=== PATIENT | male | born 1940 | race American Indian/Alaskan Native ===

== ENCOUNTER 2018-05-12 21:36 | Inpatient (IN) | payer MEDICARE ==
[2018-05-12 21:37] VITALS: PULSE 54
--- NOTE | 2018-05-12 21:47 | ED PDOC ---
Arrival/HPI - General Time Seen by Provider: 05/12/18 21:37 Historian: Patient, EMS - History of Present Illness Narrative History of Present Illness (Text): 05/12/18 21:43 Deejay Ribera is a 77 year old male, whose past medical history includes CHF, hypertension and hyperlipidemia, COPD, asthma, chronic kidney disease, and PE, who presents to the emergency department brought in by ALS in respiratory distress. Patient reports has been experiencing progressively shortness of breath throughout the day and denies any relief after taking inhaler treatments at home. EMS was notified, patient was given Lasix 40 mg IVP, and placed on CPAP en route to emergency department. Patient states shortness of breath has improved somewhat, but is still present. Patient denies any fever, chills, chest pain, abdominal pain, nausea, vomiting, headache, dizziness, or any other complaints. PMD: Dr. Figueredo Symptom Onset: Gradual Symptom Course: Unchanged Activities at Onset: Light Context: Home Past Medical History - Provider Review Nursing Documentation Reviewed: Yes - Infectious Disease Hx of Infectious Diseases: None - Tetanus Immunization Tetanus Immunization: Unknown - Cardiac Hx Cardiac Disorders: Yes (CHF,) Hx Hypertension: Yes - Pulmonary Hx Chronic Obstructive Pulmonary Disease (COPD): Yes - Neurological Hx Neurological Disorder: No - HEENT Hx HEENT Disorder: No - Renal Hx Renal Failure: Yes (CRI) - Endocrine/Metabolic Hx Endocrine Disorders: No - Hematological/Oncological Hx Blood Disorders: No Hx Cirrhosis: No (No known liver disease, according to patient's ) - Integumentary Hx Dermatological Disorder: No - Musculoskeletal/Rheumatological Hx Falls: No - Gastrointestinal Hx Gastrointestinal Disorders: Yes - Genitourinary/Gynecological Hx Genitourinary Disorders: No - Psychiatric Hx Anxiety: Yes (?) Hx Substance Use: No - Surgical History Hx Cardiac Catheterization: Yes Hx Open Reduction Internal Fixation: Yes (COMPOUND FRACTURE JAW 1964) - Anesthesia Hx Anesthesia: Yes Hx Anesthesia Reactions: No Hx Malignant Hyperthermia: No - Suicidal Assessment Feels Threatened In Home Enviroment: No Family/Social History - Physician Review Nursing Documentation Reviewed: Yes Family/Social History: Unknown Family HX Smoking Status: Current Some Days Smoker Hx Alcohol Use: No Hx Substance Use: No Allergies/Home Meds Allergies/Adverse Reactions: Allergies No Known Allergies Allergy (Verified 05/13/18 00:13) VERIFIED 06/07/2014 Home Medications: Home Meds Medication Instructions Recorded Confirmed Lasix 40 mg PO DAILY 07/12/14 05/13/18 Methylprednisolone 4 mg PO DAILY 07/12/14 05/13/18 Aspirin [Adult Low Dose Aspirin EC] 81 mg PO DAILY 05/13/18 05/13/18 Atorvastatin [Lipitor] 40 mg PO DAILY 05/13/18 05/13/18 Calcitriol [Rocaltrol] 0.25 mcg PO DAILY 05/13/18 05/13/18 Calcium Acetate [Phoslo] 667 cap PO BID 05/13/18 05/13/18 Cholecalciferol (Vitamin D3) 50,000 unit PO QWK 05/13/18 05/13/18 [Vitamin D3] Ferrous Sulfate [Feosol] 325 mg PO DAILY 05/13/18 05/13/18 Fluticasone/Vilanterol [Breo 1 puff IH DAILY 05/13/18 05/13/18 Ellipta 200-25 Mcg INH] Egnar-3/Dha/Epa/Fish Oil [Egnar 3 1 cap PO DAILY 05/13/18 05/13/18 500 Softgel] amLODIPine [Norvasc] 10 mg PO DAILY 05/13/18 05/13/18 Review of Systems - Physician Review All systems were reviewed & negative as marked: Yes - Review of Systems Constitutional: Normal. absent: Fevers Eyes: Normal ENT: Normal Respiratory: SOB Cardiovascular: Normal. absent: Chest Pain Gastrointestinal: Normal Skin: Normal Psychiatric: Normal Physical Exam Vital Signs Reviewed: Yes Vital Signs Temp Pulse Resp BP Pulse Ox 05/13/18 01:20 97.9 F 63 12 123/51 L 98 05/12/18 23:09 92 H 14 133/64 100 05/12/18 22:00 14 100 05/12/18 21:42 64 29 H 107/59 L 100 Temperature: Afebrile Blood Pressure: Normal Pulse: Regular Respiratory Rate: Tachypneic (on CPAP) Appearance: Positive for: Non-Toxic, Comfortable Pain Distress: None Mental Status: Positive for: Alert and Oriented X 3 - Systems Exam Head: Present: Atraumatic, Normocephalic Pupils: Present: PERRL Extroacular Muscles: Present: EOMI Conjunctiva: Present: Normal Mouth: Present: Moist Mucous Membranes Neck: Present: Normal Range of Motion Respiratory/Chest: Present: Decreased Breath Sounds (Poor air entry bilaterally) , Tachypneic. No: Respiratory Distress, Accessory Muscle Use Cardiovascular: Present: Regular Rate and Rhythm, Normal S1, S2. No: Murmurs Abdomen: No: Tenderness, Distention, Peritoneal Signs Back: Present: Normal Inspection Upper Extremity: Present: Normal Inspection. No: Cyanosis, Edema Lower Extremity: Present: Normal Inspection. No: Edema Neurological: Present: GCS=15, CN II-XII Intact, Speech Normal Skin: Present: Warm, Dry, Normal Color. No: Rashes Psychiatric: Present: Alert, Oriented x 3, Normal Insight, Normal Concentration Medical Decision Making ED Course and Treatment: 05/12/18 21:43 Impression: 77 year old male brought in for respiratory distress on CPAP. Plan: -- EKG -- Chest X-Ray -- Labs, cardiac enzymes, BNP, blood cultures -- Reassess and disposition Prior Visits: Notes and results from previous visits were reviewed. Progress Notes: Reviewed EKG, a fib at 74 bpm. LAD. RBBB. Non-specific ST/T wave changes. 05/12/18 22:37 Chest X-Ray reviewed, shows cardiomegaly, no pneumonia. 05/12/18 22:40 Labs reviewed, BUN: 100, creatinine: 3.3, hemoglobin: 4.4, hematocrit: 14.6. Blood type and screen, packed RBCs ordered. 05/12/18 23:00 BiPAP discontinued. Case discussed with medical office clerk class a regional drivers, who is aware and agrees with plan. Financial Services Auditor paged. 05/12/18 23:[address] Jo, angiographer, who is aware and agrees to evaluate pt in emergency department for possible CCU admission. 05/13/18 00:12 Dr. Jo and medical office clerk to emergency department to evaluate pt. Pt admitted to CCU for anemia and renal failure under the hospitalist service. 05/13/18 02:45 CT Abdomen and Pelvis reviewed, shows: Lung bases: Unremarkable. No mass. No consolidation. Heart: Incidental note made of lipomatous hypertrophy of the intra-atrial septum ABDOMEN: Liver: Unremarkable. Gallbladder and bile ducts: Unremarkable. No calcified stones. No ductal dilation. Pancreas: Unremarkable. No ductal dilation. Spleen: Unremarkable. No splenomegaly. Adrenals: Unremarkable. No mass. Kidneys and ureters: Simple right renal cyst measures 2.5 cm No obstructing stones. No hydronephrosis. Stomach and bowel: Equivocal pneumatosis of the distal esophagus. The patient does not appear to have undergone fundoplication. No periesophageal inflammatory changes present. Findings may reflect artifact, however further evaluation recommended if hematemesis, or epigastric symptoms are present. No obstruction. No mucosal thickening. PELVIS: Appendix: No findings to suggest acute appendicitis. Bladder: The urinary bladder is questionably thickwalled. This may reflect incomplete distention. However correlation with UA is recommended to exclude cystitis. No stones. Reproductive: Unremarkable as visualized. ABDOMEN and PELVIS: Intraperitoneal space: See above. Bones/joints: No acute fracture. No dislocation. Soft tissues: Fat containing umbilical hernia is noted. Vasculature: Unremarkable. No abdominal aortic aneurysm. Lymph nodes: Unremarkable. No enlarged lymph nodes. IMPRESSION: 1. Equivocal pneumatosis of the distal esophagus. The patient does not appear to have undergone fundoplication. No periesophageal inflammatory changes present. Findings may reflect artifact, however further evaluation recommended if hematemesis, or epigastric symptoms are present. 2. Equivocal cystitis. Dictated and Authenticated by: Kevan Rodríguez MD 05/13/2018 2:45 AM Eastern Time ([place]) 05/13/18 03:09 Dr. Jo, angiographer, made aware of CT Abd/Pelvis findings. - Lab Interpretations Lab Results: 05/12/18 21:45 05/12/18 21:45 Lab Results 05/12/18 22:50: Blood Type O POSITIVE, Antibody Screen Negative, Crossmatch See Detail, BBK History Checked Patient has bt 05/12/18 21:45: Retic Count 3.60 H 05/12/18 21:45: Serum Osmolality 333 H 05/12/18 21:45: Iron 105, TIBC 245 L, % Saturation 43 05/12/18 21:45: Sodium 142, Potassium 5.2 H, Chloride 109 H, Carbon Dioxide 16 L , Anion Gap 23 H, BUN 100 H, Creatinine 3.3 H, Est GFR ( Amer) 22, Est GFR (Non-Af Amer) 18, Random Glucose 177 H, Calcium 8.7, Magnesium 1.7, Total Bilirubin 0.1 L, AST 15 L, ALT 17, Alkaline Phosphatase 40, Lactate Dehydrogenase 417, Total Creatine Kinase 59, Troponin I 0.06, NT-Pro-B Natriuret Pep 268, Total Protein 5.4 L, Albumin 3.1, Globulin 2.3, Albumin/ Globulin Ratio 1.4 05/12/18 21:45: WBC 15.1 H, RBC 1.73 L, Hgb 4.4 L*, Hct 14.6 L*, MCV 84.4, MCH 25.4, MCHC 30.1 L, RDW 16.5 H, Plt Count 215, MPV 9.5, Gran % 76.6 H, Lymph % ( Auto) 18.4 L, [place] % (Auto) 4.5, Eos % (Auto) 0.3 L, Baso % (Auto) 0.2, Gran # 11.59 H, Lymph # (Auto) 2.8, [place]t # (Auto) 0.7 H, Eos # (Auto) 0.0, Baso # (Auto ) 0.03 05/12/18 21:45: PT 14.3 H, INR 1.25, APTT 25.5 05/12/18 21:45: pCO2 35, pO2 495.0 H, HCO3 15.7 L, ABG pH 7.26 L, ABG Total CO2 16.8 L, ABG O2 Saturation 100.8 H, ABG O2 Content 7.4 L, ABG Base Excess -10.4 L , ABG Hemoglobin 4.3 L, ABG Carboxyhemoglobin 1.8 H, POC ABG HHb (Measured) - 0.8 L, ABG Methemoglobin 0.9, ABG O2 Capacity 7.3 L, Hgb O2 Saturation 98.0, FiO2 100.0 I have reviewed the lab results: Yes Interpretation: Abnormal lab values - RAD Interpretation Radiology Orders: 05/12/18 21:48 CHEST PORTABLE [RAD] Stat 05/12/18 23:48 ABD & PELVIS W/O PO OR IV CONT [CT] Stat Blood Bank Attendant: ED Physician, Radiologist - EKG Interpretation Interpreted by ED Physician: Yes Type: 12 lead EKG - Medication Orders Current Medication Orders: Pantoprazole Sodium (Protonix Inj) 40 mg IVP Q12 NAOMIE Last Admin: 05/13/18 03:18 Dose: 40 mg IVP Administration Document 05/13/18 03:18 PD (Rec: 05/13/18 03:[address]) Charges for Administration # of IVP Administrations 1 - Scribe Statement The provider has reviewed the documentation as recorded by the Altaf Flores Provider Scribe Attestation: All medical record entries made by the Scribe were at my direction and personally dictated by me. I have reviewed the chart and agree that the record accurately reflects my personal performance of the history, physical exam, medical decision making, and the department course for this patient. I have also personally directed, reviewed, and agree with the discharge instructions and disposition. Disposition/Present on Arrival - Present on Arrival Any Indicators Present on Arrival: No History of DVT/PE: No History of Uncontrolled Diabetes: No Urinary Catheter: No History of Decub. Ulcer: No History Surgical Site Infection Following: None - Disposition Have Diagnosis and Disposition been Completed?: Yes Diagnosis: Anemia, COPD (chronic obstructive pulmonary disease) with chronic bronchitis Disposition: HOSPITALIZED Disposition Time: 00:10 Condition: FAIR
[2018-05-12 21:50] LABS: ARTERIAL BLOOD GAS HCO3 15.7 mmol/L (21-28); ARTERIAL BLOOD GAS HEMOGLOBIN 4.3 g/dL (11.7-17.4); ARTERIAL BLOOD GAS O2 CAPACITY 7.3 mL/dl (16-24); ARTERIAL BLOOD GAS O2 CONTENT 7.4 ML/dl (15-23); ARTERIAL BLOOD GAS O2 SAT 100.8 % (95-98); ARTERIAL BLOOD GAS PCO2 35 mm/Hg (35-45); ARTERIAL BLOOD GAS PH 7.26 (7.35-7.45); ARTERIAL BLOOD GAS TCO2 16.8 mmol.L (22-28)
[2018-05-12 22:26] LABS: BASO # 0.03 K/mm3 (0.0-2.0); BASO % 0.2 % (0.0-3.0); EOS % 0.3 % (1.5-5.0); GRAN # 11.59 (1.4-6.5); GRAN % 76.6 % (50.0-68.0); LYMPH # 2.8 (1.2-3.4); LYMPH % 18.4 % (22.0-35.0); MEAN CELL VOLUME 84.4 fl (80.0-105.0); MEAN CORPUSCULAR HEMOGLOBIN 25.4 pg (25.0-35.0); MEAN CORPUSCULAR HGB CONC 30.1 g/dl (31.0-37.0); MEAN PLATELET VOLUME 9.5 fl (7.0-11.0); MONO # 0.7 (0.1-0.6); MONO % 4.5 % (1.0-6.0); RBC 1.73 10^6/uL (3.5-6.1); RED CELL DISTRIBUTION WIDTH 16.5 % (11.5-14.5); WHITE BLOOD COUNT 15.1 10^3/ul (4.5-11.0)
[2018-05-12 22:36] LABS: ALB/GLOB RATIO 1.4 (1.1-1.8); ALBUMIN 3.1 g/dL (3.0-4.8); CALCIUM 8.7 mg/dL (8.4-10.5)
[2018-05-12 22:37] LABS: HEMOGLOBIN 4.4 g/dL (14.0-18.0)
[2018-05-12 22:41] LABS: INR 1.25; PARTIAL THROMBOPLASTIN TIME 25.5 Seconds (25.1-36.5); PROTHROMBIN TIME 14.3 SECONDS (9.4-12.5)
[2018-05-12 22:47] LABS: TROPONIN I 0.06 ng/mL
--- NOTE | 2018-05-13 01:31 | CP.PCM.CON ---
History of Present Illness - History of Present Illness History of Present Illness: ICU Consult Note for: Dr. Jo Reason for Consult: Severe anemia and Renal failure Pt is a 77yo M with pmhx of CHF, HTN, HLD, COPD, asthma, CKD, and PE who presented to the ED with respiratory distress and was placed on CPAP. Upon examination of the patient, he stated that the respiratory distress resolved completely and was taken off CPAP and had O2 sat @ 99% on 2L NC. Pt stated that the respiratory distress was related to a bout of abdominal cramping which he has been experiencing for the past 3 days. He states that about 3 days ago he ate some "rotten" liverwurst and had many bouts of diarrhea all night. He denies having any blood in the feces. He then states that the diarrhea resolved the next day, but the pt was without appetite and had not eaten a meal in the past 2 days. He denies any further bouts of diarrhea. He currently denies having fevers, chills, headaches, dizziness, lightheadedness, fatigue, chest pain, palpitations, diarrhea currently, n/v, dysuria, numbness or tingling. Pmhx: CHF, HTN, HLD, COPD, asthma, CKD, and PE PSHx: tracheostomy and PEG tube 06/27, ORIF of jaw 1967 Social Hx: current smoker, but says its not as regular. Denies EtOH abuse, denies illicit drug use Medications: Norvasc 10mg QD, Breo, Ferrous sulfate 325 QD, Vit D3 50K / week, phoslo 667 cap BID, Calcitriol .25mcg QD, Lipitor 40mg QD, ASA 81mg QD All: NKDA Family Hx: Pt denies FM, states it is unknown Review of Systems - Review of Systems All systems: reviewed and no additional remarkable complaints except - Constitutional Constitutional: absent: Chills, Fatigue, Fever, Headache, Lethargy, Malaise, Weakness - EENT Eyes: absent: Change in Vision - Cardiovascular Cardiovascular: Dyspnea on Exertion (States can move 50 feet but has been this way for 5 years), Edema. absent: Chest Pain, Diaphoresis, Lightheadedness, Palpitations - Respiratory Respiratory: absent: Cough, Hemoptysis, Wheezing - Gastrointestinal Gastrointestinal: Abdominal Pain (crampy and diffuse). absent: Diarrhea, Hematochezia, Melena, Nausea, Vomiting - Genitourinary Genitourinary: absent: Dysuria, Hematuria, Urinary Frequency - Integumentary Integumentary: absent: Rash - Neurological Neurological: absent: Dizziness, Numbness, Sensory Deficit, Weakness Past Patient History - Infectious Disease Hx of Infectious Diseases: None - Tetanus Immunizations Tetanus Immunization: Unknown - Past Medical History & Family History Past Medical History?: Yes - Past Social History Smoking Status: Current Some Days Smoker - CARDIAC Hx Cardiac Disorders: Yes (CHF,) Hx Hypertension: Yes - PULMONARY Hx Chronic Obstructive Pulmonary Disease (COPD): Yes - NEUROLOGICAL Hx Neurological Disorder: No - HEENT Hx HEENT Problems: No - RENAL Hx Renal Failure: Yes (CRI) - ENDOCRINE/METABOLIC Hx Endocrine Disorders: No - HEMATOLOGICAL/ONCOLOGICAL Hx Blood Disorders: No Hx Cirrhosis: No (No known liver disease, according to patient's ) - INTEGUMENTARY Hx Dermatological Problems: No - MUSCULOSKELETAL/RHEUMATOLOGICAL Hx Falls: No - GASTROINTESTINAL Hx Gastrointestinal Disorders: Yes - GENITOURINARY/GYNECOLOGICAL Hx Genitourinary Disorders: No - PSYCHIATRIC Hx Anxiety: Yes (?) Hx Substance Use: No - SURGICAL HISTORY Hx Cardiac Catheterization: Yes Hx Open Reduction Internal Fixation: Yes (COMPOUND FRACTURE JAW 1964) - ANESTHESIA Hx Anesthesia: Yes Hx Anesthesia Reactions: No Hx Malignant Hyperthermia: No Meds Allergies/Adverse Reactions: Allergies Allergy/AdvReac Type Severity Reaction Status Date / Time No Known Allergies Allergy Verified 05/13/18 00:13 Physical Exam - Constitutional Appears: Well, Non-toxic, No Acute Distress - Head Exam Head Exam: ATRAUMATIC, NORMAL INSPECTION, NORMOCEPHALIC - Eye Exam Eye Exam: EOMI, Normal appearance, PERRL Pupil Exam: NORMAL ACCOMODATION - ENT Exam ENT Exam: Mucous Membranes Dry - Respiratory Exam Respiratory Exam: Clear to Auscultation Bilateral, NORMAL BREATHING PATTERN. absent: Decreased Breath Sounds, Wheezes - Cardiovascular Exam Cardiovascular Exam: REGULAR RHYTHM, RRR, +S1. absent: Rubs - GI/Abdominal Exam GI & Abdominal Exam: Hernia, Normal Bowel Sounds, Soft. absent: Diminished Bowel Sounds, Firm, Guarding, Rebound - Back Exam Additional comments: Stage 3 sacral decubitus ulcer was noted on pt on the superior portion of the intergluteal cleft, no surrounding erythema, purulence or areas of fluctance noted. - Neurological Exam Neurological exam: Alert, Oriented x3 - Psychiatric Exam Psychiatric exam: Normal Affect, Normal Mood - Skin Skin Exam: Cyanosis, Dry, Intact, Normal Color, Petechiae, Rash, Warm Results - Vital Signs Recent Vital Signs: Last Vital Signs Temp Pulse 92 H 05/12/18 23:09 Resp 14 05/12/18 23:09 BP 133/64 05/12/18 23:09 Pulse Ox 100 05/12/18 23:09 - Labs Result Diagrams: 05/12/18 21:45 05/12/18 21:45 Assessment & Plan - Assessment and Plan (Free Text) Assessment: Pt is a 77yo M with pmhx of CHF, HTN, HLD, COPD, asthma, CKD, and PE who presented to the ED with respiratory distress and was placed on CPAP. On CBC was noted to have Hb of 4, though it currently asymptomatic and no active bleed noted on exam. Plan: Respiratrory - Respiratory Distress 2/2 abdominal cramping upon existing COPD now resolved: - Pt was initially brought into ED on CPAP started enroute to ED by paramedics. Pt is now sating 100% on 2L NC - Chest X-Ray reviewed, shows cardiomegaly, no pneumonia. - Cont. Breo PRN Heme: - Asymptomatic Normocytic Anemia suspected due to CKD: - Pt was noted to have a Hgb of 4.4 HCT 14.6 on CBC. No evidence of active bleed on exam - Transfusing PRBCs slowly due to CHF hx - Ferritin, TIBC, Fe levels - Folate, B12 - f/u Blood smear - f/u CBC in AM - f/u retic count Cardiac: - HFpEF of >70% - Found on Echo done on 03/01 - Will slowly transfuse blood and continue to monitor for clinical signs of fluid overload - HTN: - Will continue home Norvasc 10mg Nephro: - SANDRA on CKD: - Noted to have BUN: 100 and Cr: 3.3, which is elevated from baseline Cr of 1.4 - Cr random urine - Urea Nitrogen, random urine - Sodium, random urine - Eosinophils urine - Nephro consult Musculoskeletal: - Grade 2 sacral ulcer noted on exam - Consulted wound care - Turn pt Q2 - Date & Time Date: 05/13/18 Time: 05:12
[2018-05-13 01:47] LABS: IRON 105 ug/dL (45-180)
[2018-05-13 01:56] LABS: % IRON SATURATION 43 % (20-55); TOTAL IRON BINDING CAPACITY 245 ug/dL (261-462)
[2018-05-13 04:09] VITALS: BMI 36.0
--- NOTE | 2018-05-13 06:10 | CP.PCM.PCO ---
Attending/Attestation - Attestation I have personally seen and examined this patient.: Yes I have fully participated in the care of the patient.: Yes I have reviewed all pertinent clinical information: Yes Notes (Text): 05/13/18 06:03 Patient seen with the resident. Assessment * Symptomatic anemia but appears chronic, but possibility of acute as not provided in the history but in icu the stool was dark and positive for guiac, on abd Ct air within the esophageal wall could be the source of bleeding as well. 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 Justa jc. * Podiatry eval for frannie boots * See orders for detail.
--- NOTE | 2018-05-13 06:25 | CP.PCM.HP ---
<Dorene Dang - Last Filed: 05/13/18 09:30> History of Present Illness - History of Present Illness History of Present Illness: H&P Note for: Dr. Jo CC: Abd pain and SOB Pt is a 77yo M with pmhx of CHF, HTN, HLD, COPD, asthma, CKD, and PE who presented to the ED with respiratory distress and was placed on CPAP. Pt stated that the respiratory distress was related to a bout of abdominal cramping which he has been experiencing for the past 3 days. He states that about 3 days ago he ate some "rotten" liverwurst and had many bouts of diarrhea all night. He denies having any blood in the feces. He then states that the diarrhea resolved the next day, but the pt was without appetite and had not eaten a meal in the past 2 days. He denies any further bouts of diarrhea. He currently denies having fevers, chills, headaches, dizziness, lightheadedness, fatigue, chest pain, palpitations, diarrhea currently, n/v, dysuria, numbness or tingling. Pmhx: CHF, HTN, HLD, COPD, asthma, CKD, and PE PSHx: tracheostomy and PEG tube 06/27, ORIF of jaw 1968 Social Hx: current smoker, but says its not as regular. Denies EtOH abuse, denies illicit drug use Medications: Norvasc 10mg QD, Breo, Ferrous sulfate 325 QD, Vit D3 50K / week, phoslo 667 cap BID, Calcitriol .25mcg QD, Lipitor 40mg QD, ASA 81mg QD All: NKDA Family Hx: Pt denies FM, states it is unknown Present on Admission - Present on Admission Any Indicators Present on Admission: Yes History of DVT/PE: Yes Review of Systems - Constitutional Constitutional: absent: Chills, Fever, Headache, Lethargy, Malaise, Weakness - EENT Eyes: absent: Change in Vision - Cardiovascular Cardiovascular: Dyspnea on Exertion (can move 50 ft, been this way for 5 years) , Edema. absent: Chest Pain, Diaphoresis, Lightheadedness, Palpitations - Respiratory Respiratory: absent: Cough, Hemoptysis, Wheezing - Gastrointestinal Gastrointestinal: Abdominal Pain (crampy and diffuse). absent: Diarrhea, Hematochezia, Melena, Nausea, Vomiting - Genitourinary Genitourinary: absent: Dysuria, Hematuria, Urinary Frequency - Integumentary Integumentary: absent: Lesions, Rash - Neurological Neurological: absent: Dizziness, Numbness, Weakness Past Patient History - Infectious Disease Hx of Infectious Diseases: None - Tetanus Immunizations Tetanus Immunization: Unknown - Past Medical History & Family History Past Medical History?: Yes - Past Social History Smoking Status: Current Some Days Smoker - CARDIAC Hx Cardiac Disorders: Yes (CHF,) Hx Hypertension: Yes - PULMONARY Hx Chronic Obstructive Pulmonary Disease (COPD): Yes - NEUROLOGICAL Hx Neurological Disorder: No - HEENT Hx HEENT Problems: No - RENAL Hx Renal Failure: Yes (CRI) - ENDOCRINE/METABOLIC Hx Endocrine Disorders: No - HEMATOLOGICAL/ONCOLOGICAL Hx Blood Disorders: No Hx Cirrhosis: No (No known liver disease, according to patient's ) - INTEGUMENTARY Hx Dermatological Problems: No - MUSCULOSKELETAL/RHEUMATOLOGICAL Hx Falls: No - GASTROINTESTINAL Hx Gastrointestinal Disorders: Yes - GENITOURINARY/GYNECOLOGICAL Hx Genitourinary Disorders: No - PSYCHIATRIC Hx Anxiety: Yes (?) Hx Substance Use: No - SURGICAL HISTORY Hx Cardiac Catheterization: Yes Hx Open Reduction Internal Fixation: Yes (COMPOUND FRACTURE JAW 1964) - ANESTHESIA Hx Anesthesia: Yes Hx Anesthesia Reactions: No Hx Malignant Hyperthermia: No Meds Allergies/Adverse Reactions: Allergies Allergy/AdvReac Type Severity Reaction Status Date / Time No Known Allergies Allergy Verified 05/13/18 00:13 Physical Exam - Constitutional Appears: Well, Non-toxic, No Acute Distress - Head Exam Head Exam: ATRAUMATIC, NORMAL INSPECTION, NORMOCEPHALIC - Eye Exam Eye Exam: EOMI, Normal appearance, PERRL - ENT Exam ENT Exam: Mucous Membranes Dry - Respiratory Exam Respiratory Exam: Clear to Auscultation Bilateral, NORMAL BREATHING PATTERN. absent: Decreased Breath Sounds, Wheezes - Cardiovascular Exam Cardiovascular Exam: REGULAR RHYTHM, RRR, +S1, +S2. absent: Gallop, Rubs, Systolic Murmur - GI/Abdominal Exam GI & Abdominal Exam: Normal Bowel Sounds, Soft. absent: Distended, Guarding, Rigid Results - Vital Signs Recent Vital Signs: Last Vital Signs Temp 98.2 F 05/13/18 06:05 Pulse 62 05/13/18 06:05 Resp 15 05/13/18 06:05 BP 129/58 L 05/13/18 06:05 Pulse Ox 100 05/13/18 05:10 - Labs Result Diagrams: 05/13/18 05:45 05/13/18 05:45 Labs: Laboratory Results - last 24 hr 05/13/18 05/13/18 01:06 03:00 Urine Eosinophils Negative Stool Occult Blood Positive H Assessment & Plan - Assessment and Plan (Free Text) Assessment: Pt is a 77yo M with pmhx of CHF, HTN, HLD, COPD, asthma, CKD, and PE who presented to the ED with respiratory distress and was placed on CPAP. Upon examination of the patient, he stated that the respiratory distress resolved completely and was taken off CPAP and had O2 sat @ 99% on 2L NC. On CBC was noted to have Hb of 4, though it currently asymptomatic and no active bleed noted on exam. Plan: 1) Respiratory Distress 2/2 abdominal cramping upon existing COPD now resolved: - Pt was initially brought into ED on CPAP started enroute to ED by paramedics. Pt is now sating 100% on 2L NC - Chest X-Ray reviewed, shows cardiomegaly, no pneumonia. - Cont. Breo PRN 2) Asymptomatic Normocytic Anemia suspected due to CKD: - Pt was noted to have a Hgb of 4.4 HCT 14.6 on CBC. No evidence of active bleed on exam - Transfusing PRBCs slowly due to CHF hx - Ferritin, TIBC, Fe levels - Folate, B12 - f/u Blood smear - f/u CBC in AM - f/u retic count 3) HFpEF of >70% - Found on Echo done on 03/01 - Will slowly transfuse blood and continue to monitor for clinical signs of fluid overload 4) HTN: - Will continue home Norvasc 10mg 5) SANDRA on CKD: - Noted to have BUN: 100 and Cr: 3.3, which is elevated from baseline Cr of 1.4 - Cr random urine - Urea Nitrogen, random urine - Sodium, random urine - Eosinophils urine - Nephro consult 6) Grade 2 sacral ulcer noted on exam - Consulted wound care - Turn pt Q2 Discussed with Dr. Sandro Dang PGY1 - Date & Time Date: 05/13/18 Time: 09:04 <Eddie Jo P - Last Filed: 05/14/18 07:39> Results - Vital Signs Recent Vital Signs: Last Vital Signs Temp 97.2 F L 05/13/18 18:00 Pulse 57 L 05/13/18 18:10 Resp 25 H 05/13/18 18:10 BP 132/59 L 05/13/18 18:00 Pulse Ox 90 L 05/13/18 18:10 - Labs Result Diagrams: 05/13/18 23:35 05/13/18 05:45 Labs: Laboratory Results - last 24 hr 05/13/18 05/13/18 05/13/18 09:30 10:28 11:40 WBC 18.6 H RBC 2.73 L Hgb 7.8 L D Hct 23.4 L MCV 85.7 MCH 28.6 MCHC 33.3 RDW 15.3 H Plt Count 162 MPV 9.4 Gran % Lymph % (Auto) [place] % (Auto) Eos % (Auto) Baso % (Auto) Gran # Lymph # (Auto) [place] # (Auto) Eos # (Auto) Baso # (Auto) Lactic Acid 1.1 Troponin I 0.07 Urine Color Urine Appearance Urine pH Ur Specific [place] Urine Protein Urine Glucose (UA) Urine Ketones Urine Blood Urine Nitrate Urine Bilirubin Urine Urobilinogen Ur Leukocyte Esterase Urine RBC Urine WBC Ur Epithelial Cells Ur Random Creatinine Ur Random Sodium Ur Random Urea Nitrogn 05/13/18 05/13/18 05/13/18 18:21 18:21 19:40 WBC RBC Hgb Hct MCV MCH MCHC RDW Plt Count MPV Gran % Lymph % (Auto) [place] % (Auto) Eos % (Auto) Baso % (Auto) Gran # Lymph # (Auto) [place] # (Auto) Eos # (Auto) Baso # (Auto) Lactic Acid Troponin I 0.08 Urine Color Yellow Urine Appearance Clear Urine pH 5.5 Ur Specific [place] 1.010 Urine Protein Negative Urine Glucose (UA) Negative Urine Ketones Negative Urine Blood Negative Urine Nitrate Negative Urine Bilirubin Negative Urine Urobilinogen 0.2 Ur Leukocyte Esterase Small H Urine RBC TEST NOT PERFORMED Urine WBC 5 - 10 Ur Epithelial Cells 10 - 12 Ur Random Creatinine 50 Ur Random Sodium 49 Ur Random Urea Nitrogn 668 05/13/18 23:35 WBC 14.7 H D RBC 2.88 L Hgb 8.2 L Hct 24.8 L MCV 86.1 MCH 28.5 MCHC 33.1 RDW 15.3 H Plt Count 149 MPV 9.8 Gran % 66.0 Lymph % (Auto) 21.2 L [place] % (Auto) 11.1 H Eos % (Auto) 1.6 Baso % (Auto) 0.1 Gran # 9.70 H Lymph # (Auto) 3.1 [place] # (Auto) 1.6 H Eos # (Auto) 0.2 Baso # (Auto) 0.02 Lactic Acid Troponin I Urine Color Urine Appearance Urine pH Ur Specific [place] Urine Protein Urine Glucose (UA) Urine Ketones Urine Blood Urine Nitrate Urine Bilirubin Urine Urobilinogen Ur Leukocyte Esterase Urine RBC Urine WBC Ur Epithelial Cells Ur Random Creatinine Ur Random Sodium Ur Random Urea Nitrogn Attending/Attestation - Attestation I have personally seen and examined this patient.: Yes I have fully participated in the care of the patient.: Yes I have reviewed all pertinent clinical information: Yes Notes (Text): 05/14/18 07:39 See note on the same day of admission
[2018-05-13 06:44] LABS: BASO # 0.03 K/mm3 (0.0-2.0); BASO % 0.2 % (0.0-3.0); EOS # 0.1 (0.0-0.7); EOS % 0.4 % (1.5-5.0); GRAN # 13.31 (1.4-6.5); GRAN % 73.7 % (50.0-68.0); LYMPH # 2.6 (1.2-3.4); LYMPH % 14.5 % (22.0-35.0); MEAN CELL VOLUME 83.2 fl (80.0-105.0); MEAN CORPUSCULAR HGB CONC 32.5 g/dl (31.0-37.0); MEAN PLATELET VOLUME 9.6 fl (7.0-11.0); MONO % 11.2 % (1.0-6.0); RBC 1.96 10^6/uL (3.5-6.1); RED CELL DISTRIBUTION WIDTH 15.3 % (11.5-14.5); WHITE BLOOD COUNT 18.1 10^3/ul (4.5-11.0)
[2018-05-13 06:46] LABS: HEMOGLOBIN 5.3 g/dL (14.0-18.0)
[2018-05-13 07:12] LABS: ALB/GLOB RATIO 1.3 (1.1-1.8); CALCIUM 8.6 mg/dL (8.4-10.5)
[2018-05-13] MEDS ORDERED: Pantoprazole 40mg/100mL NS 40 MG/100 ML BAG IVPB SCH (08:00)
--- NOTE | 2018-05-13 08:31 | RAD ---
Date of service: 05/12/2018 HISTORY: sob COMPARISON: No prior. FINDINGS: LUNGS: No active pulmonary disease. PLEURA: No significant pleural effusion identified, no pneumothorax apparent. CARDIOVASCULAR: Normal. OSSEOUS STRUCTURES: No significant abnormalities. VISUALIZED UPPER ABDOMEN: Normal. OTHER FINDINGS: None. IMPRESSION: No active disease.
--- NOTE | 2018-05-13 08:44 | CT ---
Date of service: 05/13/2018 PROCEDURE: CT Abdomen and Pelvis without intravenous contrast HISTORY: abd pain COMPARISON: None. TECHNIQUE: Helical CT of the abdomen and pelvis was performed without oral or intravenous contrast as per referring physician request. Contrast dose: None Radiation dose: Total exam DLP = 1041.64 mGy-cm. This CT exam was performed using one or more of the following dose reduction techniques: Automated exposure control, adjustment of the mA and/or kV according to patient size, and/or use of iterative reconstruction technique. FINDINGS: LOWER THORAX: Mild hiatal hernia identified. Abnormal emphysematous changes seen related to the esophagus. This may be related to swallowing during the CT examination. Clinically correlate nevertheless. Esophageal mucosal or full-thickness perforation is not excluded with submucous pneumatosis and further clinical correlation is recommended. GI consultation is advised. LIVER: Unremarkable. No gross lesion or ductal dilatation. GALLBLADDER AND BILE DUCTS: Unremarkable. PANCREAS: Unremarkable. No gross lesion or ductal dilatation. SPLEEN: Unremarkable. ADRENALS: Unremarkable. No mass. KIDNEYS AND URETERS: A cyst identified at the midpole right kidney posteriorly, measuring 2.2 cm. No obstructive uropathy, radiodense urolithiasis or significant perinephric reaction. Likely senescent perinephric streaking is seen bilaterally. This is a symmetric finding. Clinically correlate. VASCULATURE: Unremarkable. No aortic aneurysm. BOWEL: The stomach is stent distended with retained food and fluid as well as air with no gross mural thickening demonstrated. Evaluation of the gastrointestinal tract is limited due the lack of oral contrast administration. Nevertheless, the bowel is not appear obstructed and limited retained fecal material scattered throughout the large bowel. APPENDIX: Unremarkable. Normal appendix. PERITONEUM: No ascites or free intrarenal gas. No mesenteric edema. There is a moderate-sized umbilical hernia with the neck measuring 4.1 cm. LYMPH NODES: Unremarkable. No enlarged lymph nodes. BLADDER: Urinary bladder is decompressed limiting evaluation the wall. Cystitis is not completely excluded but is not favored either. No radiodense urolithiasis in the lumen. No gross diverticular changes. REPRODUCTIVE: Unremarkable. BONES: No acute fracture. OTHER FINDINGS: None. IMPRESSION: No radiodense urolithiasis, perinephric fluid collection or obstructive uropathy is appreciate bilaterally. The bilateral ureters appear normal caliber overall. Equivocal cystitis. Please see discussion above. Potential esophageal perforation with pneumatosis versus artifact from swallowing. Consider GI consultation for further characterization. Small umbilical hernia containing only fat. Concordant preliminary report from [facility], 05/13/2018.
[2018-05-13] MEDS: Pantoprazole 40mg/100mL NS 40 MG/100 ML BAG IVPB SCH ×2 (08:45→19:40)
--- NOTE | 2018-05-13 09:11 | CP.PCM.CON ---
<Syeda Alatorre - Last Filed: 05/13/18 09:00> History of Present Illness - History of Present Illness History of Present Illness: GI Fellow PGY5 Consult Note This is a 77yo M with pmhx of CHF, HTN, HLD, COPD, asthma, CKD, Trach/PEG in 2013 with reversal, and PE not on any OAC who presented to the ED with abdominal pain found to be in respiratory distress and was placed on CPAP. He reports severe abdominal cramping which he has been experiencing for the past 3 days after eating liverwurst and had many bouts of diarrhea the first night. He denies having any blood in the feces. Pt denies any vomiting episodes. He then states that the diarrhea resolved the next day, but the pt was without appetite and had not eaten a meal in the past 2 days. 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 Pt was found to have a Hgb of 4.4 on admission. Pt reports that his Hgb was 9 a few weeks ago in the outpt setting. He is supposed to be on iron but has not taken it in 3 weeks due to recent abx use. He had a EGD/Colonoscopy about 1 year ago at [facility] [place] and states everything was fine , no report to verify results. He denies any dysphagia or odynophagia. No use of NSAIDs. ROS: A 12pt ROS was negative except as above Pmhx: As stated in HPI PSHx: tracheostomy and PEG tube 06/27 with reversal, ORIF of jaw 1968 SHx: current smoker, denies EtOH abuse, denies illicit drug use FHx: Pt denies colon cancer Past Patient History - Infectious Disease Hx of Infectious Diseases: None - Tetanus Immunizations Tetanus Immunization: Unknown - Past Medical History & Family History Past Medical History?: Yes - Past Social History Smoking Status: Current Some Days Smoker - CARDIAC Hx Cardiac Disorders: Yes (CHF,) Hx Hypertension: Yes - PULMONARY Hx Chronic Obstructive Pulmonary Disease (COPD): Yes - NEUROLOGICAL Hx Neurological Disorder: No - HEENT Hx HEENT Problems: No - RENAL Hx Renal Failure: Yes (CRI) - ENDOCRINE/METABOLIC Hx Endocrine Disorders: No - HEMATOLOGICAL/ONCOLOGICAL Hx Blood Disorders: No Hx Cirrhosis: No (No known liver disease, according to patient's ) - INTEGUMENTARY Hx Dermatological Problems: No - MUSCULOSKELETAL/RHEUMATOLOGICAL Hx Falls: No - GASTROINTESTINAL Hx Gastrointestinal Disorders: Yes - GENITOURINARY/GYNECOLOGICAL Hx Genitourinary Disorders: No - PSYCHIATRIC Hx Anxiety: Yes (?) Hx Substance Use: No - SURGICAL HISTORY Hx Cardiac Catheterization: Yes Hx Open Reduction Internal Fixation: Yes (COMPOUND FRACTURE JAW 1964) - ANESTHESIA Hx Anesthesia: Yes Hx Anesthesia Reactions: No Hx Malignant Hyperthermia: No Meds Allergies/Adverse Reactions: Allergies Allergy/AdvReac Type Severity Reaction Status Date / Time No Known Allergies Allergy Verified 05/13/18 00:13 - Medications Medications: Current Medications Pantoprazole Sodium (Protonix 40mg Ivpb) 40 mg in 100 mls @ 20 mls/hr IVPB .Q5H NAOMIE Last Admin: 05/13/18 08:45 Dose: 20 mls/hr Physical Exam - Constitutional Appears: Non-toxic, No Acute Distress, Chronically Ill - Head Exam Head Exam: ATRAUMATIC, NORMOCEPHALIC - Eye Exam Eye Exam: EOMI, Normal appearance Pupil Exam: PERRL - ENT Exam ENT Exam: Mucous Membranes Dry - Neck Exam Neck exam: Positive for: Full Rom, Normal Inspection - Respiratory Exam Respiratory Exam: Decreased Breath Sounds, NORMAL BREATHING PATTERN - Cardiovascular Exam Cardiovascular Exam: REGULAR RHYTHM, RRR, +S1, +S2 - GI/Abdominal Exam GI & Abdominal Exam: Normal Bowel Sounds, Soft, Tenderness. absent: Distended, Firm, Guarding, Organomegaly, Rigid - Rectal Exam Rectal Exam: Black Stool - Neurological Exam Neurological exam: Alert, Oriented x3 - Psychiatric Exam Psychiatric exam: Normal Affect, Normal Mood - Skin Skin Exam: Dry, Intact, Normal Color, Warm Results - Vital Signs Recent Vital Signs: Last Vital Signs Temp 97.5 F L 05/13/18 08:49 Pulse 70 05/13/18 08:49 Resp 22 05/13/18 08:49 BP 129/55 L 05/13/18 08:49 Pulse Ox 100 05/13/18 06:50 - Labs Result Diagrams: 05/13/18 05:45 05/13/18 05:45 Labs: Laboratory Results - last 24 hr 05/13/18 05/13/18 05/13/18 01:06 03:00 05:45 WBC RBC Hgb Hct MCV MCH MCHC RDW Plt Count MPV Gran % Lymph % (Auto) [place] % (Auto) Eos % (Auto) Baso % (Auto) Gran # Lymph # (Auto) [place] # (Auto) Eos # (Auto) Baso # (Auto) Sodium 144 Potassium 4.8 Chloride 109 H Carbon Dioxide 21 Anion Gap 19 BUN 109 H Creatinine 3.3 H Est GFR ( Amer) 22 Est GFR (Non-Af Amer) 18 Random Glucose 100 Calcium 8.6 Phosphorus 5.5 H Magnesium 1.8 Total Bilirubin 0.1 L AST 15 L ALT 21 Alkaline Phosphatase 39 Total Protein 5.2 L Albumin 3.0 Globulin 2.3 Albumin/Globulin Ratio 1.3 Urine Eosinophils Negative Stool Occult Blood Positive H 05/13/18 05:45 WBC 18.1 H RBC 1.96 L Hgb 5.3 L* Hct 16.3 L* MCV 83.2 MCH 27.0 MCHC 32.5 RDW 15.3 H Plt Count 184 MPV 9.6 Gran % 73.7 H Lymph % (Auto) 14.5 L [place] % (Auto) 11.2 H Eos % (Auto) 0.4 L Baso % (Auto) 0.2 Gran # 13.31 H Lymph # (Auto) 2.6 [place] # (Auto) 2.0 H Eos # (Auto) 0.1 Baso # (Auto) 0.03 Sodium Potassium Chloride Carbon Dioxide Anion Gap BUN Creatinine Est GFR ( Amer) Est GFR (Non-Af Amer) Random Glucose Calcium Phosphorus Magnesium Total Bilirubin AST ALT Alkaline Phosphatase Total Protein Albumin Globulin Albumin/Globulin Ratio Urine Eosinophils Stool Occult Blood Assessment & Plan - Assessment and Plan (Free Text) Assessment: This is a 77yo M with pmhx of CHF, HTN, HLD, COPD, asthma, CKD, Trach/PEG in 2013 with reversal, and PE not on any OAC who presented to the ED with abdominal pain found to be in respiratory distress. GI consulted for esophageal pneumatosis on imaging. 1. Acute symptomatic anemia 2. Melena 3. 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 Hx of Trach and PEG, reversed 5. SANDRA, elevated BUN 6. UGIB Plan: -Continue supportive care with pain control and anti-emetics -NPO -CT imaging reviewed, recommend surgical cs -Pt hemodynamically stable -Acute anemia with Hgb 4.4-->5.3 s/p 1U PRCs -Rectal exam with black stool and elevated BUN concern for UGIB -UGIB maybe from esophageal ulcer, PUD, AVM -IV PPI Drip -Discussed with ICU team about aggressive resuscitation with blood products in setting of normal EF on Echo 02/2018 -Plan for EGD today after resuscitation and medical optimization -Goal of total 3U PRBC transfused prior to EGD and CBC -Further workup per primary team -Will continue to follow closely and make further recommendations after endoscopic evaluation <Cuco Francisco - Last Filed: 05/13/18 18:36> Meds - Medications Medications: Current Medications Pantoprazole Sodium (Protonix 40mg Ivpb) 40 mg in 100 mls @ 20 mls/hr IVPB .Q5H NAOMIE Last Admin: 05/13/18 08:45 Dose: 20 mls/hr Iron Sucrose 200 mg/ Sodium (Chloride) 110 mls @ 110 mls/hr IVPB DAILY NAOMIE Stop: 05/17/18 10:59 Last Admin: 05/13/18 11:46 Dose: 110 mls/hr Multi-Ingredient Cream (Hydrocerin Cream) 0 ea TOP DAILY NAOMIE Results - Vital Signs Recent Vital Signs: Last Vital Signs Temp 97.9 F 05/13/18 14:00 Pulse 57 L 05/13/18 18:10 Resp 25 H 05/13/18 18:10 BP 132/59 L 05/13/18 18:00 Pulse Ox 90 L 05/13/18 18:10 - Labs Result Diagrams: 05/13/18 11:40 05/13/18 05:45 Labs: Laboratory Results - last 24 hr 05/13/18 05/13/18 05/13/18 01:06 03:00 05:45 WBC RBC Hgb Hct MCV MCH MCHC RDW Plt Count MPV Gran % Lymph % (Auto) [place] % (Auto) Eos % (Auto) Baso % (Auto) Gran # Lymph # (Auto) [place] # (Auto) Eos # (Auto) Baso # (Auto) Sodium 144 Potassium 4.8 Chloride 109 H Carbon Dioxide 21 Anion Gap 19 BUN 109 H Creatinine 3.3 H Est GFR ( Amer) 22 Est GFR (Non-Af Amer) 18 Random Glucose 100 Lactic Acid Calcium 8.6 Phosphorus 5.5 H Magnesium 1.8 Total Bilirubin 0.1 L AST 15 L ALT 21 Alkaline Phosphatase 39 Troponin I Total Protein 5.2 L Albumin 3.0 Globulin 2.3 Albumin/Globulin Ratio 1.3 Urine Eosinophils Negative Stool Occult Blood Positive H 05/13/18 05/13/18 05/13/18 05:45 09:30 10:28 WBC 18.1 H RBC 1.96 L Hgb 5.3 L* Hct 16.3 L* MCV 83.2 MCH 27.0 MCHC 32.5 RDW 15.3 H Plt Count 184 MPV 9.6 Gran % 73.7 H Lymph % (Auto) 14.5 L [place] % (Auto) 11.2 H Eos % (Auto) 0.4 L Baso % (Auto) 0.2 Gran # 13.31 H Lymph # (Auto) 2.6 [place] # (Auto) 2.0 H Eos # (Auto) 0.1 Baso # (Auto) 0.03 Sodium Potassium Chloride Carbon Dioxide Anion Gap BUN Creatinine Est GFR ( Amer) Est GFR (Non-Af Amer) Random Glucose Lactic Acid 1.1 Calcium Phosphorus Magnesium Total Bilirubin AST ALT Alkaline Phosphatase Troponin I 0.07 Total Protein Albumin Globulin Albumin/Globulin Ratio Urine Eosinophils Stool Occult Blood 05/13/18 11:40 WBC 18.6 H RBC 2.73 L Hgb 7.8 L D Hct 23.4 L MCV 85.7 MCH 28.6 MCHC 33.3 RDW 15.3 H Plt Count 162 MPV 9.4 Gran % Lymph % (Auto) [place] % (Auto) Eos % (Auto) Baso % (Auto) Gran # Lymph # (Auto) [place] # (Auto) Eos # (Auto) Baso # (Auto) Sodium Potassium Chloride Carbon Dioxide Anion Gap BUN Creatinine Est GFR ( Amer) Est GFR (Non-Af Amer) Random Glucose Lactic Acid Calcium Phosphorus Magnesium Total Bilirubin AST ALT Alkaline Phosphatase Troponin I Total Protein Albumin Globulin Albumin/Globulin Ratio Urine Eosinophils Stool Occult Blood Attending/Attestation - Attestation I have personally seen and examined this patient.: Yes I have fully participated in the care of the patient.: Yes I have reviewed all pertinent clinical information: Yes Notes (Text): 05/13/18 18:27 This is a 77 year old M with pmhx of CHF, HTN, HLD, COPD, asthma, CKD, Trach/ PEG in 2013 with reversal, and PE not on any OAC who presented to the ED with abdominal pain found to be in respiratory distress. GI consulted for esophageal pneumatosis on imaging and possible GI bleeding s/p 4 units PRBC. Barium esophagogram unremarkable for perforation. 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 For hemostasis 2 cc epinephrine was injected with 3 clips placed. Hemostasis achieved. PPI gtt for 72 hours. Trend cbc daily. Follow up gastric biopsies.
--- NOTE | 2018-05-13 09:57 | CARD ---
APPROVED REPORT Date of service: 05/12/2018 EKG Measurement Heart [id number] <Conclusion> Atrial fibrillation Left axis deviation Right bundle branch block NSSTW changes
--- NOTE | 2018-05-13 10:15 | CP.PCM.CON ---
<MauraChicojhonmike - Last Filed: 05/13/18 11:08> History of Present Illness - History of Present Illness History of Present Illness: Podiatry Consult Note - Dr. Mehta 77 year old male PMHx CHF, HTN, HLD, COPD, asthma, CKD, and PE seen and evaluated at bedside in CCU. Patient was brought to ED for respiratory distress and was admitted for anemia and renal failure. Podiatry consulted for chronic lower extremity edema and superficial ulcerations. Patient well known to podiatry service; patient has been following up in the wound care center for compression dressings to bilateral LE, last seen 05/10/18. At, present, patient offers no complaints to bilateral LE; denies any pain w/o issues with compression dressings. No numbness, burning, or tingling to LE. Denies N/V/F/C/ COX/CP. Review of Systems - Review of Systems All systems: reviewed and no additional remarkable complaints except (as per HPI ) Past Patient History - Infectious Disease Hx of Infectious Diseases: None - Tetanus Immunizations Tetanus Immunization: Unknown - Past Medical History & Family History Past Medical History?: Yes - Past Social History Smoking Status: Current Some Days Smoker - CARDIAC Hx Cardiac Disorders: Yes (CHF,) Hx Hypertension: Yes - PULMONARY Hx Chronic Obstructive Pulmonary Disease (COPD): Yes - NEUROLOGICAL Hx Neurological Disorder: No - HEENT Hx HEENT Problems: No - RENAL Hx Renal Failure: Yes (CRI) - ENDOCRINE/METABOLIC Hx Endocrine Disorders: No - HEMATOLOGICAL/ONCOLOGICAL Hx Blood Disorders: No Hx Cirrhosis: No (No known liver disease, according to patient's ) - INTEGUMENTARY Hx Dermatological Problems: No - MUSCULOSKELETAL/RHEUMATOLOGICAL Hx Falls: No - GASTROINTESTINAL Hx Gastrointestinal Disorders: Yes - GENITOURINARY/GYNECOLOGICAL Hx Genitourinary Disorders: No - PSYCHIATRIC Hx Anxiety: Yes (?) Hx Substance Use: No - SURGICAL HISTORY Hx Cardiac Catheterization: Yes Hx Open Reduction Internal Fixation: Yes (COMPOUND FRACTURE JAW 1964) - ANESTHESIA Hx Anesthesia: Yes Hx Anesthesia Reactions: No Hx Malignant Hyperthermia: No Meds Allergies/Adverse Reactions: Allergies Allergy/AdvReac Type Severity Reaction Status Date / Time No Known Allergies Allergy Verified 05/13/18 00:13 - Medications Medications: Current Medications Pantoprazole Sodium (Protonix 40mg Ivpb) 40 mg in 100 mls @ 20 mls/hr IVPB .Q5H NAOMIE Last Admin: 05/13/18 08:45 Dose: 20 mls/hr Physical Exam - Constitutional Appears: Non-toxic, No Acute Distress - Extremities Exam Additional comments: Bilateral LE physical exam: 4-layer compression dressing clean/dry/intact b/l. Vasc: DP and PT pulses nonpalpable b/l. CFT <3 seconds to digits b/l. Temperature gradient warm to warm b/l. +1 pitting edema present b/l. Neuro: Gross sensation diminished bilaterally. Derm: Superficial abrasion noted to proximoanterior tibia b/l; no drainage; no purulence; no fluctuance; no periwound erythema. Healed ulcerations noted to posterior calf RLE with minimal serosanguinous drainage; no purulence; no fluctuance; no periwound erythema. Venous stasis dermatitis b/l leg. Ortho: No pain on palpation to bilateral LE. Muscle strength 5/5 for all dorsiflexors, plantarflexors, inverters, and everters b/l. - Neurological Exam Neurological exam: Alert, Oriented x3 - Psychiatric Exam Psychiatric exam: Normal Affect, Normal Mood Results - Vital Signs Recent Vital Signs: Last Vital Signs Temp 98 F 05/13/18 09:07 Pulse 75 05/13/18 09:07 Resp 20 05/13/18 09:07 BP 147/51 L 05/13/18 09:07 Pulse Ox 100 05/13/18 06:50 - Labs Result Diagrams: 05/13/18 05:45 05/13/18 05:45 Labs: Laboratory Results - last 24 hr 05/13/18 05/13/18 05/13/18 01:06 03:00 05:45 WBC RBC Hgb Hct MCV MCH MCHC RDW Plt Count MPV Gran % Lymph % (Auto) Carroll % (Auto) Eos % (Auto) Baso % (Auto) Gran # Lymph # (Auto) [place] # (Auto) Eos # (Auto) Baso # (Auto) Sodium 144 Potassium 4.8 Chloride 109 H Carbon Dioxide 21 Anion Gap 19 BUN 109 H Creatinine 3.3 H Est GFR ( Amer) 22 Est GFR (Non-Af Amer) 18 Random Glucose 100 Calcium 8.6 Phosphorus 5.5 H Magnesium 1.8 Total Bilirubin 0.1 L AST 15 L ALT 21 Alkaline Phosphatase 39 Total Protein 5.2 L Albumin 3.0 Globulin 2.3 Albumin/Globulin Ratio 1.3 Urine Eosinophils Negative Stool Occult Blood Positive H 05/13/18 05:45 WBC 18.1 H RBC 1.96 L Hgb 5.3 L* Hct 16.3 L* MCV 83.2 MCH 27.0 MCHC 32.5 RDW 15.3 H Plt Count 184 MPV 9.6 Gran % 73.7 H Lymph % (Auto) 14.5 L Carroll % (Auto) 11.2 H Eos % (Auto) 0.4 L Baso % (Auto) 0.2 Gran # 13.31 H Lymph # (Auto) 2.6 Carroll # (Auto) 2.0 H Eos # (Auto) 0.1 Baso # (Auto) 0.03 Sodium Potassium Chloride Carbon Dioxide Anion Gap BUN Creatinine Est GFR ( Amer) Est GFR (Non-Af Amer) Random Glucose Calcium Phosphorus Magnesium Total Bilirubin AST ALT Alkaline Phosphatase Total Protein Albumin Globulin Albumin/Globulin Ratio Urine Eosinophils Stool Occult Blood Assessment & Plan - Assessment and Plan (Free Text) Assessment: 77 year old male PMHx CHF, HTN, HLD, COPD, asthma, CKD, and PE with bilateral LE edema and superficial ulcerations, resolved Plan: Patient seen and evaluated alongside attending, Dr. Mehta VSBibi Wounds to bilateral LE resolved, no dressing at this time QD Eucerin cream Podiatry will continue to follow <Nancy Mehta - Last Filed: 05/16/18 18:45> Meds - Medications Medications: Current Medications Albuterol/Ipratropium (Duoneb 3 Mg/0.5 Mg (3 Ml) Ud) 3 ml IH [id number] [facility] Last Admin: 05/16/18 13:51 Dose: 3 ml Albuterol/Ipratropium (Duoneb 3 Mg/0.5 Mg (3 Ml) Ud) 3 ml IH [id number] PRN PRN Reason: Wheezing Iron Sucrose 200 mg/ Sodium (Chloride) 110 mls @ 110 mls/hr IVPB DAILY [facility] Stop: 05/17/18 10:59 Last Admin: 05/16/18 10:13 Dose: 110 mls/hr Methylprednisolone (Medrol) 4 mg PO DAILY [facility] Last Admin: 05/16/18 10:17 Dose: 4 mg Multi-Ingredient Cream (Hydrocerin Cream) 0 ea TOP DAILY NAOMIE Last Admin: 05/16/18 10:13 Dose: 1 appl Pantoprazole Sodium (Protonix Ec Tab) 40 mg PO 0600,1600 NAOMIE Last Admin: 05/16/18 16:39 Dose: 40 mg Results - Vital Signs Recent Vital Signs: Last Vital Signs Temp 98.7 F 05/16/18 14:00 Pulse 60 05/16/18 14:00 Resp 18 05/16/18 14:00 BP 128/75 05/16/18 14:00 Pulse Ox 98 05/16/18 14:00 - Labs Result Diagrams: 05/16/18 16:42 05/16/18 07:15 Labs: Laboratory Results - last 24 hr 05/16/18 05/16/18 05/16/18 07:15 07:15 16:42 WBC 12.0 H 12.7 H RBC 2.53 L 2.63 L Hgb 7.2 L 7.4 L Hct 22.8 L 23.5 L MCV 90.1 89.4 MCH 28.5 28.1 MCHC 31.6 31.5 RDW 16.9 H 17.1 H Plt Count 185 182 MPV 9.4 10.0 Gran % 68.2 H 77.5 H Lymph % (Auto) 19.8 L 12.3 L Carroll % (Auto) 9.5 H 8.6 H Eos % (Auto) 2.3 1.4 L Baso % (Auto) 0.2 0.2 Gran # 8.22 H 9.84 H Lymph # (Auto) 2.4 1.6 Carroll # (Auto) 1.1 H 1.1 H Eos # (Auto) 0.3 0.2 Baso # (Auto) 0.02 0.03 Sodium 145 Potassium 5.0 Chloride 112 H Carbon Dioxide 23 Anion Gap 14 BUN 62 H Creatinine 3.0 H Est GFR ( Amer) 25 Est GFR (Non-Af Amer) 20 Random Glucose 89 Calcium 8.1 L Phosphorus 3.7 Magnesium 2.0 Total Bilirubin 0.2 AST 13 L ALT 21 Alkaline Phosphatase 52 Total Protein 5.7 L Albumin 3.1 Globulin 2.6 Albumin/Globulin Ratio 1.2 Attending/Attestation - Attestation I have personally seen and examined this patient.: Yes I have fully participated in the care of the patient.: Yes I have reviewed all pertinent clinical information: Yes
[2018-05-13] MEDS ORDERED: Darbepoetin Alfa 100 mcg/ml Inj SC ONE (10:40)
--- NOTE | 2018-05-13 10:40 | CP.PCM.CON ---
History of Present Illness - History of Present Illness History of Present Illness: Nephrology Consultation Note: Assessment: critical SANDRA likely due to GI volume loss symptomatic severe anemia with FOB + CKD stage 4 with 443 mg proteinuria likely Due to HTN HTN kidney disease (I12.9) Obesity Anemia of chronic disease hx of COPD, CHF, ex smoker, PE on shelter prednisone therapy ? reason Plan no acute need for renal replacement therapy at this time Hypertension control with meds as ordered. pt not on RAAS brittni, will defer it due to advanced CKD Monitor I/O, daily weights and renal function while in hospital started IV iron supplements and dose of aransep 05/13/18 (100 mcg) planned for PRBC transfusion and endoscopic evaluation today. can give lasix as needed GI following ordered SPEP/SKYLAR and serum FLC assay, UA. iron studies. Dose meds/antibiotics for reduced GFR. Avoid fleets enema/magnesium based laxatives. Avoid nephrotoxins/NSAIDs/ iodinated contrast (unless needed emergently) Glycemic control, renal diet. Further work up for as per primary team. Thanks for allowing me to participate in care of your patient. Will follow with you. Please call if any Qs. had d/w team Dr Rivas Hazel Office: [phone] CC; SOB and anemia reason for consult: SANDRA on CKD HPI: Pt is a 77 M with hx of HTN (years), CKD stage 4 (with cr 2.8-3.0) obesity , COPD, CHF, ex smoker, PE, anemia, on shelter prednisone 5mg ? reason presented to hospital with complaints of SOB and multiple episodes of nausea/ vomiting, loose stool, found to have severe Anemia with Hb 4-5 gm/dL range and renal consult for SANDRA on CKD management. Denies chest pain, palpitation, c/o shortness of breath on minimal exertion but better, reports chronic leg swelling but better now. planned for PRBC transfusion and endoscopic evaluation today. Denies OTC/herbal meds/NSAIDs No recent iodinated contrast exposure. GI symptoms better now ROS: denies CP/nausea/vomiting now. c/o exertional SOB. no nausea denies pain abdomen. denies urine complaints except decreased urine output for last few days rest other negative except as mentioned in HPI. 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 obese Vitals reviewed and noted as below Head; Atraumatic, normocephalic ENT: no ulcers no thrush. Tongue is midline. Oropharynx: no rash or ulcers. EYES: b/l PERRLA Neck; supple no lymphadenopathy, no thyromegaly or bruit Lungs: Normal respiratory rate/effort. Breath sounds b/l clear with basal rales + Heart: Normal rate. s1s2 normal. No rub or gallop. Extremities: no edema. No varicose veins. chronic venous stasis changes in leg noted Neurological: Patient is awake alert and follow commands no focal deficit Skin: dry and warm. Normal turgor. No rash. Palpitation: Normal elasticity for age Abdomen: Abdomen is distended . Bowel sounds +. There is no abdominal tenderness , no guarding/rigidity or organomegaly Psych: normal insight. normal affect/mood MSK: no specific joint tenderness or swelling. Digits and nails normal, no deformity : kidney not palpable. exam limited due to obesity. has umblical hernia Labs/imaging/EKG reviewed. Past medical history, past surgical history, social history, allergy reviewed and noted as below Family hx; no hx of CKD. non contributory renal imaging: Rt side cyst outpt urine pr/cr 447 PTH 188 Past Patient History - Infectious Disease Hx of Infectious Diseases: None - Tetanus Immunizations Tetanus Immunization: Unknown - Past Medical History & Family History Past Medical History?: Yes - Past Social History Smoking Status: Current Some Days Smoker - CARDIAC Hx Cardiac Disorders: Yes (CHF,) Hx Hypertension: Yes - PULMONARY Hx Chronic Obstructive Pulmonary Disease (COPD): Yes - NEUROLOGICAL Hx Neurological Disorder: No - HEENT Hx HEENT Problems: No - RENAL Hx Renal Failure: Yes (CRI) - ENDOCRINE/METABOLIC Hx Endocrine Disorders: No - HEMATOLOGICAL/ONCOLOGICAL Hx Blood Disorders: No Hx Cirrhosis: No (No known liver disease, according to patient's ) - INTEGUMENTARY Hx Dermatological Problems: No - MUSCULOSKELETAL/RHEUMATOLOGICAL Hx Falls: No - GASTROINTESTINAL Hx Gastrointestinal Disorders: Yes - GENITOURINARY/GYNECOLOGICAL Hx Genitourinary Disorders: No - PSYCHIATRIC Hx Anxiety: Yes (?) Hx Substance Use: No - SURGICAL HISTORY Hx Cardiac Catheterization: Yes Hx Open Reduction Internal Fixation: Yes (COMPOUND FRACTURE JAW 1964) - ANESTHESIA Hx Anesthesia: Yes Hx Anesthesia Reactions: No Hx Malignant Hyperthermia: No Meds Allergies/Adverse Reactions: Allergies Allergy/AdvReac Type Severity Reaction Status Date / Time No Known Allergies Allergy Verified 05/13/18 00:13 - Medications Medications: Current Medications Pantoprazole Sodium (Protonix 40mg Ivpb) 40 mg in 100 mls @ 20 mls/hr IVPB .Q5H NAOMIE Last Admin: 05/13/18 08:45 Dose: 20 mls/hr Results - Vital Signs Recent Vital Signs: Last Vital Signs Temp 98 F 05/13/18 09:52 Pulse 63 05/13/18 09:52 Resp 20 05/13/18 09:52 BP 170/66 H 05/13/18 09:52 Pulse Ox 100 05/13/18 06:50 - Labs Result Diagrams: 05/13/18 05:45 05/13/18 05:45 Labs: Laboratory Results - last 24 hr 05/13/18 05/13/18 05/13/18 01:06 03:00 05:45 WBC RBC Hgb Hct MCV MCH MCHC RDW Plt Count MPV Gran % Lymph % (Auto) [place] % (Auto) Eos % (Auto) Baso % (Auto) Gran # Lymph # (Auto) [place] # (Auto) Eos # (Auto) Baso # (Auto) Sodium 144 Potassium 4.8 Chloride 109 H Carbon Dioxide 21 Anion Gap 19 BUN 109 H Creatinine 3.3 H Est GFR ( Amer) 22 Est GFR (Non-Af Amer) 18 Random Glucose 100 Lactic Acid Calcium 8.6 Phosphorus 5.5 H Magnesium 1.8 Total Bilirubin 0.1 L AST 15 L ALT 21 Alkaline Phosphatase 39 Total Protein 5.2 L Albumin 3.0 Globulin 2.3 Albumin/Globulin Ratio 1.3 Urine Eosinophils Negative Stool Occult Blood Positive H 05/13/18 05/13/18 05:45 09:30 WBC 18.1 H RBC 1.96 L Hgb 5.3 L* Hct 16.3 L* MCV 83.2 MCH 27.0 MCHC 32.5 RDW 15.3 H Plt Count 184 MPV 9.6 Gran % 73.7 H Lymph % (Auto) 14.5 L [place] % (Auto) 11.2 H Eos % (Auto) 0.4 L Baso % (Auto) 0.2 Gran # 13.31 H Lymph # (Auto) 2.6 [place] # (Auto) 2.0 H Eos # (Auto) 0.1 Baso # (Auto) 0.03 Sodium Potassium Chloride Carbon Dioxide Anion Gap BUN Creatinine Est GFR ( Amer) Est GFR (Non-Af Amer) Random Glucose Lactic Acid 1.1 Calcium Phosphorus Magnesium Total Bilirubin AST ALT Alkaline Phosphatase Total Protein Albumin Globulin Albumin/Globulin Ratio Urine Eosinophils Stool Occult Blood
--- NOTE | 2018-05-13 10:55 | CP.PCM.CON ---
History of Present Illness - History of Present Illness History of Present Illness: Cardiothoracic Surgery Consult Note for Dr. Avila This is a 77M with a PMH of COPD, CHF, HTN, HLD, CKD, PE who is a poor historian who had a trach and PEG in 2013 for reasons unbeknown to him. He reports that he has had abdominal pain for the past three days. He reports his pain is in his lower abdomen. He had a similar episode 10 years ago which was hospitalized for claims it was attributed to " fish poisoning". He denies any SOB, Chest pain, Dysphagia, epigastric pain. Nothing makes it better and nothing makes it worse. He reports diarrhea but denies any vomiting. His last EGD and colonoscopy were done in [facility] one year ago and were normal. On admission he had a Hgb of 4.4 and was noted to have melena. He had a CT scan which showed " potential esaphageal perforation with pneumatosis versus artifact from swallowing". PMH: See above PSH: Trach, Peg, Jaw ORIF Social: SMokes, Denies ETOH, and drugs Review of Systems - Review of Systems All systems: reviewed and no additional remarkable complaints except - Constitutional Constitutional: Anorexia, Weakness. absent: Chills - Respiratory Respiratory: absent: Dyspnea, Hemoptysis - Gastrointestinal Gastrointestinal: Abdominal Pain, Melena. absent: Dysphagia, Hematemesis, Hematochezia, Vomiting Past Patient History - Infectious Disease Hx of Infectious Diseases: None - Tetanus Immunizations Tetanus Immunization: Unknown - Past Medical History & Family History Past Medical History?: Yes - Past Social History Smoking Status: Current Some Days Smoker - CARDIAC Hx Cardiac Disorders: Yes (CHF,) Hx Hypertension: Yes - PULMONARY Hx Chronic Obstructive Pulmonary Disease (COPD): Yes - NEUROLOGICAL Hx Neurological Disorder: No - HEENT Hx HEENT Problems: No - RENAL Hx Renal Failure: Yes (CRI) - ENDOCRINE/METABOLIC Hx Endocrine Disorders: No - HEMATOLOGICAL/ONCOLOGICAL Hx Blood Disorders: No Hx Cirrhosis: No (No known liver disease, according to patient's ) - INTEGUMENTARY Hx Dermatological Problems: No - MUSCULOSKELETAL/RHEUMATOLOGICAL Hx Falls: No - GASTROINTESTINAL Hx Gastrointestinal Disorders: Yes - GENITOURINARY/GYNECOLOGICAL Hx Genitourinary Disorders: No - PSYCHIATRIC Hx Anxiety: Yes (?) Hx Substance Use: No - SURGICAL HISTORY Hx Cardiac Catheterization: Yes Hx Open Reduction Internal Fixation: Yes (COMPOUND FRACTURE JAW 1964) - ANESTHESIA Hx Anesthesia: Yes Hx Anesthesia Reactions: No Hx Malignant Hyperthermia: No Meds Allergies/Adverse Reactions: Allergies Allergy/AdvReac Type Severity Reaction Status Date / Time No Known Allergies Allergy Verified 05/13/18 00:13 - Medications Medications: Current Medications Darbepoetin Bryan (Aranesp) 100 mcg SC ONCE ONE Stop: 05/13/18 10:41 Pantoprazole Sodium (Protonix 40mg Ivpb) 40 mg in 100 mls @ 20 mls/hr IVPB .Q5H NAOMIE Last Admin: 05/13/18 08:45 Dose: 20 mls/hr Iron Sucrose 200 mg/ Sodium (Chloride) 110 mls @ 110 mls/hr IVPB DAILY NAOMIE Stop: 05/17/18 10:59 Physical Exam - Constitutional Appears: Non-toxic, No Acute Distress - Head Exam Head Exam: ATRAUMATIC, NORMOCEPHALIC - Eye Exam Eye Exam: EOMI - Respiratory Exam Respiratory Exam: NORMAL BREATHING PATTERN - Cardiovascular Exam Cardiovascular Exam: +S1, +S2 - GI/Abdominal Exam GI & Abdominal Exam: Hernia, Soft. absent: Distended, Guarding, Rebound, Rigid , Tenderness - Neurological Exam Neurological exam: Alert - Psychiatric Exam Psychiatric exam: Normal Affect, Normal Mood - Skin Skin Exam: Dry, Intact Results - Vital Signs Recent Vital Signs: Last Vital Signs Temp 98 F 05/13/18 10:48 Pulse 57 L 05/13/18 10:48 Resp 14 05/13/18 10:48 BP 128/61 05/13/18 10:48 Pulse Ox 100 05/13/18 06:50 - Labs Result Diagrams: 05/13/18 05:45 05/13/18 05:45 Labs: Laboratory Results - last 24 hr 05/13/18 05/13/18 05/13/18 01:06 03:00 05:45 WBC RBC Hgb Hct MCV MCH MCHC RDW Plt Count MPV Gran % Lymph % (Auto) [place] % (Auto) Eos % (Auto) Baso % (Auto) Gran # Lymph # (Auto) [place] # (Auto) Eos # (Auto) Baso # (Auto) Sodium 144 Potassium 4.8 Chloride 109 H Carbon Dioxide 21 Anion Gap 19 BUN 109 H Creatinine 3.3 H Est GFR ( Amer) 22 Est GFR (Non-Af Amer) 18 Random Glucose 100 Lactic Acid Calcium 8.6 Phosphorus 5.5 H Magnesium 1.8 Total Bilirubin 0.1 L AST 15 L ALT 21 Alkaline Phosphatase 39 Troponin I Total Protein 5.2 L Albumin 3.0 Globulin 2.3 Albumin/Globulin Ratio 1.3 Urine Eosinophils Negative Stool Occult Blood Positive H 05/13/18 05/13/18 05/13/18 05:45 09:30 10:28 WBC 18.1 H RBC 1.96 L Hgb 5.3 L* Hct 16.3 L* MCV 83.2 MCH 27.0 MCHC 32.5 RDW 15.3 H Plt Count 184 MPV 9.6 Gran % 73.7 H Lymph % (Auto) 14.5 L [place] % (Auto) 11.2 H Eos % (Auto) 0.4 L Baso % (Auto) 0.2 Gran # 13.31 H Lymph # (Auto) 2.6 [place] # (Auto) 2.0 H Eos # (Auto) 0.1 Baso # (Auto) 0.03 Sodium Potassium Chloride Carbon Dioxide Anion Gap BUN Creatinine Est GFR ( Amer) Est GFR (Non-Af Amer) Random Glucose Lactic Acid 1.1 Calcium Phosphorus Magnesium Total Bilirubin AST ALT Alkaline Phosphatase Troponin I 0.07 Total Protein Albumin Globulin Albumin/Globulin Ratio Urine Eosinophils Stool Occult Blood Assessment & Plan - Assessment and Plan (Free Text) Assessment: 77M with GI bleed and possible abnormal CT Recommend esaphagogram Will followup with endoscopy results Will continue to follow incase pt needs operative management D/W Dr. Margarita Gresham PGY3 Plan: - Contrast esophogram to rule out esophageal perforation - f/u with GI Case discussed with attending physician, Dr. Avila with CT surgery.
[2018-05-13 11:48] LABS: HEMOGLOBIN 7.8 g/dL (14.0-18.0); MEAN CELL VOLUME 85.7 fl (80.0-105.0); MEAN CORPUSCULAR HEMOGLOBIN 28.6 pg (25.0-35.0); MEAN CORPUSCULAR HGB CONC 33.3 g/dl (31.0-37.0); MEAN PLATELET VOLUME 9.4 fl (7.0-11.0); RBC 2.73 10^6/uL (3.5-6.1); RED CELL DISTRIBUTION WIDTH 15.3 % (11.5-14.5); WHITE BLOOD COUNT 18.6 10^3/ul (4.5-11.0)
--- NOTE | 2018-05-13 12:07 | CP.CCUPN ---
<Shamir Houston - Last Filed: 05/13/18 13:54> CCU Subjective - Physician Review Subjective (Free Text): 05/13/18 12:04 Seen and examined this AM at bedside; Denies any chest pain or palpitations; still complaining of ATKINS/SOB w/ minimal to no cough; Still feeling lethargic; no Nausea; does report dark tarry stools today. Patient reports he does not have SOB when lying in bed; however does report some orthopnea No abd pain, N/V/D/C, urinary discomfort. Remainder of 12 system ROS is unremarkable for acute changes. 05/13/18 13:58 Critical Care Time Spent (in minutes): 60 CCU Objective - Vital Signs / Intake & Output Vital Signs (Last 4 hours): Vital Signs Temp Pulse Resp BP Pulse Ox 05/13/18 10:48 98 F 57 L 14 128/61 05/13/18 10:40 56 L 16 100 05/13/18 10:37 58 L 22 128/61 100 05/13/18 10:30 58 L 15 100 05/13/18 10:29 100 05/13/18 10:20 58 L 16 05/13/18 10:10 79 27 H 100 05/13/18 10:06 82 05/13/18 10:02 67 25 H 170/66 H 100 05/13/18 10:00 68 28 H 94 L 05/13/18 09:52 98 F 63 20 170/66 H 05/13/18 09:50 57 L 18 100 05/13/18 09:40 57 L 21 100 05/13/18 09:30 64 21 100 05/13/18 09:20 56 L 19 100 05/13/18 09:10 55 L 17 100 05/13/18 09:07 98 F 75 20 147/51 L 05/13/18 09:00 55 L 18 149/71 100 05/13/18 08:50 61 20 100 05/13/18 08:49 97.5 F L 66 22 129/55 L 99 05/13/18 08:40 57 L 18 100 05/13/18 08:37 71 23 143/78 100 05/13/18 08:32 97.5 F L 79 20 122/53 L 05/13/18 08:30 63 16 100 05/13/18 08:20 98 F 57 L 17 100 05/13/18 08:10 61 31 H 100 Intake and Output (Last 8hrs): Intake & Output 05/12/18 05/13/18 05/13/18 22:59 06:59 14:59 Intake Total 975 650 Balance 975 650 Weight 237 lb Intake: Blood Product 975 650 Red Blood Cells Cpd As1 325 Lr Unit [id number] Red Blood Cells Cpd As1 0 325 Lr Unit [id number] Red Blood Cells Cpda1 Lr 325 Unit [id number] Other: Voiding Method Diaper # Voids Urethral (Hill) 1 - Physical Exam Head: Positive for: Atraumatic, Normocephalic Pupils: Positive for: PERRL Extroacular Muscles: Positive for: EOMI Conjunctiva: Positive for: Normal Mouth: Positive for: Moist Mucous Membranes Respiratory/Chest: Positive for: Decreased Breath Sounds (Difficult to auscultate; no crackles or wheezes appreciated). Negative for: Respiratory Distress, Accessory Muscle Use, Rhonchi Cardiovascular: Positive for: Regular Rate and Rhythm, Normal S1, S2. Negative for: Murmurs Abdomen: Positive for: Distention, Normal Bowel Sounds, Other (Dull to percussion ). Negative for: Tenderness, Peritoneal Signs, Rebound, Guarding Rectal: Positive for: Melena Back: Positive for: Normal Inspection Upper Extremity: Positive for: Normal Inspection. Negative for: Cyanosis, Edema Lower Extremity: Positive for: Other (Pulses are difficult to palpate; BL LE showing chronic venostatic changes; Malodorous when bandaging removed. ) Neurological: Positive for: GCS=15, CN II-XII Intact, Speech Normal Skin: Positive for: Warm, Dry, Normal Color. Negative for: Rashes Psychiatric: Positive for: Alert, Oriented x 3, Normal Insight, Normal Concentration - Medications Active Medications: Active Medications Generic Name Dose Route Start Last Admin Trade Name Freq PRN Reason Stop Dose Admin Pantoprazole Sodium 40 mg in 100 mls @ 20 mls/hr 05/13/18 08:15 05/13/18 08: 45 Protonix 40mg Ivpb IVPB 20 mls/hr .Q5H NAOMIE Administration Iron Sucrose 200 mg/ Sodium 110 mls @ 110 mls/hr 05/13/18 10:45 05/13/18 11: 46 Chloride IVPB 05/17/18 10:59 110 mls/hr DAILY NAOMIE Administration Multi-Ingredient Cream 0 ea 05/14/18 10:00 Hydrocerin Cream TOP DAILY NAOMIE - Patient Studies Lab Studies: Lab Studies 05/13/18 05/13/18 05/13/18 Range/Units 11:40 10:28 09:30 WBC 18.6 H (4.5-11.0) 10^3/ul RBC 2.73 L (3.5-6.1) 10^6/uL Hgb 7.8 L D (14.0-18.0) g/dL Hct 23.4 L (42.0-52.0) % MCV 85.7 (80.0-105.0) fl MCH 28.6 (25.0-35.0) pg MCHC 33.3 (31.0-37.0) g/dl RDW 15.3 H (11.5-14.5) % Plt Count 162 (120.0-450.0) 10^3/uL MPV 9.4 (7.0-11.0) fl Gran % (50.0-68.0) % Lymph % (Auto) (22.0-35.0) % Dyer % (Auto) (1.0-6.0) % Eos % (Auto) (1.5-5.0) % Baso % (Auto) (0.0-3.0) % Gran # (1.4-6.5) Lymph # (Auto) (1.2-3.4) Dyer # (Auto) (0.1-0.6) Eos # (Auto) (0.0-0.7) Baso # (Auto) (0.0-2.0) K/mm3 Sodium (132-148) mmol/L Potassium (3.6-5.0) mmol/L Chloride (98-107) mmol/L Carbon Dioxide (21-33) mmol/L Anion Gap (10-20) BUN (7-21) mg/dL Creatinine (0.8-1.5) mg/dl Est GFR ( Amer) Est GFR (Non-Af Amer) Random Glucose (70-110) mg/dL Lactic Acid 1.1 (0.7-2.1) mmol/L Calcium (8.4-10.5) mg/dL Phosphorus (2.5-4.5) mg/dL Magnesium (1.7-2.2) mg/dL Total Bilirubin (0.2-1.3) mg/dL AST (17-59) U/L ALT (7-56) U/L Alkaline Phosphatase (38-126) U/L Troponin I 0.07 ng/mL Total Protein (5.8-8.3) g/dL Albumin (3.0-4.8) g/dL Globulin gm/dL Albumin/Globulin Ratio (1.1-1.8) Urine Eosinophils Stool Occult Blood (NEGATIVE) 05/13/18 05/13/18 05/13/18 Range/Units 05:45 05:45 03:00 WBC 18.1 H (4.5-11.0) 10^3/ul RBC 1.96 L (3.5-6.1) 10^6/uL Hgb 5.3 L* (14.0-18.0) g/dL Hct 16.3 L* (42.0-52.0) % MCV 83.2 (80.0-105.0) fl MCH 27.0 (25.0-35.0) pg MCHC 32.5 (31.0-37.0) g/dl RDW 15.3 H (11.5-14.5) % Plt Count 184 (120.0-450.0) 10^3/uL MPV 9.6 (7.0-11.0) fl Gran % 73.7 H (50.0-68.0) % Lymph % (Auto) 14.5 L (22.0-35.0) % Dyer % (Auto) 11.2 H (1.0-6.0) % Eos % (Auto) 0.4 L (1.5-5.0) % Baso % (Auto) 0.2 (0.0-3.0) % Gran # 13.31 H (1.4-6.5) Lymph # (Auto) 2.6 (1.2-3.4) Dyer # (Auto) 2.0 H (0.1-0.6) Eos # (Auto) 0.1 (0.0-0.7) Baso # (Auto) 0.03 (0.0-2.0) K/mm3 Sodium 144 (132-148) mmol/L Potassium 4.8 (3.6-5.0) mmol/L Chloride 109 H (98-107) mmol/L Carbon Dioxide 21 (21-33) mmol/L Anion Gap 19 (10-20) BUN 109 H (7-21) mg/dL Creatinine 3.3 H (0.8-1.5) mg/dl Est GFR ( Amer) 22 Est GFR (Non-Af Amer) 18 Random Glucose 100 (70-110) mg/dL Lactic Acid (0.7-2.1) mmol/L Calcium 8.6 (8.4-10.5) mg/dL Phosphorus 5.5 H (2.5-4.5) mg/dL Magnesium 1.8 (1.7-2.2) mg/dL Total Bilirubin 0.1 L (0.2-1.3) mg/dL AST 15 L (17-59) U/L ALT 21 (7-56) U/L Alkaline Phosphatase 39 (38-126) U/L Troponin I ng/mL Total Protein 5.2 L (5.8-8.3) g/dL Albumin 3.0 (3.0-4.8) g/dL Globulin 2.3 gm/dL Albumin/Globulin Ratio 1.3 (1.1-1.8) Urine Eosinophils Stool Occult Blood Positive H (NEGATIVE) 05/13/18 Range/Units 01:06 WBC (4.5-11.0) 10^3/ul RBC (3.5-6.1) 10^6/uL Hgb (14.0-18.0) g/dL Hct (42.0-52.0) % MCV (80.0-105.0) fl MCH (25.0-35.0) pg MCHC (31.0-37.0) g/dl RDW (11.5-14.5) % Plt Count (120.0-450.0) 10^3/uL MPV (7.0-11.0) fl Gran % (50.0-68.0) % Lymph % (Auto) (22.0-35.0) % Dyer % (Auto) (1.0-6.0) % Eos % (Auto) (1.5-5.0) % Baso % (Auto) (0.0-3.0) % Gran # (1.4-6.5) Lymph # (Auto) (1.2-3.4) Dyer # (Auto) (0.1-0.6) Eos # (Auto) (0.0-0.7) Baso # (Auto) (0.0-2.0) K/mm3 Sodium (132-148) mmol/L Potassium (3.6-5.0) mmol/L Chloride (98-107) mmol/L Carbon Dioxide (21-33) mmol/L Anion Gap (10-20) BUN (7-21) mg/dL Creatinine (0.8-1.5) mg/dl Est GFR ( Amer) Est GFR (Non-Af Amer) Random Glucose (70-110) mg/dL Lactic Acid (0.7-2.1) mmol/L Calcium (8.4-10.5) mg/dL Phosphorus (2.5-4.5) mg/dL Magnesium (1.7-2.2) mg/dL Total Bilirubin (0.2-1.3) mg/dL AST (17-59) U/L ALT (7-56) U/L Alkaline Phosphatase (38-126) U/L Troponin I ng/mL Total Protein (5.8-8.3) g/dL Albumin (3.0-4.8) g/dL Globulin gm/dL Albumin/Globulin Ratio (1.1-1.8) Urine Eosinophils Negative Stool Occult Blood (NEGATIVE) Laboratory Results - last 24 hr 05/13/18 05/13/18 05/13/18 01:06 03:00 05:45 WBC RBC Hgb Hct MCV MCH MCHC RDW Plt Count MPV Gran % Lymph % (Auto) Dyer % (Auto) Eos % (Auto) Baso % (Auto) Gran # Lymph # (Auto) Dyer # (Auto) Eos # (Auto) Baso # (Auto) Sodium 144 Potassium 4.8 Chloride 109 H Carbon Dioxide 21 Anion Gap 19 BUN 109 H Creatinine 3.3 H Est GFR ( Amer) 22 Est GFR (Non-Af Amer) 18 Random Glucose 100 Lactic Acid Calcium 8.6 Phosphorus 5.5 H Magnesium 1.8 Total Bilirubin 0.1 L AST 15 L ALT 21 Alkaline Phosphatase 39 Troponin I Total Protein 5.2 L Albumin 3.0 Globulin 2.3 Albumin/Globulin Ratio 1.3 Urine Eosinophils Negative Stool Occult Blood Positive H 05/13/18 05/13/18 05/13/18 05:45 09:30 10:28 WBC 18.1 H RBC 1.96 L Hgb 5.3 L* Hct 16.3 L* MCV 83.2 MCH 27.0 MCHC 32.5 RDW 15.3 H Plt Count 184 MPV 9.6 Gran % 73.7 H Lymph % (Auto) 14.5 L Dyer % (Auto) 11.2 H Eos % (Auto) 0.4 L Baso % (Auto) 0.2 Gran # 13.31 H Lymph # (Auto) 2.6 Dyer # (Auto) 2.0 H Eos # (Auto) 0.1 Baso # (Auto) 0.03 Sodium Potassium Chloride Carbon Dioxide Anion Gap BUN Creatinine Est GFR ( Amer) Est GFR (Non-Af Amer) Random Glucose Lactic Acid 1.1 Calcium Phosphorus Magnesium Total Bilirubin AST ALT Alkaline Phosphatase Troponin I 0.07 Total Protein Albumin Globulin Albumin/Globulin Ratio Urine Eosinophils Stool Occult Blood 05/13/18 11:40 WBC 18.6 H RBC 2.73 L Hgb 7.8 L D Hct 23.4 L MCV 85.7 MCH 28.6 MCHC 33.3 RDW 15.3 H Plt Count 162 MPV 9.4 Gran % Lymph % (Auto) Dyer % (Auto) Eos % (Auto) Baso % (Auto) Gran # Lymph # (Auto) Dyer # (Auto) Eos # (Auto) Baso # (Auto) Sodium Potassium Chloride Carbon Dioxide Anion Gap BUN Creatinine Est GFR ( Amer) Est GFR (Non-Af Amer) Random Glucose Lactic Acid Calcium Phosphorus Magnesium Total Bilirubin AST ALT Alkaline Phosphatase Troponin I Total Protein Albumin Globulin Albumin/Globulin Ratio Urine Eosinophils Stool Occult Blood EKG/Cardiology Studies: Cardiology / EKG Studies 05/13/18 00:56 EKG [ELECTROCARDIOGRAM] Stat Comment: Reason For Exam: RESP DISTRESS Review of Systems - Review of Systems All systems: reviewed and no additional remarkable complaints except Review of Systems: as per subjective Critical Care Progress Note - Nutrition Nutrition: Nutrition Category Date Time Status NPO Diet [DIET] Diets 05/13/18 Breakfast Ordered Assessment/Plan - Assessment and Plan (Free Text) Assessment: 77M w/ a PMH of CHF, HTN, HLD, COPD/Asthma, CKD, and PE [place] [facility] CC of Resp Distress. Found to have low H/H on arrival as well as hemoccult positive. Admitted to ICU for management of GI Bleed. Some questionable findings of mediastinal air on CTAP however esophagram showed a esophageal diverticulum w/ no gross extravasation. Underwent endoscopy by GI today w/ General anesthesia in OR; source of bleed found to be in esophageal Neuro: -AAO3 -Monitor for acute changes -Neurologically intact Cardiovascular: -Normotensive, Map >65 throughout ICU Course -H/H trending up to 7.8 post 3U pRBC; 4th U transfusing -Repeat H/H in AM; if HD unstable repeat H/H immediately -Continue monitoring H/H -Borderline Bradycardia -Perfusing extremities well Pulm: -Satting well on 2L NC throughout day -Post EGD requiring 8L Nonrebreather -Will wean off back onto 2L NC; May require CPAP ON -ABG: pH 7.26/ PCO2 16.8/ HCO3 15.7 /PO2: 495 -Hx COPD/Asthma Duonebs Q6 PRN; No wheezes identified on exam GI: -CTAP - Mediastinal Air -Esophagram - No gross extravasation of contrast; less concern for perforation or tear -EGD - Bleeding diverticulum w/ large clot; Epi for hemostasis w/ 3 Clips; Diffuse inflammation, erythema, erosions, granularity of stomach; -Biopsy taken for histo -Continue NPO for now -No NG tube -IV Protonix drip until AM -H/H for AM -GI Following -CT Surgery Consulted regarding mediastinal air on CTAP / Nephro: -Chronic CKD; Cr 3 -BUN Cr 109/3.3 this AM unchanged from admission -Lasix as needed if Volume overloaded worsening SOB -Strict IO/ Daily Weight -Nephrology Following ID: -Afebrile -Elevated WBC - most likely stress induced -Continue monitoring for s/s of infection Patient seen, examined, and case discussed w/ attending physician Dr. Chan Houston DO PGY1 - Internal medicine leadership program intern - Pager [phone] - Date & Time Date: 05/13/18 Time: 16:19 <Brant Giles - Last Filed: 05/13/18 16:59> CCU Objective - Vital Signs / Intake & Output Vital Signs (Last 4 hours): Vital Signs Temp Pulse Resp BP Pulse Ox 05/13/18 15:30 63 16 100 05/13/18 15:25 65 18 159/67 H 100 05/13/18 15:20 67 22 100 05/13/18 15:14 69 23 167/79 H 100 05/13/18 14:09 100 05/13/18 14:00 97.9 F 05/13/18 13:50 60 18 100 05/13/18 13:40 53 L 13 100 05/13/18 13:30 62 17 99 05/13/18 13:21 58 L 16 133/61 99 05/13/18 13:20 75 49 H 98 Intake and Output (Last 8hrs): Intake & Output 05/13/18 05/13/18 05/13/18 06:59 14:59 22:59 Intake Total 975 650 Balance 975 650 Weight 237 lb Intake: Blood Product 975 650 Red Blood Cells Cpd As1 325 Lr Unit [id number] Red Blood Cells Cpd As1 0 325 Lr Unit [id number] Red Blood Cells Cpda1 Lr 325 Unit [id number] Other: Voiding Method Diaper # Voids Urethral (Hill) 1 - Medications Active Medications: Active Medications Generic Name Dose Route Start Last Admin Trade Name Freq PRN Reason Stop Dose Admin Pantoprazole Sodium 40 mg in 100 mls @ 20 mls/hr 05/13/18 08:15 05/13/18 08: 45 Protonix 40mg Ivpb IVPB 20 mls/hr .Q5H NAOMIE Administration Iron Sucrose 200 mg/ Sodium 110 mls @ 110 mls/hr 05/13/18 10:45 05/13/18 11: 46 Chloride IVPB 05/17/18 10:59 110 mls/hr DAILY NAOMIE Administration Multi-Ingredient Cream 0 ea 05/14/18 10:00 Hydrocerin Cream TOP DAILY NAOMIE - Patient Studies Lab Studies: Lab Studies 05/13/18 05/13/18 05/13/18 Range/Units 11:40 10:28 09:30 WBC 18.6 H (4.5-11.0) 10^3/ul RBC 2.73 L (3.5-6.1) 10^6/uL Hgb 7.8 L D (14.0-18.0) g/dL Hct 23.4 L (42.0-52.0) % MCV 85.7 (80.0-105.0) fl MCH 28.6 (25.0-35.0) pg MCHC 33.3 (31.0-37.0) g/dl RDW 15.3 H (11.5-14.5) % Plt Count 162 (120.0-450.0) 10^3/uL MPV 9.4 (7.0-11.0) fl Gran % (50.0-68.0) % Lymph % (Auto) (22.0-35.0) % Dyer % (Auto) (1.0-6.0) % Eos % (Auto) (1.5-5.0) % Baso % (Auto) (0.0-3.0) % Gran # (1.4-6.5) Lymph # (Auto) (1.2-3.4) Dyer # (Auto) (0.1-0.6) Eos # (Auto) (0.0-0.7) Baso # (Auto) (0.0-2.0) K/mm3 Sodium (132-148) mmol/L Potassium (3.6-5.0) mmol/L Chloride (98-107) mmol/L Carbon Dioxide (21-33) mmol/L Anion Gap (10-20) BUN (7-21) mg/dL Creatinine (0.8-1.5) mg/dl Est GFR ( Amer) Est GFR (Non-Af Amer) Random Glucose (70-110) mg/dL Lactic Acid 1.1 (0.7-2.1) mmol/L Calcium (8.4-10.5) mg/dL Phosphorus (2.5-4.5) mg/dL Magnesium (1.7-2.2) mg/dL Total Bilirubin (0.2-1.3) mg/dL AST (17-59) U/L ALT (7-56) U/L Alkaline Phosphatase (38-126) U/L Troponin I 0.07 ng/mL Total Protein (5.8-8.3) g/dL Albumin (3.0-4.8) g/dL Globulin gm/dL Albumin/Globulin Ratio (1.1-1.8) Urine Eosinophils Stool Occult Blood (NEGATIVE) 05/13/18 05/13/18 05/13/18 Range/Units 05:45 05:45 03:00 WBC 18.1 H (4.5-11.0) 10^3/ul RBC 1.96 L (3.5-6.1) 10^6/uL Hgb 5.3 L* (14.0-18.0) g/dL Hct 16.3 L* (42.0-52.0) % MCV 83.2 (80.0-105.0) fl MCH 27.0 (25.0-35.0) pg MCHC 32.5 (31.0-37.0) g/dl RDW 15.3 H (11.5-14.5) % Plt Count 184 (120.0-450.0) 10^3/uL MPV 9.6 (7.0-11.0) fl Gran % 73.7 H (50.0-68.0) % Lymph % (Auto) 14.5 L (22.0-35.0) % Dyer % (Auto) 11.2 H (1.0-6.0) % Eos % (Auto) 0.4 L (1.5-5.0) % Baso % (Auto) 0.2 (0.0-3.0) % Gran # 13.31 H (1.4-6.5) Lymph # (Auto) 2.6 (1.2-3.4) Dyer # (Auto) 2.0 H (0.1-0.6) Eos # (Auto) 0.1 (0.0-0.7) Baso # (Auto) 0.03 (0.0-2.0) K/mm3 Sodium 144 (132-148) mmol/L Potassium 4.8 (3.6-5.0) mmol/L Chloride 109 H (98-107) mmol/L Carbon Dioxide 21 (21-33) mmol/L Anion Gap 19 (10-20) BUN 109 H (7-21) mg/dL Creatinine 3.3 H (0.8-1.5) mg/dl Est GFR ( Amer) 22 Est GFR (Non-Af Amer) 18 Random Glucose 100 (70-110) mg/dL Lactic Acid (0.7-2.1) mmol/L Calcium 8.6 (8.4-10.5) mg/dL Phosphorus 5.5 H (2.5-4.5) mg/dL Magnesium 1.8 (1.7-2.2) mg/dL Total Bilirubin 0.1 L (0.2-1.3) mg/dL AST 15 L (17-59) U/L ALT 21 (7-56) U/L Alkaline Phosphatase 39 (38-126) U/L Troponin I ng/mL Total Protein 5.2 L (5.8-8.3) g/dL Albumin 3.0 (3.0-4.8) g/dL Globulin 2.3 gm/dL Albumin/Globulin Ratio 1.3 (1.1-1.8) Urine Eosinophils Stool Occult Blood Positive H (NEGATIVE) 05/13/18 Range/Units 01:06 WBC (4.5-11.0) 10^3/ul RBC (3.5-6.1) 10^6/uL Hgb (14.0-18.0) g/dL Hct (42.0-52.0) % MCV (80.0-105.0) fl MCH (25.0-35.0) pg MCHC (31.0-37.0) g/dl RDW (11.5-14.5) % Plt Count (120.0-450.0) 10^3/uL MPV (7.0-11.0) fl Gran % (50.0-68.0) % Lymph % (Auto) (22.0-35.0) % Dyer % (Auto) (1.0-6.0) % Eos % (Auto) (1.5-5.0) % Baso % (Auto) (0.0-3.0) % Gran # (1.4-6.5) Lymph # (Auto) (1.2-3.4) Dyer # (Auto) (0.1-0.6) Eos # (Auto) (0.0-0.7) Baso # (Auto) (0.0-2.0) K/mm3 Sodium (132-148) mmol/L Potassium (3.6-5.0) mmol/L Chloride (98-107) mmol/L Carbon Dioxide (21-33) mmol/L Anion Gap (10-20) BUN (7-21) mg/dL Creatinine (0.8-1.5) mg/dl Est GFR ( Amer) Est GFR (Non-Af Amer) Random Glucose (70-110) mg/dL Lactic Acid (0.7-2.1) mmol/L Calcium (8.4-10.5) mg/dL Phosphorus (2.5-4.5) mg/dL Magnesium (1.7-2.2) mg/dL Total Bilirubin (0.2-1.3) mg/dL AST (17-59) U/L ALT (7-56) U/L Alkaline Phosphatase (38-126) U/L Troponin I ng/mL Total Protein (5.8-8.3) g/dL Albumin (3.0-4.8) g/dL Globulin gm/dL Albumin/Globulin Ratio (1.1-1.8) Urine Eosinophils Negative Stool Occult Blood (NEGATIVE) Laboratory Results - last 24 hr 05/13/18 05/13/18 05/13/18 01:06 03:00 05:45 WBC RBC Hgb Hct MCV MCH MCHC RDW Plt Count MPV Gran % Lymph % (Auto) Dyer % (Auto) Eos % (Auto) Baso % (Auto) Gran # Lymph # (Auto) Dyer # (Auto) Eos # (Auto) Baso # (Auto) Sodium 144 Potassium 4.8 Chloride 109 H Carbon Dioxide 21 Anion Gap 19 BUN 109 H Creatinine 3.3 H Est GFR ( Amer) 22 Est GFR (Non-Af Amer) 18 Random Glucose 100 Lactic Acid Calcium 8.6 Phosphorus 5.5 H Magnesium 1.8 Total Bilirubin 0.1 L AST 15 L ALT 21 Alkaline Phosphatase 39 Troponin I Total Protein 5.2 L Albumin 3.0 Globulin 2.3 Albumin/Globulin Ratio 1.3 Urine Eosinophils Negative Stool Occult Blood Positive H 05/13/18 05/13/18 05/13/18 05:45 09:30 10:28 WBC 18.1 H RBC 1.96 L Hgb 5.3 L* Hct 16.3 L* MCV 83.2 MCH 27.0 MCHC 32.5 RDW 15.3 H Plt Count 184 MPV 9.6 Gran % 73.7 H Lymph % (Auto) 14.5 L Dyer % (Auto) 11.2 H Eos % (Auto) 0.4 L Baso % (Auto) 0.2 Gran # 13.31 H Lymph # (Auto) 2.6 Dyer # (Auto) 2.0 H Eos # (Auto) 0.1 Baso # (Auto) 0.03 Sodium Potassium Chloride Carbon Dioxide Anion Gap BUN Creatinine Est GFR ( Amer) Est GFR (Non-Af Amer) Random Glucose Lactic Acid 1.1 Calcium Phosphorus Magnesium Total Bilirubin AST ALT Alkaline Phosphatase Troponin I 0.07 Total Protein Albumin Globulin Albumin/Globulin Ratio Urine Eosinophils Stool Occult Blood 05/13/18 11:40 WBC 18.6 H RBC 2.73 L Hgb 7.8 L D Hct 23.4 L MCV 85.7 MCH 28.6 MCHC 33.3 RDW 15.3 H Plt Count 162 MPV 9.4 Gran % Lymph % (Auto) Dyer % (Auto) Eos % (Auto) Baso % (Auto) Gran # Lymph # (Auto) Dyer # (Auto) Eos # (Auto) Baso # (Auto) Sodium Potassium Chloride Carbon Dioxide Anion Gap BUN Creatinine Est GFR ( Amer) Est GFR (Non-Af Amer) Random Glucose Lactic Acid Calcium Phosphorus Magnesium Total Bilirubin AST ALT Alkaline Phosphatase Troponin I Total Protein Albumin Globulin Albumin/Globulin Ratio Urine Eosinophils Stool Occult Blood EKG/Cardiology Studies: Cardiology / EKG Studies 05/13/18 00:56 EKG [ELECTROCARDIOGRAM] Stat Comment: Reason For Exam: RESP DISTRESS Critical Care Progress Note - Nutrition Nutrition: Nutrition Category Date Time Status NPO Diet [DIET] Diets 05/13/18 Breakfast Ordered Attending/Attestation - Attestation I have personally seen and examined this patient.: Yes I have fully participated in the care of the patient.: Yes I have reviewed all pertinent clinical information: Yes Notes (Text): 05/13/18 16:57 77 yo male with severe anemia due to bleeding esophageal ulcer. prior to EGD underwent esophagography-->no perforation. EGD showed visible vessel-->back to ICU, NPO, IVF, protonix drip and serial cbc. troponin and lactate level wnl ccm time 40 min
[2018-05-13] MEDS ORDERED: Propofol 10 mg/ml Inj (20 ML) ONE ×2 (14:01→14:51)
--- NOTE | 2018-05-13 14:18 | CARD ---
APPROVED REPORT Date of service: 05/13/2018 EKG Measurement Heart [id number] <Conclusion> Probably Sinus adi with 1st degree AVB APCs RBBB LAD NSSTW changes
--- NOTE | 2018-05-13 14:18 | RAD ---
Date of service: 05/13/2018 HISTORY: Dysphagia. COMPARISON: None. TECHNIQUE: A single contrast esophagram was performed utilizing full strength Gastrografin with patient in a semi erect position on the fluoroscopy table AP in CHATMAN positions. The patient was too weak to stand on is own. Total radiation cumulative dose was 336.32 mGy with total fluoroscopy time of 0.5 minutes. FINDINGS: Patient tolerated procedure well. ESOPHAGUS: Restrained motion artifacts obscure the exam somewhat. However, there is no definitive extravasation of oral contrast material into the mediastinum including at the distal esophagus approaching the esophageal hiatus at the left hemidiaphragm. Instead, immediately cephalad to the left hemidiaphragm and post oral medial is a 3.7 x 3.8 cm diverticulum likely off a small hiatal hernia involving the cardiac portion of the stomach containing a filling defect nearly completely within an. The CT findings likely air surrounding the bezoar or retained food within this diverticulum. There is no obstruction to the flow of barium caused by this structure as the stomach opacifies readily. HIATAL HERNIA: As above. GASTROESOPHAGEAL REFLUX: Moderate gas referral reflects occurred. Is difficult to exclude a limited esophagitis as follow-up barium esophagram could not be performed due to patient is being scheduled for immediate upper endoscopy following this examination. OTHER FINDINGS: None. IMPRESSION: A 3.8 cm diverticulum contains retained food or bezoar within the lumen and there is no fluoroscopic evidence to suggest esophageal perforation using water-soluble contrast media. Barium esophagram was not performed due to patient's the medially scheduled afterwards for follow-up upper endoscopy.
[2018-05-13] MEDS ORDERED: Etomidate 20 mg/10ml Inj IV ONE (14:38)
[2018-05-13 15:38] LABS: FERRITIN 34.4 ng/mL
[2018-05-13 16:09] LABS: FOLATE 19.3 ng/mL
[2018-05-13 18:26] LABS: PH,URINE 5.5 (4.7-8.0); URINE BILIRUBIN NEGATIVE (NEGATIVE); URINE BLOOD NEGATIVE (NEGATIVE); URINE GLUCOSE (UA) NEGATIVE (NEGATIVE); URINE LEUKOCYTE ESTERASE SMALL Leu/uL (NEGATIVE); URINE PROTEIN NEGATIVE mg/dL (<30 mg/dL); URINE UROBILINOGEN 0.2 E.U./dL (<1 E.U./dL)
[2018-05-13 18:38] LABS: URINE COLOR YELLOW (YELLOW)
[2018-05-13 18:39] LABS: URINE APPEARANCE CLEAR (CLEAR)
[2018-05-13 19:19] LABS: CREATININE,RANDOM URINE 50 mg/dL
[2018-05-13] MEDS: Dextrose 5%/0.9% NS 1,000 ML IV SCH (19:58)
[2018-05-14 00:26] LABS: BASO # 0.02 K/mm3 (0.0-2.0); BASO % 0.1 % (0.0-3.0); EOS # 0.2 (0.0-0.7); EOS % 1.6 % (1.5-5.0); GRAN # 9.7 (1.4-6.5); HEMOGLOBIN 8.2 g/dL (14.0-18.0); LYMPH # 3.1 (1.2-3.4); LYMPH % 21.2 % (22.0-35.0); MEAN CELL VOLUME 86.1 fl (80.0-105.0); MEAN CORPUSCULAR HEMOGLOBIN 28.5 pg (25.0-35.0); MEAN CORPUSCULAR HGB CONC 33.1 g/dl (31.0-37.0); MEAN PLATELET VOLUME 9.8 fl (7.0-11.0); MONO # 1.6 (0.1-0.6); MONO % 11.1 % (1.0-6.0); RBC 2.88 10^6/uL (3.5-6.1); RED CELL DISTRIBUTION WIDTH 15.3 % (11.5-14.5); WHITE BLOOD COUNT 14.7 10^3/ul (4.5-11.0)
[2018-05-14] MEDS: Pantoprazole 40mg/100mL NS 40 MG/100 ML BAG IVPB SCH ×6 (01:57→23:32)
[2018-05-14 07:40] LABS: BASO # 0.02 K/mm3 (0.0-2.0); BASO % 0.1 % (0.0-3.0); EOS # 0.3 (0.0-0.7); GRAN # 9.4 (1.4-6.5); GRAN % 66.7 % (50.0-68.0); HEMOGLOBIN 8.4 g/dL (14.0-18.0); LYMPH # 2.5 (1.2-3.4); LYMPH % 17.9 % (22.0-35.0); MEAN CELL VOLUME 86.5 fl (80.0-105.0); MEAN CORPUSCULAR HEMOGLOBIN 28.4 pg (25.0-35.0); MEAN CORPUSCULAR HGB CONC 32.8 g/dl (31.0-37.0); MONO # 1.9 (0.1-0.6); MONO % 13.3 % (1.0-6.0); RBC 2.96 10^6/uL (3.5-6.1); RED CELL DISTRIBUTION WIDTH 15.8 % (11.5-14.5); WHITE BLOOD COUNT 14.1 10^3/ul (4.5-11.0)
[2018-05-14 07:57] LABS: ALB/GLOB RATIO 1.3 (1.1-1.8); ALBUMIN 3.1 g/dL (3.0-4.8); CALCIUM 8.5 mg/dL (8.4-10.5)
--- NOTE | 2018-05-14 08:58 | CARD ---
APPROVED REPORT Date of service: 05/13/2018 EXAM: Two-dimensional and M-mode echocardiogram with Doppler and color Doppler. Other Information Quality : AverageRhythm : INDICATION Dyspnea 2D DIMENSIONS Left Atrium (2D)4.5 (1.6-4.0cm)IVSd1.2 (0.7-1.1cm) LVDd5.4 (3.9-5.9cm)LVOT Diameter1.9 (1.8-2.4cm) PWd1.2 (0.7-1.1cm)LVDs3.2 (2.5-4.0cm) FS (%) 40.4 %LVEF (%)70.0 (>50%) M-Mode DIMENSIONS Aortic Root3.50 (2.2-3.7cm)Aortic Cusp Exc.1.10 (1.5-2.0cm) Aortic Valve AoV Peak Fhffucbs258.0cm/sAoV VTI82.2cmAO Peak GR.89mmHg LVOT Peak Strgqvxg513.0cm/sLVOT VTI32.60cmAO Mean GR.35mmHg GAUTAM (VMAX)0.18qd3JCK (VTI)1.13cm2 Mitral Valve MV E Mkdpjmwp360.0cm/sMV A Kcptexbs479.0cm/sE/A ratio0.9 TDI Lateral E' Peak V11.10cm/sE/Lateral E'9.5E/Medial E'0.0 Pulmonary Valve PV Peak Gjxwzdpl806.0cm/sPV Peak Grad.6mmHg Tricuspid Valve TR Peak Osoeqrac112lt/sRAP POYQIVGB54aqXhBU Peak Gr.67mmHg [id number] LEFT VENTRICLE The left ventricle is normal size. There is borderline to mild concentric left ventricular hypertrophy. The left ventricular function is normal. The left ventricular ejection fraction is within the normal range. There is normal LV segmental wall motion. RIGHT VENTRICLE The right ventricle is normal size. ATRIA The left atrium is mildly dilated. The right atrium size is normal. The interatrial septum is intact with no evidence for an atrial septal defect. AORTIC VALVE The aortic valve is moderately to severely calcified. There is severe valvular aortic stenosis. MITRAL VALVE The mitral valve is normal in structure. Mitral regurgitation is mild to moderate. TRICUSPID VALVE The tricuspid valve is normal in structure. There is moderate tricuspid regurgitation. There is severe pulmonary hypertension. GREAT VESSELS The aortic root is normal in size. PERICARDIAL EFFUSION There is no pericardial effusion. <Conclusion> The left ventricle is normal size. There is borderline to mild concentric left ventricular hypertrophy. The left ventricular function is normal. The aortic valve is moderately to severely calcified. There is severe valvular aortic stenosis. Mitral regurgitation is mild to moderate. There is moderate tricuspid regurgitation. There is severe pulmonary hypertension.
--- NOTE | 2018-05-14 09:07 | CP.PCM.PN ---
<Syeda Alatorre - Last Filed: 05/14/18 09:42> Subjective - Date & Time of Evaluation Date of Evaluation: 05/14/18 Time of Evaluation: 08:00 - Subjective Subjective: GI Fellow PGY5 Progress Note Pt seen and evaluated at bedside, pt doing well with no complaints overnight. Per nursing no more bloody BM. s/p 4U PRBCs total no further transfusions. On PPI drips. Vitals stable. ROS: A 12pt ROS was negative except as above. Objective - Vital Signs/Intake and Output Vital Signs (last 24 hours): Temp Pulse Resp BP Pulse Ox 97.2 F L 56 L 23 134/67 100 05/13/18 18:00 05/14/18 07:40 05/14/18 07:40 05/14/18 07:00 05/14/18 07:40 Intake and Output: 05/14/18 05/14/18 06:59 18:59 Intake Total 840 Output Total 1025 Balance -185 - Medications Medications: Current Medications Pantoprazole Sodium (Protonix 40mg Ivpb) 40 mg in 100 mls @ 20 mls/hr IVPB .Q5H [facility] Last Admin: 05/14/18 06:56 Dose: 20 mls/hr Iron Sucrose 200 mg/ Sodium (Chloride) 110 mls @ 110 mls/hr IVPB DAILY [facility] Stop: 05/17/18 10:59 Last Admin: 05/13/18 11:46 Dose: 110 mls/hr Dextrose/Sodium Chloride (Dextrose 5%/0.9% Ns 1000 Ml) 1,000 mls @ 50 mls/hr IV .Q20H [facility] Last Admin: 05/13/18 19:58 Dose: 50 mls/hr Multi-Ingredient Cream (Hydrocerin Cream) 0 ea TOP DAILY [facility] - Labs Labs: 05/14/18 07:30 05/14/18 07:30 PT 14.3 SECONDS (9.4-12.5) H 05/12/18 21:45 INR 1.25 05/12/18 21:45 APTT 25.5 Seconds (25.1-36.5) 05/12/18 21:45 - Constitutional Appears: Non-toxic, No Acute Distress - Head Exam Head Exam: ATRAUMATIC, NORMAL INSPECTION, NORMOCEPHALIC - Eye Exam Eye Exam: EOMI, Normal appearance, PERRL Pupil Exam: PERRL - ENT Exam ENT Exam: Mucous Membranes Moist - Neck Exam Neck Exam: Full ROM, Normal Inspection - Respiratory Exam Respiratory Exam: Clear to Ausculation Bilateral, NORMAL BREATHING PATTERN - Cardiovascular Exam Cardiovascular Exam: REGULAR RHYTHM, RRR, +S1, +S2 - GI/Abdominal Exam GI & Abdominal Exam: Soft, Normal Bowel Sounds. absent: Distended, Guarding, Tenderness, Organomegaly - Rectal Exam Rectal Exam: Deferred - Neurological Exam Neurological Exam: Alert, Awake, Oriented x3 - Psychiatric Exam Psychiatric exam: Normal Affect, Normal Mood - Skin Skin Exam: Dry, Normal Color, Warm Assessment and Plan - Assessment and Plan (Free Text) Assessment: This is a 77yo M with pmhx of CHF, HTN, HLD, COPD, asthma, CKD, Trach/PEG in 2013 with reversal, and PE not on any OAC who presented to the ED with abdominal pain found to be in respiratory distress. GI consulted for esophageal pneumatosis on imaging. 1. Acute symptomatic anemia 2. Melena 3. 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 Hx of Trach and PEG, reversed 5. SANDRA, elevated BUN 6. UGIB s/p EGD with esophageal ulcer and visible vessel Plan: -Continue supportive care with pain control and anti-emetics -Barium esophagogram unremarkable for perforation -Emergent EGD performed that showed large diverticulum in distal esophagus with protrubent visible vessel. for hemostasis 2 cc epinephrine was injected with 3 clips placed -Can advance to clear liquid diet -Pt hemodynamically stable, no further melena reported -Acute anemia with Hgb 4.4-->8.2 s/p 4U PRCs -IV PPI Drip today, can change to PPI BID tomorrow -Monitor H/H and transfuse as needed -Further medical management per primary team -Continue to follow pt closely <Cuco Francisco - Last Filed: 05/14/18 19:25> Objective - Vital Signs/Intake and Output Vital Signs (last 24 hours): Temp Pulse Resp BP Pulse Ox 97.2 F L 56 L 16 147/105 H 91 L 05/13/18 18:00 05/14/18 14:00 05/14/18 13:30 05/14/18 13:00 05/14/18 13:30 Intake and Output: 05/14/18 05/15/18 18:59 06:59 Intake Total 620 Output Total 600 Balance 20 - Medications Medications: Current Medications Albuterol/Ipratropium (Duoneb 3 Mg/0.5 Mg (3 Ml) Ud) 3 ml [id number] Last Admin: 05/14/18 19:16 Dose: 3 ml Albuterol/Ipratropium (Duoneb 3 Mg/0.5 Mg (3 Ml) Ud) 3 ml IH [id number] PRN PRN Reason: Wheezing Pantoprazole Sodium (Protonix 40mg Ivpb) 40 mg in 100 mls @ 20 mls/hr IVPB .Q5H [facility] Last Admin: 05/14/18 16:55 Dose: 20 mls/hr Iron Sucrose 200 mg/ Sodium (Chloride) 110 mls @ 110 mls/hr IVPB DAILY [facility] Stop: 05/17/18 10:59 Last Admin: 05/14/18 11:19 Dose: 110 mls/hr Dextrose/Sodium Chloride (Dextrose 5%/0.9% Ns 1000 Ml) 1,000 mls @ 50 mls/hr IV .Q20H [facility] Last Admin: 05/14/18 16:58 Dose: 50 mls/hr Methylprednisolone (Medrol) 4 mg PO DAILY [facility] Last Admin: 05/14/18 11:41 Dose: 4 mg Multi-Ingredient Cream (Hydrocerin Cream) 0 ea TOP DAILY [facility] Last Admin: 05/14/18 11:42 Dose: 1 appl Non-Formulary Medication (Fluticasone/Vilanterol [Breo Ellipta 200-25 Mcg Inh]) 1 puff IH DAILY [facility] Last Admin: 05/14/18 12:00 Dose: Not Given - Labs Labs: 05/14/18 07:30 05/14/18 07:30 PT 14.3 SECONDS (9.4-12.5) H 05/12/18 21:45 INR 1.25 05/12/18 21:45 APTT 25.5 Seconds (25.1-36.5) 05/12/18 21:45 Attending/Attestation - Attestation I have personally seen and examined this patient.: Yes I have fully participated in the care of the patient.: Yes I have reviewed all pertinent clinical information, including history, physical exam and plan: Yes Notes (Text): 05/14/18 19:23 This is a 77 yo M with pmhx of CHF, HTN, HLD, COPD, asthma, CKD, Trach/PEG in 2013 with reversal, and PE not on any OAC who presented to the ED with abdominal pain found to be in respiratory distress. GI consulted for esophageal pneumatosis on imaging and melena. 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 Continue PPI and advance to clear liquid diet
--- NOTE | 2018-05-14 10:18 | CP.CCUPN ---
<Sierra Smith - Last Filed: 05/14/18 11:23> CCU Subjective - Physician Review Events Since Last Encounter (Free Text): 05/14/18 11:23 Patient seen and examined at bedside. No acute events overnight. Patient denies BM overnight. Denies fevers, chills, nausea, vomiting, further melena episodes s /p EGD, abdominal pain, sob, cp, urinary symptoms. States that he is hungry and would like to eat. CCU Objective - Vital Signs / Intake & Output Vital Signs (Last 4 hours): Vital Signs Pulse Resp BP Pulse Ox 05/14/18 07:40 56 L 23 100 05/14/18 07:30 57 L 21 100 05/14/18 07:20 58 L 18 78 L 05/14/18 07:10 57 L 23 100 05/14/18 07:00 55 L 134/67 100 05/14/18 06:50 56 L 35 H 100 05/14/18 06:40 61 32 H 100 05/14/18 06:30 55 L 37 H 100 05/14/18 06:20 54 L 23 100 Intake and Output (Last 8hrs): Intake & Output 05/13/18 05/14/18 05/14/18 22:59 06:59 14:59 Intake Total 565 840 Output Total 970 1025 Balance -405 -185 Intake: IV 240 840 Right Antecubital 240 840 Blood Product 325 Output: Urine 970 1025 Urine, Voided 970 1025 Other: # Bowel Movements 1 - Physical Exam Head: Positive for: Atraumatic, Normocephalic Pupils: Positive for: PERRL Extroacular Muscles: Positive for: EOMI Conjunctiva: Positive for: Normal Mouth: Positive for: Moist Mucous Membranes Neck: Positive for: Normal Range of Motion Respiratory/Chest: Positive for: Other (b/l mild rhochi auscultated). Negative for: Respiratory Distress, Accessory Muscle Use Cardiovascular: Positive for: Regular Rate and Rhythm, Normal S1, S2. Negative for: Murmurs Abdomen: Positive for: Normal Bowel Sounds. Negative for: Tenderness, Distention, Peritoneal Signs, Rebound, Guarding Rectal: Positive for: Melena Back: Positive for: Normal Inspection Upper Extremity: Positive for: Normal Inspection. Negative for: Cyanosis, Edema Lower Extremity: Positive for: Other ( BL LE showing chronic venostatic changes ) Neurological: Positive for: GCS=15, CN II-XII Intact, Speech Normal Skin: Positive for: Warm, Dry, Normal Color. Negative for: Rashes Psychiatric: Positive for: Alert, Oriented x 3, Normal Insight, Normal Concentration - Medications Active Medications: Active Medications Generic Name Dose Route Start Last Admin Trade Name Ripq PRN Reason Stop Dose Admin Pantoprazole Sodium 40 mg in 100 mls @ 20 mls/hr 05/13/18 08:15 05/14/18 06: 56 Protonix 40mg Ivpb IVPB 20 mls/hr .Q5H HERMAN Administration Iron Sucrose 200 mg/ Sodium 110 mls @ 110 mls/hr 05/13/18 10:45 05/13/18 11: 46 Chloride IVPB 05/17/18 10:59 110 mls/hr DAILY HERMAN Administration Dextrose/Sodium Chloride 1,000 mls @ 50 mls/hr 05/13/18 19:30 05/13/18 19:58 Dextrose 5%/0.9% Ns 1000 Ml IV 50 mls/hr .Q20H HERMAN Administration Multi-Ingredient Cream 0 ea 05/14/18 10:00 Hydrocerin Cream TOP DAILY HERMAN - Patient Studies Lab Studies: Lab Studies 05/14/18 05/14/18 05/13/18 Range/Units 07:30 07:30 23:35 WBC 14.1 H 14.7 H D (4.5-11.0) 10^3/ul RBC 2.96 L 2.88 L (3.5-6.1) 10^6/uL Hgb 8.4 L 8.2 L (14.0-18.0) g/dL Hct 25.6 L 24.8 L (42.0-52.0) % MCV 86.5 86.1 (80.0-105.0) fl MCH 28.4 28.5 (25.0-35.0) pg MCHC 32.8 33.1 (31.0-37.0) g/dl RDW 15.8 H 15.3 H (11.5-14.5) % Plt Count 171 149 (120.0-450.0) 10^3/uL MPV 10.0 9.8 (7.0-11.0) fl Gran % 66.7 66.0 (50.0-68.0) % Lymph % (Auto) 17.9 L 21.2 L (22.0-35.0) % [place] % (Auto) 13.3 H 11.1 H (1.0-6.0) % Eos % (Auto) 2.0 1.6 (1.5-5.0) % Baso % (Auto) 0.1 0.1 (0.0-3.0) % Gran # 9.40 H 9.70 H (1.4-6.5) Lymph # (Auto) 2.5 3.1 (1.2-3.4) [place] # (Auto) 1.9 H 1.6 H (0.1-0.6) Eos # (Auto) 0.3 0.2 (0.0-0.7) Baso # (Auto) 0.02 0.02 (0.0-2.0) K/mm3 Sodium 149 H (132-148) mmol/L Potassium 4.6 (3.6-5.0) mmol/L Chloride 115 H (98-107) mmol/L Carbon Dioxide 21 (21-33) mmol/L Anion Gap 17 (10-20) BUN 99 H (7-21) mg/dL Creatinine 3.1 H (0.8-1.5) mg/dl Est GFR ( Amer) 24 Est GFR (Non-Af Amer) 20 Random Glucose 98 (70-110) mg/dL Calcium 8.5 (8.4-10.5) mg/dL Phosphorus 3.9 (2.5-4.5) mg/dL Magnesium 2.1 (1.7-2.2) mg/dL Total Bilirubin 0.4 (0.2-1.3) mg/dL AST 15 L (17-59) U/L ALT 21 (7-56) U/L Alkaline Phosphatase 49 (38-126) U/L Troponin I ng/mL Total Protein 5.5 L (5.8-8.3) g/dL Albumin 3.1 (3.0-4.8) g/dL Globulin 2.4 gm/dL Albumin/Globulin Ratio 1.3 (1.1-1.8) Urine Color (YELLOW) Urine Appearance (CLEAR) Urine pH (4.7-8.0) Ur Specific [place] (1.005-1.035) Urine Protein (<30 mg/dL) mg/dL Urine Glucose (UA) (NEGATIVE) mg/dL Urine Ketones (NEGATIVE) mg/dL Urine Blood (NEGATIVE) Urine Nitrate (NEGATIVE) Urine Bilirubin (NEGATIVE) Urine Urobilinogen (<1 E.U./dL) E.U./dL Ur Leukocyte Esterase (NEGATIVE) Usha/uL Urine RBC Urine WBC (0-6) /hpf Ur Epithelial Cells (0-5) /hpf Ur Random Creatinine mg/dL Ur Random Sodium meq/L Ur Random Urea Nitrogn mg/dL 05/13/18 05/13/18 05/13/18 Range/Units 19:40 18:21 18:21 WBC (4.5-11.0) 10^3/ul RBC (3.5-6.1) 10^6/uL Hgb (14.0-18.0) g/dL Hct (42.0-52.0) % MCV (80.0-105.0) fl MCH (25.0-35.0) pg MCHC (31.0-37.0) g/dl RDW (11.5-14.5) % Plt Count (120.0-450.0) 10^3/uL MPV (7.0-11.0) fl Gran % (50.0-68.0) % Lymph % (Auto) (22.0-35.0) % [place] % (Auto) (1.0-6.0) % Eos % (Auto) (1.5-5.0) % Baso % (Auto) (0.0-3.0) % Gran # (1.4-6.5) Lymph # (Auto) (1.2-3.4) [place] # (Auto) (0.1-0.6) Eos # (Auto) (0.0-0.7) Baso # (Auto) (0.0-2.0) K/mm3 Sodium (132-148) mmol/L Potassium (3.6-5.0) mmol/L Chloride (98-107) mmol/L Carbon Dioxide (21-33) mmol/L Anion Gap (10-20) BUN (7-21) mg/dL Creatinine (0.8-1.5) mg/dl Est GFR ( Amer) Est GFR (Non-Af Amer) Random Glucose (70-110) mg/dL Calcium (8.4-10.5) mg/dL Phosphorus (2.5-4.5) mg/dL Magnesium (1.7-2.2) mg/dL Total Bilirubin (0.2-1.3) mg/dL AST (17-59) U/L ALT (7-56) U/L Alkaline Phosphatase (38-126) U/L Troponin I 0.08 ng/mL Total Protein (5.8-8.3) g/dL Albumin (3.0-4.8) g/dL Globulin gm/dL Albumin/Globulin Ratio (1.1-1.8) Urine Color Yellow (YELLOW) Urine Appearance Clear (CLEAR) Urine pH 5.5 (4.7-8.0) Ur Specific [place] 1.010 (1.005-1.035) Urine Protein Negative (<30 mg/dL) mg/dL Urine Glucose (UA) Negative (NEGATIVE) mg/dL Urine Ketones Negative (NEGATIVE) mg/dL Urine Blood Negative (NEGATIVE) Urine Nitrate Negative (NEGATIVE) Urine Bilirubin Negative (NEGATIVE) Urine Urobilinogen 0.2 (<1 E.U./dL) E.U./dL Ur Leukocyte Esterase Small H (NEGATIVE) Usha/uL Urine RBC TEST NOT PERFORMED Urine WBC 5 - 10 (0-6) /hpf Ur Epithelial Cells 10 - 12 (0-5) /hpf Ur Random Creatinine 50 mg/dL Ur Random Sodium 49 meq/L Ur Random Urea Nitrogn 668 mg/dL 05/13/18 05/13/18 Range/Units 11:40 10:28 WBC 18.6 H (4.5-11.0) 10^3/ul RBC 2.73 L (3.5-6.1) 10^6/uL Hgb 7.8 L D (14.0-18.0) g/dL Hct 23.4 L (42.0-52.0) % MCV 85.7 (80.0-105.0) fl MCH 28.6 (25.0-35.0) pg MCHC 33.3 (31.0-37.0) g/dl RDW 15.3 H (11.5-14.5) % Plt Count 162 (120.0-450.0) 10^3/uL MPV 9.4 (7.0-11.0) fl Gran % (50.0-68.0) % Lymph % (Auto) (22.0-35.0) % [place] % (Auto) (1.0-6.0) % Eos % (Auto) (1.5-5.0) % Baso % (Auto) (0.0-3.0) % Gran # (1.4-6.5) Lymph # (Auto) (1.2-3.4) [place] # (Auto) (0.1-0.6) Eos # (Auto) (0.0-0.7) Baso # (Auto) (0.0-2.0) K/mm3 Sodium (132-148) mmol/L Potassium (3.6-5.0) mmol/L Chloride (98-107) mmol/L Carbon Dioxide (21-33) mmol/L Anion Gap (10-20) BUN (7-21) mg/dL Creatinine (0.8-1.5) mg/dl Est GFR ( Amer) Est GFR (Non-Af Amer) Random Glucose (70-110) mg/dL Calcium (8.4-10.5) mg/dL Phosphorus (2.5-4.5) mg/dL Magnesium (1.7-2.2) mg/dL Total Bilirubin (0.2-1.3) mg/dL AST (17-59) U/L ALT (7-56) U/L Alkaline Phosphatase (38-126) U/L Troponin I 0.07 ng/mL Total Protein (5.8-8.3) g/dL Albumin (3.0-4.8) g/dL Globulin gm/dL Albumin/Globulin Ratio (1.1-1.8) Urine Color (YELLOW) Urine Appearance (CLEAR) Urine pH (4.7-8.0) Ur Specific [place] (1.005-1.035) Urine Protein (<30 mg/dL) mg/dL Urine Glucose (UA) (NEGATIVE) mg/dL Urine Ketones (NEGATIVE) mg/dL Urine Blood (NEGATIVE) Urine Nitrate (NEGATIVE) Urine Bilirubin (NEGATIVE) Urine Urobilinogen (<1 E.U./dL) E.U./dL Ur Leukocyte Esterase (NEGATIVE) Usha/uL Urine RBC Urine WBC (0-6) /hpf Ur Epithelial Cells (0-5) /hpf Ur Random Creatinine mg/dL Ur Random Sodium meq/L Ur Random Urea Nitrogn mg/dL Laboratory Results - last 24 hr 05/13/18 05/13/18 05/13/18 10:28 11:40 18:21 WBC 18.6 H RBC 2.73 L Hgb 7.8 L D Hct 23.4 L MCV 85.7 MCH 28.6 MCHC 33.3 RDW 15.3 H Plt Count 162 MPV 9.4 Gran % Lymph % (Auto) [place] % (Auto) Eos % (Auto) Baso % (Auto) Gran # Lymph # (Auto) [place] # (Auto) Eos # (Auto) Baso # (Auto) Sodium Potassium Chloride Carbon Dioxide Anion Gap BUN Creatinine Est GFR ( Amer) Est GFR (Non-Af Amer) Random Glucose Calcium Phosphorus Magnesium Total Bilirubin AST ALT Alkaline Phosphatase Troponin I 0.07 Total Protein Albumin Globulin Albumin/Globulin Ratio Urine Color Urine Appearance Urine pH Ur Specific [place] Urine Protein Urine Glucose (UA) Urine Ketones Urine Blood Urine Nitrate Urine Bilirubin Urine Urobilinogen Ur Leukocyte Esterase Urine RBC Urine WBC Ur Epithelial Cells Ur Random Creatinine 50 Ur Random Sodium 49 Ur Random Urea Nitrogn 668 05/13/18 05/13/18 05/13/18 18:21 19:40 23:35 WBC 14.7 H D RBC 2.88 L Hgb 8.2 L Hct 24.8 L MCV 86.1 MCH 28.5 MCHC 33.1 RDW 15.3 H Plt Count 149 MPV 9.8 Gran % 66.0 Lymph % (Auto) 21.2 L [place] % (Auto) 11.1 H Eos % (Auto) 1.6 Baso % (Auto) 0.1 Gran # 9.70 H Lymph # (Auto) 3.1 [place] # (Auto) 1.6 H Eos # (Auto) 0.2 Baso # (Auto) 0.02 Sodium Potassium Chloride Carbon Dioxide Anion Gap BUN Creatinine Est GFR ( Amer) Est GFR (Non-Af Amer) Random Glucose Calcium Phosphorus Magnesium Total Bilirubin AST ALT Alkaline Phosphatase Troponin I 0.08 Total Protein Albumin Globulin Albumin/Globulin Ratio Urine Color Yellow Urine Appearance Clear Urine pH 5.5 Ur Specific [place] 1.010 Urine Protein Negative Urine Glucose (UA) Negative Urine Ketones Negative Urine Blood Negative Urine Nitrate Negative Urine Bilirubin Negative Urine Urobilinogen 0.2 Ur Leukocyte Esterase Small H Urine RBC TEST NOT PERFORMED Urine WBC 5 - 10 Ur Epithelial Cells 10 - 12 Ur Random Creatinine Ur Random Sodium Ur Random Urea Nitrogn 05/14/18 05/14/18 07:30 07:30 WBC 14.1 H RBC 2.96 L Hgb 8.4 L Hct 25.6 L MCV 86.5 MCH 28.4 MCHC 32.8 RDW 15.8 H Plt Count 171 MPV 10.0 Gran % 66.7 Lymph % (Auto) 17.9 L [place] % (Auto) 13.3 H Eos % (Auto) 2.0 Baso % (Auto) 0.1 Gran # 9.40 H Lymph # (Auto) 2.5 [place] # (Auto) 1.9 H Eos # (Auto) 0.3 Baso # (Auto) 0.02 Sodium 149 H Potassium 4.6 Chloride 115 H Carbon Dioxide 21 Anion Gap 17 BUN 99 H Creatinine 3.1 H Est GFR ( Amer) 24 Est GFR (Non-Af Amer) 20 Random Glucose 98 Calcium 8.5 Phosphorus 3.9 Magnesium 2.1 Total Bilirubin 0.4 AST 15 L ALT 21 Alkaline Phosphatase 49 Troponin I Total Protein 5.5 L Albumin 3.1 Globulin 2.4 Albumin/Globulin Ratio 1.3 Urine Color Urine Appearance Urine pH Ur Specific [place] Urine Protein Urine Glucose (UA) Urine Ketones Urine Blood Urine Nitrate Urine Bilirubin Urine Urobilinogen Ur Leukocyte Esterase Urine RBC Urine WBC Ur Epithelial Cells Ur Random Creatinine Ur Random Sodium Ur Random Urea Nitrogn Review of Systems - Review of Systems All systems: reviewed and no additional remarkable complaints except Review of Systems: as per HPI Critical Care Progress Note - Nutrition Nutrition: Nutrition Category Date Time Status Liquid Diet [DIET] Diets 05/14/18 Breakfast Ordered Assessment/Plan - Assessment and Plan (Free Text) Assessment: 77M w/ a PMH CHF, HTN, HLD, COPD/Asthma, CKD, and PE, admitted to ICU for severe anemia 2/2 bleeding esophageal ulcer/visible vessel, s/p clipping yesterday. Patient s/p 4 units prbcs yesterday, no further melena post EGD, remains hemodynamically stable, will transfer patient to Med-Surg, primary team aware: Neuro: AAO3. Monitor for acute changes Cardiovascular: -Normotensive, Map >65 -Echo 05/13/18 shows EF 70%. borderline to mild LVH. Moderately to severely calcified aortic valve. Mild to moderate MR. Moderate TR. -HR 57-60, sinus rhythm. -monitor Pulm: -On NC, saturating well -Hx of COPD, started duonebs herman and prn, home ICS and PO steroid -monitor GI: -CT A/P - equivocal pneumatosis of distal esophagus, equivocal cysts. -Esophagram - No gross extravasation of contrast; less concern for perforation or tear -EGD - Bleeding diverticulum w/ large clot; Epi for hemostasis w/ 3 Clips; Diffuse inflammation, erythema, erosions, granularity of stomach. F/u biopsy. -PPI drip for today as per GI. Can switch to PPI BID tomorrow. -CLD per GI -on IV iron infusions -monitor H/H -GI following. appreciate recs. Nephro: -Hx of CKD -Cr 3.1 this AM (at baseline) -Nephrology Following ID: -Afebrile. Mild leukocytosis, likely reactive. -monitor Heme: -transfused 4 units prbcs yesterday for GI bleed. Hgb 8.4 this AM (4.4 yesterday ). monitor Patient seen, examined, and case discussed with Dr Giles. Katey Smith, PGY2 <Brant Giles - Last Filed: 05/14/18 15:38> CCU Objective - Vital Signs / Intake & Output Vital Signs (Last 4 hours): Vital Signs Pulse Resp BP Pulse Ox 05/14/18 14:00 56 L 05/14/18 13:39 75 05/14/18 13:30 73 16 91 L 05/14/18 13:20 76 30 H 79 L 05/14/18 13:10 64 33 H 100 05/14/18 13:00 63 29 H 147/105 H 100 05/14/18 12:50 59 L 29 H 99 05/14/18 12:40 57 L 27 H 89 L 05/14/18 12:30 58 L 48 H 96 05/14/18 12:20 68 19 85 L 05/14/18 12:10 70 28 H 100 05/14/18 12:01 74 25 H 133/63 100 05/14/18 12:00 85 17 75 L 05/14/18 11:50 61 19 100 05/14/18 11:40 72 16 100 05/14/18 11:30 59 L 19 100 Intake and Output (Last 8hrs): Intake & Output 05/14/18 05/14/18 05/14/18 06:59 14:59 22:59 Intake Total 840 620 Output Total 1025 600 Balance -185 20 Intake: IV 840 Right Antecubital 840 Oral 620 Output: Urine 1025 600 Urine, Voided 1025 600 Stool 0 Other: # Voids Urine, Voided 2 - Medications Active Medications: Active Medications Generic Name Dose Route Start Last Admin Trade Name Freq PRN Reason Stop Dose Admin Albuterol/Ipratropium 3 ml 05/14/18 14:00 Duoneb 3 Mg/0.5 Mg (3 Ml) Ud IH [id number] HERMAN Albuterol/Ipratropium 3 ml 05/14/18 11:14 Duoneb 3 Mg/0.5 Mg (3 Ml) Ud IH [id number] PRN Wheezing Pantoprazole Sodium 40 mg in 100 mls @ 20 mls/hr 05/13/18 08:15 05/14/18 11: 20 Protonix 40mg Ivpb IVPB 20 mls/hr .Q5H HERMAN Administration Iron Sucrose 200 mg/ Sodium 110 mls @ 110 mls/hr 05/13/18 10:45 05/14/18 11: 19 Chloride IVPB 05/17/18 10:59 110 mls/hr DAILY HERMAN Administration Dextrose/Sodium Chloride 1,000 mls @ 50 mls/hr 05/13/18 19:30 05/13/18 19:58 Dextrose 5%/0.9% Ns 1000 Ml IV 50 mls/hr .Q20H HERMAN Administration Methylprednisolone 4 mg 05/14/18 11:15 05/14/18 11:41 Medrol PO 4 mg DAILY HERMAN Administration Multi-Ingredient Cream 0 ea 05/14/18 10:00 05/14/18 11:42 Hydrocerin Cream TOP 1 appl DAILY HERMAN Administration Non-Formulary Medication 1 puff 05/14/18 11:15 05/14/18 12:00 Fluticasone/Vilanterol [Breo Ellipta 200-25 Mcg Inh] IH Not Given DAILY HERMAN - Patient Studies Lab Studies: Lab Studies 05/14/18 05/14/18 05/13/18 Range/Units 07:30 07:30 23:35 WBC 14.1 H 14.7 H D (4.5-11.0) 10^3/ul RBC 2.96 L 2.88 L (3.5-6.1) 10^6/uL Hgb 8.4 L 8.2 L (14.0-18.0) g/dL Hct 25.6 L 24.8 L (42.0-52.0) % MCV 86.5 86.1 (80.0-105.0) fl MCH 28.4 28.5 (25.0-35.0) pg MCHC 32.8 33.1 (31.0-37.0) g/dl RDW 15.8 H 15.3 H (11.5-14.5) % Plt Count 171 149 (120.0-450.0) 10^3/uL MPV 10.0 9.8 (7.0-11.0) fl Gran % 66.7 66.0 (50.0-68.0) % Lymph % (Auto) 17.9 L 21.2 L (22.0-35.0) % [place] % (Auto) 13.3 H 11.1 H (1.0-6.0) % Eos % (Auto) 2.0 1.6 (1.5-5.0) % Baso % (Auto) 0.1 0.1 (0.0-3.0) % Gran # 9.40 H 9.70 H (1.4-6.5) Lymph # (Auto) 2.5 3.1 (1.2-3.4) [place] # (Auto) 1.9 H 1.6 H (0.1-0.6) Eos # (Auto) 0.3 0.2 (0.0-0.7) Baso # (Auto) 0.02 0.02 (0.0-2.0) K/mm3 Sodium 149 H (132-148) mmol/L Potassium 4.6 (3.6-5.0) mmol/L Chloride 115 H (98-107) mmol/L Carbon Dioxide 21 (21-33) mmol/L Anion Gap 17 (10-20) BUN 99 H (7-21) mg/dL Creatinine 3.1 H (0.8-1.5) mg/dl Est GFR ( Amer) 24 Est GFR (Non-Af Amer) 20 Random Glucose 98 (70-110) mg/dL Calcium 8.5 (8.4-10.5) mg/dL Phosphorus 3.9 (2.5-4.5) mg/dL Magnesium 2.1 (1.7-2.2) mg/dL Total Bilirubin 0.4 (0.2-1.3) mg/dL AST 15 L (17-59) U/L ALT 21 (7-56) U/L Alkaline Phosphatase 49 (38-126) U/L Troponin I ng/mL Total Protein 5.5 L (5.8-8.3) g/dL Albumin 3.1 (3.0-4.8) g/dL Globulin 2.4 gm/dL Albumin/Globulin Ratio 1.3 (1.1-1.8) Urine Color (YELLOW) Urine Appearance (CLEAR) Urine pH (4.7-8.0) Ur Specific [place] (1.005-1.035) Urine Protein (<30 mg/dL) mg/dL Urine Glucose (UA) (NEGATIVE) mg/dL Urine Ketones (NEGATIVE) mg/dL Urine Blood (NEGATIVE) Urine Nitrate (NEGATIVE) Urine Bilirubin (NEGATIVE) Urine Urobilinogen (<1 E.U./dL) E.U./dL Ur Leukocyte Esterase (NEGATIVE) Usha/uL Urine RBC Urine WBC (0-6) /hpf Ur Epithelial Cells (0-5) /hpf Ur Random Creatinine mg/dL Ur Random Sodium meq/L Ur Random Urea Nitrogn mg/dL 05/13/18 05/13/18 05/13/18 Range/Units 19:40 18:21 18:21 WBC (4.5-11.0) 10^3/ul RBC (3.5-6.1) 10^6/uL Hgb (14.0-18.0) g/dL Hct (42.0-52.0) % MCV (80.0-105.0) fl MCH (25.0-35.0) pg MCHC (31.0-37.0) g/dl RDW (11.5-14.5) % Plt Count (120.0-450.0) 10^3/uL MPV (7.0-11.0) fl Gran % (50.0-68.0) % Lymph % (Auto) (22.0-35.0) % [place] % (Auto) (1.0-6.0) % Eos % (Auto) (1.5-5.0) % Baso % (Auto) (0.0-3.0) % Gran # (1.4-6.5) Lymph # (Auto) (1.2-3.4) [place] # (Auto) (0.1-0.6) Eos # (Auto) (0.0-0.7) Baso # (Auto) (0.0-2.0) K/mm3 Sodium (132-148) mmol/L Potassium (3.6-5.0) mmol/L Chloride (98-107) mmol/L Carbon Dioxide (21-33) mmol/L Anion Gap (10-20) BUN (7-21) mg/dL Creatinine (0.8-1.5) mg/dl Est GFR ( Amer) Est GFR (Non-Af Amer) Random Glucose (70-110) mg/dL Calcium (8.4-10.5) mg/dL Phosphorus (2.5-4.5) mg/dL Magnesium (1.7-2.2) mg/dL Total Bilirubin (0.2-1.3) mg/dL AST (17-59) U/L ALT (7-56) U/L Alkaline Phosphatase (38-126) U/L Troponin I 0.08 ng/mL Total Protein (5.8-8.3) g/dL Albumin (3.0-4.8) g/dL Globulin gm/dL Albumin/Globulin Ratio (1.1-1.8) Urine Color Yellow (YELLOW) Urine Appearance Clear (CLEAR) Urine pH 5.5 (4.7-8.0) Ur Specific [place] 1.010 (1.005-1.035) Urine Protein Negative (<30 mg/dL) mg/dL Urine Glucose (UA) Negative (NEGATIVE) mg/dL Urine Ketones Negative (NEGATIVE) mg/dL Urine Blood Negative (NEGATIVE) Urine Nitrate Negative (NEGATIVE) Urine Bilirubin Negative (NEGATIVE) Urine Urobilinogen 0.2 (<1 E.U./dL) E.U./dL Ur Leukocyte Esterase Small H (NEGATIVE) Usha/uL Urine RBC TEST NOT PERFORMED Urine WBC 5 - 10 (0-6) /hpf Ur Epithelial Cells 10 - 12 (0-5) /hpf Ur Random Creatinine 50 mg/dL Ur Random Sodium 49 meq/L Ur Random Urea Nitrogn 668 mg/dL Laboratory Results - last 24 hr 05/13/18 05/13/18 05/13/18 18:21 18:21 19:40 WBC RBC Hgb Hct MCV MCH MCHC RDW Plt Count MPV Gran % Lymph % (Auto) [place] % (Auto) Eos % (Auto) Baso % (Auto) Gran # Lymph # (Auto) [place] # (Auto) Eos # (Auto) Baso # (Auto) Sodium Potassium Chloride Carbon Dioxide Anion Gap BUN Creatinine Est GFR ( Amer) Est GFR (Non-Af Amer) Random Glucose Calcium Phosphorus Magnesium Total Bilirubin AST ALT Alkaline Phosphatase Troponin I 0.08 Total Protein Albumin Globulin Albumin/Globulin Ratio Urine Color Yellow Urine Appearance Clear Urine pH 5.5 Ur Specific [place] 1.010 Urine Protein Negative Urine Glucose (UA) Negative Urine Ketones Negative Urine Blood Negative Urine Nitrate Negative Urine Bilirubin Negative Urine Urobilinogen 0.2 Ur Leukocyte Esterase Small H Urine RBC TEST NOT PERFORMED Urine WBC 5 - 10 Ur Epithelial Cells 10 - 12 Ur Random Creatinine 50 Ur Random Sodium 49 Ur Random Urea Nitrogn 668 05/13/18 05/14/18 05/14/18 23:35 07:30 07:30 WBC 14.7 H D 14.1 H RBC 2.88 L 2.96 L Hgb 8.2 L 8.4 L Hct 24.8 L 25.6 L MCV 86.1 86.5 MCH 28.5 28.4 MCHC 33.1 32.8 RDW 15.3 H 15.8 H Plt Count 149 171 MPV 9.8 10.0 Gran % 66.0 66.7 Lymph % (Auto) 21.2 L 17.9 L [place] % (Auto) 11.1 H 13.3 H Eos % (Auto) 1.6 2.0 Baso % (Auto) 0.1 0.1 Gran # 9.70 H 9.40 H Lymph # (Auto) 3.1 2.5 [place] # (Auto) 1.6 H 1.9 H Eos # (Auto) 0.2 0.3 Baso # (Auto) 0.02 0.02 Sodium 149 H Potassium 4.6 Chloride 115 H Carbon Dioxide 21 Anion Gap 17 BUN 99 H Creatinine 3.1 H Est GFR ( Amer) 24 Est GFR (Non-Af Amer) 20 Random Glucose 98 Calcium 8.5 Phosphorus 3.9 Magnesium 2.1 Total Bilirubin 0.4 AST 15 L ALT 21 Alkaline Phosphatase 49 Troponin I Total Protein 5.5 L Albumin 3.1 Globulin 2.4 Albumin/Globulin Ratio 1.3 Urine Color Urine Appearance Urine pH Ur Specific [place] Urine Protein Urine Glucose (UA) Urine Ketones Urine Blood Urine Nitrate Urine Bilirubin Urine Urobilinogen Ur Leukocyte Esterase Urine RBC Urine WBC Ur Epithelial Cells Ur Random Creatinine Ur Random Sodium Ur Random Urea Nitrogn Critical Care Progress Note - Nutrition Nutrition: Nutrition Category Date Time Status Liquid Diet [DIET] Diets 05/14/18 Breakfast Ordered Attending/Attestation - Attestation I have personally seen and examined this patient.: Yes I have fully participated in the care of the patient.: Yes I have reviewed all pertinent clinical information: Yes Notes (Text): 05/14/18 15:29 77 yo male who initially presented with high risk upper GI lesion, based on EGD results, now fluid resuscitated, Hb stable, on protonix drip, GI cleared for clear liquids, hemodyanmically stable. lactic acid level and trop are wnl. ok to downgrade to medsurg-->discussed and agreed upon by GI service ccm time 40 min .
[2018-05-14] MEDS ORDERED: Albuterol-Ipratrop 3 mg / 0.5 (3 ml) UD IH PRN (11:14)
--- NOTE | 2018-05-14 11:15 | CP.PCM.PN ---
Subjective - Date & Time of Evaluation Date of Evaluation: 05/14/18 Time of Evaluation: 11:13 - Subjective Subjective: Nephrology Consultation Note: Assessment: stable SANDRA likely due to GI volume loss symptomatic severe anemia with FOB + Hypernatremia CKD stage 4 with 443 mg proteinuria likely Due to HTN HTN kidney disease (I12.9) Obesity Anemia of chronic disease hx of COPD, CHF, ex smoker, PE on continuous churn buttermaker prednisone therapy ? reason esophageal ulceration with diverticuli on EGD 05/13/18 Plan no acute need for renal replacement therapy at this time Hypertension control with meds as ordered. pt not on RAAS brittni, will defer it due to advanced CKD Monitor I/O, daily weights and renal function while in hospital started IV iron supplements and dose of aransep 05/13/18 (100 mcg) planned s/p 4 units PRBC transfusion and endoscopic evaluation 05/13/18 can give lasix as needed COPD management as per primary team, d/w ICU GI following ordered SPEP/SKYLAR and serum FLC assay, UA. Dose meds/antibiotics for reduced GFR. Avoid fleets enema/magnesium based laxatives. Avoid nephrotoxins/NSAIDs/ iodinated contrast (unless needed emergently) Glycemic control, renal diet. Further work up for as per primary team. Thanks for allowing me to participate in care of your patient. Will follow with you. Please call if any Qs. had d/w team Dr Rivas Hazel Office: [phone] CC; SOB and anemia reason for consult: SANDRA on CKD HPI: Pt is a 77 M with hx of HTN (years), CKD stage 4 (with cr 2.8-3.0) obesity , COPD, CHF, ex smoker, PE, anemia, on continuous churn buttermaker prednisone 5mg ? reason presented to hospital with complaints of SOB and multiple episodes of nausea/ vomiting, loose stool, found to have severe Anemia with Hb 4-5 gm/dL range and renal consult for SANDRA on CKD management. Denies chest pain, palpitation, c/o shortness of breath on minimal exertion but better, reports chronic leg swelling but better now. planned for PRBC transfusion and endoscopic evaluation today. Denies OTC/herbal meds/NSAIDs No recent iodinated contrast exposure. GI symptoms better now ROS: denies CP/nausea/vomiting now. c/o exertional SOB. no nausea denies pain abdomen. denies urine complaints rest other negative except as mentioned in HPI. 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 obese Vitals reviewed and noted as below Head; Atraumatic, normocephalic ENT: no ulcers no thrush. Tongue is midline. Oropharynx: no rash or ulcers. EYES: b/l PERRLA Neck; supple no lymphadenopathy, no thyromegaly or bruit Lungs: Normal respiratory rate/effort. Breath sounds b/l with wheezing and basal rales + Heart: Normal rate. s1s2 normal. No rub or gallop. Extremities: no edema. No varicose veins. chronic venous stasis changes in leg noted Neurological: Patient is awake alert and follow commands no focal deficit Skin: dry and warm. Normal turgor. No rash. Palpitation: Normal elasticity for age Abdomen: Abdomen is distended . Bowel sounds +. There is no abdominal tenderness , no guarding/rigidity or organomegaly Psych: normal insight. normal affect/mood MSK: no specific joint tenderness or swelling. Digits and nails normal, no deformity : kidney not palpable. exam limited due to obesity. has umblical hernia Labs/imaging/EKG reviewed. Past medical history, past surgical history, social history, allergy reviewed and noted as below Family hx; no hx of CKD. non contributory renal imaging: Rt side cyst outpt urine pr/cr 447 PTH 188 Objective - Vital Signs/Intake and Output Vital Signs (last 24 hours): Temp Pulse Resp BP Pulse Ox 97.2 F L 56 L 23 134/67 100 05/13/18 18:00 05/14/18 07:40 05/14/18 07:40 05/14/18 07:00 05/14/18 07:40 Intake and Output: 05/14/18 05/14/18 06:59 18:59 Intake Total 840 Output Total 1025 Balance -185 - Medications Medications: Current Medications Pantoprazole Sodium (Protonix 40mg Ivpb) 40 mg in 100 mls @ 20 mls/hr IVPB .Q5H [facility]OMIE Last Admin: 05/14/18 06:56 Dose: 20 mls/hr Iron Sucrose 200 mg/ Sodium (Chloride) 110 mls @ 110 mls/hr IVPB DAILY NAOMIE Stop: 05/17/18 10:59 Last Admin: 05/13/18 11:46 Dose: 110 mls/hr Dextrose/Sodium Chloride (Dextrose 5%/0.9% Ns 1000 Ml) 1,000 mls @ 50 mls/hr IV .Q20H [facility]OMIE Last Admin: 05/13/18 19:58 Dose: 50 mls/hr Multi-Ingredient Cream (Hydrocerin Cream) 0 ea TOP DAILY NAOMIE - Labs Labs: 05/14/18 07:30 05/14/18 07:30 PT 14.3 SECONDS (9.4-12.5) H 05/12/18 21:45 INR 1.25 05/12/18 21:45 APTT 25.5 Seconds (25.1-36.5) 05/12/18 21:45
[2018-05-14] MEDS: Hydrocerin(120 gm) TOP SCH (11:42)
[2018-05-14] MEDS: Non Formulary Medication (Fluticasone/Vilanterol [Breo Ellipta 200-25 Mcg Inh] 1 PUFF) IH SCH (12:00)
--- NOTE | 2018-05-14 12:34 | CP.PCM.PN ---
<Raj Welch - Last Filed: 05/14/18 16:31> Subjective - Date & Time of Evaluation Date of Evaluation: 05/14/18 Time of Evaluation: 09:30 - Subjective Subjective: Raj Welch DO PGY-1, [employer] Medicine Progress Note Pt seen and examined at bedside. S/p 4 units PRBCs since admission. Denies any acute complaints this am, states he wants to eat. Denies headache, chest pain, shortness of breath, n/v/d/c, abd pain, urinary complaints or other symptoms. Objective - Vital Signs/Intake and Output Vital Signs (last 24 hours): Temp Pulse Resp BP Pulse Ox 97.2 F L 56 L 23 134/67 100 05/13/18 18:00 05/14/18 07:40 05/14/18 07:40 05/14/18 07:00 05/14/18 07:40 Intake and Output: 05/14/18 05/14/18 06:59 18:59 Intake Total 840 Output Total 1025 Balance -185 - Medications Medications: Current Medications Albuterol/Ipratropium (Duoneb 3 Mg/0.5 Mg (3 Ml) Ud) 3 ml IH [id number] HERMAN Albuterol/Ipratropium (Duoneb 3 Mg/0.5 Mg (3 Ml) Ud) 3 ml IH [id number] PRN PRN Reason: Wheezing Pantoprazole Sodium (Protonix 40mg Ivpb) 40 mg in 100 mls @ 20 mls/hr IVPB .Q5H [facility] Last Admin: 05/14/18 11:20 Dose: 20 mls/hr Iron Sucrose 200 mg/ Sodium (Chloride) 110 mls @ 110 mls/hr IVPB DAILY [facility]MAN Stop: 05/17/18 10:59 Last Admin: 05/14/18 11:19 Dose: 110 mls/hr Dextrose/Sodium Chloride (Dextrose 5%/0.9% Ns 1000 Ml) 1,000 mls @ 50 mls/hr IV .Q20H [facility]MAN Last Admin: 05/13/18 19:58 Dose: 50 mls/hr Methylprednisolone (Medrol) 4 mg PO DAILY [facility]MAN Last Admin: 05/14/18 11:41 Dose: 4 mg Multi-Ingredient Cream (Hydrocerin Cream) 0 ea TOP DAILY [facility]MAN Last Admin: 05/14/18 11:42 Dose: 1 appl Non-Formulary Medication (Fluticasone/Vilanterol [Breo Ellipta 200-25 Mcg Inh]) 1 puff IH DAILY HERMAN - Labs Labs: 05/14/18 07:30 05/14/18 07:30 PT 14.3 SECONDS (9.4-12.5) H 05/12/18 21:45 INR 1.25 05/12/18 21:45 APTT 25.5 Seconds (25.1-36.5) 05/12/18 21:45 - Constitutional Appears: Non-toxic, No Acute Distress - Head Exam Head Exam: ATRAUMATIC, NORMAL INSPECTION - Eye Exam Eye Exam: EOMI, Normal appearance, PERRL - ENT Exam ENT Exam: Mucous Membranes Moist, Normal Oropharynx - Respiratory Exam Respiratory Exam: Clear to Ausculation Bilateral, NORMAL BREATHING PATTERN - Cardiovascular Exam Cardiovascular Exam: REGULAR RHYTHM, +S1, +S2 - GI/Abdominal Exam GI & Abdominal Exam: Soft, Normal Bowel Sounds. absent: Tenderness - Extremities Exam Extremities Exam: Full ROM, Normal Capillary Refill, Normal Inspection - Neurological Exam Neurological Exam: Alert, Awake, CN II-XII Intact, Oriented x3 - Psychiatric Exam Psychiatric exam: Normal Affect, Normal Mood - Skin Skin Exam: Dry, Intact, Warm Assessment and Plan - Assessment and Plan (Free Text) Assessment: 77 y o male PMHx anemia (placed on iron by PMD, Hgb was at level of 9 in 2012 as per patient), CHF, HTN, HLD, COPD/Asthma, CKD, and pulmonary embolism (2013; last on Pradaxa 3 y ago as per pt), presented with chief complaint of abdominal cramping x 3 days and diarrhea s/p ingestion of liverwurst. Pt presented with respiratory distress in ED, improved following administration of CPAP in ED. Pt was found to have Hgb of 4 on admission and was admitted to ICU for further management. Pt was found to have bleeding esophageal ulcer/diverticulum/visible vessel, s/p clipping on 05/13/18 by GI. Pt is s/p transfusion of 4 units PRBCs, no further episodes of melena post-EGD. Currently hemodynamically stable. Pt to be transferred to medical floor from ICU today. Plan: Acute symptomatic, normocytic anemia -S/p 4 units PRBCs since admission -GI consulted, recs appreciated -C/w protonix drip, switch to protonix bid tomorrow as per GI -C/w IV iron infusions -Ct abd/pelvis: no radiodense urolithiasis, perinephric fluid collection, or obstructive uropathy appreciated b/l; b/l ureters normal caliber; equivocal cystitis; potential esophageal perforation w/ pneumatosis vs. artifact from swallowing; small umbilical hernia containing only fat -Esophageal XR: 3.8 cm diverticulum contains retained food or bezoar within lumen and no fluoroscopic evidence to suggest esophageal perforation using water -soluble contrast media -S/p EGD on 05/13/18 which demonstrated bleeding esophageal ulcer/diverticulum/ visible vessel, s/p clipping. -No further melena episodes s/p EGD, will continue to monitor -Currently hemodynamically stable, Hgb 8.4 this am, will continue to trend -Echo 05/13: borderline to mild concentric L ventricular hypertrophy, LV function normal, aortic valve moderately to severely calcified, severe valvular aortic stenosis, mild to moderate mitral regurgitation, moderate tricuspid regurgitation, severe pulmonary HTN -CLD as per GI, advance as per GI Shortness of breath/hx COPD Respiratory distress resolved on placing CPAP in ED, saturating well on NC Duonebs q 6 h herman Duonebs q 4 h prn Medrol 4 mg daily Breo Ellipta inhaler daily SANDRA Cr 3.1 Nephrology consulted, recs appreciated Chronic venous stasis ulcers in legs b/l Podiatry consulted, recs appreciated Pt to be transferred to med/surg floor from ICU. Pt seen, examined with, and plan discussed with Dr. Bernardo, attending. Raj Welch DO PGY-1, [employer] Pager #[phone] <Ji Bernardo - Last Filed: 05/15/18 19:08> Objective - Vital Signs/Intake and Output Vital Signs (last 24 hours): Temp Pulse Resp BP Pulse Ox 97.3 F L 82 20 126/77 100 05/15/18 14:00 05/15/18 14:00 05/15/18 14:00 05/15/18 14:00 05/15/18 14:00 - Medications Medications: Current Medications Albuterol/Ipratropium (Duoneb 3 Mg/0.5 Mg (3 Ml) Ud) 3 ml IH [id number] HERMAN Last Admin: 05/15/18 13:38 Dose: Not Given Albuterol/Ipratropium (Duoneb 3 Mg/0.5 Mg (3 Ml) Ud) 3 ml IH [id number] PRN PRN Reason: Wheezing Iron Sucrose 200 mg/ Sodium (Chloride) 110 mls @ 110 mls/hr IVPB DAILY HERMAN Stop: 05/17/18 10:59 Last Admin: 05/15/18 13:11 Dose: 110 mls/hr Methylprednisolone (Medrol) 4 mg PO DAILY HERMAN Last Admin: 05/15/18 13:09 Dose: 4 mg Multi-Ingredient Cream (Hydrocerin Cream) 0 ea TOP DAILY [facility] Last Admin: 05/15/18 13:09 Dose: 1 appl Pantoprazole Sodium (Protonix Ec Tab) 40 mg PO 0600,1600 [facility] Last Admin: 05/15/18 17:27 Dose: 40 mg - Labs Labs: 05/15/18 18:13 05/15/18 07:00 PT 14.3 SECONDS (9.4-12.5) H 05/12/18 21:45 INR 1.25 05/12/18 21:45 APTT 25.5 Seconds (25.1-36.5) 05/12/18 21:45 Attending/Attestation - Attestation I have personally seen and examined this patient.: Yes I have fully participated in the care of the patient.: Yes I have reviewed all pertinent clinical information, including history, physical exam and plan: Yes
[2018-05-14] MEDS: Albuterol-Ipratrop 3 mg / 0.5 (3 ml) UD IH SCH ×2 (15:29→19:16)
[2018-05-14] MEDS: Dextrose 5%/0.9% NS 1,000 ML IV SCH (16:58)
[2018-05-15] MEDS: Albuterol-Ipratrop 3 mg / 0.5 (3 ml) UD IH SCH ×5 (03:10→20:27)
[2018-05-15] MEDS: Pantoprazole 40mg/100mL NS 40 MG/100 ML BAG IVPB SCH (05:24)
[2018-05-15 08:05] LABS: BASO # 0.01 K/mm3 (0.0-2.0); BASO % 0.1 % (0.0-3.0); EOS # 0.2 (0.0-0.7); EOS % 1.5 % (1.5-5.0); GRAN # 8.01 (1.4-6.5); GRAN % 66.9 % (50.0-68.0); HEMOGLOBIN 7.1 g/dL (14.0-18.0); LYMPH # 2.2 (1.2-3.4); LYMPH % 18.4 % (22.0-35.0); MEAN CELL VOLUME 89.1 fl (80.0-105.0); MEAN CORPUSCULAR HEMOGLOBIN 28.6 pg (25.0-35.0); MEAN CORPUSCULAR HGB CONC 32.1 g/dl (31.0-37.0); MEAN PLATELET VOLUME 9.6 fl (7.0-11.0); MONO # 1.6 (0.1-0.6); MONO % 13.1 % (1.0-6.0); RBC 2.48 10^6/uL (3.5-6.1); RED CELL DISTRIBUTION WIDTH 16.6 % (11.5-14.5)
[2018-05-15 08:23] LABS: ALB/GLOB RATIO 1.2 (1.1-1.8); ALBUMIN 2.9 g/dL (3.0-4.8); CALCIUM 7.9 mg/dL (8.4-10.5)
--- NOTE | 2018-05-15 09:29 | CP.PCM.PN ---
<Noemi Bethmita - Last Filed: 05/15/18 09:26> Subjective - Date & Time of Evaluation Date of Evaluation: 05/15/18 Time of Evaluation: 09:26 - Subjective Subjective: Podiatry Progress Note - Drs. Mehta/Mily 77 year old male seen and evaluated at bedside for chronic lower extremity edema and xerosis. Patient is resting comfortably in bed, and in no acute distress. Patient denies any other pedal complaints. Patient complains of increased coughing, but denies F/N/V. Objective - Vital Signs/Intake and Output Vital Signs (last 24 hours): Temp Pulse Resp BP Pulse Ox 98.4 F 54 L 20 141/65 100 05/15/18 06:00 05/15/18 06:00 05/15/18 06:00 05/15/18 06:00 05/15/18 06:00 Intake and Output: 05/15/18 05/15/18 06:59 18:59 Output Total 300 Balance -300 - Medications Medications: Current Medications Albuterol/Ipratropium (Duoneb 3 Mg/0.5 Mg (3 Ml) Ud) 3 ml IH [id number] NAOMIE Last Admin: 05/15/18 07:15 Dose: 3 ml Albuterol/Ipratropium (Duoneb 3 Mg/0.5 Mg (3 Ml) Ud) 3 ml IH [id number] PRN PRN Reason: Wheezing Pantoprazole Sodium (Protonix 40mg Ivpb) 40 mg in 100 mls @ 20 mls/hr IVPB .Q5H [facility] Last Admin: 05/15/18 05:24 Dose: 20 mls/hr Iron Sucrose 200 mg/ Sodium (Chloride) 110 mls @ 110 mls/hr IVPB DAILY NAOMIE Stop: 05/17/18 10:59 Last Admin: 05/14/18 11:19 Dose: 110 mls/hr Dextrose/Sodium Chloride (Dextrose 5%/0.9% Ns 1000 Ml) 1,000 mls @ 50 mls/hr IV .Q20H NAOMIE Last Admin: 05/14/18 16:58 Dose: 50 mls/hr Methylprednisolone (Medrol) 4 mg PO DAILY NAOMIE Last Admin: 05/14/18 11:41 Dose: 4 mg Multi-Ingredient Cream (Hydrocerin Cream) 0 ea TOP DAILY NAOMIE Last Admin: 05/14/18 11:42 Dose: 1 appl Non-Formulary Medication (Fluticasone/Vilanterol [Breo Ellipta 200-25 Mcg Inh]) 1 puff IH DAILY NAOMIE Last Admin: 05/14/18 12:00 Dose: Not Given - Labs Labs: 05/15/18 07:00 05/15/18 07:00 PT 14.3 SECONDS (9.4-12.5) H 05/12/18 21:45 INR 1.25 05/12/18 21:45 APTT 25.5 Seconds (25.1-36.5) 05/12/18 21:45 - Constitutional Appears: Well, Non-toxic, No Acute Distress - Head Exam Head Exam: ATRAUMATIC, NORMOCEPHALIC - Extremities Exam Additional comments: Bilateral LE physical exam: Vasc: DP and PT pulses nonpalpable bilaterally, CFT <3 seconds to digits bilaterally, Temperature gradient warm to warm bilaterally, +1 pitting edema present bilaterally Neuro: Gross sensation diminished bilaterally. Derm: xerosis noted bilaterally, no drainage; no purulence; no fluctuance; no periwound erythema. Healed ulcerations noted to posterior calf RLE, no drainage ; no purulence; no fluctuance; no periwound erythema. Venous stasis dermatitis b /l leg. Ortho: No pain on palpation to bilateral LE. Muscle strength 5/5 for all dorsiflexors, plantarflexors, inverters, and everters b/l. - Neurological Exam Neurological Exam: Alert, Awake, Oriented x3 - Psychiatric Exam Psychiatric exam: Normal Affect, Normal Mood Assessment and Plan - Assessment and Plan (Free Text) Assessment: 77 year old male with bilateral LE edema and xerosis seen and evaluated at bedside Plan: Patient seen and evaluated with attending Dr. Minor Chart, labs and vitals reviewed Wounds to bilateral LE resolved, no dressing at this time QD Eucerin cream Podiatry will continue to follow <Anselmo Minor - Last Filed: 05/18/18 11:20> Objective - Vital Signs/Intake and Output Vital Signs (last 24 hours): Temp Pulse Resp BP Pulse Ox 98.8 F 50 L 20 152/88 H 98 05/18/18 08:36 05/18/18 08:36 05/18/18 08:36 05/18/18 09:26 05/18/18 08:36 Intake and Output: 05/18/18 05/18/18 06:59 18:59 Intake Total 480 Output Total 900 Balance -420 - Medications Medications: Current Medications Acetaminophen (Tylenol 325mg Tab) 650 mg PO Q6H PRN PRN Reason: Pain, Mild (1-3) Last Admin: 05/18/18 02:15 Dose: 650 mg Albuterol/Ipratropium (Duoneb 3 Mg/0.5 Mg (3 Ml) Ud) 3 ml IH [id number] NAOMIE Last Admin: 05/18/18 02:05 Dose: Not Given Albuterol/Ipratropium (Duoneb 3 Mg/0.5 Mg (3 Ml) Ud) 3 ml IH [id number] PRN PRN Reason: Wheezing Furosemide (Lasix) 40 mg PO DAILY [facility] Last Admin: 05/18/18 09:26 Dose: 40 mg Multi-Ingredient Cream (Hydrocerin Cream) 0 ea TOP DAILY [facility] Last Admin: 05/18/18 09:26 Dose: 1 appl Pantoprazole Sodium (Protonix Ec Tab) 40 mg PO 0600,1600 [facility] Last Admin: 05/18/18 06:18 Dose: 40 mg Prednisone (Prednisone Tab) 5 mg PO DAILY [facility] Last Admin: 05/18/18 09:26 Dose: 5 mg - Labs Labs: 05/18/18 07:30 05/18/18 07:00 PT 14.3 SECONDS (9.4-12.5) H 05/12/18 21:45 INR 1.25 05/12/18 21:45 APTT 25.5 Seconds (25.1-36.5) 05/12/18 21:45 Attending/Attestation - Attestation I have personally seen and examined this patient.: Yes I have fully participated in the care of the patient.: Yes I have reviewed all pertinent clinical information, including history, physical exam and plan: Yes
--- NOTE | 2018-05-15 09:51 | CP.PCM.PN ---
<LorraineregiAlfred - Last Filed: 05/15/18 10:22> Subjective - Date & Time of Evaluation Date of Evaluation: 05/15/18 Time of Evaluation: 09:46 - Subjective Subjective: GI Fellow PGY4, progress note. Hb fell 1.5 pts from yesterday. afeb and HDS. He is doing well. no complaints, tolerating diet. Denies n/v/abd pain/bloody stool. 5pt ROS completed and negative except for above. Objective - Vital Signs/Intake and Output Vital Signs (last 24 hours): Temp Pulse Resp BP Pulse Ox 98.4 F 54 L 20 141/65 100 05/15/18 06:00 05/15/18 06:00 05/15/18 06:00 05/15/18 06:00 05/15/18 06:00 Intake and Output: 05/15/18 05/15/18 06:59 18:59 Output Total 300 Balance -300 - Medications Medications: Current Medications Albuterol/Ipratropium (Duoneb 3 Mg/0.5 Mg (3 Ml) Ud) [id number] [facility] Last Admin: 05/15/18 07:15 Dose: 3 ml Albuterol/Ipratropium (Duoneb 3 Mg/0.5 Mg (3 Ml) Ud) 3 ml IH [id number] PRN PRN Reason: Wheezing Pantoprazole Sodium (Protonix 40mg Ivpb) 40 mg in 100 mls @ 20 mls/hr IVPB .Q5H [facility] Last Admin: 05/15/18 05:24 Dose: 20 mls/hr Iron Sucrose 200 mg/ Sodium (Chloride) 110 mls @ 110 mls/hr IVPB DAILY [facility]IE Stop: 05/17/18 10:59 Last Admin: 05/14/18 11:19 Dose: 110 mls/hr Dextrose/Sodium Chloride (Dextrose 5%/0.9% Ns 1000 Ml) 1,000 mls @ 50 mls/hr IV .Q20H [facility] Last Admin: 05/14/18 16:58 Dose: 50 mls/hr Methylprednisolone (Medrol) [address] [facility] Last Admin: 05/14/18 11:41 Dose: 4 mg Multi-Ingredient Cream (Hydrocerin Cream) [address] [facility] Last Admin: 05/14/18 11:42 Dose: 1 appl Non-Formulary Medication (Fluticasone/Vilanterol [Breo Ellipta 200-25 Mcg Inh]) 1 puff IH DAILY [facility] Last Admin: 05/14/18 12:00 Dose: Not Given - Labs Labs: 05/15/18 07:00 05/15/18 07:00 PT 14.3 SECONDS (9.4-12.5) H 05/12/18 21:45 INR 1.25 05/12/18 21:45 APTT 25.5 Seconds (25.1-36.5) 05/12/18 21:45 - Constitutional Appears: Well, Non-toxic, Chronically Ill - Eye Exam Eye Exam: Normal appearance - ENT Exam ENT Exam: Mucous Membranes Moist - Respiratory Exam Respiratory Exam: Clear to Ausculation Bilateral, NORMAL BREATHING PATTERN. absent: Stridor - Cardiovascular Exam Cardiovascular Exam: REGULAR RHYTHM, +S1, +S2 - GI/Abdominal Exam GI & Abdominal Exam: Soft, Normal Bowel Sounds. absent: Tenderness - Extremities Exam Extremities Exam: Pedal Edema - Neurological Exam Neurological Exam: Alert, Awake, Oriented x3 - Psychiatric Exam Psychiatric exam: Normal Affect, Normal Mood - Skin Skin Exam: Dry, Normal Color Assessment and Plan - Assessment and Plan (Free Text) Assessment: This is a 77yo M with pmhx of CHF, HTN, HLD, COPD, asthma, CKD, Trach/PEG in 2013 with reversal, and PE not on any OAC who presented to the ED with abdominal pain found to be in respiratory distress. GI consulted for esophageal pneumatosis on imaging. 1. Acute symptomatic anemia - s/p 4U PRCs 2. Melena 3. 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 Hx of Trach and PEG, reversed 5. Suspect CKD 6. UGIB s/p EGD with esophageal ulcer and visible vessel Plan: -Barium esophagogram unremarkable for perforation -Emergent EGD performed that showed large diverticulum in distal esophagus with protrubent visible vessel. for hemostasis 2 cc epinephrine was injected with 3 clips placed -Recheck CBC today at noon. 1 unit pRBC if below 7. Baseline Hb ~8, so I would not be too aggressive with transfusion unless signs of upper GI bleed resume. -PPI IV BID -Diet advanced to full liquid -Defer IVF to primary team, recommend d/c IVF now that he is tolerating diet. -Cr not significantly improving after transfusion and IVF. Last known Cr was in 2013. I suspect this is largely CKD. 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 He is making good urine so unlikely ATN. <Ang Mann - Last Filed: 05/15/18 16:34> Objective - Vital Signs/Intake and Output Vital Signs (last 24 hours): Temp Pulse Resp BP Pulse Ox 97.3 F L 82 20 126/77 100 05/15/18 14:00 05/15/18 14:00 05/15/18 14:00 05/15/18 14:00 05/15/18 14:00 Intake and Output: 05/15/18 05/15/18 06:59 18:59 Output Total 300 Balance -300 - Medications Medications: Current Medications Albuterol/Ipratropium (Duoneb 3 Mg/0.5 Mg (3 Ml) Ud) [id number] [facility] Last Admin: 05/15/18 13:38 Dose: Not Given Albuterol/Ipratropium (Duoneb 3 Mg/0.5 Mg (3 Ml) Ud) 3 ml IH [id number] PRN PRN Reason: Wheezing Iron Sucrose 200 mg/ Sodium (Chloride) 110 mls @ 110 mls/hr IVPB DAILY [facility] Stop: 05/17/18 10:59 Last Admin: 05/15/18 13:11 Dose: 110 mls/hr Dextrose/Sodium Chloride (Dextrose 5%/0.9% Ns 1000 Ml) 1,000 mls @ 50 mls/hr IV .Q20H [facility] Last Admin: 05/15/18 13:09 Dose: 50 mls/hr Methylprednisolone (Medrol) [address] [facility] Last Admin: 05/15/18 13:09 Dose: 4 mg Multi-Ingredient Cream (Hydrocerin Cream) [address] [facility] Last Admin: 05/15/18 13:09 Dose: 1 appl Non-Formulary Medication (Fluticasone/Vilanterol [Breo Ellipta 200-25 Mcg Inh]) [address] [facility] Last Admin: 05/14/18 12:00 Dose: Not Given Pantoprazole Sodium (Protonix Ec Tab) 40 mg PO 0600,1600 [facility] - Labs Labs: 05/15/18 12:54 05/15/18 07:00 PT 14.3 SECONDS (9.4-12.5) H 05/12/18 21:45 INR 1.25 05/12/18 21:45 APTT 25.5 Seconds (25.1-36.5) 05/12/18 21:45 Attending/Attestation - Attestation I have personally seen and examined this patient.: Yes I have fully participated in the care of the patient.: Yes I have reviewed all pertinent clinical information, including history, physical exam and plan: Yes Notes (Text): 05/15/18 16:33 Chart reviewed. The patient was interviewed and examined this afternoon. Agree with the above findings. Asymptomatic. No stigmata of ongoing GI bleeding. Assessment and recommendations, as outlined above, were discussed with Dr. Corley. Discussed with the pt's nurse.
[2018-05-15] MEDS: Hydrocerin(120 gm) TOP SCH (13:09)
[2018-05-15] MEDS: Dextrose 5%/0.9% NS 1,000 ML IV SCH (13:09)
[2018-05-15 13:38] LABS: HEMOGLOBIN 7.2 g/dL (14.0-18.0); MEAN CELL VOLUME 89.4 fl (80.0-105.0); MEAN CORPUSCULAR HEMOGLOBIN 28.3 pg (25.0-35.0); MEAN CORPUSCULAR HGB CONC 31.7 g/dl (31.0-37.0); MEAN PLATELET VOLUME 9.8 fl (7.0-11.0); RBC 2.54 10^6/uL (3.5-6.1); RED CELL DISTRIBUTION WIDTH 16.6 % (11.5-14.5); WHITE BLOOD COUNT 11.8 10^3/ul (4.5-11.0)
[2018-05-15] MEDS: Pantoprazole 40 mg EC Tab PO SCH (17:27)
[2018-05-15] MEDS: Non Formulary Medication (Fluticasone/Vilanterol [Breo Ellipta 200-25 Mcg Inh] 1 PUFF) IH SCH (17:28)
[2018-05-15 18:29] LABS: MEAN CELL VOLUME 89.4 fl (80.0-105.0); MEAN CORPUSCULAR HEMOGLOBIN 28.5 pg (25.0-35.0); MEAN CORPUSCULAR HGB CONC 31.8 g/dl (31.0-37.0); MEAN PLATELET VOLUME 9.9 fl (7.0-11.0); RBC 2.46 10^6/uL (3.5-6.1); RED CELL DISTRIBUTION WIDTH 16.7 % (11.5-14.5); WHITE BLOOD COUNT 11.2 10^3/ul (4.5-11.0)
--- NOTE | 2018-05-15 19:33 | CP.PCM.PN ---
<Raj Welch - Last Filed: 05/15/18 19:46> Subjective - Date & Time of Evaluation Date of Evaluation: 05/15/18 Time of Evaluation: 11:15 - Subjective Subjective: Raj Welch DO PGY-1, Cooling Room Attendant Medicine Progress Note Pt seen and examined at bedside. States he is getting short of breath after walking to and from the bathroom from bed today. States he has a long history of uncontrolled COPD and that many doctors in the past have been unable to control his symptoms. Pt required duonebs overnight. Otherwise no acute events reported by hotel staff member. Denies chest pain, fever, chills, n/v/d/c, abd pain, urinary complaints, or other symptoms. Objective - Vital Signs/Intake and Output Vital Signs (last 24 hours): Temp Pulse Resp BP Pulse Ox 97.3 F L 82 20 126/77 100 05/15/18 14:00 05/15/18 14:00 05/15/18 14:00 05/15/18 14:00 05/15/18 14:00 - Medications Medications: Current Medications Albuterol/Ipratropium (Duoneb 3 Mg/0.5 Mg (3 Ml) Ud) 3 ml IH [id number] [facility] Last Admin: 05/15/18 13:38 Dose: Not Given Albuterol/Ipratropium (Duoneb 3 Mg/0.5 Mg (3 Ml) Ud) 3 ml IH [id number] PRN PRN Reason: Wheezing Iron Sucrose 200 mg/ Sodium (Chloride) 110 mls @ 110 mls/hr IVPB DAILY [facility] Stop: 05/17/18 10:59 Last Admin: 05/15/18 13:11 Dose: 110 mls/hr Methylprednisolone (Medrol) 4 mg PO DAILY [facility] Last Admin: 05/15/18 13:09 Dose: 4 mg Multi-Ingredient Cream (Hydrocerin Cream) 0 ea TOP DAILY [facility] Last Admin: 05/15/18 13:09 Dose: 1 appl Pantoprazole Sodium (Protonix Ec Tab) 40 mg PO 0600,1600 [facility] Last Admin: 05/15/18 17:27 Dose: 40 mg - Labs Labs: 05/15/18 18:13 05/15/18 07:00 PT 14.3 SECONDS (9.4-12.5) H 05/12/18 21:45 INR 1.25 05/12/18 21:45 APTT 25.5 Seconds (25.1-36.5) 05/12/18 21:45 - Constitutional Appears: Non-toxic, No Acute Distress - Head Exam Head Exam: ATRAUMATIC, NORMAL INSPECTION - Eye Exam Eye Exam: EOMI, Normal appearance, PERRL - ENT Exam ENT Exam: Mucous Membranes Moist - Respiratory Exam Respiratory Exam: NORMAL BREATHING PATTERN Additional comments: Coarse breath sounds auscultated b/l - Cardiovascular Exam Cardiovascular Exam: REGULAR RHYTHM, +S1, +S2. absent: Gallop, Rubs, Murmur - GI/Abdominal Exam GI & Abdominal Exam: Soft, Normal Bowel Sounds. absent: Distended, Rigid, Tenderness, Rebound - Extremities Exam Extremities Exam: Full ROM, Normal Capillary Refill - Back Exam Back Exam: NORMAL INSPECTION - Neurological Exam Neurological Exam: Alert, Awake, CN II-XII Intact, Oriented x3 - Skin Skin Exam: Dry, Intact, Normal Color, Warm Assessment and Plan - Assessment and Plan (Free Text) Assessment: 77 y o male PMHx anemia (placed on iron by PMD, Hgb was at level of 9 in 2013 as per patient), CHF, HTN, HLD, COPD/Asthma, CKD, and pulmonary embolism (2013; last on Pradaxa 3 y ago as per pt), presented with chief complaint of abdominal cramping x 3 days and diarrhea s/p ingestion of liverwurst. Pt presented with respiratory distress in ED, improved following administration of CPAP in ED. Pt was found to have Hgb of 4 on admission and was admitted to ICU for further management. Pt was found to have bleeding esophageal ulcer/diverticulum/visible vessel, s/p clipping on 05/13/18 by GI. Pt is s/p transfusion of 4 units PRBCs, no further episodes of melena post-EGD. Currently hemodynamically stable. S/p downgrade from ICU. Plan: Acute symptomatic, normocytic anemia -S/p 4 units PRBCs since admission -GI consulted, recs appreciated -C/w protonix bid -C/w IV iron infusions -Ct abd/pelvis: no radiodense urolithiasis, perinephric fluid collection, or obstructive uropathy appreciated b/l; b/l ureters normal caliber; equivocal cystitis; potential esophageal perforation w/ pneumatosis vs. artifact from swallowing; small umbilical hernia containing only fat -Esophageal XR: 3.8 cm diverticulum contains retained food or bezoar within lumen and no fluoroscopic evidence to suggest esophageal perforation using water -soluble contrast media -S/p EGD on 05/13/18 which demonstrated bleeding esophageal ulcer/diverticulum/ visible vessel, s/p clipping. -No further melena episodes s/p EGD, will continue to monitor -Currently hemodynamically stable, Hgb 7.2, will continue to trend -Echo 05/13: borderline to mild concentric L ventricular hypertrophy, LV function normal, aortic valve moderately to severely calcified, severe valvular aortic stenosis, mild to moderate mitral regurgitation, moderate tricuspid regurgitation, severe pulmonary HTN -CLD as per GI, advance as per GI Shortness of breath/hx COPD Respiratory distress resolved on placing CPAP in ED, saturating well on NC Duonebs q 6 h [facility] Duonebs q 4 h prn Medrol 4 mg daily Pt c/o dyspnea on exertion w/ ambulating to bathroom Pulmonology consulted (Dr. Stoddard), recs appreciated SANDRA Cr 3.0 today Nephrology consulted, recs appreciated Chronic venous stasis ulcers in legs b/l Podiatry consulted, recs appreciated Pt seen, examined with, and plan discussed with Dr. Shin, attending. <Darlene Shin - Last Filed: 05/15/18 22:04> Objective - Vital Signs/Intake and Output Vital Signs (last 24 hours): Temp Pulse Resp BP Pulse Ox 97.3 F L 82 20 126/77 100 05/15/18 14:00 05/15/18 14:00 05/15/18 14:00 05/15/18 14:00 05/15/18 14:00 - Medications Medications: Current Medications Albuterol/Ipratropium (Duoneb 3 Mg/0.5 Mg (3 Ml) Ud) 3 ml IH [id number] [facility] Last Admin: 05/15/18 20:27 Dose: 3 ml Albuterol/Ipratropium (Duoneb 3 Mg/0.5 Mg (3 Ml) Ud) 3 ml IH [id number] PRN PRN Reason: Wheezing Iron Sucrose 200 mg/ Sodium (Chloride) 110 mls @ 110 mls/hr IVPB DAILY [facility] Stop: 09/03/18 10:59 Last Admin: 05/15/18 13:11 Dose: 110 mls/hr Methylprednisolone (Medrol) 4 mg PO DAILY [facility] Last Admin: 05/15/18 13:09 Dose: 4 mg Multi-Ingredient Cream (Hydrocerin Cream) 0 ea TOP DAILY [facility] Last Admin: 05/15/18 13:09 Dose: 1 appl Pantoprazole Sodium (Protonix Ec Tab) 40 mg PO 0600,1600 [facility] Last Admin: 05/15/18 17:27 Dose: 40 mg - Labs Labs: 05/15/18 18:13 05/15/18 07:00 PT 14.3 SECONDS (9.4-12.5) H 05/12/18 21:45 INR 1.25 05/12/18 21:45 APTT 25.5 Seconds (25.1-36.5) 05/12/18 21:45 Attending/Attestation - Attestation I have personally seen and examined this patient.: Yes I have fully participated in the care of the patient.: Yes I have reviewed all pertinent clinical information, including history, physical exam and plan: Yes Notes (Text): 05/15/18 22:02 Patient seen and examined at bedside. Vitals, labs, notes reviewed. H/H lower but stable. No new complaints. Agree with the plan of care as discussed and outlined by the resident including obtaining a pulmonary consultation.
--- NOTE | 2018-05-15 21:17 | CP.PCM.PN ---
Subjective - Date & Time of Evaluation Date of Evaluation: 05/15/18 Time of Evaluation: 11:00 - Subjective Subjective: Nephrology Consultation Note: Assessment: stable SANDRA likely due to GI volume loss symptomatic severe anemia with FOB + Hypernatremia CKD stage 4 with 443 mg proteinuria likely Due to HTN HTN kidney disease (I12.9) Obesity Anemia of chronic disease hx of COPD, CHF, ex smoker, PE on terminologist prednisone therapy ? reason esophageal ulceration with diverticuli on EGD 05/13/18 Plan no acute need for renal replacement therapy at this time Hypertension control with meds as ordered. pt not on RAAS brittni, will defer it due to advanced CKD Monitor I/O on iron supplementation and dose of aransep 05/13/18 (100 mcg) planned s/p PRBC transfusion and endoscopic evaluation 05/13/18 lasix as needed GI following ordered SPEP/SKYLAR and serum FLC assay pending Physical Examination: General Appearance: Comfortable, in no acute respiratory distress, co- operative. obese Vitals reviewed and noted as below Head; Atraumatic, normocephalic ENT: no ulcers no thrush. Tongue is midline. EYES: vision unchanged Neck; supple no jvd Lungs: Normal respiratory rate/effort. Breath sounds b/l with wheezing and basal rales + Heart: Normal rate. s1s2 normal. No rub or gallop. Extremities: no edema. No varicose veins. chronic venous stasis changes in leg noted Neurological: Patient is awake alert and follow commands no focal deficit Skin: dry and warm. Normal turgor. Abdomen: Abdomen is distended . Bowel sounds +. There is no abdominal tenderness , no guarding/rigidity or organomegaly Psych: normal insight. normal affect/mood MSK: no specific joint tenderness or swelling. Objective - Vital Signs/Intake and Output Vital Signs (last 24 hours): Temp Pulse Resp BP Pulse Ox 97.3 F L 82 20 126/77 100 05/15/18 14:00 05/15/18 14:00 05/15/18 14:05/15/18 14:00 05/15/18 14:00 - Medications Medications: Current Medications Albuterol/Ipratropium (Duoneb 3 Mg/0.5 Mg (3 Ml) Ud) 3 ml IH [id number] [facility] Last Admin: 05/15/18 20:27 Dose: 3 ml Albuterol/Ipratropium (Duoneb 3 Mg/0.5 Mg (3 Ml) Ud) 3 ml IH [id number] PRN PRN Reason: Wheezing Iron Sucrose 200 mg/ Sodium (Chloride) 110 mls @ 110 mls/hr IVPB DAILY [facility] Stop: 05/17/18 10:59 Last Admin: 05/15/18 13:11 Dose: 110 mls/hr Methylprednisolone (Medrol) 4 mg PO DAILY [facility] Last Admin: 05/15/18 13:09 Dose: 4 mg Multi-Ingredient Cream (Hydrocerin Cream) 0 ea TOP DAILY [facility] Last Admin: 05/15/18 13:09 Dose: 1 appl Pantoprazole Sodium (Protonix Ec Tab) 40 mg PO 0600,1600 [facility] Last Admin: 05/15/18 17:27 Dose: 40 mg - Labs Labs: 05/15/18 18:13 05/15/18 07:00 PT 14.3 SECONDS (9.4-12.5) H 05/12/18 21:45 INR 1.25 05/12/18 21:45 APTT 25.5 Seconds (25.1-36.5) 05/12/18 21:45
[2018-05-16] MEDS: Albuterol-Ipratrop 3 mg / 0.5 (3 ml) UD IH SCH ×4 (01:55→20:21)
[2018-05-16] MEDS: Pantoprazole 40 mg EC Tab PO SCH ×2 (05:39→16:39)
[2018-05-16 07:47] LABS: BASO # 0.02 K/mm3 (0.0-2.0); BASO % 0.2 % (0.0-3.0); EOS # 0.3 (0.0-0.7); EOS % 2.3 % (1.5-5.0); GRAN # 8.22 (1.4-6.5); GRAN % 68.2 % (50.0-68.0); HEMOGLOBIN 7.2 g/dL (14.0-18.0); LYMPH # 2.4 (1.2-3.4); LYMPH % 19.8 % (22.0-35.0); MEAN CELL VOLUME 90.1 fl (80.0-105.0); MEAN CORPUSCULAR HEMOGLOBIN 28.5 pg (25.0-35.0); MEAN CORPUSCULAR HGB CONC 31.6 g/dl (31.0-37.0); MEAN PLATELET VOLUME 9.4 fl (7.0-11.0); MONO # 1.1 (0.1-0.6); MONO % 9.5 % (1.0-6.0); RBC 2.53 10^6/uL (3.5-6.1); RED CELL DISTRIBUTION WIDTH 16.9 % (11.5-14.5)
[2018-05-16 08:00] LABS: ALB/GLOB RATIO 1.2 (1.1-1.8); ALBUMIN 3.1 g/dL (3.0-4.8); CALCIUM 8.1 mg/dL (8.4-10.5)
[2018-05-16] MEDS: Hydrocerin(120 gm) TOP SCH (10:13)
--- NOTE | 2018-05-16 11:42 | CP.PCM.PN ---
<Alfred Corley - Last Filed: 05/16/18 11:44> Subjective - Date & Time of Evaluation Date of Evaluation: 05/16/18 Time of Evaluation: 11:37 - Subjective Subjective: GI Fellow. Patient doing well. No complaints. Denies abdominal pain, gi bleed, melena, nausea, vomiting. He is tolerating diet. Objective - Vital Signs/Intake and Output Vital Signs (last 24 hours): Temp Pulse Resp BP Pulse Ox 98.5 F 76 20 135/67 100 05/16/18 06:00 05/16/18 06:00 05/16/18 06:00 05/16/18 06:00 05/16/18 06:00 Intake and Output: 05/16/18 05/16/18 06:59 18:59 Intake Total 570 Output Total 700 Balance -130 - Medications Medications: Current Medications Albuterol/Ipratropium (Duoneb 3 Mg/0.5 Mg (3 Ml) Ud) 3 ml IH [id number] [facility] Last Admin: 05/16/18 07:40 Dose: 3 ml Albuterol/Ipratropium (Duoneb 3 Mg/0.5 Mg (3 Ml) Ud) 3 ml IH [id number] PRN PRN Reason: Wheezing Iron Sucrose 200 mg/ Sodium (Chloride) 110 mls @ 110 mls/hr IVPB DAILY [facility] Stop: 05/17/18 10:59 Last Admin: 05/16/18 10:13 Dose: 110 mls/hr Methylprednisolone (Medrol) 4 mg PO DAILY [facility] Last Admin: 05/16/18 10:17 Dose: 4 mg Multi-Ingredient Cream (Hydrocerin Cream) 0 ea TOP DAILY [facility] Last Admin: 05/16/18 10:13 Dose: 1 appl Pantoprazole Sodium (Protonix Ec Tab) 40 mg PO 0600,1600 [facility] Last Admin: 05/16/18 05:39 Dose: 40 mg - Labs Labs: 05/16/18 07:15 05/16/18 07:15 PT 14.3 SECONDS (9.4-12.5) H 05/12/18 21:45 INR 1.25 05/12/18 21:45 APTT 25.5 Seconds (25.1-36.5) 05/12/18 21:45 - Constitutional Appears: Well, Non-toxic, Chronically Ill - Head Exam Head Exam: NORMAL INSPECTION - Eye Exam Eye Exam: Normal appearance - ENT Exam ENT Exam: Mucous Membranes Moist - Respiratory Exam Respiratory Exam: Clear to Ausculation Bilateral, NORMAL BREATHING PATTERN - Cardiovascular Exam Cardiovascular Exam: REGULAR RHYTHM, +S1, +S2 - GI/Abdominal Exam GI & Abdominal Exam: Soft, Normal Bowel Sounds. absent: Tenderness - Extremities Exam Extremities Exam: Normal Inspection - Neurological Exam Neurological Exam: Alert, Awake, Oriented x3 - Psychiatric Exam Psychiatric exam: Normal Affect, Normal Mood - Skin Skin Exam: Dry, Normal Color Assessment and Plan - Assessment and Plan (Free Text) Assessment: This is a 77yo M with pmhx of CHF, HTN, HLD, COPD, asthma, CKD, Trach/PEG in 2013 with reversal, and PE not on any OAC who presented to the ED with abdominal pain found to be in respiratory distress. GI consulted for esophageal pneumatosis on imaging. 1. Acute symptomatic blood loss anemia - s/p 4U PRCs 2. Melena 3. 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 Hx of Trach and PEG, reversed 5. Suspect CKD 6. UGIB s/p EGD with esophageal ulcer and visible vessel Plan: -Barium esophagogram unremarkable for perforation -Emergent EGD performed that showed large diverticulum in distal esophagus with protrubent visible vessel. for hemostasis 2 cc epinephrine was injected with 3 clips placed -Baseline Hb ~8, so I would not be too aggressive with transfusion unless signs of upper GI bleed resume. -PPI PO BID -Diet advanced to soft, low fiber diet. -F/u with GI in 4-6 weeks. -We will sign off, please call if needed. <Ang Mann - Last Filed: 05/16/18 18:17> Objective - Vital Signs/Intake and Output Vital Signs (last 24 hours): Temp Pulse Resp BP Pulse Ox 98.7 F 60 18 128/75 98 05/16/18 14:00 05/16/18 14:00 05/16/18 14:00 05/16/18 14:00 05/16/18 14:00 Intake and Output: 05/16/18 05/16/18 06:59 18:59 Intake Total 570 Output Total 700 Balance -130 - Medications Medications: Current Medications Albuterol/Ipratropium (Duoneb 3 Mg/0.5 Mg (3 Ml) Ud) 3 ml IH [id number] [facility] Last Admin: 05/16/18 13:51 Dose: 3 ml Albuterol/Ipratropium (Duoneb 3 Mg/0.5 Mg (3 Ml) Ud) 3 ml IH [id number] PRN PRN Reason: Wheezing Iron Sucrose 200 mg/ Sodium (Chloride) 110 mls @ 110 mls/hr IVPB DAILY [facility] Stop: 05/17/18 10:59 Last Admin: 05/16/18 10:13 Dose: 110 mls/hr Methylprednisolone (Medrol) 4 mg PO DAILY [facility] Last Admin: 05/16/18 10:17 Dose: 4 mg Multi-Ingredient Cream (Hydrocerin Cream) 0 ea TOP DAILY [facility] Last Admin: 05/16/18 10:13 Dose: 1 appl Pantoprazole Sodium (Protonix Ec Tab) 40 mg PO 0600,1600 [facility] Last Admin: 05/16/18 16:39 Dose: 40 mg - Labs Labs: 05/16/18 16:42 05/16/18 07:15 PT 14.3 SECONDS (9.4-12.5) H 05/12/18 21:45 INR 1.25 05/12/18 21:45 APTT 25.5 Seconds (25.1-36.5) 05/12/18 21:45 Attending/Attestation - Attestation I have personally seen and examined this patient.: Yes I have fully participated in the care of the patient.: Yes I have reviewed all pertinent clinical information, including history, physical exam and plan: Yes Notes (Text): 05/16/18 18:17 Chart reviewed. The patient was interviewed and examined this evening. No stigmata of overt, ongoing gastrointestinal blood loss. No dysphagia, odynophagia, dyspepsia, or chest pain. Assessment and recommendations, as outlined above, were discussed with Dr. Corley. Discussed with pt's nurse.
--- NOTE | 2018-05-16 12:35 | RAD ---
HISTORY: Dyspnea on exertion COMPARISON: Chest x-ray performed 05/12/18 TECHNIQUE: Chest, one view. FINDINGS: Examination limited by habitus and hypoinflation. The patient's chin obscures evaluation of the lung apices. LUNGS: Mild bibasilar infiltrates. Please note that chest x-ray has limited sensitivity for the detection of pulmonary masses. PLEURA: No significant pleural effusion identified. No definite pneumothorax . CARDIOVASCULAR: Marked cardiomegaly. Ectatic aorta. OSSEOUS STRUCTURES: Degenerative changes. VISUALIZED UPPER ABDOMEN: Unremarkable. OTHER FINDINGS: None. IMPRESSION: Marked cardiomegaly. Ectatic aorta. Hypoinflation. Mild bibasilar infiltrates.
--- NOTE | 2018-05-16 13:35 | CP.PCM.PN ---
<Raj Welch - Last Filed: 05/16/18 13:31> Subjective - Date & Time of Evaluation Date of Evaluation: 05/16/18 Time of Evaluation: 08:20 - Subjective Subjective: Raj Welch DO PGY-1, Billet Straightener Medicine Progress Note Pt seen and examined at bedside this am. Denies any acute complaints. States he slept well overnight. Tolerating PO diet. Denies headache, dizziness, fever, chills, chest pain, sob, n/v/d/c, abd pain, urinary complaints, or other symptoms. Pt was c/o pain in b/l LEs overnight and was given tylenol with relief. States his legs are not bothering him currently. Objective - Vital Signs/Intake and Output Vital Signs (last 24 hours): Temp Pulse Resp BP Pulse Ox 98.5 F 76 20 135/67 100 05/16/18 06:00 05/16/18 06:00 05/16/18 06:00 05/16/18 06:00 05/16/18 06:00 Intake and Output: 05/16/18 05/16/18 06:59 18:59 Intake Total 570 Output Total 700 Balance -130 - Medications Medications: Current Medications Albuterol/Ipratropium (Duoneb 3 Mg/0.5 Mg (3 Ml) Ud) 3 ml IH [id number] [facility] Last Admin: 05/16/18 07:40 Dose: 3 ml Albuterol/Ipratropium (Duoneb 3 Mg/0.5 Mg (3 Ml) Ud) 3 ml IH [id number] PRN PRN Reason: Wheezing Iron Sucrose 200 mg/ Sodium (Chloride) 110 mls @ 110 mls/hr IVPB DAILY [facility] Stop: 05/17/18 10:59 Last Admin: 05/16/18 10:13 Dose: 110 mls/hr Methylprednisolone (Medrol) 4 mg PO DAILY [facility] Last Admin: 05/16/18 10:17 Dose: 4 mg Multi-Ingredient Cream (Hydrocerin Cream) 0 ea TOP DAILY [facility] Last Admin: 05/16/18 10:13 Dose: 1 appl Pantoprazole Sodium (Protonix Ec Tab) 40 mg PO 0600,1600 [facility] Last Admin: 05/16/18 05:39 Dose: 40 mg - Labs Labs: 05/16/18 07:15 05/16/18 07:15 PT 14.3 SECONDS (9.4-12.5) H 05/12/18 21:45 INR 1.25 05/12/18 21:45 APTT 25.5 Seconds (25.1-36.5) 05/12/18 21:45 - Constitutional Appears: Non-toxic, No Acute Distress - Eye Exam Eye Exam: EOMI, Normal appearance, PERRL - ENT Exam ENT Exam: Mucous Membranes Moist, Normal Oropharynx - Respiratory Exam Respiratory Exam: Clear to Ausculation Bilateral, NORMAL BREATHING PATTERN - Cardiovascular Exam Cardiovascular Exam: REGULAR RHYTHM, +S1, +S2 - GI/Abdominal Exam GI & Abdominal Exam: Soft, Normal Bowel Sounds. absent: Distended, Tenderness, Rebound - Neurological Exam Neurological Exam: Alert, Awake, CN II-XII Intact, Oriented x3 - Skin Skin Exam: Dry, Intact, Normal Color, Warm Assessment and Plan - Assessment and Plan (Free Text) Assessment: 77 y o male PMHx anemia (placed on iron by PMD, Hgb was at level of 9 in 2012 as per patient), CHF, HTN, HLD, COPD/Asthma, CKD, and pulmonary embolism (2013; last on Pradaxa 3 y ago as per pt), presented with chief complaint of abdominal cramping x 3 days and diarrhea s/p ingestion of liverwurst. Pt presented with respiratory distress in ED, improved following administration of CPAP in ED. Pt was found to have Hgb of 4 on admission and was admitted to ICU for further management. Pt was found to have bleeding esophageal ulcer/diverticulum/visible vessel, s/p clipping on 05/13/18 by GI. Pt is s/p transfusion of 4 units PRBCs, no further episodes of melena post-EGD. Currently hemodynamically stable. S/p downgrade from ICU. Plan: Acute symptomatic, normocytic anemia -S/p 4 units PRBCs since admission -GI consulted, recs appreciated -C/w protonix bid -C/w IV iron infusions -Ct abd/pelvis: no radiodense urolithiasis, perinephric fluid collection, or obstructive uropathy appreciated b/l; b/l ureters normal caliber; equivocal cystitis; potential esophageal perforation w/ pneumatosis vs. artifact from swallowing; small umbilical hernia containing only fat -Esophageal XR: 3.8 cm diverticulum contains retained food or bezoar within lumen and no fluoroscopic evidence to suggest esophageal perforation using water -soluble contrast media -S/p EGD on 05/13/18 which demonstrated bleeding esophageal ulcer/diverticulum/ visible vessel, s/p clipping. -No further melena episodes s/p EGD, will continue to monitor -Currently hemodynamically stable, Hgb 7.2, will continue to trend -Echo 05/13: borderline to mild concentric L ventricular hypertrophy, LV function normal, aortic valve moderately to severely calcified, severe valvular aortic stenosis, mild to moderate mitral regurgitation, moderate tricuspid regurgitation, severe pulmonary HTN -Altered GI/hepatic diet as per GI -Per GI: will sign off, pt can follow-up outpatient in 4-6 weeks after discharge Shortness of breath/hx COPD Respiratory distress resolved on placing CPAP in ED, saturating well on NC Duonebs q 6 h herman Duonebs q 4 h prn Medrol 4 mg daily Pt c/o dyspnea on exertion w/ ambulating to bathroom Pulmonology consulted (Dr. Stoddard), recs appreciated CXR today: marked cardiomegaly, ectatic aorta, hypoinflation, and mild bibasilar infiltrates SANDRA Cr 3.0 today Nephrology consulted, recs appreciated Chronic venous stasis ulcers in legs b/l Podiatry consulted, recs appreciated Pt seen, examined with, and plan discussed with Dr. Shin, attending. <Darlene Shin - Last Filed: 05/16/18 22:08> Objective - Vital Signs/Intake and Output Vital Signs (last 24 hours): Temp Pulse Resp BP Pulse Ox 98.7 F 60 18 128/75 98 05/16/18 14:00 05/16/18 14:00 05/16/18 14:00 05/16/18 14:00 05/16/18 14:00 Intake and Output: 05/16/18 05/17/18 18:59 06:59 Intake Total 100 Balance 100 - Medications Medications: Current Medications Albuterol/Ipratropium (Duoneb 3 Mg/0.5 Mg (3 Ml) Ud) 3 ml IH [id number] [facility] Last Admin: 05/16/18 20:21 Dose: 3 ml Albuterol/Ipratropium (Duoneb 3 Mg/0.5 Mg (3 Ml) Ud) 3 ml IH [id number] PRN PRN Reason: Wheezing Iron Sucrose 200 mg/ Sodium (Chloride) 110 mls @ 110 mls/hr IVPB DAILY [facility] Stop: 05/17/18 10:59 Last Admin: 05/16/18 10:13 Dose: 110 mls/hr Methylprednisolone (Medrol) 4 mg PO DAILY [facility] Last Admin: 05/16/18 10:17 Dose: 4 mg Multi-Ingredient Cream (Hydrocerin Cream) 0 ea TOP DAILY [facility] Last Admin: 05/16/18 10:13 Dose: 1 appl Pantoprazole Sodium (Protonix Ec Tab) 40 mg PO 0600,1600 [facility] Last Admin: 05/16/18 16:39 Dose: 40 mg - Labs Labs: 05/16/18 16:42 05/16/18 07:15 PT 14.3 SECONDS (9.4-12.5) H 05/12/18 21:45 INR 1.25 05/12/18 21:45 APTT 25.5 Seconds (25.1-36.5) 05/12/18 21:45 Attending/Attestation - Attestation I have personally seen and examined this patient.: Yes I have fully participated in the care of the patient.: Yes I have reviewed all pertinent clinical information, including history, physical exam and plan: Yes Notes (Text): 05/16/18 22:07 Patient seen and examined at bedside. Labs, vitals and notes reviewed. ZDysonea better and weaned off oxygen to room air. H/H stable. Agree with the plan as discussed and outlined by the resident.
[2018-05-16 16:44] LABS: BASO # 0.03 K/mm3 (0.0-2.0); BASO % 0.2 % (0.0-3.0); EOS # 0.2 (0.0-0.7); EOS % 1.4 % (1.5-5.0); GRAN # 9.84 (1.4-6.5); GRAN % 77.5 % (50.0-68.0); HEMOGLOBIN 7.4 g/dL (14.0-18.0); LYMPH # 1.6 (1.2-3.4); LYMPH % 12.3 % (22.0-35.0); MEAN CELL VOLUME 89.4 fl (80.0-105.0); MEAN CORPUSCULAR HEMOGLOBIN 28.1 pg (25.0-35.0); MEAN CORPUSCULAR HGB CONC 31.5 g/dl (31.0-37.0); MONO # 1.1 (0.1-0.6); MONO % 8.6 % (1.0-6.0); RBC 2.63 10^6/uL (3.5-6.1); RED CELL DISTRIBUTION WIDTH 17.1 % (11.5-14.5); WHITE BLOOD COUNT 12.7 10^3/ul (4.5-11.0)
[2018-05-17] MEDS: Albuterol-Ipratrop 3 mg / 0.5 (3 ml) UD IH SCH ×4 (02:35→20:15)
[2018-05-17] MEDS: Pantoprazole 40 mg EC Tab PO SCH ×2 (06:05→15:26)
--- NOTE | 2018-05-17 06:06 | CON ---
Copied To: Vikki Stoddard MD Attending MD: Vikki Stoddard MD DATE: 05/16/2018 PULMONARY CONSULT REFERRING PHYSICIAN: . REASON FOR CONSULT: Chronic obstructive lung disease, may have obesity hypoventilation syndrome, known sleep apnea syndrome, noncompliant. HISTORY OF PRESENT ILLNESS: This is a 77-year-old gentleman with known history of chronic lung disease, heart failure, hypertension, history of pulmonary embolism, originally presented with respiratory failure, admitted to intensive care unit. He was placed on noninvasive ventilation, presently transferred out of Intensive Care Unit to [facility] floor, sitting up in a reclining chair. He does have a shortness of breath and cough. The patient claimed that he has a known sleep apnea syndrome, claustrophobic, refused to use CPAP. As outpatient, he tried nasal mask, nasal pillow mask and full-face mask, unwilling to try again the mask. No hemoptysis. No hematemesis. No hematuria. No diarrhea reported. Has leg swelling with chronic skin changes. PAST MEDICAL HISTORY: As per history of present illness and also significant for hyperlipidemia, renal failure, has a history of tracheostomy and G-tube in the remote past, both had been removed. SOCIAL HISTORY: He is an active smoker. Denies any alcohol use. ALLERGIES : NONE KNOWN. FAMILY HISTORY: Denied any cardiopulmonary disease. MEDICATIONS: He is on DuoNeb q.4h. p.r.n., also DuoNeb q.6h. [id number], iron sucrose IV had been given, Medrol 4 mg daily, Protonix 40 mg daily, iron sucrose 200 mg daily. REVIEW OF SYSTEMS: No headache. No rhinitis. Still has cough, shortness of breath, loud snoring, daytime sleeping and tired. No chest pain. No nausea. No vomiting. No diarrhea. Chronic skin changes of the leg and swelling. PHYSICAL EXAMINATION: GENERAL: Sitting up in a chair. VITAL SIGNS: Temp is 98, heart rate is 76, respiratory rate is 20, blood pressure 128/75, pulse ox 98% on 2 L nasal cannula. HEENT: Moist mucous membrane. Crowded airway. Mallampati score is 4. NECK: Short thick neck. LUNGS: Scattered rhonchi, prolonged expiratory phase. HEART: S1 and S2. ABDOMEN: Soft, nontender. No organomegaly. EXTREMITIES: Does have edema of the both lower extremities. Chronic skin changes. NEUROLOGICAL: Awake and alert. Follows simple command. LABORATORY DATA: Shows hemoglobin 7.4, hematocrit 23.5, WBC 12.7, platelet count is 182,000. His INR 1.25, PTT 26. Has a ABG done last on 05/12/2018; pH 7.26, pCO2 of 35. Sodium 145, potassium 5, chloride 112, bicarbonate is 23, BUN 62, creatinine 3, glucose 89, calcium is 8.1, phosphorus 3.7, magnesium is 2. AST 13, ALT 21, alk phos is 52. Albumin is 3.1. Stool occult blood had been positive. Microbiology: Blood culture and nares culture, there is no growth. Last chest x-ray done this morning shows cardiomegaly, ectatic aorta, hypoinflation, mild basilar infiltrates. Has endoscopy done two days ago, which shows diverticulum in the distal esophagus, area was injected, clips were placed, and biopsy was taken. There was heme in the entire stomach, also there is erythema in the duodenum. His esophagogram was unremarkable. He had echocardiogram done about three days ago, which shows right ventricle systolic pressure is 77, concentric left ventricular hypertrophy, moderate tricuspid regurg with severe pulmonary hypertension. IMPRESSION AND PLAN: Severe pulmonary hypertension, probably has cardiac diastolic dysfunction, suspected sleep apnea syndrome, gastritis, esophagitis, esophageal diverticulum, obesity, claustrophobic, renal failure, hypertension, severe anemia. I had a long discussion with the patient about his issues. He does not have insight of his medical issue, persistently refusing to try CPAP, BiPAP, noninvasive ventilation. We will keep head elevated at 45 degrees. Avoid sedation. Consider optimizing cardiac care, beta-brittni, afterload reducers. May need V/Q scan to rule out thromboembolic disease. Also suggest venous Doppler of lower extremity. The patient is an ex-smoker, of course, could be component of chronic lung disease. Should have PFT with diffusion to assess lung function as outpatient. We will continue speak to the patient about benefit of CPAP/BiPAP. Thank you and we will follow with you. Vikki Stoddard MD [facility] # [id number]
[2018-05-17 07:21] LABS: BASO # 0.02 K/mm3 (0.0-2.0); BASO % 0.2 % (0.0-3.0); EOS # 0.4 (0.0-0.7); EOS % 3.2 % (1.5-5.0); GRAN # 8.48 (1.4-6.5); GRAN % 66.4 % (50.0-68.0); LYMPH # 2.5 (1.2-3.4); LYMPH % 19.7 % (22.0-35.0); MEAN CELL VOLUME 90.3 fl (80.0-105.0); MEAN CORPUSCULAR HEMOGLOBIN 28.4 pg (25.0-35.0); MEAN CORPUSCULAR HGB CONC 31.5 g/dl (31.0-37.0); MEAN PLATELET VOLUME 9.7 fl (7.0-11.0); MONO # 1.3 (0.1-0.6); MONO % 10.5 % (1.0-6.0); RBC 2.36 10^6/uL (3.5-6.1); RED CELL DISTRIBUTION WIDTH 17.3 % (11.5-14.5); WHITE BLOOD COUNT 12.8 10^3/ul (4.5-11.0)
[2018-05-17 07:42] LABS: IRON 65 ug/dL (45-180)
[2018-05-17 07:48] LABS: HEMOGLOBIN 6.7 g/dL (14.0-18.0)
[2018-05-17 07:50] LABS: ALB/GLOB RATIO 1.2 (1.1-1.8); CALCIUM 8.1 mg/dL (8.4-10.5)
[2018-05-17 07:52] LABS: % IRON SATURATION 28 % (20-55); TOTAL IRON BINDING CAPACITY 230 ug/dL (261-462)
[2018-05-17] MEDS: Hydrocerin(120 gm) TOP SCH (09:51)
[2018-05-17] MEDS ORDERED: Darbepoetin Alfa 100 mcg/ml Inj SC ONE (10:20)
--- NOTE | 2018-05-17 11:58 | CP.PCM.PN ---
<IgnaciaJass segal - Last Filed: 05/17/18 11:55> Subjective - Date & Time of Evaluation Date of Evaluation: 05/17/18 Time of Evaluation: 11:55 - Subjective Subjective: Podiatry Progress Note - Drs. Mehta/Mily 77 year old male seen and evaluated at bedside for chronic lower extremity edema and xerosis. Patient is sitting comfortably at bedside, and in no acute distress. Patient denies any other pedal complaints. Patient complains of increased coughing, but denies F/N/V. Objective - Vital Signs/Intake and Output Vital Signs (last 24 hours): Temp Pulse Resp BP Pulse Ox 98.2 F 55 L 20 146/65 95 05/17/18 08:03 05/17/18 08:03 05/17/18 08:03 05/17/18 11:26 05/17/18 08:03 Intake and Output: 05/17/18 05/17/18 06:59 18:59 Intake Total 300 Output Total 200 Balance 100 - Medications Medications: Current Medications Albuterol/Ipratropium (Duoneb 3 Mg/0.5 Mg (3 Ml) Ud) 3 ml IH [id number] [facility] Last Admin: 05/17/18 07:43 Dose: 3 ml Albuterol/Ipratropium (Duoneb 3 Mg/0.5 Mg (3 Ml) Ud) 3 ml IH [id number] PRN PRN Reason: Wheezing Furosemide (Lasix) 40 mg PO DAILY [facility] Methylprednisolone (Medrol) 4 mg PO DAILY [facility] Last Admin: 05/17/18 09:51 Dose: 4 mg Multi-Ingredient Cream (Hydrocerin Cream) 0 ea TOP DAILY [facility] Last Admin: 05/17/18 09:51 Dose: 1 appl Pantoprazole Sodium (Protonix Ec Tab) 40 mg PO 0600,1600 [facility] Last Admin: 05/17/18 06:05 Dose: 40 mg - Labs Labs: 05/17/18 06:30 05/17/18 06:30 PT 14.3 SECONDS (9.4-12.5) H 05/12/18 21:45 INR 1.25 05/12/18 21:45 APTT 25.5 Seconds (25.1-36.5) 05/12/18 21:45 - Constitutional Appears: Well, Non-toxic, No Acute Distress - Head Exam Head Exam: ATRAUMATIC, NORMOCEPHALIC - Extremities Exam Additional comments: Bilateral LE physical exam: Vasc: DP and PT pulses nonpalpable bilaterally, CFT <3 seconds to digits bilaterally, Temperature gradient warm to warm bilaterally, +1 pitting edema present bilaterally Neuro: Gross sensation diminished bilaterally. Derm: xerosis noted bilaterally, no drainage; no purulence; no fluctuance; no periwound erythema. Healed ulcerations noted to posterior calf RLE, no drainage ; no purulence; no fluctuance; no periwound erythema. Venous stasis dermatitis b /l leg. Ortho: No pain on palpation to bilateral LE. Muscle strength 5/5 for all dorsiflexors, plantarflexors, inverters, and everters b/l. - Neurological Exam Neurological Exam: Alert, Awake, Oriented x3 - Psychiatric Exam Psychiatric exam: Normal Affect, Normal Mood Assessment and Plan - Assessment and Plan (Free Text) Assessment: 77 year old male with bilateral LE edema and xerosis seen and evaluated at bedside Plan: Patient seen and evaluated with attending Dr. Mehta Chart, labs and vitals reviewed Wounds to bilateral LE resolved, no dressing at this time QOD Eucerin cream Podiatry will continue to follow <Nancy Mehta - Last Filed: 05/17/18 14:39> Objective - Vital Signs/Intake and Output Vital Signs (last 24 hours): Temp Pulse Resp BP Pulse Ox 98.3 F 50 L 16 149/76 95 05/17/18 13:52 05/17/18 13:52 05/17/18 13:52 05/17/18 13:52 05/17/18 08:03 Intake and Output: 05/17/18 05/17/18 06:59 18:59 Intake Total 825 Output Total 200 Balance 625 - Medications Medications: Current Medications Albuterol/Ipratropium (Duoneb 3 Mg/0.5 Mg (3 Ml) Ud) 3 ml IH [id number] [facility] Last Admin: 05/17/18 13:29 Dose: 3 ml Albuterol/Ipratropium (Duoneb 3 Mg/0.5 Mg (3 Ml) Ud) 3 ml IH [id number] PRN PRN Reason: Wheezing Furosemide (Lasix) 40 mg PO DAILY [facility] Multi-Ingredient Cream (Hydrocerin Cream) 0 ea TOP DAILY [facility] Last Admin: 05/17/18 09:51 Dose: 1 appl Pantoprazole Sodium (Protonix Ec Tab) 40 mg PO 0600,1600 [facility] Last Admin: 05/17/18 06:05 Dose: 40 mg Prednisone (Prednisone Tab) 5 mg PO DAILY [facility] - Labs Labs: 05/17/18 06:30 05/17/18 06:30 PT 14.3 SECONDS (9.4-12.5) H 05/12/18 21:45 INR 1.25 05/12/18 21:45 APTT 25.5 Seconds (25.1-36.5) 05/12/18 21:45 Attending/Attestation - Attestation I have personally seen and examined this patient.: Yes I have fully participated in the care of the patient.: Yes I have reviewed all pertinent clinical information, including history, physical exam and plan: Yes
[2018-05-17 12:07] LABS: FOLATE 6.6 ng/mL
--- NOTE | 2018-05-17 12:46 | CP.PCM.PN ---
<Raj Welch - Last Filed: 05/17/18 12:43> Subjective - Date & Time of Evaluation Date of Evaluation: 05/17/18 Time of Evaluation: 11:40 - Subjective Subjective: Raj Welch DO PGY-1, [facility] [employer] [facility] Progress Note Pt seen and examined at bedside this am. Observed seated out of bed to chair. Denies any acute complaints. No acute events reported overnight by RN team. Denies headache, dizziness, chest pain, n/v/d/c, abd pain, urinary complaints, melena BMs or other symptoms. Objective - Vital Signs/Intake and Output Vital Signs (last 24 hours): Temp Pulse Resp BP Pulse Ox 98.2 F 55 L 20 146/65 95 05/17/18 08:03 05/17/18 08:03 05/17/18 08:03 05/17/18 11:26 05/17/18 08:03 Intake and Output: 05/17/18 05/17/18 06:59 18:59 Intake Total 300 Output Total 200 Balance 100 - Medications Medications: Current Medications Albuterol/Ipratropium (Duoneb 3 Mg/0.5 Mg (3 Ml) Ud) 3 ml IH [id number] [facility] Last Admin: 05/17/18 07:43 Dose: 3 ml Albuterol/Ipratropium (Duoneb 3 Mg/0.5 Mg (3 Ml) Ud) 3 ml IH [id number] PRN PRN Reason: Wheezing Furosemide (Lasix) 40 mg PO DAILY [facility] Methylprednisolone (Medrol) 4 mg PO DAILY [facility] Last Admin: 05/17/18 09:51 Dose: 4 mg Multi-Ingredient Cream (Hydrocerin Cream) 0 ea TOP DAILY [facility] Last Admin: 05/17/18 09:51 Dose: 1 appl Pantoprazole Sodium (Protonix Ec Tab) 40 mg PO 0600,1600 [facility] Last Admin: 05/17/18 06:05 Dose: 40 mg - Labs Labs: 05/17/18 06:30 05/17/18 06:30 PT 14.3 SECONDS (9.4-12.5) H 05/12/18 21:45 INR 1.25 05/12/18 21:45 APTT 25.5 Seconds (25.1-36.5) 05/12/18 21:45 - Constitutional Appears: Non-toxic, No Acute Distress, Chronically Ill - Head Exam Head Exam: ATRAUMATIC, NORMAL INSPECTION - Eye Exam Eye Exam: EOMI, Normal appearance, PERRL - ENT Exam ENT Exam: Mucous Membranes Moist, Normal Oropharynx - Respiratory Exam Respiratory Exam: Clear to Ausculation Bilateral, NORMAL BREATHING PATTERN - Cardiovascular Exam Cardiovascular Exam: REGULAR RHYTHM, +S1, +S2 - GI/Abdominal Exam GI & Abdominal Exam: Soft, Normal Bowel Sounds. absent: Distended, Guarding, Rebound - Neurological Exam Neurological Exam: Alert, Awake, CN II-XII Intact, Oriented x3 - Skin Skin Exam: Dry, Intact, Normal Color, Warm Assessment and Plan - Assessment and Plan (Free Text) Assessment: 77 y o male PMHx anemia (placed on iron by PMD, Hgb was at level of 9 in 2012 as per patient), CHF, HTN, HLD, COPD/Asthma, CKD, and pulmonary embolism (2013; last on Pradaxa 3 y ago as per pt), presented with chief complaint of abdominal cramping x 3 days and diarrhea s/p ingestion of liverwurst. Pt presented with respiratory distress in ED, improved following administration of CPAP in ED. Pt was found to have Hgb of 4 on admission and was admitted to ICU for further management. Pt was found to have bleeding esophageal ulcer/diverticulum/visible vessel, s/p clipping on 05/13/18 by GI. Pt is s/p transfusion of 4 units PRBCs, no further episodes of melena post-EGD. Currently hemodynamically stable. S/p downgrade from ICU. Being transfused a unit of PRBCs today due to low Hgb on am labs. Plan: Acute symptomatic, normocytic anemia -S/p 4 units PRBCs since admission, transfusing 1 additional unit currently -GI consulted, recs appreciated -C/w protonix bid -PO iron -Ct abd/pelvis: no radiodense urolithiasis, perinephric fluid collection, or obstructive uropathy appreciated b/l; b/l ureters normal caliber; equivocal cystitis; potential esophageal perforation w/ pneumatosis vs. artifact from swallowing; small umbilical hernia containing only fat -Esophageal XR: 3.8 cm diverticulum contains retained food or bezoar within lumen and no fluoroscopic evidence to suggest esophageal perforation using water -soluble contrast media -S/p EGD on 05/13/18 which demonstrated bleeding esophageal ulcer/diverticulum/ visible vessel, s/p clipping. -No further melena episodes s/p EGD, will continue to monitor -Currently hemodynamically stable, Hgb 7.2, will continue to trend -Echo 05/13: borderline to mild concentric L ventricular hypertrophy, LV function normal, aortic valve moderately to severely calcified, severe valvular aortic stenosis, mild to moderate mitral regurgitation, moderate tricuspid regurgitation, severe pulmonary HTN -Altered GI/hepatic diet as per GI -Per GI: will sign off, pt can follow-up outpatient in 4-6 weeks after discharge Shortness of breath/hx COPD Respiratory distress resolved on placing CPAP in ED, saturating well on NC Duonebs q 6 h [facility] Duonebs q 4 h prn Prednisone 5 mg daily Pt c/o dyspnea on exertion w/ ambulating to bathroom Pulmonology consulted (Dr. Stoddard), recs appreciated CXR today: marked cardiomegaly, ectatic aorta, hypoinflation, and mild bibasilar infiltrates V/Q scan, Doppler LEs ordered by pulm, f/u recs SANDRA Cr 2.8 today Nephrology consulted, recs appreciated Given lasix today for fluid in exts, restarted pt on home lasix 40 daily, continue to monitor Chronic venous stasis ulcers in legs b/l Podiatry consulted, recs appreciated <Vikki Nunes - Last Filed: 05/19/18 08:10> Objective - Vital Signs/Intake and Output Vital Signs (last 24 hours): Temp Pulse Resp BP Pulse Ox 98.8 F 50 L 20 152/88 H 100 05/18/18 08:36 05/18/18 08:36 05/18/18 08:36 05/18/18 09:26 05/18/18 08:36 - Labs Labs: 05/18/18 07:30 05/18/18 07:00 PT 14.3 SECONDS (9.4-12.5) H 05/12/18 21:45 INR 1.25 05/12/18 21:45 APTT 25.5 Seconds (25.1-36.5) 05/12/18 21:45 Attending/Attestation - Attestation I have personally seen and examined this patient.: Yes I have fully participated in the care of the patient.: Yes I have reviewed all pertinent clinical information, including history, physical exam and plan: Yes Notes (Text): 05/19/18 08:02 Medical record note made by the resident after discussion with my direction and input after the patient was personally seen and examined by me. I have reviewed the chart and agree that the record accurately reflects by personal performance of the history, physical exam, data review, and medical decision-making, in the course for the patient. I have also personally directed the plan of care. 77 yrs old male with PMH of Obesity, COPD on home oxygen, HTN,CHF with diastolic dysfunction, and stafe V CKD , base line creatinin 3.0 was admitted with worsening dyspnea. was found to have severe anemia due melena ,he is SP 4 unit PRBC and underwent EGD , was found to have esophageal diverticulum with esophageal ulcer, sp Scleotherapy and 3 clips.Hemoglobin has dropped to 6.7 but there is no melena or any evidence of blood lose, we will transfuse one unit of PRBC and will monitor hemoglobin,We will also restart patient oral lasix. Creatinin is at base line. Management plan was discussed in detail with patient. Education was provided. 05/19/18 08:10
--- NOTE | 2018-05-17 16:17 | CP.PCM.PN ---
Subjective - Date & Time of Evaluation Date of Evaluation: 05/17/18 Time of Evaluation: 16:16 - Subjective Subjective: Nephrology Consultation Note: Assessment: stable SANDRA likely due to GI volume loss symptomatic severe anemia with FOB + Hypernatremia CKD stage 4 with 443 mg proteinuria likely Due to HTN HTN kidney disease (I12.9) Obesity Anemia of chronic disease hx of COPD, CHF, ex smoker, PE on terminal worker prednisone therapy ? reason esophageal ulceration with diverticuli on EGD 05/13/18 Plan no acute need for renal replacement therapy at this time Hypertension control with meds as ordered. 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 obese Vitals reviewed and noted as below Head; Atraumatic, normocephalic ENT: no ulcers no thrush. Tongue is midline. EYES: vision unchanged Neck; supple no jvd Lungs: Normal respiratory rate/effort. Breath sounds equal at bases Heart: Normal rate. s1s2 normal. No rub or gallop. Extremities: no edema. No varicose veins. chronic venous stasis changes in leg noted Neurological: Patient is awake alert and follow commands no focal deficit Skin: dry and warm. Normal turgor. Abdomen: Abdomen is distended . Bowel sounds +. There is no abdominal tenderness , no guarding/rigidity or organomegaly Psych: normal insight. normal affect/mood MSK: no specific joint tenderness Objective - Vital Signs/Intake and Output Vital Signs (last 24 hours): Temp Pulse Resp BP Pulse Ox 98.5 F 55 L 16 152/72 H 95 05/17/18 14:37 05/17/18 14:37 05/17/18 14:37 05/17/18 15:28 05/17/18 08:03 Intake and Output: 05/17/18 05/17/18 06:59 18:59 Intake Total 825 Output Total 200 Balance 625 - Medications Medications: Current Medications Albuterol/Ipratropium (Duoneb 3 Mg/0.5 Mg (3 Ml) Ud) 3 ml IH [id number] [facility] Last Admin: 05/17/18 13:29 Dose: 3 ml Albuterol/Ipratropium (Duoneb 3 Mg/0.5 Mg (3 Ml) Ud) 3 ml IH [id number] PRN PRN Reason: Wheezing Furosemide (Lasix) 40 mg PO DAILY [facility] Multi-Ingredient Cream (Hydrocerin Cream) 0 ea TOP DAILY [facility] Last Admin: 05/17/18 09:51 Dose: 1 appl Pantoprazole Sodium (Protonix Ec Tab) 40 mg PO 0600,1600 [facility] Last Admin: 05/17/18 15:26 Dose: 40 mg Prednisone (Prednisone Tab) 5 mg PO DAILY [facility] - Labs Labs: 05/17/18 06:30 05/17/18 06:30 PT 14.3 SECONDS (9.4-12.5) H 05/12/18 21:45 INR 1.25 05/12/18 21:45 APTT 25.5 Seconds (25.1-36.5) 05/12/18 21:45
[2018-05-17 20:09] LABS: BASO # 0.03 K/mm3 (0.0-2.0); BASO % 0.2 % (0.0-3.0); EOS # 0.3 (0.0-0.7); EOS % 1.9 % (1.5-5.0); GRAN # 9.87 (1.4-6.5); GRAN % 71.5 % (50.0-68.0); LYMPH # 2.1 (1.2-3.4); LYMPH % 15.4 % (22.0-35.0); MEAN CELL VOLUME 88.7 fl (80.0-105.0); MEAN CORPUSCULAR HEMOGLOBIN 28.2 pg (25.0-35.0); MEAN CORPUSCULAR HGB CONC 31.7 g/dl (31.0-37.0); MONO # 1.5 (0.1-0.6); RBC 2.84 10^6/uL (3.5-6.1); RED CELL DISTRIBUTION WIDTH 17.5 % (11.5-14.5); WHITE BLOOD COUNT 13.8 10^3/ul (4.5-11.0)
[2018-05-18] MEDS: Albuterol-Ipratrop 3 mg / 0.5 (3 ml) UD IH SCH ×3 (02:05→13:43)
[2018-05-18] MEDS: Pantoprazole 40 mg EC Tab PO SCH ×2 (06:18→17:00)
[2018-05-18 07:50] LABS: BASO # 0.03 K/mm3 (0.0-2.0); BASO % 0.2 % (0.0-3.0); EOS # 0.4 (0.0-0.7); GRAN # 8.47 (1.4-6.5); GRAN % 64.2 % (50.0-68.0); HEMOGLOBIN 7.9 g/dL (14.0-18.0); LYMPH # 2.7 (1.2-3.4); LYMPH % 20.4 % (22.0-35.0); MEAN CORPUSCULAR HEMOGLOBIN 28.1 pg (25.0-35.0); MEAN CORPUSCULAR HGB CONC 31.2 g/dl (31.0-37.0); MEAN PLATELET VOLUME 9.2 fl (7.0-11.0); MONO # 1.6 (0.1-0.6); MONO % 12.2 % (1.0-6.0); RBC 2.81 10^6/uL (3.5-6.1); RED CELL DISTRIBUTION WIDTH 17.8 % (11.5-14.5); WHITE BLOOD COUNT 13.2 10^3/ul (4.5-11.0)
[2018-05-18 08:39] VITALS: RESP 20; TEMP 98.8
--- NOTE | 2018-05-18 08:42 | PN ---
Copied To: Vikki Stoddard MD Attending MD: Vikki Stoddard MD DATE: 05/17/2018 PULMONARY PROGRESS NOTE REFERRING PHYSICIAN: Dr. Nunes. SUBJECTIVE: The patient is out of bed to chair, sleepy, arousable, noncompliant with the CPAP/BiPAP. No headache, no rhinitis. Gets short of breath with exertion. No chest pain. No nausea, no vomiting. No diarrhea. Does have leg swelling. OBJECTIVE: GENERAL: In no acute distress. VITAL SIGNS: Temperature is 99, heart rate is 56, respiratory rate is 20, blood pressure 130/57, pulse ox 95% on 2 liters nasal cannula. HEENT: Moist mucous membrane. Crowded airway. Mallampati score is 4. NECK: Supple. No JVD. LUNGS: Have a prolonged expiratory phase. HEART: S1 and S2. ABDOMEN: Obese, soft, nontender, no organomegaly. EXTREMITIES: Has chronic skin changes with edema. NEUROLOGIC: Sleepy, arousable. Follows simple command. MEDICATIONS: He is on DuoNeb every 4 hours p.r.n. and every 6 hours [id number], also on cream to affected area, Lasix 40 mg daily, prednisone 5 mg daily, Protonix 40 mg twice a day. LABORATORY DATA: Shows hemoglobin 6.7, hematocrit 21.3, WBC 12.8, platelet count is 213. Sodium 147, potassium 4.4, chloride 112, bicarbonate 24, BUN 51, creatinine 2.8, calcium is 8.1. Iron is 65, ferritin is 595, AST 15, ALT 20, alk phos is 68. Albumin is 3. Vitamin B12 is 565. Folate is 6.6. Microbiology, blood culture has been negative. Chest x-ray shows marked cardiomegaly, ectatic aorta, hypoinflation, mild basilar infiltrate. IMPRESSION AND PLAN: Severe pulmonary hypertension, probably cardiac diastolic dysfunction, suspected sleep apnea syndrome, gastritis, esophagitis, found to have esophageal diverticulum, obesity, claustrophobic, renal failure, hypertension, severe anemia, lower extremity stasis dermatitis. We will continue current CPAP/BiPAP use. Avoid nocturnal sedation. Keep head at 45 degrees. Elevate lower extremity. Need to do workup for thromboembolic disease including VQ scan and also lower extremity venous Doppler. Agree with tapering off steroids. Continue inhaled bronchodilator. Should have attended sleep study and full PFT upon discharge as an outpatient. Thank you and we will follow with you. Vikki Stoddard MD
[2018-05-18] MEDS: Hydrocerin(120 gm) TOP SCH (09:26)
[2018-05-18 09:28] VITALS: BP 152/88
[2018-05-18 11:12] LABS: ALB/GLOB RATIO 1.2 (1.1-1.8); ALBUMIN 3.3 g/dL (3.0-4.8); CALCIUM 8.3 mg/dL (8.4-10.5)
[2018-05-18 11:18] VITALS: PULSE 50
[2018-05-18 11:20] VITALS: O2SAT 100
--- NOTE | 2018-05-18 15:27 | CP.PCM.PN ---
Subjective - Date & Time of Evaluation Date of Evaluation: 05/18/18 Time of Evaluation: 15:26 - Subjective Subjective: Nephrology Consultation Note: Assessment: stable SANDRA likely due to GI volume loss symptomatic severe anemia with FOB + Hypernatremia CKD stage 4 with 443 mg proteinuria likely Due to HTN HTN kidney disease (I12.9) Obesity Anemia of chronic disease hx of COPD, CHF, ex smoker, PE on buttermaker prednisone therapy ? reason esophageal ulceration with diverticuli on EGD 05/13/18 Plan no acute need for renal replacement therapy at this time Hypertension control with meds as ordered. pt not on RAAS brittni, will defer it due to advanced CKD Monitor I/O, daily weights and renal function while in hospital gave 1 gram IV iron supplements and dose of aransep 05/13/18 (100 mcg) and s/p 4 units PRBC transfusion and endoscopic evaluation 05/13/18 continue with lasix COPD management as per primary team, d/w ICU GI following pt stable for d/c from renal perspective when planned. outpt f/ip 1 week Dose meds/antibiotics for reduced GFR. Avoid fleets enema/magnesium based laxatives. Avoid nephrotoxins/NSAIDs/ iodinated contrast (unless needed emergently) Glycemic control, renal diet. Further work up for as per primary team. Thanks for allowing me to participate in care of your patient. Will follow with you. Please call if any Qs. had d/w team Dr Rivas Hazel Office: [phone] CC; SOB and anemia reason for consult: SANDRA on CKD HPI: Pt is a 77 M with hx of HTN (years), CKD stage 4 (with cr 2.8-3.0) obesity , COPD, CHF, ex smoker, PE, anemia, on intermediate prednisone 5mg ? reason presented to hospital with complaints of SOB and multiple episodes of nausea/ vomiting, loose stool, found to have severe Anemia with Hb 4-5 gm/dL range and renal consult for SANDRA on CKD management. Denies chest pain, palpitation, c/o shortness of breath on minimal exertion but better, reports chronic leg swelling but better now. planned for PRBC transfusion and endoscopic evaluation today. Denies OTC/herbal meds/NSAIDs No recent iodinated contrast exposure. GI symptoms better now ROS: denies CP/nausea/vomiting now. no SOB. no nausea denies pain abdomen. denies urine complaints rest other negative except as mentioned in HPI. 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 obese Vitals reviewed and noted as below Head; Atraumatic, normocephalic ENT: no ulcers no thrush. Tongue is midline. Oropharynx: no rash or ulcers. EYES: b/l PERRLA Neck; supple no lymphadenopathy, no thyromegaly or bruit Lungs: Normal respiratory rate/effort. Breath sounds b/l with wheezing and basal rales + Heart: Normal rate. s1s2 normal. No rub or gallop. Extremities: 1+ edema. No varicose veins. chronic venous stasis changes in leg noted Neurological: Patient is awake alert and follow commands no focal deficit Skin: dry and warm. Normal turgor. No rash. Palpitation: Normal elasticity for age Abdomen: Abdomen is distended . Bowel sounds +. There is no abdominal tenderness , no guarding/rigidity or organomegaly Psych: normal insight. normal affect/mood MSK: no specific joint tenderness or swelling. Digits and nails normal, no deformity : kidney not palpable. exam limited due to obesity. has umblical hernia Labs/imaging/EKG reviewed. Past medical history, past surgical history, social history, allergy reviewed and noted as below Family hx; no hx of CKD. non contributory renal imaging: Rt side cyst outpt urine pr/cr 447 PTH 188 Objective - Vital Signs/Intake and Output Vital Signs (last 24 hours): Temp Pulse Resp BP Pulse Ox 98.8 F 50 L 20 152/88 H 100 05/18/18 08:36 05/18/18 08:36 05/18/18 08:36 05/18/18 09:26 05/18/18 08:36 Intake and Output: 05/18/18 05/18/18 06:59 18:59 Intake Total 480 Output Total 900 Balance -420 - Medications Medications: Current Medications Acetaminophen (Tylenol 325mg Tab) 650 mg PO Q6H PRN PRN Reason: Pain, Mild (1-3) Last Admin: 05/18/18 02:15 Dose: 650 mg Albuterol/Ipratropium (Duoneb 3 Mg/0.5 Mg (3 Ml) Ud) 3 ml IH [id number] NAOMIE Last Admin: 05/18/18 13:43 Dose: 3 ml Albuterol/Ipratropium (Duoneb 3 Mg/0.5 Mg (3 Ml) Ud) 3 ml IH [id number] PRN PRN Reason: Wheezing Furosemide (Lasix) 40 mg PO DAILY [facility] Last Admin: 05/18/18 09:26 Dose: 40 mg Multi-Ingredient Cream (Hydrocerin Cream) 0 ea TOP DAILY NAOMIE Last Admin: 05/18/18 09:26 Dose: 1 appl Pantoprazole Sodium (Protonix Ec Tab) 40 mg PO 0600,1600 [facility] Last Admin: 05/18/18 06:18 Dose: 40 mg Prednisone (Prednisone Tab) 5 mg PO DAILY [facility] Last Admin: 05/18/18 09:26 Dose: 5 mg - Labs Labs: 05/18/18 07:30 05/18/18 07:00 PT 14.3 SECONDS (9.4-12.5) H 05/12/18 21:45 INR 1.25 05/12/18 21:45 APTT 25.5 Seconds (25.1-36.5) 05/12/18 21:45
--- NOTE | 2018-05-18 16:26 | CP.PCM.DIS ---
<Raj Welch - Last Filed: 05/19/18 05:45> Provider - Provider Date of Admission: 05/13/18 00:12 Attending physician: Vikki Nunes MD Primary care physician: Dr. Figueredo Consults: JAMISON - Dr. Villa Gomez - Dr. Stoddard Time Spent in preparation of Discharge (in minutes): 45 Hospital Course - Lab Results Lab Results: Micro Results 05/13/18 03:00 Naris MRSA Culture (Admit) - Final MRSA DETECTED Most Recent Lab Values WBC 13.2 10^3/ul (4.5-11.0) H 05/18/18 07:30 RBC 2.81 10^6/uL (3.5-6.1) L 05/18/18 07:30 Hgb 7.9 g/dL (14.0-18.0) L 05/18/18 07:30 Hct 25.3 % (42.0-52.0) L 05/18/18 07:30 MCV 90.0 fl (80.0-105.0) 05/18/18 07:30 MCH 28.1 pg (25.0-35.0) 05/18/18 07:30 MCHC 31.2 g/dl (31.0-37.0) 05/18/18 07:30 RDW 17.8 % (11.5-14.5) H 05/18/18 07:30 Plt Count 218 10^3/uL (120.0-450.0) 05/18/18 07:30 MPV 9.2 fl (7.0-11.0) 05/18/18 07:30 Gran % 64.2 % (50.0-68.0) 05/18/18 07:30 Lymph % (Auto) 20.4 % (22.0-35.0) L 05/18/18 07:30 Ralls % (Auto) 12.2 % (1.0-6.0) H 05/18/18 07:30 Eos % (Auto) 3.0 % (1.5-5.0) 05/18/18 07:30 Baso % (Auto) 0.2 % (0.0-3.0) 05/18/18 07:30 Gran # 8.47 (1.4-6.5) H 05/18/18 07:30 Lymph # (Auto) 2.7 (1.2-3.4) 05/18/18 07:30 Ralls # (Auto) 1.6 (0.1-0.6) H 05/18/18 07:30 Eos # (Auto) 0.4 (0.0-0.7) 05/18/18 07:30 Baso # (Auto) 0.03 K/mm3 (0.0-2.0) 05/18/18 07:30 Retic Count 3.60 % (0.5-1.5) H 05/12/18 21:45 PT 14.3 SECONDS (9.4-12.5) H 05/12/18 21:45 INR 1.25 05/12/18 21:45 APTT 25.5 Seconds (25.1-36.5) 05/12/18 21:45 pCO2 35 mm/Hg (35-45) 05/12/18 21:45 pO2 495.0 mm/Hg (80-100) H 05/12/18 21:45 HCO3 15.7 mmol/L (21-28) L 05/12/18 21:45 ABG pH 7.26 (7.35-7.45) L 05/12/18 21:45 ABG Total CO2 16.8 mmol.L (22-28) L 05/12/18 21:45 ABG O2 Saturation 100.8 % (95-98) H 05/12/18 21:45 ABG O2 Content 7.4 ML/dl (15-23) L 05/12/18 21:45 ABG Base Excess -10.4 mmol/L (-2.0-3.0) L 05/12/18 21:45 ABG Hemoglobin 4.3 g/dL (11.7-17.4) L 05/12/18 21:45 ABG Carboxyhemoglobin 1.8 % (0.5-1.5) H 05/12/18 21:45 POC ABG HHb (Measured) -0.8 % (0-5) L 05/12/18 21:45 ABG Methemoglobin 0.9 % (0.0-3.0) 05/12/18 21:45 ABG O2 Capacity 7.3 mL/dl (16-24) L 05/12/18 21:45 Hgb O2 Saturation 98.0 % (95.0-98.0) 05/12/18 21:45 FiO2 100.0 % 05/12/18 21:45 Sodium 146 mmol/L (132-148) 05/18/18 07:00 Potassium 4.5 mmol/L (3.6-5.0) 05/18/18 07:00 Chloride 110 mmol/L (98-107) H 05/18/18 07:00 Carbon Dioxide 25 mmol/L (21-33) 05/18/18 07:00 Anion Gap 15 (10-20) 05/18/18 07:00 BUN 45 mg/dL (7-21) H 05/18/18 07:00 Creatinine 2.8 mg/dl (0.8-1.5) H 05/18/18 07:00 Est GFR ( Amer) 27 05/18/18 07:00 Est GFR (Non-Af Amer) 22 05/18/18 07:00 Random Glucose 70 mg/dL (70-110) 05/18/18 07:00 Serum Osmolality 333 mosm/kg (272-300) H 05/12/18 21:45 Lactic Acid 1.1 mmol/L (0.7-2.1) 05/13/18 09:30 Calcium 8.3 mg/dL (8.4-10.5) L 05/18/18 07:00 Phosphorus 3.7 mg/dL (2.5-4.5) 05/16/18 07:15 Magnesium 2.0 mg/dL (1.7-2.2) 05/16/18 07:15 Iron 65 ug/dL (45-180) 05/17/18 06:30 TIBC 230 ug/dL (261-462) L 05/17/18 06:30 % Saturation 28 % (20-55) 05/17/18 06:30 Ferritin 595.0 ng/mL 05/17/18 06:30 Total Bilirubin 0.3 mg/dL (0.2-1.3) 05/18/18 07:00 AST 19 U/L (17-59) 05/18/18 07:00 ALT 20 U/L (7-56) 05/18/18 07:00 Alkaline Phosphatase 70 U/L (38-126) 05/18/18 07:00 Lactate Dehydrogenase 417 U/L (333-699) 05/12/18 21:45 Total Creatine Kinase 59 U/L (35-230) 05/12/18 21:45 Troponin I 0.08 ng/mL 05/13/18 19:40 NT-Pro-B Natriuret Pep 268 pg/mL (0-450) 05/12/18 21:45 Total Protein 6.0 g/dL (5.8-8.3) 05/18/18 07:00 Total Protein (PEP) 5.0 g/dL (6.1-8.1) L 05/14/18 07:30 Albumin 3.3 g/dL (3.0-4.8) 05/18/18 07:00 Globulin 2.7 gm/dL 05/18/18 07:00 Albumin/Globulin Ratio 1.2 (1.1-1.8) 05/18/18 07:00 Vitamin B12 565 pg/mL (239-931) 05/17/18 06:30 Folate 6.6 ng/mL 05/17/18 06:30 Urine Color Yellow (YELLOW) 05/13/18 18:21 Urine Appearance Clear (CLEAR) 05/13/18 18:21 Urine pH 5.5 (4.7-8.0) 05/13/18 18:21 Ur Specific [place] 1.010 (1.005-1.035) 05/13/18 18:21 Urine Protein Negative mg/dL (<30 mg/dL) 05/13/18 18:21 Urine Glucose (UA) Negative mg/dL (NEGATIVE) 05/13/18 18:21 Urine Ketones Negative mg/dL (NEGATIVE) 05/13/18 18:21 Urine Blood Negative (NEGATIVE) 05/13/18 18:21 Urine Nitrate Negative (NEGATIVE) 05/13/18 18:21 Urine Bilirubin Negative (NEGATIVE) 05/13/18 18:21 Urine Urobilinogen 0.2 E.U./dL (<1 E.U./dL) 05/13/18 18:21 Ur Leukocyte Esterase Small Usha/uL (NEGATIVE) H 05/13/18 18:21 Urine RBC TEST NOT PERFORMED 05/13/18 18:21 Urine WBC 5 - 10 /hpf (0-6) 05/13/18 18:21 Ur Epithelial Cells 10 - 12 /hpf (0-5) 05/13/18 18:21 Urine Eosinophils Negative 05/13/18 01:06 Ur Random Creatinine 50 mg/dL 05/13/18 18:21 Ur Random Sodium 49 meq/L 05/13/18 18:21 Ur Random Urea Nitrogn 668 mg/dL 05/13/18 18:21 Stool Occult Blood Positive (NEGATIVE) H 05/13/18 03:00 Tot Winkelman/Lambda Ratio 1.62 (1.29-2.55) 05/14/18 07:30 Winkelman Light Chain Anal 133 mg/dL (176-443) L 05/14/18 07:30 Lambda Light Chain Anal 82 mg/dL (91-240) L 05/14/18 07:30 Blood Type O POSITIVE 05/17/18 08:13 Antibody Screen Negative 05/17/18 08:13 Crossmatch See Detail 05/17/18 08:13 BBK History Checked Patient has bt 05/17/18 08:13 - Hospital Course Hospital Course: Raj Welch DO PGY-1, Pulp Refiner Operator Medicine Discharge Summary 77yo M with pmhx of CHF, HTN, HLD, COPD, asthma, CKD, and PEG who presented to the ED with respiratory distress and was placed on CPAP. Pt stated that the respiratory distress was related to a bout of abdominal cramping which he has been experiencing for the past 3 days. He stated that about 3 days ago he ate some "rotten" liverwurst and had many bouts of diarrhea all night. He denies having any blood in the feces. He then stated that the diarrhea resolved the next day, but the pt was without appetite and had not eaten a meal in the past 2 days. He denied any further bouts of diarrhea. He currently denies having fevers, chills, headaches, dizziness, lightheadedness, fatigue, chest pain, palpitations, diarrhea currently, n/v, dysuria, numbness or tingling. Pt presented with respiratory distress in ED, improved following administration of CPAP in ED. Pt was found to have Hgb of 4 on admission and was admitted to ICU for further management. Pt was found to have bleeding esophageal ulcer/ diverticulum/visible vessel, s/p clipping on 05/13/18 by GI. Pt s/p transfusion of 5 units PRBCs, no further episodes of melena post-EGD. Hemodynamically stable. S/p downgrade from ICU. Pt's Hgb stabilized, Hgb on day of discharge was 7.9. GI was consulted for acute GI bleed (Dr. Driver), and recommended after discharge follow-up in clinic in 4-6 weeks. For management of COPD medications, Dr. Stoddard (Pulm) was consulted, who recommended further work-up including V/Q scan and Doppler LE b/l. Pt refused both of these tests that were requested inpatient, and was educated about risks and benefits of obtaining these tests requested by the wardrobe image consultant. Pt was discharged to home in stable condition on 05/18/18 and instructed to follow-up with PCP Dr. Figueredo within 1 week of discharge. Pt was instructed to avoid NSAIDs, YASH inhibitors, and medications that predispose to bleeding, unless cleared by his primary care physician after discharge. Discharge Exam - Head Exam Head Exam: ATRAUMATIC, NORMAL INSPECTION - Eye Exam Eye Exam: EOMI, Normal appearance, PERRL - ENT Exam ENT Exam: Mucous Membranes Moist, Normal Oropharynx - Respiratory Exam Respiratory Exam: NORMAL BREATHING PATTERN, UNREMARKABLE - Cardiovascular Exam Cardiovascular Exam: +S1, +S2 - GI/Abdominal Exam GI & Abdominal Exam: Normal Bowel Sounds, Soft - Extremities Exam Extremities exam: normal capillary refill, pedal pulses present Additional comments: Trace pedal edema b/l - Neurological Exam Neurological exam: Alert, CN II-XII Intact, Oriented x3 - Skin Skin Exam: Dry, Intact, Warm Discharge Plan - Discharge Medications Prescriptions: Atorvastatin [Lipitor] 40 mg PO DAILY #14 tab Furosemide [Lasix] 40 mg PO DAILY #14 tab Pantoprazole [Protonix EC Tab] 40 mg PO BID #28 ect predniSONE [predniSONE Tab] 5 mg PO DAILY #14 tab - Follow Up Plan Condition: FAIR Disposition: DISCHARGED TO HOME CARE Instructions: Normocytic Normochromic Anemia Additional Instructions: Please follow up with your primary care physician (Dr. Figueredo) within 1 week of discharge. Please follow up with Gastroenterology (Dr. Driver) within 4-6 weeks of discharge. Please take medications as prescribed. Refills for prescriptions were sent to your pharmacy. Please do not take YASH inhibitors or NSAIDs (including Advil, Naproxen) for symptoms until cleared by your primary care physician. Please take home medications as prescribed. Should symptoms recur or worsen, please go to your primary care provider or report to your nearest emergency department. Referrals: Gail Figueredo MD [Non-Staff] - Gregory Driver MD [Staff Provider] - <Vikki Nunes - Last Filed: 05/19/18 08:15> Provider - Provider Date of Admission: 05/13/18 00:12 Attending physician: Vikki Nunes MD Hospital Course - Lab Results Lab Results: Micro Results 05/13/18 03:00 Naris MRSA Culture (Admit) - Final MRSA DETECTED Most Recent Lab Values WBC 13.2 10^3/ul (4.5-11.0) H 05/18/18 07:30 RBC 2.81 10^6/uL (3.5-6.1) L 05/18/18 07:30 Hgb 7.9 g/dL (14.0-18.0) L 05/18/18 07:30 Hct 25.3 % (42.0-52.0) L 05/18/18 07:30 MCV 90.0 fl (80.0-105.0) 05/18/18 07:30 MCH 28.1 pg (25.0-35.0) 05/18/18 07:30 MCHC 31.2 g/dl (31.0-37.0) 05/18/18 07:30 RDW 17.8 % (11.5-14.5) H 05/18/18 07:30 Plt Count 218 10^3/uL (120.0-450.0) 05/18/18 07:30 MPV 9.2 fl (7.0-11.0) 05/18/18 07:30 Gran % 64.2 % (50.0-68.0) 05/18/18 07:30 Lymph % (Auto) 20.4 % (22.0-35.0) L 05/18/18 07:30 Ralls % (Auto) 12.2 % (1.0-6.0) H 05/18/18 07:30 Eos % (Auto) 3.0 % (1.5-5.0) 05/18/18 07:30 Baso % (Auto) 0.2 % (0.0-3.0) 05/18/18 07:30 Gran # 8.47 (1.4-6.5) H 05/18/18 07:30 Lymph # (Auto) 2.7 (1.2-3.4) 05/18/18 07:30 Ralls # (Auto) 1.6 (0.1-0.6) H 05/18/18 07:30 Eos # (Auto) 0.4 (0.0-0.7) 05/18/18 07:30 Baso # (Auto) 0.03 K/mm3 (0.0-2.0) 05/18/18 07:30 Retic Count 3.60 % (0.5-1.5) H 05/12/18 21:45 PT 14.3 SECONDS (9.4-12.5) H 05/12/18 21:45 INR 1.25 05/12/18 21:45 APTT 25.5 Seconds (25.1-36.5) 05/12/18 21:45 pCO2 35 mm/Hg (35-45) 05/12/18 21:45 pO2 495.0 mm/Hg (80-100) H 05/12/18 21:45 HCO3 15.7 mmol/L (21-28) L 05/12/18 21:45 ABG pH 7.26 (7.35-7.45) L 05/12/18 21:45 ABG Total CO2 16.8 mmol.L (22-28) L 05/12/18 21:45 ABG O2 Saturation 100.8 % (95-98) H 05/12/18 21:45 ABG O2 Content 7.4 ML/dl (15-23) L 05/12/18 21:45 ABG Base Excess -10.4 mmol/L (-2.0-3.0) L 05/12/18 21:45 ABG Hemoglobin 4.3 g/dL (11.7-17.4) L 05/12/18 21:45 ABG Carboxyhemoglobin 1.8 % (0.5-1.5) H 05/12/18 21:45 POC ABG HHb (Measured) -0.8 % (0-5) L 05/12/18 21:45 ABG Methemoglobin 0.9 % (0.0-3.0) 05/12/18 21:45 ABG O2 Capacity 7.3 mL/dl (16-24) L 05/12/18 21:45 Hgb O2 Saturation 98.0 % (95.0-98.0) 05/12/18 21:45 FiO2 100.0 % 05/12/18 21:45 Sodium 146 mmol/L (132-148) 05/18/18 07:00 Potassium 4.5 mmol/L (3.6-5.0) 05/18/18 07:00 Chloride 110 mmol/L (98-107) H 05/18/18 07:00 Carbon Dioxide 25 mmol/L (21-33) 05/18/18 07:00 Anion Gap 15 (10-20) 05/18/18 07:00 BUN 45 mg/dL (7-21) H 05/18/18 07:00 Creatinine 2.8 mg/dl (0.8-1.5) H 05/18/18 07:00 Est GFR ( Amer) 27 05/18/18 07:00 Est GFR (Non-Af Amer) 22 05/18/18 07:00 Random Glucose 70 mg/dL (70-110) 05/18/18 07:00 Serum Osmolality 333 mosm/kg (272-300) H 05/12/18 21:45 Lactic Acid 1.1 mmol/L (0.7-2.1) 05/13/18 09:30 Calcium 8.3 mg/dL (8.4-10.5) L 05/18/18 07:00 Phosphorus 3.7 mg/dL (2.5-4.5) 05/16/18 07:15 Magnesium 2.0 mg/dL (1.7-2.2) 05/16/18 07:15 Iron 65 ug/dL (45-180) 05/17/18 06:30 TIBC 230 ug/dL (261-462) L 05/17/18 06:30 % Saturation 28 % (20-55) 05/17/18 06:30 Ferritin 595.0 ng/mL 05/17/18 06:30 Total Bilirubin 0.3 mg/dL (0.2-1.3) 05/18/18 07:00 AST 19 U/L (17-59) 05/18/18 07:00 ALT 20 U/L (7-56) 05/18/18 07:00 Alkaline Phosphatase 70 U/L (38-126) 05/18/18 07:00 Lactate Dehydrogenase 417 U/L (333-699) 05/12/18 21:45 Total Creatine Kinase 59 U/L (35-230) 05/12/18 21:45 Troponin I 0.08 ng/mL 05/13/18 19:40 NT-Pro-B Natriuret Pep 268 pg/mL (0-450) 05/12/18 21:45 Total Protein 6.0 g/dL (5.8-8.3) 05/18/18 07:00 Total Protein (PEP) 5.0 g/dL (6.1-8.1) L 05/14/18 07:30 Albumin 3.3 g/dL (3.0-4.8) 05/18/18 07:00 Albumin (PEP) 3.0 g/dL (3.8-4.8) L 05/14/18 07:30 Globulin 2.7 gm/dL 05/18/18 07:00 Albumin/Globulin Ratio 1.2 (1.1-1.8) 05/18/18 07:00 Fxpvj-9-Bizhclqtg 0.4 g/dL (0.2-0.3) H 05/14/18 07:30 Ddiov-5-Gpvovmpcp 0.5 g/dL (0.5-0.9) 05/14/18 07:30 Laqd-3-Zprjayfx 0.3 g/dL (0.4-0.6) L 05/14/18 07:30 Phsi-8-Yvjvwuqy 0.2 g/dL (0.2-0.5) 05/14/18 07:30 Gamma Globulins 0.5 g/dL (0.8-1.7) L 05/14/18 07:30 Abnorm Protein Band 1 TEST NOT PERFORMED 05/14/18 07:30 Abnorm Protein Band 2 TEST NOT PERFORMED 05/14/18 07:30 Abnorm Protein Band 3 TEST NOT PERFORMED 05/14/18 07:30 Vitamin B12 565 pg/mL (239-931) 05/17/18 06:30 Folate 6.6 ng/mL 05/17/18 06:30 Urine Color Yellow (YELLOW) 05/13/18 18:21 Urine Appearance Clear (CLEAR) 05/13/18 18:21 Urine pH 5.5 (4.7-8.0) 05/13/18 18:21 Ur Specific [place] 1.010 (1.005-1.035) 05/13/18 18:21 Urine Protein Negative mg/dL (<30 mg/dL) 05/13/18 18:21 Urine Glucose (UA) Negative mg/dL (NEGATIVE) 05/13/18 18:21 Urine Ketones Negative mg/dL (NEGATIVE) 05/13/18 18:21 Urine Blood Negative (NEGATIVE) 05/13/18 18:21 Urine Nitrate Negative (NEGATIVE) 05/13/18 18:21 Urine Bilirubin Negative (NEGATIVE) 05/13/18 18:21 Urine Urobilinogen 0.2 E.U./dL (<1 E.U./dL) 05/13/18 18:21 Ur Leukocyte Esterase Small Usha/uL (NEGATIVE) H 05/13/18 18:21 Urine RBC TEST NOT PERFORMED 05/13/18 18:21 Urine WBC 5 - 10 /hpf (0-6) 05/13/18 18:21 Ur Epithelial Cells 10 - 12 /hpf (0-5) 05/13/18 18:21 Urine Eosinophils Negative 05/13/18 01:06 Ur Random Creatinine 50 mg/dL 05/13/18 18:21 Ur Random Sodium 49 meq/L 05/13/18 18:21 Ur Random Urea Nitrogn 668 mg/dL 05/13/18 18:21 Stool Occult Blood Positive (NEGATIVE) H 05/13/18 03:00 SKYLAR & SPEP Interp See note 05/14/18 07:30 Serum Immunofixation Not detected (Not Detected) 05/14/18 07:30 Tot Winkelman/Lambda Ratio 1.62 (1.29-2.55) 05/14/18 07:30 Winkelman Light Chain Anal 133 mg/dL (176-443) L 05/14/18 07:30 Lambda Light Chain Anal 82 mg/dL (91-240) L 05/14/18 07:30 Blood Type O POSITIVE 05/17/18 08:13 Antibody Screen Negative 05/17/18 08:13 Crossmatch See Detail 05/17/18 08:13 BBK History Checked Patient has bt 05/17/18 08:13 Attending/Attestation - Attestation I have personally seen and examined this patient.: Yes I have fully participated in the care of the patient.: Yes I have reviewed all pertinent clinical information, including history, physical exam and plan: Yes Notes (Text): 05/19/18 08:11 Medical record note made by the resident after discussion with my direction and input after the patient was personally seen and examined by me. I have reviewed the chart and agree that the record accurately reflects by personal performance of the history, physical exam, data review, and medical decision-making, in the course for the patient. I have also personally directed the plan of care. 77 yrs old male with PMH of Obesity, COPD on maintaince prednisone 5 mg /day, HTN,CHF with diastolic dysfunction, and stafe V CKD , base line creatinin 3.0 was admitted with worsening dyspnea. was found to have severe anemia due melena ,he is SP 4 unit PRBC and underwent EGD , was found to have esophageal diverticulum with esophageal ulcer, sp Scleotherapy and 3 clips. Hemoglobin dropped to 6.7 yesterday , was transfused one unit of PRBC,but there is no melena or any evidence of blood lose, Hemoglobin has improved to 7.9. Patient dyspnea is improved. he is at his base line.Venous doppler and V/Q scan was ordered as part of work up for Pulmonary HTN but patient has refused. it was discussed ind etail with him,He is feeling at his best and told that those test were already done and were negative,He understands the risk. Creatinin is at base line. Patient will be discharged home and will follow up with PCP/GI and Pulmonary. Management plan was discussed in detail with patient. Education was provided.
--- NOTE | 2018-05-19 01:18 | PN ---
Copied To: Vikki Stoddard MD Attending MD: Vikki Stoddard MD DATE: 05/18/2018 PULMONARY PROGRESS NOTE REFERRING PHYSICIAN: Vikki Nunes MD SUBJECTIVE: He is out of bed to reclining chair. Night was unremarkable. Refusing to use CPAP. No headache, no rhinitis. Gets short of breath with exertion. No chest pain. No nausea. No vomiting. Does have a lymphedema with chronic skin changes. OBJECTIVE GENERAL: In no acute distress. VITAL SIGNS: Temperature is 98, heart is 50, respiratory rate is 20, blood pressure 152/88, pulse 100% on room air. HEENT: Moist mucous membrane. Crowded airway. NECK: Supple. No JVD. LUNGS: Have a few scattered rhonchi. HEART: S1 and S2. ABDOMEN: Soft, nontender, not distended. EXTREMITIES: Lymphedema with skin changes. NEUROLOGIC: Awake and alert. Follows simple command. MEDICATIONS: He is on albuterol/Atrovent nebulizer every 4 hour p.r.n. and every 6 hour [id number]-[id number], ferrous gluconate 325 mg three times a day, multivitamins daily, Lasix 40 mg daily, Nephro vitamins daily, prednisone is a 5 mg tapered dose, Tylenol p.r.n. basis. LABORATORY DATA: Shows hemoglobin 7.9, hematocrit 25.3, WBC 13.2, platelet count is 280. Sodium 146, potassium 4.5, chloride 110, bicarbonate 25, BUN 45, creatinine 2.8, glucose 70, calcium is 8.3. Iron is 65, AST 19, ALT 20, alk phos is 70. Albumin is 3.3. Vitamin B12 is 565. Folate is 6.6. Microbiology, blood culture and nares culture, there is no growth. IMPRESSION AND PLAN: Severe pulmonary hypertension, probably cardiac diastolic dysfunction, suspected sleep apnea syndrome, gastritis, esophagitis, found to have a esophageal diverticulum, obesity, claustrophobic, renal failure, hypertension, severe anemia, lower extremity lymphedema. I have a long discussion with the patient about CPAP/BiPAP, understand risk/benefit ratio, refusing to use it. Continue bronchodilator, diuretics. I agree with discharge planning. Will need further workup including pulmonary function test as outpatient. We will suggest the patient that he will benefit from CPAP/BiPAP. Should get sleep study upon discharge as outpatient. Vikki Stoddard MD
[2018-05-19 06:51] LABS: ALPHA-1-GLOBULIN (PEP) 0.4 g/dL (0.2-0.3)
[2018-05-19] MEDS ORDERED: Multivitamin Vitamin B Complex (Nephro-Vite) Tab PO SCH (08:00)
== END 2018-05-18 19:03 | disposition home health service (06) | DRG 381 ==
LOC: ED 21:36 → ERH 05-13 00:12 → ICU 05-13 02:34 → 5RSO 05-14 15:35
PROVIDERS: ADMIT Hospitalist; ATTEND Internal Medicine
PROC: 30233N1 Transfusion of Nonautologous Red Blood Cells into Peripheral Vein, Percutaneous Approach (ICD-10-PCS; 2018-05-13)
PROC: 3E0G8GC Introduction of Other Therapeutic Substance into Upper GI, Via Natural or Artificial Opening Endoscopic (ICD-10-PCS; principal; 2018-05-13 13:00)
PROC: 0DB68ZX Excision of Stomach, Via Natural or Artificial Opening Endoscopic, Diagnostic (ICD-10-PCS; 2018-05-13 13:00)
DX: K22.11 Ulcer of esophagus with bleeding (principal); D62 Acute posthemorrhagic anemia; E87.0 Hyperosmolality and hypernatremia; I13.0 Hypertensive heart and chronic kidney disease with heart failure and stage 1 through stage 4 chronic kidney disease, or unspecified chronic kidney disease; I50.30 Unspecified diastolic (congestive) heart failure; N18.4 Chronic kidney disease, stage 4 (severe); N17.9 Acute kidney failure, unspecified; L97.919 Non-pressure chronic ulcer of unspecified part of right lower leg with unspecified severity; L97.929 Non-pressure chronic ulcer of unspecified part of left lower leg with unspecified severity; K22.5 Diverticulum of esophagus, acquired; K29.70 Gastritis, unspecified, without bleeding; K31.89 Other diseases of stomach and duodenum; E78.5 Hyperlipidemia, unspecified; D63.8 Anemia in other chronic diseases classified elsewhere; G47.30 Sleep apnea, unspecified; I27.20 Pulmonary hypertension, unspecified; J44.9 Chronic obstructive pulmonary disease, unspecified; L89.152 Pressure ulcer of sacral region, stage 2; N30.90 Cystitis, unspecified without hematuria; I08.3 Combined rheumatic disorders of mitral, aortic and tricuspid valves; F17.200 Nicotine dependence, unspecified, uncomplicated; L85.3 Xerosis cutis; K42.9 Umbilical hernia without obstruction or gangrene; I87.2 Venous insufficiency (chronic) (peripheral); I89.0 Lymphedema, not elsewhere classified; E66.9 Obesity, unspecified; R06.03 Acute respiratory distress; Z93.0 Tracheostomy status; Z68.36 Body mass index [BMI] 36.0-36.9, adult; Z79.82 Long term (current) use of aspirin; Z86.711 Personal history of pulmonary embolism

== ENCOUNTER 2018-11-11 18:43 | Inpatient (IN) | payer MEDICARE ==
[2018-11-11 18:43] VITALS: PULSE 54
--- NOTE | 2018-11-11 19:25 | ED PDOC ---
Arrival/HPI - General Time Seen by Provider: 11/11/18 18:53 Historian: Patient - History of Present Illness Narrative History of Present Illness (Text): 11/11/18 18:53 77 M with PMHx of CHF, hypertension and hyperlipidemia, COPD, asthma, chronic kidney disease, and PE, who presents with cc of shortness of breath since this morning, symptoms got progressively worse throughout the day. Patient denies any coughing, fever, no dysuria, no abdominal pain or any other complaints at this time. PMD: Stephie Naik 11/11/18 20:45 Time/Duration: Prior to Arrival Symptom Onset: Sudden Symptom Course: Unchanged Activities at Onset: Light Past Medical History - Provider Review Nursing Documentation Reviewed: Yes - Infectious Disease Hx of Infectious Diseases: None - Tetanus Immunization Tetanus Immunization: Unknown - Cardiac Hx Cardiac Disorders: Yes (CHF,) Hx Hypertension: Yes - Pulmonary Hx Chronic Obstructive Pulmonary Disease (COPD): Yes - Neurological Hx Neurological Disorder: No - HEENT Hx HEENT Disorder: No - Renal Hx Renal Failure: Yes (CRI) - Endocrine/Metabolic Hx Endocrine Disorders: No - Hematological/Oncological Hx Blood Transfusions: Yes Hx Blood Transfusion Reaction: No - Integumentary Hx Dermatological Disorder: No - Musculoskeletal/Rheumatological Hx Falls: No - Gastrointestinal Hx Gastrointestinal Disorders: Yes - Genitourinary/Gynecological Hx Genitourinary Disorders: No - Psychiatric Hx Anxiety: Yes (?) Hx Substance Use: No - Surgical History Hx Cardiac Catheterization: Yes Hx Open Reduction Internal Fixation: Yes (COMPOUND FRACTURE JAW 1964) - Anesthesia Hx Anesthesia Reactions: No Hx Malignant Hyperthermia: No - Suicidal Assessment Feels Threatened In Home Enviroment: No Family/Social History - Physician Review Nursing Documentation Reviewed: Yes Family/Social History: No Known Family HX Smoking Status: Current Some Days Smoker Hx Alcohol Use: No Hx Substance Use: No Allergies/Home Meds Allergies/Adverse Reactions: Allergies No Known Allergies Allergy (Verified 05/13/18 00:13) VERIFIED 06/07/2014 Home Medications: Home Meds Medication Instructions Recorded Confirmed Calcitriol [Rocaltrol] 0.25 mcg PO DAILY 05/13/18 05/13/18 Calcium Acetate [Phoslo] 667 cap PO BID 05/13/18 05/13/18 Cholecalciferol (Vitamin D3) 50,000 unit PO QWK 05/13/18 05/13/18 [Vitamin D3] Ferrous Sulfate [Feosol] 325 mg PO DAILY 05/13/18 05/13/18 Fluticasone/Vilanterol [Breo 1 puff IH DAILY 05/13/18 05/13/18 Ellipta 200-25 Mcg INH] [place]-3/Dha/Epa/Fish Oil [[place] 3 1 cap PO DAILY 05/13/18 05/13/18 500 Softgel] Review of Systems - Physician Review All systems were reviewed & negative as marked: Yes (All other systems negative except that noted in the HPI.) Physical Exam - Physical Exam Narrative Physical Exam (Text): Gen: VS reviewed, alert, well developed, well nourished, nontoxic, mild distress Eye: EOMI, PERRL Neck: no JVD, supple, no adenopathy CV: regular rate, regular rhythm, no rubs,no murmur, S1, S2 Pulm: no distress, clear to auscultation, no wheeze, no rhonchi, breath sounds equal, no rales Abd: soft, nontender, no guarding, no rebound, no rigidity Ext: Pitting edema bilaterally in lower extremities Skin: good color, no rash, no cyanosis Psych: responds appropriately to questions, normal affect Neuro: oriented x3, CN2-12 intact grossly, motor intact, sensation intact Vital Signs Reviewed: Yes Vital Signs Temp Pulse Resp BP Pulse Ox 11/11/18 18:43 98.3 F 94 H 26 H 121/56 L 100 Temperature: Afebrile Blood Pressure: Normal Pulse: Tachycardic Respiratory Rate: Tachypneic Appearance: Positive for: Non-Toxic, Ill-Appearing Pain Distress: None Mental Status: Positive for: Alert and Oriented X 3 Medical Decision Making ED Course and Treatment: 11/11/18 18:53 Impression: 77 year old male who presents to the Emergency department for shortness of breath since this morning. Differential Diagnosis included but are not limited to: Plan: -- Reassess and disposition Prior Visits: Notes and results from previous visits were reviewed. Patient was last seen in the emergency department on 05/12/18 when he was brought in by ALS in respiratory distress. Patient was hospitalized in fair condition with diagnosis of anemia, chronic obstructive pulmonary disease with chronic bronchitis. Progress Notes: 11/11/18 20:[address] lam to the hospitalist service. patient to be admitted for acute respiratory distress, sepsis in light of leukocytosis and eelevated lactate. patient was empirically treated with iv abx. ivf were withheld as the patient is currently fluid overloaded and giving ivf could be detrimental to current clinical state. admit to icu. - Critical Care Critical Care Minutes: 60 minutes - RAD Interpretation Radiology Orders: 11/11/18 19:20 CHEST PORTABLE [RAD] Stat - EKG Interpretation EKG Interpretation (Text): 11/11/18 19:36 1856: atrial fibrillation at 83 bpm, artifact, rbbb, lafb Interpreted by ED Physician: Yes - Scribe Statement The provider has reviewed the documentation as recorded by the Scribe Natividad Gamez All medical record entries made by the Scribe were at my direction and personally dictated by me. I have reviewed the chart and agree that the record accurately reflects my personal performance of the history, physical exam, medical decision making, and the department course for this patient. I have also personally directed, reviewed, and agree with the discharge instructions and disposition. Disposition/Present on Arrival - Present on Arrival Any Indicators Present on Arrival: No History of DVT/PE: Yes History of Uncontrolled Diabetes: No Urinary Catheter: No History Surgical Site Infection Following: None - Disposition Have Diagnosis and Disposition been Completed?: Yes Diagnosis: Sepsis, CHF (congestive heart failure) Disposition: HOSPITALIZED Disposition Time: 20:48 Condition: GUARDED Discharge Instructions (ExitCare): Sepsis (ED), Heart Failure (ED) Referrals: Stephie Ibarra MD [Primary Care Provider] - Follow up with primary
[2018-11-11 19:31] LABS: VENOUS BLOOD GAS BASE EXCESS -5.2 mmol/L (0.0-2.0); VENOUS BLOOD GAS PO2 43 mm/Hg (30-55); VENOUS BLOOD PH 7.24 (7.32-7.43)
[2018-11-11] MEDS ORDERED: Piperacillin/Tazobact 3.375 gm 100 ML IVPB STA (19:47)
[2018-11-11] MEDS ORDERED: Piperacillin/Tazobact 2.25gm 2.25 GM/100 ML BAG IVPB STA (19:50)
[2018-11-11 19:52] LABS: ALB/GLOB RATIO 1.1 (1.1-1.8); ALBUMIN 4.4 g/dL (3.0-4.8)
[2018-11-11 19:55] LABS: BASO # 0.02 K/mm3 (0.0-2.0); BASO % 0.1 % (0.0-3.0); EOS # 0.1 (0.0-0.7); EOS % 0.4 % (1.5-5.0); HEMOGLOBIN 9.8 g/dL (14.0-18.0); LYMPH # 1.1 (1.2-3.4); LYMPH % 4.4 % (22.0-35.0); MEAN CELL VOLUME 86.4 fl (80.0-105.0); MEAN CORPUSCULAR HEMOGLOBIN 27.1 pg (25.0-35.0); MEAN CORPUSCULAR HGB CONC 31.4 g/dl (31.0-37.0); MEAN PLATELET VOLUME 10.2 fl (7.0-11.0); MONO # 0.6 (0.1-0.6); MONO % 2.4 % (1.0-6.0); PLATELET COUNT 298 10^3/uL (120.0-450.0); RBC 3.61 10^6/uL (3.5-6.1); RED CELL DISTRIBUTION WIDTH 15.8 % (11.5-14.5)
[2018-11-11 20:10] LABS: WHITE BLOOD COUNT 25.8 10^3/uL (4.5-11.0)
[2018-11-11 20:14] LABS: INR 1.17; PARTIAL THROMBOPLASTIN TIME 31.2 Seconds (26.9-38.3)
[2018-11-11 20:16] LABS: TROPONIN I 0.44 ng/mL
[2018-11-11 20:54] LABS: BAND 4 % (0-2); LYMPHOCYTE 8 % (22.0-35.0); MONOCYTE 3 % (1.0-6.0); NEUTROPHIL 85 % (50.0-70.0)
[2018-11-11 20:55] LABS: HYPOCHROMIA 2+; PLATELET ESTIMATE NORMAL (NORMAL); ROULEAU 2+; TARGET CELLS SLIGHT; TOXIC GRANULATION 2+
[2018-11-11 21:20] LABS: PH,URINE 5.5 (4.7-8.0); URINE BILIRUBIN NEGATIVE (NEGATIVE); URINE BLOOD MODERATE (NEGATIVE); URINE GLUCOSE (UA) NEGATIVE (NEGATIVE); URINE LEUKOCYTE ESTERASE MODERATE Leu/uL (NEGATIVE); URINE PROTEIN 100 mg/dL (<30 mg/dL); URINE UROBILINOGEN 0.2 E.U./dL (<1 E.U./dL)
[2018-11-11 21:25] LABS: URINE APPEARANCE SLIGHT-CLOUDY (CLEAR); URINE COLOR YELLOW (YELLOW)
[2018-11-11 21:27] LABS: ARTERIAL BLOOD GAS HEMOGLOBIN 8.7 g/dL (11.7-17.4); ARTERIAL BLOOD GAS O2 CAPACITY 11.9 mL/dl (16-24); ARTERIAL BLOOD GAS O2 CONTENT 11.7 ML/dl (15-23); ARTERIAL BLOOD GAS O2 SAT 98.4 % (95-98); ARTERIAL BLOOD GAS PCO2 37 mm/Hg (35-45); ARTERIAL BLOOD GAS PH 7.34 (7.35-7.45); ARTERIAL BLOOD GAS TCO2 21.1 mmol.L (22-28)
[2018-11-11 21:30] LABS: URINE EPITHELIAL CELLS MANY /hpf (0-5); URINE RBC 20 - 25 /hpf (0-2); URINE WBC 15 - 20 /hpf (0-6)
[2018-11-11 21:31] LABS: URINE AMORPHOUS SEDIMENT MODERATE /hpf
[2018-11-11 22:41] LABS: VENOUS BLOOD GAS BASE EXCESS -6.4 mmol/L (0.0-2.0); VENOUS BLOOD GAS PO2 62 mm/Hg (30-55); VENOUS BLOOD PH 7.21 (7.32-7.43)
[2018-11-12 01:23] VITALS: BMI 34.0
[2018-11-12] MEDS ORDERED: Albuterol-Ipratrop 3 mg / 0.5 (3 ml) UD IH STA (04:36)
[2018-11-12] MEDS ORDERED: Albuterol-Ipratrop 3 mg / 0.5 (3 ml) UD IH PRN (05:39)
[2018-11-12 06:45] LABS: BASO # 0.03 K/mm3 (0.0-2.0); BASO % 0.1 % (0.0-3.0); EOS # 0.1 (0.0-0.7); EOS % 0.3 % (1.5-5.0); HEMOGLOBIN 8.7 g/dL (14.0-18.0); LYMPH % 8.5 % (22.0-35.0); MEAN CELL VOLUME 86.4 fl (80.0-105.0); MEAN CORPUSCULAR HEMOGLOBIN 26.9 pg (25.0-35.0); MEAN CORPUSCULAR HGB CONC 31.1 g/dl (31.0-37.0); MEAN PLATELET VOLUME 9.2 fl (7.0-11.0); MONO % 4.4 % (1.0-6.0); RBC 3.24 10^6/uL (3.5-6.1); RED CELL DISTRIBUTION WIDTH 15.6 % (11.5-14.5); WHITE BLOOD COUNT 22.8 10^3/uL (4.5-11.0)
--- NOTE | 2018-11-12 06:59 | CP.PCM.HP ---
History of Present Illness - History of Present Illness History of Present Illness: TBD Past Patient History - Infectious Disease Hx of Infectious Diseases: None - Tetanus Immunizations Tetanus Immunization: Unknown - Past Medical History & Family History Past Medical History?: Yes - Past Social History Smoking Status: Current Some Days Smoker - CARDIAC Hx Cardiac Disorders: Yes (CHF,) Hx Congestive Heart Failure: Yes Hx Hypertension: Yes - PULMONARY Hx Chronic Obstructive Pulmonary Disease (COPD): Yes - NEUROLOGICAL Hx Neurological Disorder: No - HEENT Hx HEENT Problems: No - RENAL Hx Chronic Kidney Disease: Yes Hx Renal Failure: Yes (CRI) - ENDOCRINE/METABOLIC Hx Endocrine Disorders: No - HEMATOLOGICAL/ONCOLOGICAL Hx Blood Disorders: Yes - INTEGUMENTARY Hx Dermatological Problems: No - MUSCULOSKELETAL/RHEUMATOLOGICAL Hx Falls: No - GASTROINTESTINAL Hx Gastrointestinal Disorders: Yes - GENITOURINARY/GYNECOLOGICAL Hx Incontinence: Yes - PSYCHIATRIC Hx Anxiety: Yes (?) Hx Substance Use: No - SURGICAL HISTORY Hx Surgeries: Yes Hx Cardiac Catheterization: Yes Other/Comment: 1964 orif compound fracture jaw - ANESTHESIA Hx Anesthesia Reactions: No Hx Malignant Hyperthermia: No Meds Allergies/Adverse Reactions: Allergies Allergy/AdvReac Type Severity Reaction Status Date / Time No Known Allergies Allergy Verified 05/13/18 00:13 Results - Vital Signs Recent Vital Signs: Last Vital Signs Temp 98.9 F 11/12/18 04:00 Pulse 74 11/12/18 02:20 Resp 29 H 11/12/18 02:20 BP 111/62 11/12/18 04:45 Pulse Ox 100 11/12/18 02:20 - Labs Result Diagrams: 11/12/18 06:30 11/11/18 19:26 Labs: Laboratory Results - last 24 hr 11/11/18 11/11/18 11/11/18 19:20 19:26 19:26 WBC 25.8 H* RBC 3.61 Hgb 9.8 L Hct 31.2 L MCV 86.4 D MCH 27.1 MCHC 31.4 RDW 15.8 H Plt Count 298 MPV 10.2 Neut % (Auto) 92.7 H Lymph % (Auto) 4.4 L [place] % (Auto) 2.4 Eos % (Auto) 0.4 L Baso % (Auto) 0.1 Lymph # (Auto) 1.1 L [place] # (Auto) 0.6 Eos # (Auto) 0.1 Baso # (Auto) 0.02 Absolute Neuts (auto) 23.91 H Neutrophils % (Manual) 85 H Band Neutrophils % 4 H Lymphocytes % (Manual) 8 L Monocytes % (Manual) 3 Toxic Granulation 2+ Platelet Evaluation Normal Hypochromasia 2+ Target Cells Slight Rouleaux 2+ PT 13.0 H INR 1.17 APTT 31.2 pCO2 pO2 43 HCO3 ABG pH ABG Total CO2 ABG O2 Saturation ABG O2 Content ABG Base Excess ABG Hemoglobin ABG Carboxyhemoglobin POC ABG HHb (Measured) ABG Methemoglobin ABG O2 Capacity VBG pH 7.24 L VBG pCO2 53.0 VBG HCO3 22.7 VBG Total CO2 24.3 VBG O2 Sat (Calc) 78.0 H VBG Base Excess -5.2 L VBG Potassium 6.1 H Hgb O2 Saturation Sodium 138.0 Chloride 101.0 Glucose 87 Lactate 3.8 H FiO2 30.0 Crit Value Called To Dr medina Crit Value Called By Rs Blood Gas Notified Time 1929 Potassium Carbon Dioxide Anion Gap BUN Creatinine Est GFR ( Amer) Est GFR (Non-Af Amer) Random Glucose Calcium Magnesium Total Bilirubin AST ALT Alkaline Phosphatase Troponin I NT-Pro-B Natriuret Pep Total Protein Albumin Globulin Albumin/Globulin Ratio Venous Blood Potassium 6.1 H Urine Color Urine Appearance Urine pH Ur Specific [place] Urine Protein Urine Glucose (UA) Urine Ketones Urine Blood Urine Nitrate Urine Bilirubin Urine Urobilinogen Ur Leukocyte Esterase Urine RBC Urine WBC Ur Epithelial Cells Amorphous Sediment 11/11/18 11/11/18 11/11/18 19:26 21:14 21:20 WBC RBC Hgb Hct MCV MCH MCHC RDW Plt Count MPV Neut % (Auto) Lymph % (Auto) [place] % (Auto) Eos % (Auto) Baso % (Auto) Lymph # (Auto) [place] # (Auto) Eos # (Auto) Baso # (Auto) Absolute Neuts (auto) Neutrophils % (Manual) Band Neutrophils % Lymphocytes % (Manual) Monocytes % (Manual) Toxic Granulation Platelet Evaluation Hypochromasia Target Cells Rouleaux PT INR APTT pCO2 37 pO2 78.0 L HCO3 20.0 L ABG pH 7.34 L ABG Total CO2 21.1 L ABG O2 Saturation 98.4 H ABG O2 Content 11.7 L ABG Base Excess -5.3 L ABG Hemoglobin 8.7 L ABG Carboxyhemoglobin 2.2 H POC ABG HHb (Measured) 1.5 ABG Methemoglobin 1.4 ABG O2 Capacity 11.9 L VBG pH VBG pCO2 VBG HCO3 VBG Total CO2 VBG O2 Sat (Calc) VBG Base Excess VBG Potassium Hgb O2 Saturation 94.9 L Sodium 138 Chloride 99 Glucose Lactate FiO2 30.0 Crit Value Called To Crit Value Called By Blood Gas Notified Time Potassium 4.8 Carbon Dioxide 20 L Anion Gap 23 H BUN 96 H Creatinine 5.0 H Est GFR ( Amer) 14 Est GFR (Non-Af Amer) 11 Random Glucose 78 Calcium 10.0 Magnesium 2.0 Total Bilirubin 0.6 AST 65 H D ALT 31 Alkaline Phosphatase 99 Troponin I 0.44 H* D NT-Pro-B Natriuret Pep 2330 H Total Protein 8.2 Albumin 4.4 Globulin 3.8 Albumin/Globulin Ratio 1.1 Venous Blood Potassium Urine Color Yellow Urine Appearance Slight-cloudy Urine pH 5.5 Ur Specific [place] >= 1.030 Urine Protein 100 H Urine Glucose (UA) Negative Urine Ketones Negative Urine Blood Moderate H Urine Nitrate Negative Urine Bilirubin Negative Urine Urobilinogen 0.2 Ur Leukocyte Esterase Moderate H Urine RBC 20 - 25 H Urine WBC 15 - 20 H Ur Epithelial Cells Many H Amorphous Sediment Moderate 11/11/18 11/12/18 11/12/18 22:25 00:40 06:30 WBC 22.8 H RBC 3.24 L Hgb 8.7 L Hct 28.0 L MCV 86.4 MCH 26.9 MCHC 31.1 RDW 15.6 H Plt Count 199 MPV 9.2 Neut % (Auto) 86.7 H Lymph % (Auto) 8.5 L [place] % (Auto) 4.4 Eos % (Auto) 0.3 L Baso % (Auto) 0.1 Lymph # (Auto) 2.0 [place] # (Auto) 1.0 H Eos # (Auto) 0.1 Baso # (Auto) 0.03 Absolute Neuts (auto) 19.77 H Neutrophils % (Manual) Band Neutrophils % Lymphocytes % (Manual) Monocytes % (Manual) Toxic Granulation Platelet Evaluation Hypochromasia Target Cells Rouleaux PT INR APTT pCO2 pO2 62 H HCO3 ABG pH ABG Total CO2 ABG O2 Saturation ABG O2 Content ABG Base Excess ABG Hemoglobin ABG Carboxyhemoglobin POC ABG HHb (Measured) ABG Methemoglobin ABG O2 Capacity VBG pH 7.21 L VBG pCO2 55.0 VBG HCO3 22.0 VBG Total CO2 23.7 VBG O2 Sat (Calc) 93.4 H VBG Base Excess -6.4 L VBG Potassium 4.0 Hgb O2 Saturation Sodium 139.0 Chloride 102.0 Glucose 81 Lactate 2.1 FiO2 21.0 Crit Value Called To Crit Value Called By Blood Gas Notified Time Potassium Carbon Dioxide Anion Gap BUN Creatinine Est GFR ( Amer) Est GFR (Non-Af Amer) Random Glucose Calcium Magnesium Total Bilirubin AST ALT Alkaline Phosphatase Troponin I 0.52 H* NT-Pro-B Natriuret Pep Total Protein Albumin Globulin Albumin/Globulin Ratio Venous Blood Potassium 4.0 Urine Color Urine Appearance Urine pH Ur Specific [place] Urine Protein Urine Glucose (UA) Urine Ketones Urine Blood Urine Nitrate Urine Bilirubin Urine Urobilinogen Ur Leukocyte Esterase Urine RBC Urine WBC Ur Epithelial Cells Amorphous Sediment
[2018-11-12] MEDS: Albuterol-Ipratrop 3 mg / 0.5 (3 ml) UD IH SCH ×3 (07:52→19:31)
[2018-11-12 08:05] LABS: ALB/GLOB RATIO 1.1 (1.1-1.8); ALBUMIN 3.5 g/dL (3.0-4.8); CALCIUM 9.5 mg/dL (8.4-10.5); TROPONIN I 0.44 ng/mL
--- NOTE | 2018-11-12 09:37 | RAD ---
Date of service: 11/11/2018 HISTORY: chf COMPARISON: 05/16/2018 FINDINGS: LUNGS: No active pulmonary disease. PLEURA: No significant pleural effusion identified, no pneumothorax apparent. CARDIOVASCULAR: No aortic atherosclerotic calcification present. Mild cardiomegaly no pulmonary vascular congestion. OSSEOUS STRUCTURES: No significant abnormalities. VISUALIZED UPPER ABDOMEN: Normal. OTHER FINDINGS: None. IMPRESSION: No active disease.
[2018-11-12] MEDS: Omega-3-Acid Ethyl Esters 1 GM Cap PO SCH (09:38)
[2018-11-12] MEDS: MethylPREDNISolone 40 mg Vial IVP SCH ×2 (09:39→21:08)
[2018-11-12] MEDS ORDERED: Aspirin 325 mg EC Tablets PO SCH (10:00)
[2018-11-12] MEDS ORDERED: Pantoprazole 40 mg EC Tab PO SCH (10:00)
--- NOTE | 2018-11-12 10:36 | CARD ---
APPROVED REPORT Date of service: 11/12/2018 EKG Measurement Heart [id number] CT [id number] <Conclusion> Atrial Fibrillation Right bundle branch block Possible Inferior infarct, age Old. Abnormal ECG
[2018-11-12] MEDS: Heparin25000 units/250ml 1/2NS 25,000 UNITS/250 ML BAG IV SCH (10:40)
[2018-11-12 10:47] LABS: PH,URINE 5.5 (4.7-8.0); URINE BILIRUBIN NEGATIVE (NEGATIVE); URINE BLOOD MODERATE (NEGATIVE); URINE GLUCOSE (UA) NEGATIVE (NEGATIVE); URINE LEUKOCYTE ESTERASE MODERATE Leu/uL (NEGATIVE); URINE PROTEIN TRACE mg/dL (<30 mg/dL); URINE UROBILINOGEN 0.2 E.U./dL (<1 E.U./dL)
[2018-11-12 10:51] LABS: URINE APPEARANCE CLEAR (CLEAR); URINE COLOR YELLOW (YELLOW)
[2018-11-12 10:55] LABS: URINE BACTERIA MANY /hpf; URINE EPITHELIAL CELLS 0 - 2 /hpf (0-5); URINE RBC 20 - 25 /hpf (0-2); URINE WBC 25 - 30 /hpf (0-6)
[2018-11-12 10:57] LABS: URINE AMORPHOUS SEDIMENT FEW /hpf; URINE COARSE GRANULAR CAST TRACE /hpf
--- NOTE | 2018-11-12 11:28 | CP.CCUPN ---
<Apolinar Sierra - Last Filed: 11/12/18 11:25> CCU Subjective - Physician Review Subjective (Free Text): ICU Progress Note for Dr. Mendez Patient seen and examined at bedside. No acute overnight events. He reports that his shortness of breath is improving, and today he feels much better. Denies CP, SOB, N/V/D, abdominal pain, fever, chills, headache, dizziness, dysuria, other complaints. CCU Objective - Vital Signs / Intake & Output Vital Signs (Last 4 hours): Vital Signs Temp Pulse Resp BP Pulse Ox 11/12/18 09:39 110/49 L 11/12/18 08:00 97.4 F L 80 65 H 103/82 98 Intake and Output (Last 8hrs): Intake & Output 11/11/18 11/12/18 11/12/18 22:59 06:59 14:59 Intake Total 200 Output Total 350 Balance -150 Weight 102.965 kg 101.333 kg Intake: Oral 200 Output: Urine 350 Urethral (Hill) 350 Other: Voiding Method Indwelling Catheter # Bowel Movements 1 - Physical Exam Head: Positive for: Atraumatic, Normocephalic Extroacular Muscles: Positive for: EOMI Conjunctiva: Positive for: Normal Mouth: Positive for: Moist Mucous Membranes Pharnyx: Positive for: Normal Neck: Positive for: Normal Range of Motion. Negative for: JVD Respiratory/Chest: Positive for: Rales (Mild at the bases), Other. Negative for: Wheezes, Rhonchi, Tachypneic Cardiovascular: Positive for: Regular Rate and Rhythm, Murmurs, Normal S1, S2. Negative for: Rub, Gallop Abdomen: Positive for: Normal Bowel Sounds. Negative for: Tenderness, Distention, Rebound, Guarding Upper Extremity: Positive for: Normal Inspection. Negative for: Edema Lower Extremity: Positive for: Edema (2+ pitting, bilaterally). Negative for: Tenderness Neurological: Positive for: GCS=15, Speech Normal Skin: Positive for: Warm, Dry, Normal Color. Negative for: Rashes Psychiatric: Positive for: Alert, Oriented x 3, Normal Insight - Medications Active Medications: Active Medications Generic Name Dose Route Start Last Admin Trade Name Freq PRN Reason Stop Dose Admin Acetaminophen 650 mg 11/12/18 05:49 11/12/18 05:55 Tylenol 325mg Tab PO 650 mg Q4H PRN Administration pain and fever Albuterol/Ipratropium 3 ml 11/12/18 08:00 11/12/18 07:52 Duoneb 3 Mg/0.5 Mg (3 Ml) Ud IH 3 ml [id number] HERMAN Administration Albuterol/Ipratropium 3 ml 11/12/18 05:39 Duoneb 3 Mg/0.5 Mg (3 Ml) Ud IH Q2H PRN Shortness of Breath Aspirin 325 mg 11/12/18 10:00 11/12/18 09:41 Ecotrin PO 325 mg DAILY HERMAN Administration Atorvastatin Calcium 40 mg 11/12/18 10:00 11/12/18 09:39 Lipitor PO 40 mg DAILY [facility] Administration Calcitriol 0.25 mcg 11/12/18 10:00 11/12/18 09:39 Rocaltrol PO 0.25 mcg DAILY [facility] Administration Calcium Acetate 667 mg 11/12/18 08:00 11/12/18 08:03 Phoslo PO 667 mg BRKDIN [facility] Administration Clopidogrel Bisulfate 75 mg 11/13/18 10:00 Plavix PO DAILY [facility] Darbepoetin Bryan 60 mcg 11/12/18 11:30 Aranesp SC QWK [facility] Ergocalciferol 1 cap 11/18/18 10:00 Drisdol 50,000 Intl Units Cap PO QWK [facility] Ferrous Sulfate 324 mg 11/12/18 14:00 Feosol PO TID [facility] Heparin Sodium/Sodium Chloride 25,000 units in 250 mls @ 12.16 mls/hr 11/12/18 10:00 11/12/18 10:40 Heparin 75803 Units/250ml 1/2 Normal Saline IV 12 units/kg/hr .[id number] HERMAN 12.16 mls/hr Administration Protocol 12 UNITS/KG/HR Methylprednisolone 30 mg 11/12/18 10:00 11/12/18 09:39 Solu-Medrol IVP 30 mg Q12 HERMAN Administration Qinhf-8-Gapt Ethyl Esters 1 gm 11/12/18 10:00 11/12/18 09:38 Lovaza PO 1 gm DAILY [facility] Administration Pantoprazole Sodium 40 mg 11/12/18 10:00 11/12/18 09:39 Protonix Ec Tab PO 40 mg BID HERMAN Administration Vitamin B Complex/Vit C/Folic Acid 1 tab 11/13/18 08:00 Nephro-Samantha PO 0800 [facility] - Patient Studies Lab Studies: Lab Studies 11/12/18 11/12/18 11/12/18 Range/Units 10:16 06:30 06:30 WBC 22.8 H (4.5-11.0) 10^3/uL RBC 3.24 L (3.5-6.1) 10^6/uL Hgb 8.7 L (14.0-18.0) g/dL Hct 28.0 L (42.0-52.0) % MCV 86.4 (80.0-105.0) fl MCH 26.9 (25.0-35.0) pg MCHC 31.1 (31.0-37.0) g/dl RDW 15.6 H (11.5-14.5) % Plt Count 199 (120.0-450.0) 10^3/uL MPV 9.2 (7.0-11.0) fl Neut % (Auto) 86.7 H (50.0-68.0) % Lymph % (Auto) 8.5 L (22.0-35.0) % [place] % (Auto) 4.4 (1.0-6.0) % Eos % (Auto) 0.3 L (1.5-5.0) % Baso % (Auto) 0.1 (0.0-3.0) % Lymph # (Auto) 2.0 (1.2-3.4) [place] # (Auto) 1.0 H (0.1-0.6) Eos # (Auto) 0.1 (0.0-0.7) Baso # (Auto) 0.03 (0.0-2.0) K/mm3 Absolute Neuts (auto) 19.77 H (1.4-6.5) Neutrophils % (Manual) (50.0-70.0) % Band Neutrophils % (0-2) % Lymphocytes % (Manual) (22.0-35.0) % Monocytes % (Manual) (1.0-6.0) % Toxic Granulation Platelet Evaluation (NORMAL) Hypochromasia Target Cells Rouleaux PT (9.4-12.5) SECONDS INR APTT (26.9-38.3) Seconds pCO2 (35-45) mm/Hg pO2 (30-55) mm/Hg HCO3 (21-28) mmol/L ABG pH (7.35-7.45) ABG Total CO2 (22-28) mmol.L ABG O2 Saturation (95-98) % ABG O2 Content (15-23) ML/dl ABG Base Excess (-2.0-3.0) mmol/L ABG Hemoglobin (11.7-17.4) g/dL ABG Carboxyhemoglobin (0.5-1.5) % POC ABG HHb (Measured) (0-5) % ABG Methemoglobin (0.0-3.0) % ABG O2 Capacity (16-24) mL/dl VBG pH (7.32-7.43) VBG pCO2 (40-60) VBG HCO3 (21-28) mmol/l VBG Total CO2 (22-28) mmol.L VBG O2 Sat (Calc) (40-65) % VBG Base Excess (0.0-2.0) mmol/L VBG Potassium (3.6-5.2) mmol/L Hgb O2 Saturation (95.0-98.0) % Sodium 138 (132-148) mmol/L Chloride 102 (98-107) mmol/L Glucose (75-110) mg/dl Lactate (0.7-2.1) mmol/L FiO2 % Crit Value Called To Crit Value Called By Blood Gas Notified Time Potassium 4.1 (3.6-5.0) mmol/L Carbon Dioxide 23 (21-33) mmol/L Anion Gap 17 (10-20) BUN 98 H (7-21) mg/dL Creatinine 5.5 H (0.8-1.5) mg/dl Est GFR ( Amer) 12 Est GFR (Non-Af Amer) 10 Random Glucose 81 (70-110) mg/dL Calcium 9.5 (8.4-10.5) mg/dL Phosphorus 5.4 H (2.5-4.5) mg/dL Magnesium 2.0 (1.7-2.2) mg/dL Total Bilirubin 0.4 (0.2-1.3) mg/dL AST 54 (17-59) U/L ALT 27 (7-56) U/L Alkaline Phosphatase 93 (38-126) U/L Troponin I 0.44 H* ng/mL NT-Pro-B Natriuret Pep (0-450) pg/mL Total Protein 6.6 (5.8-8.3) g/dL Albumin 3.5 (3.0-4.8) g/dL Globulin 3.1 gm/dL Albumin/Globulin Ratio 1.1 (1.1-1.8) Venous Blood Potassium (3.6-5.2) mmol/L Urine Color Yellow (YELLOW) Urine Appearance Clear (CLEAR) Urine pH 5.5 (4.7-8.0) Ur Specific [place] 1.010 (1.005-1.035) Urine Protein Trace H (<30 mg/dL) mg/dL Urine Glucose (UA) Negative (NEGATIVE) mg/dL Urine Ketones Negative (NEGATIVE) mg/dL Urine Blood Moderate H (NEGATIVE) Urine Nitrate Negative (NEGATIVE) Urine Bilirubin Negative (NEGATIVE) Urine Urobilinogen 0.2 (<1 E.U./dL) E.U./dL Ur Leukocyte Esterase Moderate H (NEGATIVE) Usha/uL Urine RBC 20 - 25 H (0-2) /hpf Urine WBC 25 - 30 H (0-6) /hpf Ur Epithelial Cells 0 - 2 (0-5) /hpf Amorphous Sediment Few (NONE) /hpf Urine Bacteria Many (NONE) /hpf Coarse Granular Casts Trace (NONE) /hpf Urine Other Fiber /hpf 11/12/18 11/11/18 11/11/18 Range/Units 00:40 22:25 21:20 WBC (4.5-11.0) 10^3/uL RBC (3.5-6.1) 10^6/uL Hgb (14.0-18.0) g/dL Hct (42.0-52.0) % MCV (80.0-105.0) fl MCH (25.0-35.0) pg MCHC (31.0-37.0) g/dl RDW (11.5-14.5) % Plt Count (120.0-450.0) 10^3/uL MPV (7.0-11.0) fl Neut % (Auto) (50.0-68.0) % Lymph % (Auto) (22.0-35.0) % [place] % (Auto) (1.0-6.0) % Eos % (Auto) (1.5-5.0) % Baso % (Auto) (0.0-3.0) % Lymph # (Auto) (1.2-3.4) [place] # (Auto) (0.1-0.6) Eos # (Auto) (0.0-0.7) Baso # (Auto) (0.0-2.0) K/mm3 Absolute Neuts (auto) (1.4-6.5) Neutrophils % (Manual) (50.0-70.0) % Band Neutrophils % (0-2) % Lymphocytes % (Manual) (22.0-35.0) % Monocytes % (Manual) (1.0-6.0) % Toxic Granulation Platelet Evaluation (NORMAL) Hypochromasia Target Cells Rouleaux PT (9.4-12.5) SECONDS INR APTT (26.9-38.3) Seconds pCO2 37 (35-45) mm/Hg pO2 62 H 78.0 L (30-55) mm/Hg HCO3 20.0 L (21-28) mmol/L ABG pH 7.34 L (7.35-7.45) ABG Total CO2 21.1 L (22-28) mmol.L ABG O2 Saturation 98.4 H (95-98) % ABG O2 Content 11.7 L (15-23) ML/dl ABG Base Excess -5.3 L (-2.0-3.0) mmol/L ABG Hemoglobin 8.7 L (11.7-17.4) g/dL ABG Carboxyhemoglobin 2.2 H (0.5-1.5) % POC ABG HHb (Measured) 1.5 (0-5) % ABG Methemoglobin 1.4 (0.0-3.0) % ABG O2 Capacity 11.9 L (16-24) mL/dl VBG pH 7.21 L (7.32-7.43) VBG pCO2 55.0 (40-60) VBG HCO3 22.0 (21-28) mmol/l VBG Total CO2 23.7 (22-28) mmol.L VBG O2 Sat (Calc) 93.4 H (40-65) % VBG Base Excess -6.4 L (0.0-2.0) mmol/L VBG Potassium 4.0 (3.6-5.2) mmol/L Hgb O2 Saturation 94.9 L (95.0-98.0) % Sodium 139.0 (132-148) mmol/L Chloride 102.0 (98-107) mmol/L Glucose 81 (75-110) mg/dl Lactate 2.1 (0.7-2.1) mmol/L FiO2 21.0 30.0 % Crit Value Called To Crit Value Called By Blood Gas Notified Time Potassium (3.6-5.0) mmol/L Carbon Dioxide (21-33) mmol/L Anion Gap (10-20) BUN (7-21) mg/dL Creatinine (0.8-1.5) mg/dl Est GFR ( Amer) Est GFR (Non-Af Amer) Random Glucose (70-110) mg/dL Calcium (8.4-10.5) mg/dL Phosphorus (2.5-4.5) mg/dL Magnesium (1.7-2.2) mg/dL Total Bilirubin (0.2-1.3) mg/dL AST (17-59) U/L ALT (7-56) U/L Alkaline Phosphatase (38-126) U/L Troponin I 0.52 H* ng/mL NT-Pro-B Natriuret Pep (0-450) pg/mL Total Protein (5.8-8.3) g/dL Albumin (3.0-4.8) g/dL Globulin gm/dL Albumin/Globulin Ratio (1.1-1.8) Venous Blood Potassium 4.0 (3.6-5.2) mmol/L Urine Color (YELLOW) Urine Appearance (CLEAR) Urine pH (4.7-8.0) Ur Specific [place] (1.005-1.035) Urine Protein (<30 mg/dL) mg/dL Urine Glucose (UA) (NEGATIVE) mg/dL Urine Ketones (NEGATIVE) mg/dL Urine Blood (NEGATIVE) Urine Nitrate (NEGATIVE) Urine Bilirubin (NEGATIVE) Urine Urobilinogen (<1 E.U./dL) E.U./dL Ur Leukocyte Esterase (NEGATIVE) Usha/uL Urine RBC (0-2) /hpf Urine WBC (0-6) /hpf Ur Epithelial Cells (0-5) /hpf Amorphous Sediment (NONE) /hpf Urine Bacteria (NONE) /hpf Coarse Granular Casts (NONE) /hpf Urine Other /hpf 11/11/18 11/11/18 11/11/18 Range/Units 21:14 19:26 19:26 WBC (4.5-11.0) 10^3/uL RBC (3.5-6.1) 10^6/uL Hgb (14.0-18.0) g/dL Hct (42.0-52.0) % MCV (80.0-105.0) fl MCH (25.0-35.0) pg MCHC (31.0-37.0) g/dl RDW (11.5-14.5) % Plt Count (120.0-450.0) 10^3/uL MPV (7.0-11.0) fl Neut % (Auto) (50.0-68.0) % Lymph % (Auto) (22.0-35.0) % [place] % (Auto) (1.0-6.0) % Eos % (Auto) (1.5-5.0) % Baso % (Auto) (0.0-3.0) % Lymph # (Auto) (1.2-3.4) [place] # (Auto) (0.1-0.6) Eos # (Auto) (0.0-0.7) Baso # (Auto) (0.0-2.0) K/mm3 Absolute Neuts (auto) (1.4-6.5) Neutrophils % (Manual) (50.0-70.0) % Band Neutrophils % (0-2) % Lymphocytes % (Manual) (22.0-35.0) % Monocytes % (Manual) (1.0-6.0) % Toxic Granulation Platelet Evaluation (NORMAL) Hypochromasia Target Cells Rouleaux PT 13.0 H (9.4-12.5) SECONDS INR 1.17 APTT 31.2 (26.9-38.3) Seconds pCO2 (35-45) mm/Hg pO2 (30-55) mm/Hg HCO3 (21-28) mmol/L ABG pH (7.35-7.45) ABG Total CO2 (22-28) mmol.L ABG O2 Saturation (95-98) % ABG O2 Content (15-23) ML/dl ABG Base Excess (-2.0-3.0) mmol/L ABG Hemoglobin (11.7-17.4) g/dL ABG Carboxyhemoglobin (0.5-1.5) % POC ABG HHb (Measured) (0-5) % ABG Methemoglobin (0.0-3.0) % ABG O2 Capacity (16-24) mL/dl VBG pH (7.32-7.43) VBG pCO2 (40-60) VBG HCO3 (21-28) mmol/l VBG Total CO2 (22-28) mmol.L VBG O2 Sat (Calc) (40-65) % VBG Base Excess (0.0-2.0) mmol/L VBG Potassium (3.6-5.2) mmol/L Hgb O2 Saturation (95.0-98.0) % Sodium 138 (132-148) mmol/L Chloride 99 (98-107) mmol/L Glucose (75-110) mg/dl Lactate (0.7-2.1) mmol/L FiO2 % Crit Value Called To Crit Value Called By Blood Gas Notified Time Potassium 4.8 (3.6-5.0) mmol/L Carbon Dioxide 20 L (21-33) mmol/L Anion Gap 23 H (10-20) BUN 96 H (7-21) mg/dL Creatinine 5.0 H (0.8-1.5) mg/dl Est GFR ( Amer) 14 Est GFR (Non-Af Amer) 11 Random Glucose 78 (70-110) mg/dL Calcium 10.0 (8.4-10.5) mg/dL Phosphorus (2.5-4.5) mg/dL Magnesium 2.0 (1.7-2.2) mg/dL Total Bilirubin 0.6 (0.2-1.3) mg/dL AST 65 H D (17-59) U/L ALT 31 (7-56) U/L Alkaline Phosphatase 99 (38-126) U/L Troponin I 0.44 H* D ng/mL NT-Pro-B Natriuret Pep 2330 H (0-450) pg/mL Total Protein 8.2 (5.8-8.3) g/dL Albumin 4.4 (3.0-4.8) g/dL Globulin 3.8 gm/dL Albumin/Globulin Ratio 1.1 (1.1-1.8) Venous Blood Potassium (3.6-5.2) mmol/L Urine Color Yellow (YELLOW) Urine Appearance Slight-cloudy (CLEAR) Urine pH 5.5 (4.7-8.0) Ur Specific [place] >= 1.030 (1.005-1.035) Urine Protein 100 H (<30 mg/dL) mg/dL Urine Glucose (UA) Negative (NEGATIVE) mg/dL Urine Ketones Negative (NEGATIVE) mg/dL Urine Blood Moderate H (NEGATIVE) Urine Nitrate Negative (NEGATIVE) Urine Bilirubin Negative (NEGATIVE) Urine Urobilinogen 0.2 (<1 E.U./dL) E.U./dL Ur Leukocyte Esterase Moderate H (NEGATIVE) Usha/uL Urine RBC 20 - 25 H (0-2) /hpf Urine WBC 15 - 20 H (0-6) /hpf Ur Epithelial Cells Many H (0-5) /hpf Amorphous Sediment Moderate (NONE) /hpf Urine Bacteria (NONE) /hpf Coarse Granular Casts (NONE) /hpf Urine Other /hpf 11/11/18 11/11/18 Range/Units 19:26 19:20 WBC 25.8 H* (4.5-11.0) 10^3/uL RBC 3.61 (3.5-6.1) 10^6/uL Hgb 9.8 L (14.0-18.0) g/dL Hct 31.2 L (42.0-52.0) % MCV 86.4 D (80.0-105.0) fl MCH 27.1 (25.0-35.0) pg MCHC 31.4 (31.0-37.0) g/dl RDW 15.8 H (11.5-14.5) % Plt Count 298 (120.0-450.0) 10^3/uL MPV 10.2 (7.0-11.0) fl Neut % (Auto) 92.7 H (50.0-68.0) % Lymph % (Auto) 4.4 L (22.0-35.0) % [place] % (Auto) 2.4 (1.0-6.0) % Eos % (Auto) 0.4 L (1.5-5.0) % Baso % (Auto) 0.1 (0.0-3.0) % Lymph # (Auto) 1.1 L (1.2-3.4) [place] # (Auto) 0.6 (0.1-0.6) Eos # (Auto) 0.1 (0.0-0.7) Baso # (Auto) 0.02 (0.0-2.0) K/mm3 Absolute Neuts (auto) 23.91 H (1.4-6.5) Neutrophils % (Manual) 85 H (50.0-70.0) % Band Neutrophils % 4 H (0-2) % Lymphocytes % (Manual) 8 L (22.0-35.0) % Monocytes % (Manual) 3 (1.0-6.0) % Toxic Granulation 2+ Platelet Evaluation Normal (NORMAL) Hypochromasia 2+ Target Cells Slight Rouleaux 2+ PT (9.4-12.5) SECONDS INR APTT (26.9-38.3) Seconds pCO2 (35-45) mm/Hg pO2 43 (30-55) mm/Hg HCO3 (21-28) mmol/L ABG pH (7.35-7.45) ABG Total CO2 (22-28) mmol.L ABG O2 Saturation (95-98) % ABG O2 Content (15-23) ML/dl ABG Base Excess (-2.0-3.0) mmol/L ABG Hemoglobin (11.7-17.4) g/dL ABG Carboxyhemoglobin (0.5-1.5) % POC ABG HHb (Measured) (0-5) % ABG Methemoglobin (0.0-3.0) % ABG O2 Capacity (16-24) mL/dl VBG pH 7.24 L (7.32-7.43) VBG pCO2 53.0 (40-60) VBG HCO3 22.7 (21-28) mmol/l VBG Total CO2 24.3 (22-28) mmol.L VBG O2 Sat (Calc) 78.0 H (40-65) % VBG Base Excess -5.2 L (0.0-2.0) mmol/L VBG Potassium 6.1 H (3.6-5.2) mmol/L Hgb O2 Saturation (95.0-98.0) % Sodium 138.0 (132-148) mmol/L Chloride 101.0 (98-107) mmol/L Glucose 87 (75-110) mg/dl Lactate 3.8 H (0.7-2.1) mmol/L FiO2 30.0 % Crit Value Called To Dr medina Crit Value Called By Rs Blood Gas Notified Time 1929 Potassium (3.6-5.0) mmol/L Carbon Dioxide (21-33) mmol/L Anion Gap (10-20) BUN (7-21) mg/dL Creatinine (0.8-1.5) mg/dl Est GFR ( Amer) Est GFR (Non-Af Amer) Random Glucose (70-110) mg/dL Calcium (8.4-10.5) mg/dL Phosphorus (2.5-4.5) mg/dL Magnesium (1.7-2.2) mg/dL Total Bilirubin (0.2-1.3) mg/dL AST (17-59) U/L ALT (7-56) U/L Alkaline Phosphatase (38-126) U/L Troponin I ng/mL NT-Pro-B Natriuret Pep (0-450) pg/mL Total Protein (5.8-8.3) g/dL Albumin (3.0-4.8) g/dL Globulin gm/dL Albumin/Globulin Ratio (1.1-1.8) Venous Blood Potassium 6.1 H (3.6-5.2) mmol/L Urine Color (YELLOW) Urine Appearance (CLEAR) Urine pH (4.7-8.0) Ur Specific [place] (1.005-1.035) Urine Protein (<30 mg/dL) mg/dL Urine Glucose (UA) (NEGATIVE) mg/dL Urine Ketones (NEGATIVE) mg/dL Urine Blood (NEGATIVE) Urine Nitrate (NEGATIVE) Urine Bilirubin (NEGATIVE) Urine Urobilinogen (<1 E.U./dL) E.U./dL Ur Leukocyte Esterase (NEGATIVE) Usha/uL Urine RBC (0-2) /hpf Urine WBC (0-6) /hpf Ur Epithelial Cells (0-5) /hpf Amorphous Sediment (NONE) /hpf Urine Bacteria (NONE) /hpf Coarse Granular Casts (NONE) /hpf Urine Other /hpf Laboratory Results - last 24 hr 11/11/18 11/11/18 11/11/18 19:20 19:26 19:26 WBC 25.8 H* RBC 3.61 Hgb 9.8 L Hct 31.2 L MCV 86.4 D MCH 27.1 MCHC 31.4 RDW 15.8 H Plt Count 298 MPV 10.2 Neut % (Auto) 92.7 H Lymph % (Auto) 4.4 L [place] % (Auto) 2.4 Eos % (Auto) 0.4 L Baso % (Auto) 0.1 Lymph # (Auto) 1.1 L [place] # (Auto) 0.6 Eos # (Auto) 0.1 Baso # (Auto) 0.02 Absolute Neuts (auto) 23.91 H Neutrophils % (Manual) 85 H Band Neutrophils % 4 H Lymphocytes % (Manual) 8 L Monocytes % (Manual) 3 Toxic Granulation 2+ Platelet Evaluation Normal Hypochromasia 2+ Target Cells Slight Rouleaux 2+ PT 13.0 H INR 1.17 APTT 31.2 pCO2 pO2 43 HCO3 ABG pH ABG Total CO2 ABG O2 Saturation ABG O2 Content ABG Base Excess ABG Hemoglobin ABG Carboxyhemoglobin POC ABG HHb (Measured) ABG Methemoglobin ABG O2 Capacity VBG pH 7.24 L VBG pCO2 53.0 VBG HCO3 22.7 VBG Total CO2 24.3 VBG O2 Sat (Calc) 78.0 H VBG Base Excess -5.2 L VBG Potassium 6.1 H Hgb O2 Saturation Sodium 138.0 Chloride 101.0 Glucose 87 Lactate 3.8 H FiO2 30.0 Crit Value Called To Dr medina Crit Value Called By Rs Blood Gas Notified Time 1929 Potassium Carbon Dioxide Anion Gap BUN Creatinine Est GFR ( Amer) Est GFR (Non-Af Amer) Random Glucose Calcium Phosphorus Magnesium Total Bilirubin AST ALT Alkaline Phosphatase Troponin I NT-Pro-B Natriuret Pep Total Protein Albumin Globulin Albumin/Globulin Ratio Venous Blood Potassium 6.1 H Urine Color Urine Appearance Urine pH Ur Specific [place] Urine Protein Urine Glucose (UA) Urine Ketones Urine Blood Urine Nitrate Urine Bilirubin Urine Urobilinogen Ur Leukocyte Esterase Urine RBC Urine WBC Ur Epithelial Cells Amorphous Sediment Urine Bacteria Coarse Granular Casts Urine Other 11/11/18 11/11/18 11/11/18 19:26 21:14 21:20 WBC RBC Hgb Hct MCV MCH MCHC RDW Plt Count MPV Neut % (Auto) Lymph % (Auto) [place] % (Auto) Eos % (Auto) Baso % (Auto) Lymph # (Auto) [place] # (Auto) Eos # (Auto) Baso # (Auto) Absolute Neuts (auto) Neutrophils % (Manual) Band Neutrophils % Lymphocytes % (Manual) Monocytes % (Manual) Toxic Granulation Platelet Evaluation Hypochromasia Target Cells Rouleaux PT INR APTT pCO2 37 pO2 78.0 L HCO3 20.0 L ABG pH 7.34 L ABG Total CO2 21.1 L ABG O2 Saturation 98.4 H ABG O2 Content 11.7 L ABG Base Excess -5.3 L ABG Hemoglobin 8.7 L ABG Carboxyhemoglobin 2.2 H POC ABG HHb (Measured) 1.5 ABG Methemoglobin 1.4 ABG O2 Capacity 11.9 L VBG pH VBG pCO2 VBG HCO3 VBG Total CO2 VBG O2 Sat (Calc) VBG Base Excess VBG Potassium Hgb O2 Saturation 94.9 L Sodium 138 Chloride 99 Glucose Lactate FiO2 30.0 Crit Value Called To Crit Value Called By Blood Gas Notified Time Potassium 4.8 Carbon Dioxide 20 L Anion Gap 23 H BUN 96 H Creatinine 5.0 H Est GFR ( Amer) 14 Est GFR (Non-Af Amer) 11 Random Glucose 78 Calcium 10.0 Phosphorus Magnesium 2.0 Total Bilirubin 0.6 AST 65 H D ALT 31 Alkaline Phosphatase 99 Troponin I 0.44 H* D NT-Pro-B Natriuret Pep 2330 H Total Protein 8.2 Albumin 4.4 Globulin 3.8 Albumin/Globulin Ratio 1.1 Venous Blood Potassium Urine Color Yellow Urine Appearance Slight-cloudy Urine pH 5.5 Ur Specific [place] >= 1.030 Urine Protein 100 H Urine Glucose (UA) Negative Urine Ketones Negative Urine Blood Moderate H Urine Nitrate Negative Urine Bilirubin Negative Urine Urobilinogen 0.2 Ur Leukocyte Esterase Moderate H Urine RBC 20 - 25 H Urine WBC 15 - 20 H Ur Epithelial Cells Many H Amorphous Sediment Moderate Urine Bacteria Coarse Granular Casts Urine Other 11/11/18 11/12/18 11/12/18 22:25 00:40 06:30 WBC RBC Hgb Hct MCV MCH MCHC RDW Plt Count MPV Neut % (Auto) Lymph % (Auto) [place] % (Auto) Eos % (Auto) Baso % (Auto) Lymph # (Auto) [place] # (Auto) Eos # (Auto) Baso # (Auto) Absolute Neuts (auto) Neutrophils % (Manual) Band Neutrophils % Lymphocytes % (Manual) Monocytes % (Manual) Toxic Granulation Platelet Evaluation Hypochromasia Target Cells Rouleaux PT INR APTT pCO2 pO2 62 H HCO3 ABG pH ABG Total CO2 ABG O2 Saturation ABG O2 Content ABG Base Excess ABG Hemoglobin ABG Carboxyhemoglobin POC ABG HHb (Measured) ABG Methemoglobin ABG O2 Capacity VBG pH 7.21 L VBG pCO2 55.0 VBG HCO3 22.0 VBG Total CO2 23.7 VBG O2 Sat (Calc) 93.4 H VBG Base Excess -6.4 L VBG Potassium 4.0 Hgb O2 Saturation Sodium 139.0 138 Chloride 102.0 102 Glucose 81 Lactate 2.1 FiO2 21.0 Crit Value Called To Crit Value Called By Blood Gas Notified Time Potassium 4.1 Carbon Dioxide 23 Anion Gap 17 BUN 98 H Creatinine 5.5 H Est GFR ( Amer) 12 Est GFR (Non-Af Amer) 10 Random Glucose 81 Calcium 9.5 Phosphorus 5.4 H Magnesium 2.0 Total Bilirubin 0.4 AST 54 ALT 27 Alkaline Phosphatase 93 Troponin I 0.52 H* 0.44 H* NT-Pro-B Natriuret Pep Total Protein 6.6 Albumin 3.5 Globulin 3.1 Albumin/Globulin Ratio 1.1 Venous Blood Potassium 4.0 Urine Color Urine Appearance Urine pH Ur Specific [place] Urine Protein Urine Glucose (UA) Urine Ketones Urine Blood Urine Nitrate Urine Bilirubin Urine Urobilinogen Ur Leukocyte Esterase Urine RBC Urine WBC Ur Epithelial Cells Amorphous Sediment Urine Bacteria Coarse Granular Casts Urine Other 11/12/18 11/12/18 06:30 10:16 WBC 22.8 H RBC 3.24 L Hgb 8.7 L Hct 28.0 L MCV 86.4 MCH 26.9 MCHC 31.1 RDW 15.6 H Plt Count 199 MPV 9.2 Neut % (Auto) 86.7 H Lymph % (Auto) 8.5 L [place] % (Auto) 4.4 Eos % (Auto) 0.3 L Baso % (Auto) 0.1 Lymph # (Auto) 2.0 [place] # (Auto) 1.0 H Eos # (Auto) 0.1 Baso # (Auto) 0.03 Absolute Neuts (auto) 19.77 H Neutrophils % (Manual) Band Neutrophils % Lymphocytes % (Manual) Monocytes % (Manual) Toxic Granulation Platelet Evaluation Hypochromasia Target Cells Rouleaux PT INR APTT pCO2 pO2 HCO3 ABG pH ABG Total CO2 ABG O2 Saturation ABG O2 Content ABG Base Excess ABG Hemoglobin ABG Carboxyhemoglobin POC ABG HHb (Measured) ABG Methemoglobin ABG O2 Capacity VBG pH VBG pCO2 VBG HCO3 VBG Total CO2 VBG O2 Sat (Calc) VBG Base Excess VBG Potassium Hgb O2 Saturation Sodium Chloride Glucose Lactate FiO2 Crit Value Called To Crit Value Called By Blood Gas Notified Time Potassium Carbon Dioxide Anion Gap BUN Creatinine Est GFR ( Amer) Est GFR (Non-Af Amer) Random Glucose Calcium Phosphorus Magnesium Total Bilirubin AST ALT Alkaline Phosphatase Troponin I NT-Pro-B Natriuret Pep Total Protein Albumin Globulin Albumin/Globulin Ratio Venous Blood Potassium Urine Color Yellow Urine Appearance Clear Urine pH 5.5 Ur Specific [place] 1.010 Urine Protein Trace H Urine Glucose (UA) Negative Urine Ketones Negative Urine Blood Moderate H Urine Nitrate Negative Urine Bilirubin Negative Urine Urobilinogen 0.2 Ur Leukocyte Esterase Moderate H Urine RBC 20 - 25 H Urine WBC 25 - 30 H Ur Epithelial Cells 0 - 2 Amorphous Sediment Few Urine Bacteria Many Coarse Granular Casts Trace Urine Other Fiber Radiology Impressions: Radiology Impressions Chest X-Ray 11/11/18 19:20 IMPRESSION: No active disease. EKG/Cardiology Studies: Cardiology / EKG Studies 11/11/18 19:20 EKG [ELECTROCARDIOGRAM] Stat Comment: Reason For Exam: chest pain 11/12/18 01:00 ELECTROCARDIOGRAM Q6H Comment: Reason For Exam: troponin 0.44 11/12/18 07:00 ELECTROCARDIOGRAM Q6H Comment: Reason For Exam: troponin 0.44 Critical Care Progress Note - Nutrition Nutrition: Nutrition Category Date Time Status Heart Healthy Diet [DIET] Diets 11/12/18 Breakfast Active Assessment/Plan - Assessment and Plan (Free Text) Assessment: 77 yo M with PMH of CHF, COPD, asthma, CKD, PE, HTN, HLD, presenting to [facility] ICU for acute CHF exacerbation, leukocytosis, lactic acidosis, and acute on chronic renal insufficiency, which has since improved. Patient is hemodynamically stable and saturating well off of BiPAP. Patient will be transferred to telemetry. Plan: Neuro: - AOX3 - Maintain normothermia CV: - no complaints of chest pain or palpitations at this time - Cont DAPT - Elevated troponin, no ST elevation on EKG - Heparin bolus, drip started for NSTMI - Maintain MAP > 65 - Cardiology consulted Pulm: - CXR shows mild L pleural effusion, no obvious infiltrates - continue duoneb herman/prn - On solu-medrol, will wean - maintain O2 >92% GI: - Pepcid for GI PPX - HHD Renal: - UA on admission contaminated, repeat - Urine cultures pending - SANDRA on CKD, likely prerenal - Nephro consulted Heme: - leukocytosis improving, likely 2/2 home steroid use - mild anemia, which is not new for the patient as compared to prior labs - Heparin gtt will cover for DVT PPx ID: - Blood/Urine cultures pending - ID consulted Endo: - maintain euglycemia Patient discussed in detail with Dr. Mendez. Garo Sierra, DO PGY2 <Darin Mendez - Last Filed: 11/12/18 12:43> CCU Objective - Vital Signs / Intake & Output Vital Signs (Last 4 hours): Vital Signs BP 11/12/18 09:39 110/49 L Intake and Output (Last 8hrs): Intake & Output 11/11/18 11/12/18 11/12/18 22:59 06:59 14:59 Intake Total 200 Output Total 350 Balance -150 Weight 227 lb 223 lb 6.4 oz Intake: Oral 200 Output: Urine 350 Urethral (Hill) 350 Other: Voiding Method Indwelling Catheter # Bowel Movements 1 - Medications Active Medications: Active Medications Generic Name Dose Route Start Last Admin Trade Name Freq PRN Reason Stop Dose Admin Acetaminophen 650 mg 11/12/18 05:49 11/12/18 05:55 Tylenol 325mg Tab PO 650 mg Q4H PRN Administration pain and fever Albuterol/Ipratropium 3 ml 11/12/18 08:00 11/12/18 07:52 Duoneb 3 Mg/0.5 Mg (3 Ml) Ud IH 3 ml [id number] HERMAN Administration Albuterol/Ipratropium 3 ml 11/12/18 05:39 Duoneb 3 Mg/0.5 Mg (3 Ml) Ud IH Q2H PRN Shortness of Breath Aspirin 81 mg 11/12/18 11:41 Ecotrin PO DAILY [facility] Atorvastatin Calcium 40 mg 11/12/18 10:00 11/12/18 09:39 Lipitor PO 40 mg DAILY HERMAN Administration Calcitriol 0.25 mcg 11/12/18 10:00 11/12/18 09:39 Rocaltrol PO 0.25 mcg DAILY [facility] Administration Calcium Acetate 667 mg 11/12/18 08:00 11/12/18 08:03 Phoslo PO 667 mg BRKDIN [facility] Administration Clopidogrel Bisulfate 75 mg 11/13/18 10:00 Plavix PO DAILY [facility] Darbepoetin Bryan 60 mcg 11/12/18 11:30 Aranesp SC QWK [facility] Ergocalciferol 1 cap 11/18/18 10:00 Drisdol 50,000 Intl Units Cap PO QWK [facility] Famotidine 40 mg 11/12/18 22:00 Pepcid PO HS HERMAN Ferrous Sulfate 324 mg 11/12/18 14:00 Feosol PO TID [facility] Heparin Sodium/Sodium Chloride 25,000 units in 250 mls @ 12.16 mls/hr 11/12/18 10:00 11/12/18 10:40 Heparin 01117 Units/250ml 1/2 Normal Saline IV 12 units/kg/hr .[id number] HERMAN 12.16 mls/hr Administration Protocol 12 UNITS/KG/HR Methylprednisolone 30 mg 11/12/18 10:00 11/12/18 09:39 Solu-Medrol IVP 30 mg Q12 HERMAN Administration Nygky-[id number]-[id number] Ethyl Esters 1 gm 11/12/18 10:00 11/12/18 09:38 Lovaza PO 1 gm DAILY [facility] Administration Vitamin B Complex/Vit C/Folic Acid 1 tab 11/13/18 08:00 Nephro-Samantha PO 0800 [facility] - Patient Studies Lab Studies: Lab Studies 11/12/18 11/12/18 11/12/18 Range/Units 10:16 06:30 06:30 WBC 22.8 H (4.5-11.0) 10^3/uL RBC 3.24 L (3.5-6.1) 10^6/uL Hgb 8.7 L (14.0-18.0) g/dL Hct 28.0 L (42.0-52.0) % MCV 86.4 (80.0-105.0) fl MCH 26.9 (25.0-35.0) pg MCHC 31.1 (31.0-37.0) g/dl RDW 15.6 H (11.5-14.5) % Plt Count 199 (120.0-450.0) 10^3/uL MPV 9.2 (7.0-11.0) fl Neut % (Auto) 86.7 H (50.0-68.0) % Lymph % (Auto) 8.5 L (22.0-35.0) % [place] % (Auto) 4.4 (1.0-6.0) % Eos % (Auto) 0.3 L (1.5-5.0) % Baso % (Auto) 0.1 (0.0-3.0) % Lymph # (Auto) 2.0 (1.2-3.4) [place] # (Auto) 1.0 H (0.1-0.6) Eos # (Auto) 0.1 (0.0-0.7) Baso # (Auto) 0.03 (0.0-2.0) K/mm3 Absolute Neuts (auto) 19.77 H (1.4-6.5) Neutrophils % (Manual) (50.0-70.0) % Band Neutrophils % (0-2) % Lymphocytes % (Manual) (22.0-35.0) % Monocytes % (Manual) (1.0-6.0) % Toxic Granulation Platelet Evaluation (NORMAL) Hypochromasia Target Cells Rouleaux PT (9.4-12.5) SECONDS INR APTT (26.9-38.3) Seconds pCO2 (35-45) mm/Hg pO2 (30-55) mm/Hg HCO3 (21-28) mmol/L ABG pH (7.35-7.45) ABG Total CO2 (22-28) mmol.L ABG O2 Saturation (95-98) % ABG O2 Content (15-23) ML/dl ABG Base Excess (-2.0-3.0) mmol/L ABG Hemoglobin (11.7-17.4) g/dL ABG Carboxyhemoglobin (0.5-1.5) % POC ABG HHb (Measured) (0-5) % ABG Methemoglobin (0.0-3.0) % ABG O2 Capacity (16-24) mL/dl VBG pH (7.32-7.43) VBG pCO2 (40-60) VBG HCO3 (21-28) mmol/l VBG Total CO2 (22-28) mmol.L VBG O2 Sat (Calc) (40-65) % VBG Base Excess (0.0-2.0) mmol/L VBG Potassium (3.6-5.2) mmol/L Hgb O2 Saturation (95.0-98.0) % Sodium 138 (132-148) mmol/L Chloride 102 (98-107) mmol/L Glucose (75-110) mg/dl Lactate (0.7-2.1) mmol/L FiO2 % Crit Value Called To Crit Value Called By Blood Gas Notified Time Potassium 4.1 (3.6-5.0) mmol/L Carbon Dioxide 23 (21-33) mmol/L Anion Gap 17 (10-20) BUN 98 H (7-21) mg/dL Creatinine 5.5 H (0.8-1.5) mg/dl Est GFR ( Amer) 12 Est GFR (Non-Af Amer) 10 Random Glucose 81 (70-110) mg/dL Calcium 9.5 (8.4-10.5) mg/dL Phosphorus 5.4 H (2.5-4.5) mg/dL Magnesium 2.0 (1.7-2.2) mg/dL Total Bilirubin 0.4 (0.2-1.3) mg/dL AST 54 (17-59) U/L ALT 27 (7-56) U/L Alkaline Phosphatase 93 (38-126) U/L Troponin I 0.44 H* ng/mL NT-Pro-B Natriuret Pep (0-450) pg/mL Total Protein 6.6 (5.8-8.3) g/dL Albumin 3.5 (3.0-4.8) g/dL Globulin 3.1 gm/dL Albumin/Globulin Ratio 1.1 (1.1-1.8) Venous Blood Potassium (3.6-5.2) mmol/L Urine Color Yellow (YELLOW) Urine Appearance Clear (CLEAR) Urine pH 5.5 (4.7-8.0) Ur Specific [place] 1.010 (1.005-1.035) Urine Protein Trace H (<30 mg/dL) mg/dL Urine Glucose (UA) Negative (NEGATIVE) mg/dL Urine Ketones Negative (NEGATIVE) mg/dL Urine Blood Moderate H (NEGATIVE) Urine Nitrate Negative (NEGATIVE) Urine Bilirubin Negative (NEGATIVE) Urine Urobilinogen 0.2 (<1 E.U./dL) E.U./dL Ur Leukocyte Esterase Moderate H (NEGATIVE) Usha/uL Urine RBC 20 - 25 H (0-2) /hpf Urine WBC 25 - 30 H (0-6) /hpf Ur Epithelial Cells 0 - 2 (0-5) /hpf Amorphous Sediment Few (NONE) /hpf Urine Bacteria Many (NONE) /hpf Coarse Granular Casts Trace (NONE) /hpf Urine Other Fiber /hpf 11/12/18 11/11/18 11/11/18 Range/Units 00:40 22:25 21:20 WBC (4.5-11.0) 10^3/uL RBC (3.5-6.1) 10^6/uL Hgb (14.0-18.0) g/dL Hct (42.0-52.0) % MCV (80.0-105.0) fl MCH (25.0-35.0) pg MCHC (31.0-37.0) g/dl RDW (11.5-14.5) % Plt Count (120.0-450.0) 10^3/uL MPV (7.0-11.0) fl Neut % (Auto) (50.0-68.0) % Lymph % (Auto) (22.0-35.0) % [place] % (Auto) (1.0-6.0) % Eos % (Auto) (1.5-5.0) % Baso % (Auto) (0.0-3.0) % Lymph # (Auto) (1.2-3.4) [place] # (Auto) (0.1-0.6) Eos # (Auto) (0.0-0.7) Baso # (Auto) (0.0-2.0) K/mm3 Absolute Neuts (auto) (1.4-6.5) Neutrophils % (Manual) (50.0-70.0) % Band Neutrophils % (0-2) % Lymphocytes % (Manual) (22.0-35.0) % Monocytes % (Manual) (1.0-6.0) % Toxic Granulation Platelet Evaluation (NORMAL) Hypochromasia Target Cells Rouleaux PT (9.4-12.5) SECONDS INR APTT (26.9-38.3) Seconds pCO2 37 (35-45) mm/Hg pO2 62 H 78.0 L (30-55) mm/Hg HCO3 20.0 L (21-28) mmol/L ABG pH 7.34 L (7.35-7.45) ABG Total CO2 21.1 L (22-28) mmol.L ABG O2 Saturation 98.4 H (95-98) % ABG O2 Content 11.7 L (15-23) ML/dl ABG Base Excess -5.3 L (-2.0-3.0) mmol/L ABG Hemoglobin 8.7 L (11.7-17.4) g/dL ABG Carboxyhemoglobin 2.2 H (0.5-1.5) % POC ABG HHb (Measured) 1.5 (0-5) % ABG Methemoglobin 1.4 (0.0-3.0) % ABG O2 Capacity 11.9 L (16-24) mL/dl VBG pH 7.21 L (7.32-7.43) VBG pCO2 55.0 (40-60) VBG HCO3 22.0 (21-28) mmol/l VBG Total CO2 23.7 (22-28) mmol.L VBG O2 Sat (Calc) 93.4 H (40-65) % VBG Base Excess -6.4 L (0.0-2.0) mmol/L VBG Potassium 4.0 (3.6-5.2) mmol/L Hgb O2 Saturation 94.9 L (95.0-98.0) % Sodium 139.0 (132-148) mmol/L Chloride 102.0 (98-107) mmol/L Glucose 81 (75-110) mg/dl Lactate 2.1 (0.7-2.1) mmol/L FiO2 21.0 30.0 % Crit Value Called To Crit Value Called By Blood Gas Notified Time Potassium (3.6-5.0) mmol/L Carbon Dioxide (21-33) mmol/L Anion Gap (10-20) BUN (7-21) mg/dL Creatinine (0.8-1.5) mg/dl Est GFR ( Amer) Est GFR (Non-Af Amer) Random Glucose (70-110) mg/dL Calcium (8.4-10.5) mg/dL Phosphorus (2.5-4.5) mg/dL Magnesium (1.7-2.2) mg/dL Total Bilirubin (0.2-1.3) mg/dL AST (17-59) U/L ALT (7-56) U/L Alkaline Phosphatase (38-126) U/L Troponin I 0.52 H* ng/mL NT-Pro-B Natriuret Pep (0-450) pg/mL Total Protein (5.8-8.3) g/dL Albumin (3.0-4.8) g/dL Globulin gm/dL Albumin/Globulin Ratio (1.1-1.8) Venous Blood Potassium 4.0 (3.6-5.2) mmol/L Urine Color (YELLOW) Urine Appearance (CLEAR) Urine pH (4.7-8.0) Ur Specific [place] (1.005-1.035) Urine Protein (<30 mg/dL) mg/dL Urine Glucose (UA) (NEGATIVE) mg/dL Urine Ketones (NEGATIVE) mg/dL Urine Blood (NEGATIVE) Urine Nitrate (NEGATIVE) Urine Bilirubin (NEGATIVE) Urine Urobilinogen (<1 E.U./dL) E.U./dL Ur Leukocyte Esterase (NEGATIVE) Usha/uL Urine RBC (0-2) /hpf Urine WBC (0-6) /hpf Ur Epithelial Cells (0-5) /hpf Amorphous Sediment (NONE) /hpf Urine Bacteria (NONE) /hpf Coarse Granular Casts (NONE) /hpf Urine Other /hpf 11/11/18 11/11/18 11/11/18 Range/Units 21:14 19:26 19:26 WBC (4.5-11.0) 10^3/uL RBC (3.5-6.1) 10^6/uL Hgb (14.0-18.0) g/dL Hct (42.0-52.0) % MCV (80.0-105.0) fl MCH (25.0-35.0) pg MCHC (31.0-37.0) g/dl RDW (11.5-14.5) % Plt Count (120.0-450.0) 10^3/uL MPV (7.0-11.0) fl Neut % (Auto) (50.0-68.0) % Lymph % (Auto) (22.0-35.0) % [place] % (Auto) (1.0-6.0) % Eos % (Auto) (1.5-5.0) % Baso % (Auto) (0.0-3.0) % Lymph # (Auto) (1.2-3.4) [place] # (Auto) (0.1-0.6) Eos # (Auto) (0.0-0.7) Baso # (Auto) (0.0-2.0) K/mm3 Absolute Neuts (auto) (1.4-6.5) Neutrophils % (Manual) (50.0-70.0) % Band Neutrophils % (0-2) % Lymphocytes % (Manual) (22.0-35.0) % Monocytes % (Manual) (1.0-6.0) % Toxic Granulation Platelet Evaluation (NORMAL) Hypochromasia Target Cells Rouleaux PT 13.0 H (9.4-12.5) SECONDS INR 1.17 APTT 31.2 (26.9-38.3) Seconds pCO2 (35-45) mm/Hg pO2 (30-55) mm/Hg HCO3 (21-28) mmol/L ABG pH (7.35-7.45) ABG Total CO2 (22-28) mmol.L ABG O2 Saturation (95-98) % ABG O2 Content (15-23) ML/dl ABG Base Excess (-2.0-3.0) mmol/L ABG Hemoglobin (11.7-17.4) g/dL ABG Carboxyhemoglobin (0.5-1.5) % POC ABG HHb (Measured) (0-5) % ABG Methemoglobin (0.0-3.0) % ABG O2 Capacity (16-24) mL/dl VBG pH (7.32-7.43) VBG pCO2 (40-60) VBG HCO3 (21-28) mmol/l VBG Total CO2 (22-28) mmol.L VBG O2 Sat (Calc) (40-65) % VBG Base Excess (0.0-2.0) mmol/L VBG Potassium (3.6-5.2) mmol/L Hgb O2 Saturation (95.0-98.0) % Sodium 138 (132-148) mmol/L Chloride 99 (98-107) mmol/L Glucose (75-110) mg/dl Lactate (0.7-2.1) mmol/L FiO2 % Crit Value Called To Crit Value Called By Blood Gas Notified Time Potassium 4.8 (3.6-5.0) mmol/L Carbon Dioxide 20 L (21-33) mmol/L Anion Gap 23 H (10-20) BUN 96 H (7-21) mg/dL Creatinine 5.0 H (0.8-1.5) mg/dl Est GFR ( Amer) 14 Est GFR (Non-Af Amer) 11 Random Glucose 78 (70-110) mg/dL Calcium 10.0 (8.4-10.5) mg/dL Phosphorus (2.5-4.5) mg/dL Magnesium 2.0 (1.7-2.2) mg/dL Total Bilirubin 0.6 (0.2-1.3) mg/dL AST 65 H D (17-59) U/L ALT 31 (7-56) U/L Alkaline Phosphatase 99 (38-126) U/L Troponin I 0.44 H* D ng/mL NT-Pro-B Natriuret Pep 2330 H (0-450) pg/mL Total Protein 8.2 (5.8-8.3) g/dL Albumin 4.4 (3.0-4.8) g/dL Globulin 3.8 gm/dL Albumin/Globulin Ratio 1.1 (1.1-1.8) Venous Blood Potassium (3.6-5.2) mmol/L Urine Color Yellow (YELLOW) Urine Appearance Slight-cloudy (CLEAR) Urine pH 5.5 (4.7-8.0) Ur Specific [place] >= 1.030 (1.005-1.035) Urine Protein 100 H (<30 mg/dL) mg/dL Urine Glucose (UA) Negative (NEGATIVE) mg/dL Urine Ketones Negative (NEGATIVE) mg/dL Urine Blood Moderate H (NEGATIVE) Urine Nitrate Negative (NEGATIVE) Urine Bilirubin Negative (NEGATIVE) Urine Urobilinogen 0.2 (<1 E.U./dL) E.U./dL Ur Leukocyte Esterase Moderate H (NEGATIVE) Usha/uL Urine RBC 20 - 25 H (0-2) /hpf Urine WBC 15 - 20 H (0-6) /hpf Ur Epithelial Cells Many H (0-5) /hpf Amorphous Sediment Moderate (NONE) /hpf Urine Bacteria (NONE) /hpf Coarse Granular Casts (NONE) /hpf Urine Other /hpf 11/11/18 11/11/18 Range/Units 19:26 19:20 WBC 25.8 H* (4.5-11.0) 10^3/uL RBC 3.61 (3.5-6.1) 10^6/uL Hgb 9.8 L (14.0-18.0) g/dL Hct 31.2 L (42.0-52.0) % MCV 86.4 D (80.0-105.0) fl MCH 27.1 (25.0-35.0) pg MCHC 31.4 (31.0-37.0) g/dl RDW 15.8 H (11.5-14.5) % Plt Count 298 (120.0-450.0) 10^3/uL MPV 10.2 (7.0-11.0) fl Neut % (Auto) 92.7 H (50.0-68.0) % Lymph % (Auto) 4.4 L (22.0-35.0) % [place] % (Auto) 2.4 (1.0-6.0) % Eos % (Auto) 0.4 L (1.5-5.0) % Baso % (Auto) 0.1 (0.0-3.0) % Lymph # (Auto) 1.1 L (1.2-3.4) [place] # (Auto) 0.6 (0.1-0.6) Eos # (Auto) 0.1 (0.0-0.7) Baso # (Auto) 0.02 (0.0-2.0) K/mm3 Absolute Neuts (auto) 23.91 H (1.4-6.5) Neutrophils % (Manual) 85 H (50.0-70.0) % Band Neutrophils % 4 H (0-2) % Lymphocytes % (Manual) 8 L (22.0-35.0) % Monocytes % (Manual) 3 (1.0-6.0) % Toxic Granulation 2+ Platelet Evaluation Normal (NORMAL) Hypochromasia 2+ Target Cells Slight Rouleaux 2+ PT (9.4-12.5) SECONDS INR APTT (26.9-38.3) Seconds pCO2 (35-45) mm/Hg pO2 43 (30-55) mm/Hg HCO3 (21-28) mmol/L ABG pH (7.35-7.45) ABG Total CO2 (22-28) mmol.L ABG O2 Saturation (95-98) % ABG O2 Content (15-23) ML/dl ABG Base Excess (-2.0-3.0) mmol/L ABG Hemoglobin (11.7-17.4) g/dL ABG Carboxyhemoglobin (0.5-1.5) % POC ABG HHb (Measured) (0-5) % ABG Methemoglobin (0.0-3.0) % ABG O2 Capacity (16-24) mL/dl VBG pH 7.24 L (7.32-7.43) VBG pCO2 53.0 (40-60) VBG HCO3 22.7 (21-28) mmol/l VBG Total CO2 24.3 (22-28) mmol.L VBG O2 Sat (Calc) 78.0 H (40-65) % VBG Base Excess -5.2 L (0.0-2.0) mmol/L VBG Potassium 6.1 H (3.6-5.2) mmol/L Hgb O2 Saturation (95.0-98.0) % Sodium 138.0 (132-148) mmol/L Chloride 101.0 (98-107) mmol/L Glucose 87 (75-110) mg/dl Lactate 3.8 H (0.7-2.1) mmol/L FiO2 30.0 % Crit Value Called To Dr medina Crit Value Called By Rs Blood Gas Notified Time 193 Potassium (3.6-5.0) mmol/L Carbon Dioxide (21-33) mmol/L Anion Gap (10-20) BUN (7-21) mg/dL Creatinine (0.8-1.5) mg/dl Est GFR ( Amer) Est GFR (Non-Af Amer) Random Glucose (70-110) mg/dL Calcium (8.4-10.5) mg/dL Phosphorus (2.5-4.5) mg/dL Magnesium (1.7-2.2) mg/dL Total Bilirubin (0.2-1.3) mg/dL AST (17-59) U/L ALT (7-56) U/L Alkaline Phosphatase (38-126) U/L Troponin I ng/mL NT-Pro-B Natriuret Pep (0-450) pg/mL Total Protein (5.8-8.3) g/dL Albumin (3.0-4.8) g/dL Globulin gm/dL Albumin/Globulin Ratio (1.1-1.8) Venous Blood Potassium 6.1 H (3.6-5.2) mmol/L Urine Color (YELLOW) Urine Appearance (CLEAR) Urine pH (4.7-8.0) Ur Specific [place] (1.005-1.035) Urine Protein (<30 mg/dL) mg/dL Urine Glucose (UA) (NEGATIVE) mg/dL Urine Ketones (NEGATIVE) mg/dL Urine Blood (NEGATIVE) Urine Nitrate (NEGATIVE) Urine Bilirubin (NEGATIVE) Urine Urobilinogen (<1 E.U./dL) E.U./dL Ur Leukocyte Esterase (NEGATIVE) Usha/uL Urine RBC (0-2) /hpf Urine WBC (0-6) /hpf Ur Epithelial Cells (0-5) /hpf Amorphous Sediment (NONE) /hpf Urine Bacteria (NONE) /hpf Coarse Granular Casts (NONE) /hpf Urine Other /hpf Laboratory Results - last 24 hr 11/11/18 11/11/18 11/11/18 19:20 19:26 19:26 WBC 25.8 H* RBC 3.61 Hgb 9.8 L Hct 31.2 L MCV 86.4 D MCH 27.1 MCHC 31.4 RDW 15.8 H Plt Count 298 MPV 10.2 Neut % (Auto) 92.7 H Lymph % (Auto) 4.4 L [place] % (Auto) 2.4 Eos % (Auto) 0.4 L Baso % (Auto) 0.1 Lymph # (Auto) 1.1 L [place] # (Auto) 0.6 Eos # (Auto) 0.1 Baso # (Auto) 0.02 Absolute Neuts (auto) 23.91 H Neutrophils % (Manual) 85 H Band Neutrophils % 4 H Lymphocytes % (Manual) 8 L Monocytes % (Manual) 3 Toxic Granulation 2+ Platelet Evaluation Normal Hypochromasia 2+ Target Cells Slight Rouleaux 2+ PT 13.0 H INR 1.17 APTT 31.2 pCO2 pO2 43 HCO3 ABG pH ABG Total CO2 ABG O2 Saturation ABG O2 Content ABG Base Excess ABG Hemoglobin ABG Carboxyhemoglobin POC ABG HHb (Measured) ABG Methemoglobin ABG O2 Capacity VBG pH 7.24 L VBG pCO2 53.0 VBG HCO3 22.7 VBG Total CO2 24.3 VBG O2 Sat (Calc) 78.0 H VBG Base Excess -5.2 L VBG Potassium 6.1 H Hgb O2 Saturation Sodium 138.0 Chloride 101.0 Glucose 87 Lactate 3.8 H FiO2 30.0 Crit Value Called To Dr medina Crit Value Called By Blood Gas Notified Time 1929 Potassium Carbon Dioxide Anion Gap BUN Creatinine Est GFR ( Amer) Est GFR (Non-Af Amer) Random Glucose Calcium Phosphorus Magnesium Total Bilirubin AST ALT Alkaline Phosphatase Troponin I NT-Pro-B Natriuret Pep Total Protein Albumin Globulin Albumin/Globulin Ratio Venous Blood Potassium 6.1 H Urine Color Urine Appearance Urine pH Ur Specific [place] Urine Protein Urine Glucose (UA) Urine Ketones Urine Blood Urine Nitrate Urine Bilirubin Urine Urobilinogen Ur Leukocyte Esterase Urine RBC Urine WBC Ur Epithelial Cells Amorphous Sediment Urine Bacteria Coarse Granular Casts Urine Other 11/11/18 11/11/18 11/11/18 19:26 21:14 21:20 WBC RBC Hgb Hct MCV MCH MCHC RDW Plt Count MPV Neut % (Auto) Lymph % (Auto) [place] % (Auto) Eos % (Auto) Baso % (Auto) Lymph # (Auto) [place] # (Auto) Eos # (Auto) Baso # (Auto) Absolute Neuts (auto) Neutrophils % (Manual) Band Neutrophils % Lymphocytes % (Manual) Monocytes % (Manual) Toxic Granulation Platelet Evaluation Hypochromasia Target Cells Rouleaux PT INR APTT pCO2 37 pO2 78.0 L HCO3 20.0 L ABG pH 7.34 L ABG Total CO2 21.1 L ABG O2 Saturation 98.4 H ABG O2 Content 11.7 L ABG Base Excess -5.3 L ABG Hemoglobin 8.7 L ABG Carboxyhemoglobin 2.2 H POC ABG HHb (Measured) 1.5 ABG Methemoglobin 1.4 ABG O2 Capacity 11.9 L VBG pH VBG pCO2 VBG HCO3 VBG Total CO2 VBG O2 Sat (Calc) VBG Base Excess VBG Potassium Hgb O2 Saturation 94.9 L Sodium 138 Chloride 99 Glucose Lactate FiO2 30.0 Crit Value Called To Crit Value Called By Blood Gas Notified Time Potassium 4.8 Carbon Dioxide 20 L Anion Gap 23 H BUN 96 H Creatinine 5.0 H Est GFR ( Amer) 14 Est GFR (Non-Af Amer) 11 Random Glucose 78 Calcium 10.0 Phosphorus Magnesium 2.0 Total Bilirubin 0.6 AST 65 H D ALT 31 Alkaline Phosphatase 99 Troponin I 0.44 H* D NT-Pro-B Natriuret Pep 2330 H Total Protein 8.2 Albumin 4.4 Globulin 3.8 Albumin/Globulin Ratio 1.1 Venous Blood Potassium Urine Color Yellow Urine Appearance Slight-cloudy Urine pH 5.5 Ur Specific [place] >= 1.030 Urine Protein 100 H Urine Glucose (UA) Negative Urine Ketones Negative Urine Blood Moderate H Urine Nitrate Negative Urine Bilirubin Negative Urine Urobilinogen 0.2 Ur Leukocyte Esterase Moderate H Urine RBC 20 - 25 H Urine WBC 15 - 20 H Ur Epithelial Cells Many H Amorphous Sediment Moderate Urine Bacteria Coarse Granular Casts Urine Other 11/11/18 11/12/18 11/12/18 22:25 00:40 06:30 WBC RBC Hgb Hct MCV MCH MCHC RDW Plt Count MPV Neut % (Auto) Lymph % (Auto) [place] % (Auto) Eos % (Auto) Baso % (Auto) Lymph # (Auto) [place] # (Auto) Eos # (Auto) Baso # (Auto) Absolute Neuts (auto) Neutrophils % (Manual) Band Neutrophils % Lymphocytes % (Manual) Monocytes % (Manual) Toxic Granulation Platelet Evaluation Hypochromasia Target Cells Rouleaux PT INR APTT pCO2 pO2 62 H HCO3 ABG pH ABG Total CO2 ABG O2 Saturation ABG O2 Content ABG Base Excess ABG Hemoglobin ABG Carboxyhemoglobin POC ABG HHb (Measured) ABG Methemoglobin ABG O2 Capacity VBG pH 7.21 L VBG pCO2 55.0 VBG HCO3 22.0 VBG Total CO2 23.7 VBG O2 Sat (Calc) 93.4 H VBG Base Excess -6.4 L VBG Potassium 4.0 Hgb O2 Saturation Sodium 139.0 138 Chloride 102.0 102 Glucose 81 Lactate 2.1 FiO2 21.0 Crit Value Called To Crit Value Called By Blood Gas Notified Time Potassium 4.1 Carbon Dioxide 23 Anion Gap 17 BUN 98 H Creatinine 5.5 H Est GFR ( Amer) 12 Est GFR (Non-Af Amer) 10 Random Glucose 81 Calcium 9.5 Phosphorus 5.4 H Magnesium 2.0 Total Bilirubin 0.4 AST 54 ALT 27 Alkaline Phosphatase 93 Troponin I 0.52 H* 0.44 H* NT-Pro-B Natriuret Pep Total Protein 6.6 Albumin 3.5 Globulin 3.1 Albumin/Globulin Ratio 1.1 Venous Blood Potassium 4.0 Urine Color Urine Appearance Urine pH Ur Specific [place] Urine Protein Urine Glucose (UA) Urine Ketones Urine Blood Urine Nitrate Urine Bilirubin Urine Urobilinogen Ur Leukocyte Esterase Urine RBC Urine WBC Ur Epithelial Cells Amorphous Sediment Urine Bacteria Coarse Granular Casts Urine Other 11/12/18 11/12/18 06:30 10:16 WBC 22.8 H RBC 3.24 L Hgb 8.7 L Hct 28.0 L MCV 86.4 MCH 26.9 MCHC 31.1 RDW 15.6 H Plt Count 199 MPV 9.2 Neut % (Auto) 86.7 H Lymph % (Auto) 8.5 L [place] % (Auto) 4.4 Eos % (Auto) 0.3 L Baso % (Auto) 0.1 Lymph # (Auto) 2.0 [place] # (Auto) 1.0 H Eos # (Auto) 0.1 Baso # (Auto) 0.03 Absolute Neuts (auto) 19.77 H Neutrophils % (Manual) Band Neutrophils % Lymphocytes % (Manual) Monocytes % (Manual) Toxic Granulation Platelet Evaluation Hypochromasia Target Cells Rouleaux PT INR APTT pCO2 pO2 HCO3 ABG pH ABG Total CO2 ABG O2 Saturation ABG O2 Content ABG Base Excess ABG Hemoglobin ABG Carboxyhemoglobin POC ABG HHb (Measured) ABG Methemoglobin ABG O2 Capacity VBG pH VBG pCO2 VBG HCO3 VBG Total CO2 VBG O2 Sat (Calc) VBG Base Excess VBG Potassium Hgb O2 Saturation Sodium Chloride Glucose Lactate FiO2 Crit Value Called To Crit Value Called By Blood Gas Notified Time Potassium Carbon Dioxide Anion Gap BUN Creatinine Est GFR ( Amer) Est GFR (Non-Af Amer) Random Glucose Calcium Phosphorus Magnesium Total Bilirubin AST ALT Alkaline Phosphatase Troponin I NT-Pro-B Natriuret Pep Total Protein Albumin Globulin Albumin/Globulin Ratio Venous Blood Potassium Urine Color Yellow Urine Appearance Clear Urine pH 5.5 Ur Specific [place] 1.010 Urine Protein Trace H Urine Glucose (UA) Negative Urine Ketones Negative Urine Blood Moderate H Urine Nitrate Negative Urine Bilirubin Negative Urine Urobilinogen 0.2 Ur Leukocyte Esterase Moderate H Urine RBC 20 - 25 H Urine WBC 25 - 30 H Ur Epithelial Cells 0 - 2 Amorphous Sediment Few Urine Bacteria Many Coarse Granular Casts Trace Urine Other Fiber Radiology Impressions: Radiology Impressions Chest X-Ray 11/11/18 19:20 IMPRESSION: No active disease. EKG/Cardiology Studies: Cardiology / EKG Studies 11/11/18 19:20 EKG [ELECTROCARDIOGRAM] Stat Comment: Reason For Exam: chest pain 11/12/18 01:00 ELECTROCARDIOGRAM Q6H Comment: Reason For Exam: troponin 0.44 11/12/18 07:00 ELECTROCARDIOGRAM Q6H Comment: Reason For Exam: troponin 0.44 Critical Care Progress Note - Nutrition Nutrition: Nutrition Category Date Time Status Heart Healthy Diet [DIET] Diets 11/12/18 Breakfast Active Assessment/Plan - Assessment and Plan (Free Text) Plan: Patient seen and examined on rounds with resident, agree with note following additions/exceptions: Patient is 77yo male with PMHx CHF, COPD, asthma, CKD, PE, HTN, HLD, admitted with SOB, mild Lactate elevation, and NSTEMI Patient is currently afebrile, HD stable, comfortable in NAD, OFF BIPAP, doing well, reports SOB has resolved CXR no active disease as per radiology Patient on chronic steroids Worsening renal function, renal consulted Acute on CKD COPD CHF Hx of PE HTN HLD Recommend: - supp o2 as needed, duonebs PRN, pulmicort BID, BIPAP at night - Broad spectrum Abx, until cultures come back negative - BP control - would DC lasix - Start IVF 70cc/hr - check UA, Ulytes - Renal eval - Renal sono - Heparin drip - ASA, Plavix - GI ppx - DVT ppx - Stable, transfer to telemetry
[2018-11-12] MEDS ORDERED: Darbepoetin Alfa 60 mcg/ml Inj SC SCH (11:30)
[2018-11-12] MEDS ORDERED: Cefepime 1gm in NS 100ml 1 GM/100 ML BAG IVPB SCH (13:30)
--- NOTE | 2018-11-12 14:05 | CP.PCM.CON ---
History of Present Illness - History of Present Illness History of Present Illness: Nephrology Consultation Note: Assessment: stable non-oliguric SANDRA likely due to pre-renal state (as evident by concentrated urine and hemoconcentration), ATN due to sepsis, renal hypoperfusion as also with lactic acidosis, low BP sepsis with likely COPD exacerbation and less likely chf exacerbation CKD stage 4 with 443 mg proteinuria likely Due to HTN HTN kidney disease (I12.9) Obesity Anemia of chronic disease hx of COPD, CHF, ex smoker, PE esophageal ulceration with diverticuli on EGD 05/13/18 Plan no acute need for renal replacement therapy at this time but may need soon and will need close follow up Hypertension control with meds as ordered. pt not on RAAS brittni, will defer it due to advanced CKD. hold BP meds as bp on low side Monitor I/O, daily weights and renal function while in hospital supplement Iron, MVI and weekly dose of aransep hold lasix and consider IVF as NS @ 75 ml/hr for next 1-2 day COPD management as per primary team/pulmonary pt on weekly vit D and calcitriol, phos binders check tsat, ferritin, 25-oh vit D and iPTH in am Dose meds/antibiotics for reduced GFR. Avoid fleets enema/magnesium based laxatives. Avoid nephrotoxins/NSAIDs/ iodinated contrast (unless needed emergently) Glycemic control, renal diet. Further work up for as per primary team. Thanks for allowing me to participate in care of your patient. Will follow with you. Please call if any Qs. had d/w team Dr Rivas Hazel Office: [phone] CC; SOB and chest pressure reason for consult: SANDRA on CKD 4 HPI: Pt is a 77 M with hx of HTN (years), CKD stage 4 (with cr 2.8-3.0) obesity, COPD on jail prednisone 5 mg, CHF with severe pulmonary HTN, ex smoker, Pulm Embolism, anemia presented to hospital with complaints of SOB and chest pressure, found to have COPD versus CHF exacerbation with lactic acidosis ? sepsis and renal consult for SANDRA on CKD management. Denies chest pain, palpitation, improved shortness of breath, reports chronic leg swelling but better now. Denies OTC/herbal meds/NSAIDs No recent iodinated contrast exposure. no GI symptoms at present low BP 103/47 noted ROS: denies CP/nausea/vomiting now. no SOB at present. no nausea denies pain abdomen. denies urine complaints rest other negative except as mentioned in HPI. Physical Examination: General Appearance: Comfortable, in no acute respiratory distress, co-operative. obese Vitals reviewed and noted as below Head; Atraumatic, normocephalic ENT: no ulcers no thrush. Tongue is midline. Oropharynx: no rash or ulcers. EYES: b/l PERRLA Neck; supple no lymphadenopathy, no thyromegaly or bruit Lungs: Normal respiratory rate/effort. Breath sounds b/l with equal with few basal crackle + Heart: Normal rate. s1s2 normal. No rub or gallop. Extremities: no pitting edema. No varicose veins. chronic venous stasis changes in leg noted Neurological: Patient is awake alert and follow commands no focal deficit Skin: dry and warm. Normal turgor. No rash. Palpitation: Normal elasticity for age Abdomen: Abdomen is distended . Bowel sounds +. There is no abdominal tenderness, no guarding/rigidity or organomegaly Psych: normal insight. normal affect/mood MSK: no specific joint tenderness or swelling. Digits and nails normal, no deformity : kidney not palpable. exam limited due to obesity. has umblical hernia Labs/imaging/EKG reviewed. Past medical history, past surgical history, social history, allergy reviewed a nd noted as below Family hx; no hx of CKD. non contributory renal imaging: Rt side cyst outpt urine pr/cr 447 PTH 188 SPEP/SKYLAR neg with normal K/L ratio Hep B/C neg echo: severe pHTN with normal lvef Past Patient History - Infectious Disease Hx of Infectious Diseases: None - Tetanus Immunizations Tetanus Immunization: Unknown - Past Medical History & Family History Past Medical History?: Yes - Past Social History Smoking Status: Current Some Days Smoker - CARDIAC Hx Cardiac Disorders: Yes (CHF,) Hx Congestive Heart Failure: Yes Hx Hypertension: Yes - PULMONARY Hx Chronic Obstructive Pulmonary Disease (COPD): Yes - NEUROLOGICAL Hx Neurological Disorder: No - HEENT Hx HEENT Problems: No - RENAL Hx Chronic Kidney Disease: Yes Hx Renal Failure: Yes (CRI) - ENDOCRINE/METABOLIC Hx Endocrine Disorders: No - HEMATOLOGICAL/ONCOLOGICAL Hx Blood Disorders: Yes - INTEGUMENTARY Hx Dermatological Problems: No - MUSCULOSKELETAL/RHEUMATOLOGICAL Hx Falls: No - GASTROINTESTINAL Hx Gastrointestinal Disorders: Yes - GENITOURINARY/GYNECOLOGICAL Hx Incontinence: Yes - PSYCHIATRIC Hx Anxiety: Yes (?) Hx Substance Use: No - SURGICAL HISTORY Hx Surgeries: Yes Hx Cardiac Catheterization: Yes Other/Comment: 1964 orif compound fracture jaw - ANESTHESIA Hx Anesthesia Reactions: No Hx Malignant Hyperthermia: No Meds Allergies/Adverse Reactions: Allergies Allergy/AdvReac Type Severity Reaction Status Date / Time No Known Allergies Allergy Verified 05/13/18 00:13 - Medications Medications: Current Medications Acetaminophen (Tylenol 325mg Tab) 650 mg PO Q4H PRN PRN Reason: pain and fever Last Admin: 11/12/18 05:55 Dose: 650 mg Albuterol/Ipratropium (Duoneb 3 Mg/0.5 Mg (3 Ml) Ud) 3 ml IH [id number] [facility] Last Admin: 11/12/18 13:24 Dose: 3 ml Albuterol/Ipratropium (Duoneb 3 Mg/0.5 Mg (3 Ml) Ud) 3 ml IH Q2H PRN PRN Reason: Shortness of Breath Aspirin (Ecotrin) 81 mg PO DAILY [facility] Atorvastatin Calcium (Lipitor) 40 mg PO DAILY [facility] Last Admin: 11/12/18 09:39 Dose: 40 mg Calcitriol (Rocaltrol) 0.25 mcg PO DAILY [facility] Last Admin: 11/12/18 09:39 Dose: 0.25 mcg Calcium Acetate (Phoslo) 667 mg PO BRKDIN [facility] Last Admin: 11/12/18 08:03 Dose: 667 mg Clopidogrel Bisulfate (Plavix) 75 mg PO DAILY [facility] Darbepoetin Bryan (Aranesp) 60 mcg SC QWK [facility] Ergocalciferol (Drisdol 50,000 Intl Units Cap) 1 cap PO QWK [facility] Famotidine (Pepcid) 20 mg PO HS [facility] Ferrous Sulfate (Feosol) 324 mg PO TID [facility] Last Admin: 11/12/18 13:47 Dose: 324 mg Heparin Sodium/Sodium Chloride (Heparin 76934 Units/250ml 1/2 Normal Saline) 25,000 units in 250 mls @ 12.16 mls/hr IV .[id number] [facility]; Protocol Last Admin: 11/12/18 10:40 Dose: 12 units/kg/hr, 12.16 mls/hr Cefepime HCl (Maxipime 1gm) 1 gm in 100 mls @ 100 mls/hr IVPB Q24H [facility]; Protocol Stop: 11/22/18 13:31 Last Admin: 11/12/18 13:47 Dose: 100 mls/hr Methylprednisolone (Solu-Medrol) 30 mg IVP Q12 [facility] Last Admin: 11/12/18 09:39 Dose: 30 mg [id number] Ethyl Esters (Lovaza) 1 gm PO DAILY [facility] Last Admin: 11/12/18 09:38 Dose: 1 gm Vitamin B Complex/Vit C/Folic Acid (Nephro-Samantha) 1 tab PO 0800 [facility] Results - Vital Signs Recent Vital Signs: Last Vital Signs Temp 97.4 F L 11/12/18 08:00 Pulse 80 11/12/18 08:00 Resp 65 H 11/12/18 08:00 BP 110/49 L 11/12/18 09:39 Pulse Ox 98 11/12/18 08:00 - Labs Result Diagrams: 11/12/18 06:30 11/12/18 06:30 Labs: Laboratory Results - last 24 hr 11/11/18 11/11/18 11/11/18 19:20 19:26 19:26 WBC 25.8 H* RBC 3.61 Hgb 9.8 L Hct 31.2 L MCV 86.4 D MCH 27.1 MCHC 31.4 RDW 15.8 H Plt Count 298 MPV 10.2 Neut % (Auto) 92.7 H Lymph % (Auto) 4.4 L [place] % (Auto) 2.4 Eos % (Auto) 0.4 L Baso % (Auto) 0.1 Lymph # (Auto) 1.1 L [place] # (Auto) 0.6 Eos # (Auto) 0.1 Baso # (Auto) 0.02 Absolute Neuts (auto) 23.91 H Neutrophils % (Manual) 85 H Band Neutrophils % 4 H Lymphocytes % (Manual) 8 L Monocytes % (Manual) 3 Toxic Granulation 2+ Platelet Evaluation Normal Hypochromasia 2+ Target Cells Slight Rouleaux 2+ PT 13.0 H INR 1.17 APTT 31.2 pCO2 pO2 43 HCO3 ABG pH ABG Total CO2 ABG O2 Saturation ABG O2 Content ABG Base Excess ABG Hemoglobin ABG Carboxyhemoglobin POC ABG HHb (Measured) ABG Methemoglobin ABG O2 Capacity VBG pH 7.24 L VBG pCO2 53.0 VBG HCO3 22.7 VBG Total CO2 24.3 VBG O2 Sat (Calc) 78.0 H VBG Base Excess -5.2 L VBG Potassium 6.1 H Hgb O2 Saturation Sodium 138.0 Chloride 101.0 Glucose 87 Lactate 3.8 H FiO2 30.0 Crit Value Called To Dr medina Crit Value Called By Rs Blood Gas Notified Time 1929 Potassium Carbon Dioxide Anion Gap BUN Creatinine Est GFR ( Amer) Est GFR (Non-Af Amer) Random Glucose Calcium Phosphorus Magnesium Total Bilirubin AST ALT Alkaline Phosphatase Troponin I NT-Pro-B Natriuret Pep Total Protein Albumin Globulin Albumin/Globulin Ratio Venous Blood Potassium 6.1 H Urine Color Urine Appearance Urine pH Ur Specific [place] Urine Protein Urine Glucose (UA) Urine Ketones Urine Blood Urine Nitrate Urine Bilirubin Urine Urobilinogen Ur Leukocyte Esterase Urine RBC Urine WBC Ur Epithelial Cells Amorphous Sediment Urine Bacteria Coarse Granular Casts Urine Other 11/11/18 11/11/18 11/11/18 19:26 21:14 21:20 WBC RBC Hgb Hct MCV MCH MCHC RDW Plt Count MPV Neut % (Auto) Lymph % (Auto) [place] % (Auto) Eos % (Auto) Baso % (Auto) Lymph # (Auto) [place] # (Auto) Eos # (Auto) Baso # (Auto) Absolute Neuts (auto) Neutrophils % (Manual) Band Neutrophils % Lymphocytes % (Manual) Monocytes % (Manual) Toxic Granulation Platelet Evaluation Hypochromasia Target Cells Rouleaux PT INR APTT pCO2 37 pO2 78.0 L HCO3 20.0 L ABG pH 7.34 L ABG Total CO2 21.1 L ABG O2 Saturation 98.4 H ABG O2 Content 11.7 L ABG Base Excess -5.3 L ABG Hemoglobin 8.7 L ABG Carboxyhemoglobin 2.2 H POC ABG HHb (Measured) 1.5 ABG Methemoglobin 1.4 ABG O2 Capacity 11.9 L VBG pH VBG pCO2 VBG HCO3 VBG Total CO2 VBG O2 Sat (Calc) VBG Base Excess VBG Potassium Hgb O2 Saturation 94.9 L Sodium 138 Chloride 99 Glucose Lactate FiO2 30.0 Crit Value Called To Crit Value Called By Blood Gas Notified Time Potassium 4.8 Carbon Dioxide 20 L Anion Gap 23 H BUN 96 H Creatinine 5.0 H Est GFR ( Amer) 14 Est GFR (Non-Af Amer) 11 Random Glucose 78 Calcium 10.0 Phosphorus Magnesium 2.0 Total Bilirubin 0.6 AST 65 H D ALT 31 Alkaline Phosphatase 99 Troponin I 0.44 H* D NT-Pro-B Natriuret Pep 2330 H Total Protein 8.2 Albumin 4.4 Globulin 3.8 Albumin/Globulin Ratio 1.1 Venous Blood Potassium Urine Color Yellow Urine Appearance Slight-cloudy Urine pH 5.5 Ur Specific [place] >= 1.030 Urine Protein 100 H Urine Glucose (UA) Negative Urine Ketones Negative Urine Blood Moderate H Urine Nitrate Negative Urine Bilirubin Negative Urine Urobilinogen 0.2 Ur Leukocyte Esterase Moderate H Urine RBC 20 - 25 H Urine WBC 15 - 20 H Ur Epithelial Cells Many H Amorphous Sediment Moderate Urine Bacteria Coarse Granular Casts Urine Other 11/11/18 11/12/18 11/12/18 22:25 00:40 06:30 WBC RBC Hgb Hct MCV MCH MCHC RDW Plt Count MPV Neut % (Auto) Lymph % (Auto) [place] % (Auto) Eos % (Auto) Baso % (Auto) Lymph # (Auto) [place] # (Auto) Eos # (Auto) Baso # (Auto) Absolute Neuts (auto) Neutrophils % (Manual) Band Neutrophils % Lymphocytes % (Manual) Monocytes % (Manual) Toxic Granulation Platelet Evaluation Hypochromasia Target Cells Rouleaux PT INR APTT pCO2 pO2 62 H HCO3 ABG pH ABG Total CO2 ABG O2 Saturation ABG O2 Content ABG Base Excess ABG Hemoglobin ABG Carboxyhemoglobin POC ABG HHb (Measured) ABG Methemoglobin ABG O2 Capacity VBG pH 7.21 L VBG pCO2 55.0 VBG HCO3 22.0 VBG Total CO2 23.7 VBG O2 Sat (Calc) 93.4 H VBG Base Excess -6.4 L VBG Potassium 4.0 Hgb O2 Saturation Sodium 139.0 138 Chloride 102.0 102 Glucose 81 Lactate 2.1 FiO2 21.0 Crit Value Called To Crit Value Called By Blood Gas Notified Time Potassium 4.1 Carbon Dioxide 23 Anion Gap 17 BUN 98 H Creatinine 5.5 H Est GFR ( Amer) 12 Est GFR (Non-Af Amer) 10 Random Glucose 81 Calcium 9.5 Phosphorus 5.4 H Magnesium 2.0 Total Bilirubin 0.4 AST 54 ALT 27 Alkaline Phosphatase 93 Troponin I 0.52 H* 0.44 H* NT-Pro-B Natriuret Pep Total Protein 6.6 Albumin 3.5 Globulin 3.1 Albumin/Globulin Ratio 1.1 Venous Blood Potassium 4.0 Urine Color Urine Appearance Urine pH Ur Specific [place] Urine Protein Urine Glucose (UA) Urine Ketones Urine Blood Urine Nitrate Urine Bilirubin Urine Urobilinogen Ur Leukocyte Esterase Urine RBC Urine WBC Ur Epithelial Cells Amorphous Sediment Urine Bacteria Coarse Granular Casts Urine Other 11/12/18 11/12/18 06:30 10:16 WBC 22.8 H RBC 3.24 L Hgb 8.7 L Hct 28.0 L MCV 86.4 MCH 26.9 MCHC 31.1 RDW 15.6 H Plt Count 199 MPV 9.2 Neut % (Auto) 86.7 H Lymph % (Auto) 8.5 L [place] % (Auto) 4.4 Eos % (Auto) 0.3 L Baso % (Auto) 0.1 Lymph # (Auto) 2.0 [place] # (Auto) 1.0 H Eos # (Auto) 0.1 Baso # (Auto) 0.03 Absolute Neuts (auto) 19.77 H Neutrophils % (Manual) Band Neutrophils % Lymphocytes % (Manual) Monocytes % (Manual) Toxic Granulation Platelet Evaluation Hypochromasia Target Cells Rouleaux PT INR APTT pCO2 pO2 HCO3 ABG pH ABG Total CO2 ABG O2 Saturation ABG O2 Content ABG Base Excess ABG Hemoglobin ABG Carboxyhemoglobin POC ABG HHb (Measured) ABG Methemoglobin ABG O2 Capacity VBG pH VBG pCO2 VBG HCO3 VBG Total CO2 VBG O2 Sat (Calc) VBG Base Excess VBG Potassium Hgb O2 Saturation Sodium Chloride Glucose Lactate FiO2 Crit Value Called To Crit Value Called By Blood Gas Notified Time Potassium Carbon Dioxide Anion Gap BUN Creatinine Est GFR ( Amer) Est GFR (Non-Af Amer) Random Glucose Calcium Phosphorus Magnesium Total Bilirubin AST ALT Alkaline Phosphatase Troponin I NT-Pro-B Natriuret Pep Total Protein Albumin Globulin Albumin/Globulin Ratio Venous Blood Potassium Urine Color Yellow Urine Appearance Clear Urine pH 5.5 Ur Specific [place] 1.010 Urine Protein Trace H Urine Glucose (UA) Negative Urine Ketones Negative Urine Blood Moderate H Urine Nitrate Negative Urine Bilirubin Negative Urine Urobilinogen 0.2 Ur Leukocyte Esterase Moderate H Urine RBC 20 - 25 H Urine WBC 25 - 30 H Ur Epithelial Cells 0 - 2 Amorphous Sediment Few Urine Bacteria Many Coarse Granular Casts Trace Urine Other Fiber
[2018-11-12] MEDS: Sodium Chloride 0.9% 1,000 ML IV SCH (15:11)
--- NOTE | 2018-11-12 16:17 | CARD ---
APPROVED REPORT Date of service: 11/12/2018 EKG Measurement Heart [id number] <Conclusion> Atrial fibrillation Left axis deviation Right bundle branch block Abnormal ECG
--- NOTE | 2018-11-12 16:18 | CARD ---
APPROVED REPORT Date of service: 11/11/2018 EKG Measurement Heart [id number] <Conclusion> Atrial fibrillation Right bundle branch block Left anterior fascicular block Bifascicular block Abnormal ECG
--- NOTE | 2018-11-12 16:40 | CON ---
DATE OF CONSULTATION: 11/12/2018 The patient is seen in room 129, bed 2. CHIEF COMPLAINT: Shortness of breath times several days. HISTORY OF PRESENT ILLNESS: This is a 77-year-old male with a history of congestive heart failure with an ejection fraction of 70%. He has diastolic congestive heart failure in the past, echo in 04/2018. The patient has chronic obstructive lung disease, hypertension, kidney disease, hyperlipidemia, and asthma, who was admitted with shortness of breath, and he denied any fevers and no chills, and no chest pain at this time. No abdominal pain, diarrhea or constipation. No bright red blood per rectum. No melena. REVIEW OF SYSTEMS: Reveals a 12-point review of systems performed. PAST MEDICAL HISTORY: Significant for COPD, asthma, kidney disease, hypertension, hyperlipidemia, and diastolic congestive heart failure. PAST SURGICAL HISTORY: Significant for cardiac catheterization and a jaw surgery. This jaw surgery was in 1963, and the patient also had a colonoscopy in the past. MEDICATIONS: The patient's medications at home include the patient to be on prednisone at 5 mg daily including Lipitor, Lasix, Protonix, and cholesterol medication, Lipitor. ALLERGIES: THE PATIENT HAS NO KNOWN ALLERGIES. PHYSICAL EXAMINATION: VITAL SIGNS: Temperature is 99, blood pressure is 110/40, respiratory rate of 22, heart rate of 95. HEENT: Examination of HEENT is unremarkable. NECK: Supple. LUNGS: Have decreased breath sounds. CARDIAC: Heart exam reveals normal S1, S2. ABDOMEN: Soft, nontender. No organomegaly or rebound. LABORATORY DATA: Laboratory examination reveals the patient to have a white count of 25,000, hemoglobin of 9, platelets of 298. Coagulation is noted. Chemistries are reviewed. BNP is 2330. Troponins are positive. Elevated creatinine is 5 with creatinine in the past of 2.8, now it is up to 5. Urinalysis reveals 15 to 20 wbc's. Microbiology is pending. The patient's chest x-ray is reported to be negative. EKG is reviewed, possible inferior infarct, abnormal EKG, atrial fibrillation, right bundle-branch block. QTC is 592. Blood cultures have been ordered. Urine cultures have been ordered. MRSA screen is ordered. Sputum is also ordered. ASSESSMENT AND PLAN: This is a 77-year-old male with acute diastolic congestive heart failure on top of chronic congestive heart failure, must rule out healthcare-associated pneumonia with acute kidney injury with a creatinine of 2.8, now it is up to 5.2, must rule out urinary tract infection and rule out prostatitis, and with [id number] myocardial infarction, we will treat the patient with Maxipime 1 g IV every 24 hours, and the patient with chronic obstructive pulmonary disease, asthma, hyperlipidemia, kidney disease, hypertension, congestive heart failure, and we will make further recommendations pending initial culture results, and we will order a PSA and an HIV due to the renal failure, and a procalcitonin and sputum, blood, and urine culture. We will follow closely with you. Uriah Mayer MD
--- NOTE | 2018-11-13 00:26 | CON ---
DATE: 11/12/2018 CARDIOLOGY CONSULTATION HISTORY OF PRESENT ILLNESS: The patient is 77 years old, an -Turk[place] male who has history of severe calcific aortic valve stenosis and severe pulmonary hypertension, history of COPD, history of chronic kidney disease, and history of PE in the past presented because of worsening shortness of breath. Patient denies having a recent cardiac catheterization and denies any prior coronary or valvular intervention in the past. SOCIAL HISTORY: Patient is a nondrinker and a nonsmoker. MEDICATIONS: Albuterol inhaler every 6 hours p.r.n., aspirin 81 mg once a day, ferrous gluconate 325 mg t.i.d. intravenous heparin in a therapeutic regimen, Lipitor 40 mg p.o. once a day, Maxipime 1 g IV every 24 hours, Phos Lo one tablet twice a day, Plavix 75 mg once a day, normal saline 75 mL an hour, Solu-Medrol 30 mg/kg every 12 hours. REVIEW OF SYSTEMS: No fever. No chills. No dizziness or syncope. PHYSICAL EXAMINATION: GENERAL: Patient is an elderly male who is currently mildly tachypneic. VITAL SIGNS: Blood pressure 110/49, heart rate 80, temperature 97.4, and respirations 20. HEENT: Pale conjunctivae. CHEST: Absent breath sounds on the right base. HEART: S1, S2 regular. ABDOMEN: Soft. EXTREMITIES: 2+ pitting edema. LABORATORY DATA: Today's SMA-7; sodium 138, potassium 4.1, chloride 102, CO2 of 23, glucose 81, BUN 98, creatinine 5.5. Troponin was 0.44, 0.52, 0.44, and 0.36 respectively. The pro-BNP is 2330. INR and PTT are within normal limits. Hemoglobin and hematocrit 8.7 and 28.0, white count 22.8, and platelet count 199,000. Yesterday's white count was 25.8. Chest x-ray revealed mild cardiomegaly and a moderate left pleural effusion. EKG revealed atrial fibrillation, bifascicular block; i.e., right bundle-branch block with an anterior fascicular block, heart rate of 83. The most recent echo was from 04/2018, revealed normal left ventricular size with both [id number] concentric elevation, normal ejection fraction, severe valvular aortic stenosis, and severe pulmonary hypertension. ASSESSMENT: 1. Severe aortic stenosis. 2. Moderate left pleural effusion. 3. Consider underlying sepsis. 4. Anemia. 5. End-stage renal insufficiency. 6. Chronic atrial fibrillation. The patient's prior electrocardiography in 04/2018 revealed atrial fibrillation. PLAN: Continue current aspirin 81 mg once a day, intravenous heparin in a therapeutic regimen, continue Lipitor at 40 mg daily, IV Maxipime at 1 g daily, Plavix 75 mg once a day, Solu-Medrol 30 mg/kg every 12 hours. The patient mostly sent for Myoview stress test in 07/2018, was positive for lateral ischemia. However, the patient is not a suitable candidate for any invasive cardiac workup at this time unless hemodialysis is initiated. I will obtain a venous Doppler of the lower extremities. Dhaval Gibson MD
[2018-11-13] MEDS: Albuterol-Ipratrop 3 mg / 0.5 (3 ml) UD IH SCH ×4 (01:33→20:19)
[2018-11-13 05:27] LABS: ARTERIAL BLOOD GAS HCO3 20.2 mmol/L (21-28); ARTERIAL BLOOD GAS O2 SAT 99.7 % (95-98); ARTERIAL BLOOD GAS PCO2 44 mm/Hg (35-45); ARTERIAL BLOOD GAS PH 7.27 (7.35-7.45); ARTERIAL BLOOD GAS TCO2 21.6 mmol.L (22-28)
[2018-11-13 06:25] LABS: HEMOGLOBIN 8.6 g/dL (14.0-18.0); MEAN CELL VOLUME 86.1 fl (80.0-105.0); MEAN CORPUSCULAR HEMOGLOBIN 26.5 pg (25.0-35.0); MEAN CORPUSCULAR HGB CONC 30.8 g/dl (31.0-37.0); MEAN PLATELET VOLUME 9.7 fl (7.0-11.0); RBC 3.24 10^6/uL (3.5-6.1); RED CELL DISTRIBUTION WIDTH 15.5 % (11.5-14.5)
[2018-11-13 06:39] LABS: WHITE BLOOD COUNT 32.2 10^3/uL (4.5-11.0)
[2018-11-13 06:46] LABS: CALCIUM 9.9 mg/dL (8.4-10.5)
[2018-11-13] MEDS: Sodium Chloride 0.9% 1,000 ML IV SCH (06:54)
[2018-11-13] MEDS: Omega-3-Acid Ethyl Esters 1 GM Cap PO SCH (09:02)
[2018-11-13] MEDS: Multivitamin Vitamin B Complex (Nephro-Vite) Tab PO SCH (09:02)
[2018-11-13] MEDS: MethylPREDNISolone 40 mg Vial IVP SCH (09:03)
[2018-11-13] MEDS: Aspirin 325 mg EC Tablets PO SCH (09:05)
[2018-11-13] MEDS: Heparin25000 units/250ml 1/2NS 25,000 UNITS/250 ML BAG IV SCH (10:47)
--- NOTE | 2018-11-13 12:53 | CP.PCM.PN ---
Subjective - Date & Time of Evaluation Date of Evaluation: 11/13/18 Time of Evaluation: 12:51 - Subjective Subjective: Nephrology Consultation Note: Assessment: stable GNR sepsis non-oliguric SANDRA likely due to pre-renal state (as evident by concentrated urine and hemoconcentration), ATN due to sepsis, renal hypoperfusion as also with lactic acidosis, low BP sepsis with likely COPD exacerbation and less likely chf exacerbation CKD stage 4 with 443 mg proteinuria likely Due to HTN HTN kidney disease (I12.9) Obesity Anemia of chronic disease hx of COPD, CHF, ex smoker, PE esophageal ulceration with diverticuli on EGD 05/13/18 Plan renal replacement therapy likely be needed soon in next 1-2 days unless renal function better as pt developing asterixis and will need close follow up Hypertension control with meds as ordered. pt not on RAAS brittni, will defer it due to advanced CKD. hold BP meds as bp on low side Monitor I/O, daily weights and renal function while in hospital supplement Iron, MVI and weekly dose of aransep hold lasix and consider IVF as NS @ 75 ml/hr for next 1-2 day COPD management as per primary team/pulmonary pt on weekly vit D (stop as level 52) and calcitriol, phos binders renagel 1600 tid check tsat, ferritin, 25-oh vit D and iPTH Dose meds/antibiotics for reduced GFR. Avoid fleets enema/magnesium based laxatives. Avoid nephrotoxins/NSAIDs/ iodinated contrast (unless needed emergently) Glycemic control, renal diet. Further work up for as per primary team. Thanks for allowing me to participate in care of your patient. Will follow with you. Please call if any Qs. had d/w team Dr Rivas Hazel Office: [phone] CC; SOB and chest pressure reason for consult: SANDRA on CKD 4 HPI: Pt is a 77 M with hx of HTN (years), CKD stage 4 (with cr 2.8-3.0) obesity, COPD on senior care prednisone 5 mg, CHF with severe pulmonary HTN, ex smoker, Pulm Embolism, anemia presented to hospital with complaints of SOB and chest pressure, found to have COPD versus CHF exacerbation with lactic acidosis ? sep sis and renal consult for SANDRA on CKD management. Denies chest pain, palpitation, improved shortness of breath, reports chronic leg swelling but better now. Denies OTC/herbal meds/NSAIDs No recent iodinated contrast exposure. no GI symptoms at present low BP 103/47 noted ROS: denies CP/nausea/vomiting now. no SOB at present. no nausea denies pain abdomen. denies urine complaints rest other negative except as mentioned in HPI. Physical Examination: General Appearance: Comfortable, in no acute respiratory distress, co-operative. obese Vitals reviewed and noted as below Head; Atraumatic, normocephalic ENT: no ulcers no thrush. Tongue is midline. Oropharynx: no rash or ulcers. EYES: b/l PERRLA Neck; supple no lymphadenopathy, no thyromegaly or bruit Lungs: Normal respiratory rate/effort. Breath sounds b/l with equal with few basal crackle + Heart: Normal rate. s1s2 normal. No rub or gallop. Extremities: no pitting edema. No varicose veins. chronic venous stasis changes in leg noted Neurological: Patient is awake alert and follow commands no focal deficit Skin: dry and warm. Normal turgor. No rash. Palpitation: Normal elasticity for age Abdomen: Abdomen is distended . Bowel sounds +. There is no abdominal tenderness, no guarding/rigidity or organomegaly. has asterixis Psych: normal insight. normal affect/mood MSK: no specific joint tenderness or swelling. Digits and nails normal, no deformity : kidney not palpable. exam limited due to obesity. has umblical hernia Labs/imaging/EKG reviewed. Past medical history, past surgical history, social history, allergy reviewed and noted as below Family hx; no hx of CKD. non contributory renal imaging: Rt side cyst outpt urine pr/cr 447 PTH 188 SPEP/SKYLAR neg with normal K/L ratio Hep B/C neg echo: severe pHTN with normal lvef Objective - Vital Signs/Intake and Output Vital Signs (last 24 hours): Temp Pulse Resp BP Pulse Ox 97.6 F 80 21 118/74 88 L 11/13/18 04:00 11/13/18 12:00 11/13/18 12:00 11/13/18 11:00 11/13/18 12:00 Intake and Output: 11/13/18 11/13/18 06:59 18:59 Intake Total 1240 150 Output Total 1250 Balance -10 150 - Medications Medications: Current Medications Acetaminophen (Tylenol 325mg Tab) 650 mg PO Q4H PRN PRN Reason: pain and fever Last Admin: 11/12/18 05:55 Dose: 650 mg Albuterol/Ipratropium (Duoneb 3 Mg/0.5 Mg (3 Ml) Ud) 3 ml IH [id number] [facility] Last Admin: 11/13/18 07:56 Dose: 3 ml Albuterol/Ipratropium (Duoneb 3 Mg/0.5 Mg (3 Ml) Ud) 3 ml IH Q2H PRN PRN Reason: Shortness of Breath Aspirin (Ecotrin) 81 mg PO DAILY [facility] Last Admin: 11/13/18 09:05 Dose: 81 mg Atorvastatin Calcium (Lipitor) 40 mg PO DAILY [facility] Last Admin: 11/13/18 09:01 Dose: 40 mg Calcitriol (Rocaltrol) 0.25 mcg PO DAILY [facility] Last Admin: 11/13/18 09:01 Dose: 0.25 mcg Clopidogrel Bisulfate (Plavix) 75 mg PO DAILY [facility] Last Admin: 11/13/18 09:01 Dose: 75 mg Darbepoetin Bryan (Aranesp) 60 mcg SC QWK [facility] Last Admin: 11/12/18 13:55 Dose: 60 mcg Ergocalciferol (Drisdol 50,000 Intl Units Cap) 1 cap PO QWK [facility] Famotidine (Pepcid) 20 mg PO HS [facility] Last Admin: 11/12/18 21:08 Dose: 20 mg Ferrous Sulfate (Feosol) 324 mg PO TID [facility] Last Admin: 11/13/18 09:02 Dose: 324 mg Heparin Sodium/Sodium Chloride (Heparin 89635 Units/250ml 1/2 Normal Saline) 25,000 units in 250 mls @ 12.16 mls/hr IV .[id number] [facility]; Protocol Last Admin: 11/13/18 10:47 Dose: 10 units/kg/hr, 10.133 mls/hr Sodium Chloride (Sodium Chloride 0.9%) 1,000 mls @ 75 mls/hr IV .[id number] [facility] Stop: 11/13/18 14:16 Last Admin: 11/13/18 06:54 Dose: 75 mls/hr Meropenem 250 mg/ Sodium (Chloride) 100 mls @ 100 mls/hr IVPB Q12 [facility]; Protocol Stop: 11/21/18 22:01 Last Admin: 11/13/18 09:35 Dose: 100 mls/hr Methylprednisolone (Solu-Medrol) 30 mg IVP Q12 [facility] Last Admin: 11/13/18 09:03 Dose: 30 mg Dhzuw-8-[id number] Ethyl Esters (Lovaza) 1 gm PO DAILY [facility] Last Admin: 11/13/18 09:02 Dose: 1 gm Sevelamer HCl (Renagel) 1,600 mg PO TID [facility] Last Admin: 11/13/18 09:37 Dose: 1,600 mg Vitamin B Complex/Vit C/Folic Acid (Nephro-Samantha) 1 tab PO 0800 [facility] Last Admin: 11/13/18 09:02 Dose: 1 tab - Labs Labs: 11/13/18 05:30 11/13/18 05:30 PT 13.0 SECONDS (9.4-12.5) H 11/11/18 19:26 INR 1.17 11/11/18 19:26 APTT 69.9 Seconds (26.9-38.3) H 11/13/18 11:16
--- NOTE | 2018-11-13 13:04 | CP.PCM.PN ---
<Viral Valentine - Last Filed: 11/13/18 13:34> Subjective - Date & Time of Evaluation Date of Evaluation: 11/13/18 Time of Evaluation: 13:00 - Subjective Subjective: PGY-2 medicine progress note for Dr Morse No acute events noted overnight. Patient with monterroso cath and heparin drip infusing. Stated he felt better. Sitting up in bed, pleasant and conversational. Denied being in pain or discomfort. Denied dysuria, cp, abd pain, f/c. Stated his sob has improved since arrival. Objective - Vital Signs/Intake and Output Vital Signs (last 24 hours): Temp Pulse Resp BP Pulse Ox 97.6 F 80 21 118/74 88 L 11/13/18 04:00 11/13/18 12:00 11/13/18 12:00 11/13/18 11:00 11/13/18 12:00 Intake and Output: 11/13/18 11/13/18 06:59 18:59 Intake Total 1240 150 Output Total 1250 Balance -10 150 - Medications Medications: Current Medications Acetaminophen (Tylenol 325mg Tab) 650 mg PO Q4H PRN PRN Reason: pain and fever Last Admin: 11/12/18 05:55 Dose: 650 mg Albuterol/Ipratropium (Duoneb 3 Mg/0.5 Mg (3 Ml) Ud) 3 ml IH [id number] [facility] Last Admin: 11/13/18 07:56 Dose: 3 ml Albuterol/Ipratropium (Duoneb 3 Mg/0.5 Mg (3 Ml) Ud) 3 ml IH Q2H PRN PRN Reason: Shortness of Breath Aspirin (Ecotrin) 81 mg PO DAILY [facility] Last Admin: 11/13/18 09:05 Dose: 81 mg Atorvastatin Calcium (Lipitor) 40 mg PO DAILY [facility] Last Admin: 11/13/18 09:01 Dose: 40 mg Calcitriol (Rocaltrol) 0.25 mcg PO DAILY [facility] Last Admin: 11/13/18 09:01 Dose: 0.25 mcg Clopidogrel Bisulfate (Plavix) 75 mg PO DAILY [facility] Last Admin: 11/13/18 09:01 Dose: 75 mg Darbepoetin Bryan (Aranesp) 60 mcg SC QWK [facility] Last Admin: 11/12/18 13:55 Dose: 60 mcg Famotidine (Pepcid) 20 mg PO HS [facility] Last Admin: 11/12/18 21:08 Dose: 20 mg Ferrous Sulfate (Feosol) 324 mg PO TID [facility] Last Admin: 11/13/18 09:02 Dose: 324 mg Heparin Sodium/Sodium Chloride (Heparin 58680 Units/250ml 1/2 Normal Saline) 25,000 units in 250 mls @ 12.16 mls/hr IV .[id number] [facility]; Protocol Last Admin: 11/13/18 10:47 Dose: 10 units/kg/hr, 10.133 mls/hr Sodium Chloride (Sodium Chloride 0.9%) 1,000 mls @ 75 mls/hr IV .[id number] [facility] Stop: 11/13/18 14:16 Last Admin: 11/13/18 06:54 Dose: 75 mls/hr Meropenem 250 mg/ Sodium (Chloride) 100 mls @ 100 mls/hr IVPB Q12 [facility]; Protocol Stop: 11/21/18 22:01 Last Admin: 11/13/18 09:35 Dose: 100 mls/hr Methylprednisolone (Solu-Medrol) 30 mg IVP Q12 [facility] Last Admin: 11/13/18 09:03 Dose: 30 mg Cjbal-2-Pnch Ethyl Esters (Lovaza) 1 gm PO DAILY [facility] Last Admin: 11/13/18 09:02 Dose: 1 gm Sevelamer HCl (Renagel) 1,600 mg PO TID [facility] Last Admin: 11/13/18 09:37 Dose: 1,600 mg Vitamin B Complex/Vit C/Folic Acid (Nephro-Samantha) 1 tab PO 0800 [facility] Last Admin: 11/13/18 09:02 Dose: 1 tab - Labs Labs: 11/13/18 05:30 11/13/18 05:30 PT 13.0 SECONDS (9.4-12.5) H 11/11/18 19:26 INR 1.17 11/11/18 19:26 APTT 69.9 Seconds (26.9-38.3) H 11/13/18 11:16 - Constitutional Appears: Well, Non-toxic, No Acute Distress - Head Exam Head Exam: ATRAUMATIC, NORMAL INSPECTION - Eye Exam Eye Exam: EOMI, Normal appearance, PERRL. absent: Scleral icterus - ENT Exam ENT Exam: Mucous Membranes Moist - Neck Exam Neck Exam: Full ROM, Normal Inspection - Respiratory Exam Respiratory Exam: Clear to Ausculation Bilateral, Rales. absent: Rhonchi, Wheezes, Respiratory Distress - Cardiovascular Exam Cardiovascular Exam: REGULAR RHYTHM, +S1, +S2. absent: Tachycardia, Murmur - GI/Abdominal Exam GI & Abdominal Exam: Soft, Normal Bowel Sounds. absent: Distended, Firm, Guarding, Tenderness - Extremities Exam Extremities Exam: Normal Capillary Refill, Pedal Edema. absent: Calf Tenderness, Tenderness - Neurological Exam Neurological Exam: Alert, Awake, Oriented x3 - Psychiatric Exam Psychiatric exam: Normal Affect, Normal Mood - Skin Skin Exam: Dry, Intact, Normal Color, Warm Assessment and Plan - Assessment and Plan (Free Text) Plan: Mr Ribera is a 77 year old male with a PMHx of CHF, COPD, asthma, CKD stage IV, HTN, HLD, esophageal ulcerations (04/2018) who presented with respiratory distress: #Severe Sepsis #Gram Negative Bacteremia #Gram Negative UTI -blood cultures and urine cultures growing gram negative rods -leukocytosis and elevated procalcitonin -continue meropenem 250mg ivpb q12h -ID consulted, Dr Hugo #NSTEMI #CAD -trops highest at 0.52, downtrending -heparin drip NSTEMI protocol -continue aspirin 81mg po qd, plavix 75mg po qd, lipitor 40mg po qd -cardiology consulted, Dr Gibson * patient had a stress test in 07/2018 which was positive for lateral ischemia * currently, pt not a suitable candidate for any invasive cardiac workup at this time unless HD is initiated #SANDRA on CKD #CKD Stage IV -continue omega-3 1g po qd, sevelamer 1600mg po tid, nephrovite 1 tab po qd, calcitriol 0.25mcg po qd -nephrology consulted, Dr Hazel * non-oliguric SANDRA likely due to pre-renal state (as evident by concentrated urine and hemoconcentration), ATN due to sepsis, renal hypoperfusion as also with lactic acidosis, low BP * renal replacement therapy likely be needed soon in next 1-2 days unless renal function better as pt developing asterixis * hold lasix and consider IVF as NS @ 75 ml/hr for next 1-2 day #COPD Exacerbation, Improved -currently saturating well off BIPAP -solumedrol 30mg ivp q12h -duonebs q6h and q2h prn #CHF #LE Edema Bilaterally -echo from 04/2018 showed normal EF, mild LVH, severe calcified aortic valve, severe aortic stenosis, severe pulmonary HTN -probnp 2330 -LE duplex preliminary read negative for DVT b/l -cxr mild cardiomegaly -strict Is/Os and daily weights -hold lasix 2/2 SANDRA #Elevated PSA -PSA 66.5 -self reported hx of BPH for which he has seen urologist Dr Tijerina outpatient #Anemia of Renal Disease -pt at his baseline of 7-9 -treating with ferrous sulfate 324mg po tid and darbepoetin 60mcg sc qwk #Hx of Esophageal Ulcers -EGD done in 04/2018 showed blood/coffee-ground like material in entire stomach and erythematous duodenopathy and required 5u pRBCs at that time -will monitor H/H carefully as patient currently on heparin drip for NSTEMI -protonix 40mg ivp qd #PPx -on heparin drip for NSTEMI and protonix 40mg ivp Seen and discussed with Dr Morse <Fabiola Morse - Last Filed: 11/13/18 14:23> Objective - Vital Signs/Intake and Output Vital Signs (last 24 hours): Temp Pulse Resp BP Pulse Ox 97.6 F 85 28 H 137/78 88 L 11/13/18 04:00 11/13/18 13:24 11/13/18 13:24 11/13/18 13:24 11/13/18 12:00 Intake and Output: 11/13/18 11/13/18 06:59 18:59 Intake Total 1240 150 Output Total 1250 Balance -10 150 - Medications Medications: Current Medications Acetaminophen (Tylenol 325mg Tab) 650 mg PO Q4H PRN PRN Reason: pain and fever Last Admin: 11/12/18 05:55 Dose: 650 mg Albuterol/Ipratropium (Duoneb 3 Mg/0.5 Mg (3 Ml) Ud) 3 ml IH [id number] [facility] Last Admin: 11/13/18 13:59 Dose: 3 ml Albuterol/Ipratropium (Duoneb 3 Mg/0.5 Mg (3 Ml) Ud) 3 ml IH Q2H PRN PRN Reason: Shortness of Breath Aspirin (Ecotrin) 81 mg PO DAILY [facility] Last Admin: 11/13/18 09:05 Dose: 81 mg Atorvastatin Calcium (Lipitor) 40 mg PO DAILY [facility] Last Admin: 11/13/18 09:01 Dose: 40 mg Calcitriol (Rocaltrol) 0.25 mcg PO DAILY [facility] Last Admin: 11/13/18 09:01 Dose: 0.25 mcg Clopidogrel Bisulfate (Plavix) 75 mg PO DAILY [facility] Last Admin: 11/13/18 09:01 Dose: 75 mg Darbepoetin Bryan (Aranesp) 60 mcg SC QWK [facility] Last Admin: 11/12/18 13:55 Dose: 60 mcg Ferrous Sulfate (Feosol) 324 mg PO TID [facility] Last Admin: 11/13/18 13:41 Dose: 324 mg Heparin Sodium/Sodium Chloride (Heparin 15144 Units/250ml 1/2 Normal Saline) 25,000 units in 250 mls @ 12.16 mls/hr IV .[id number] [facility]; Protocol Last Admin: 11/13/18 10:47 Dose: 10 units/kg/hr, 10.133 mls/hr Meropenem 250 mg/ Sodium (Chloride) 100 mls @ 100 mls/hr IVPB Q12 [facility]; Protocol Stop: 11/21/18 22:01 Last Admin: 11/13/18 09:35 Dose: 100 mls/hr Methylprednisolone (Solu-Medrol) 30 mg IVP Q12 [facility] Last Admin: 11/13/18 09:03 Dose: 30 mg Yonuv-7-Rvcx Ethyl Esters (Lovaza) 1 gm PO DAILY [facility] Last Admin: 11/13/18 09:02 Dose: 1 gm Pantoprazole Sodium (Protonix Inj) 40 mg IVP DAILY [facility] Sevelamer HCl (Renagel) 1,600 mg PO TID [facility] Last Admin: 11/13/18 13:41 Dose: 1,600 mg Vitamin B Complex/Vit C/Folic Acid (Nephro-Samantha) 1 tab PO 0800 [facility] Last Admin: 11/13/18 09:02 Dose: 1 tab - Labs Labs: 11/13/18 05:30 11/13/18 05:30 PT 13.0 SECONDS (9.4-12.5) H 11/11/18 19:26 INR 1.17 11/11/18 19:26 APTT 69.9 Seconds (26.9-38.3) H 11/13/18 11:16 Attending/Attestation - Attestation I have personally seen and examined this patient.: Yes I have fully participated in the care of the patient.: Yes I have reviewed all pertinent clinical information, including history, physical exam and plan: Yes Notes (Text): 11/13/18 14:17 77 year old male with past medical history of COPD, CHF, CKD, hypertension and esophageal ulcers (04/2018) who presented with acute respiratory distress, sepsis secondary to gram negative bacteremia/UTI, acute on chronic renal failure and possible NSTEMI. His dyspnea has improved with iv steroids and bipap. Will begin to taper steroids which is likely contributing to his leukocytosis. Continue with iv antibiotics as per ID while awaiting sensitivities. He follows up with urology as outpatient. He is on heparin drip for possible NSTEMI. Cardiology is following. No plan for cardiac cath at this time secondary to acute renal failure. Monitor H/H closely while on heparin drip secondary to history of esophageal ulcerations. Nephrology is following for acute on chronic renal failure. He is on iv fluids. Case was discussed with Dr. Hazel today. Fabiola Morse MD Hospitalist.
--- NOTE | 2018-11-13 13:22 | PN ---
DATE: 11/13/2018 SUBJECTIVE: The patient is in bed, in no acute distress, nontoxic and doing much better. He states he is overall greatly improved. PHYSICAL EXAMINATION: VITAL SIGNS: Temperature is 97, blood pressure is 140/70, respiratory rate of 18, heart rate of 60. HEENT: Unremarkable. NECK: Supple. LUNGS: Have decreased breath sounds. HEART: Normal S1, S2. ABDOMEN: Soft, nontender. LABORATORY DATA: White count of 32,000, hemoglobin of 8, platelets of 210. Chemistries, BUN of 104, creatinine is 5.3. Procalcitonin is elevated at 127. Urinalysis is noted. HIV is negative. Microbiology reveals gram-negative tuan in the blood. Review of orders reveals the patient to be on meropenem. ASSESSMENT AND PLAN: This 77-year-old male, with no known allergies, who was admitted with a history of congestive heart failure with ejection fraction 70% with diastolic congestive heart failure in the past on an echocardiography in April and admitted with acute diastolic congestive heart failure on top of chronic congestive heart failure and sepsis with gram-negative tuan bacteremia, most likely urine as a source. He did have urinary incontinence. Waiting for the urine culture. Waiting for the urine and waiting for the identification of gram-negative tuan in the blood, on meropenem. We will follow closely with you. He appears to be much improved, if possible discontinue the Solu-Medrol started yesterday. We will follow closely with you. Uriah Mayer MD
[2018-11-13] MEDS ORDERED: MethylPREDNISolone 40 mg Vial IVP SCH (14:25)
--- NOTE | 2018-11-13 14:53 | PN ---
DATE: 11/13/2018 CARDIOLOGY FOLLOWUP SUBJECTIVE: The patient is in a chair. He is lethargic, but without acute dyspnea. PHYSICAL EXAMINATION VITAL SIGNS: Blood pressure is stable, heart rate is atrial fibrillation in the 60s. NECK: Negative JVD. LUNGS: Decreased breath sounds. HEART: Reveals S1, S2. No murmurs noted. EXTREMITIES: 1+ edema is noted. LABORATORY DATA: Hemoglobin is 8.6, white count is up to 32,000. BUN and creatinine are 102 and 5.3, glucose is 139. IMPRESSION 1. Acute systolic congestive heart failure. 2. Critical aortic stenosis. 3. Severe pulmonary hypertension. 4. Renal insufficiency. 5. Sepsis. 6. Anemia. PLAN: Given these findings, the patient has multiorgan disease. His sepsis needs to be controlled. The patient needs to be placed on dialysis and then consideration to catheterization and therapeutic intervention into his aortic valve would be appropriate. Kevan Sam MD
[2018-11-13] MEDS: Bacitracin Ointment 30 GM TUBE TOP SCH (19:25)
[2018-11-14] MEDS: Albuterol-Ipratrop 3 mg / 0.5 (3 ml) UD IH SCH ×4 (02:13→20:30)
[2018-11-14 05:44] LABS: HEMOGLOBIN 8.1 g/dL (14.0-18.0); MEAN CELL VOLUME 85.6 fl (80.0-105.0); MEAN CORPUSCULAR HEMOGLOBIN 26.6 pg (25.0-35.0); MEAN PLATELET VOLUME 9.8 fl (7.0-11.0); RBC 3.05 10^6/uL (3.5-6.1); RED CELL DISTRIBUTION WIDTH 15.7 % (11.5-14.5)
[2018-11-14 06:09] LABS: WHITE BLOOD COUNT 30.7 10^3/uL (4.5-11.0)
[2018-11-14] MEDS: Multivitamin Vitamin B Complex (Nephro-Vite) Tab PO SCH (08:13)
[2018-11-14] MEDS: Aspirin 325 mg EC Tablets PO SCH (09:09)
[2018-11-14] MEDS: Bacitracin Ointment 30 GM TUBE TOP SCH ×2 (09:09→18:34)
[2018-11-14] MEDS: Omega-3-Acid Ethyl Esters 1 GM Cap PO SCH (09:09)
[2018-11-14] MEDS ORDERED: Sodium Chloride 0.9% 1,000 ML IV SCH (09:15)
--- NOTE | 2018-11-14 12:08 | CP.PCM.PN ---
Subjective - Date & Time of Evaluation Date of Evaluation: 11/14/18 Time of Evaluation: 12:07 - Subjective Subjective: Nephrology Consultation Note: Assessment: stable GNR sepsis non-oliguric SANDRA likely due to pre-renal state (as evident by concentrated urine and hemoconcentration), ATN due to sepsis, renal hypoperfusion as also with lactic acidosis, low BP sepsis with likely COPD exacerbation and less likely chf exacerbation CKD stage 4 with 443 mg proteinuria likely Due to HTN HTN kidney disease (I12.9) Obesity Anemia of chronic disease hx of COPD, CHF, ex smoker, PE esophageal ulceration with diverticuli on EGD 05/13/18 Plan renal replacement therapy mayly be needed soon in next 1-2 days unless renal function better as pt developing asterixis and will need close follow up. today cr trended down Hypertension control with meds as ordered. pt not on RAAS brittni, will defer it due to advanced CKD. hold BP meds as bp on low side Monitor I/O, daily weights and renal function while in hospital supplement Iron, MVI and weekly dose of aransep d/c IVF. oral intake better COPD management as per primary team/pulmonary pt on weekly vit D (stop as level 52) and calcitriol, phos binders renagel 1600 tid check tsat, ferritin, 25-oh vit D and iPTH Dose meds/antibiotics for reduced GFR. Avoid fleets enema/magnesium based laxatives. Avoid nephrotoxins/NSAIDs/ iodinated contrast (unless needed emergently) Glycemic control, renal diet. Further work up for as per primary team. Thanks for allowing me to participate in care of your patient. Will follow with you. Please call if any Qs. 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 sepsis and renal consult for SANDRA on CKD management. Denies chest pain, palpitation, improved shortness of breath, reports chronic leg swelling but better now. Denies OTC/herbal meds/NSAIDs No recent iodinated contrast exposure. no GI symptoms at present low BP 103/47 noted ROS: denies CP/nausea/vomiting now. no SOB at present. no nausea denies pain abdomen. denies urine complaints rest other negative except as mentioned in HPI. Physical Examination: General Appearance: Comfortable, in no acute respiratory distress, co-operative. obese Vitals reviewed and noted as below Head; Atraumatic, normocephalic ENT: no ulcers no thrush. Tongue is midline. Oropharynx: no rash or ulcers. EYES: b/l PERRLA Neck; supple no lymphadenopathy, no thyromegaly or bruit Lungs: Normal respiratory rate/effort. Breath sounds b/l with equal with few basal crackle + and wheeze Heart: Normal rate. s1s2 normal. No rub or gallop. Extremities: non pitting edema. No varicose veins. chronic venous stasis changes in leg noted Neurological: Patient is awake alert and follow commands no focal deficit Skin: dry and warm. Normal turgor. No rash. Palpitation: Normal elasticity for age Abdomen: Abdomen is distended . Bowel sounds +. There is no abdominal tenderness, no guarding/rigidity or organomegaly. has asterixis Psych: normal insight. normal affect/mood MSK: no specific joint tenderness or swelling. Digits and nails normal, no deformity : kidney not palpable. exam limited due to obesity. has umblical hernia Labs/imaging/EKG reviewed. Past medical history, past surgical history, social history, allergy reviewed and noted as below Family hx; no hx of CKD. non contributory renal imaging: Rt side cyst outpt urine pr/cr 447 PTH 188 SPEP/SKYLAR neg with normal K/L ratio Hep B/C neg echo: severe pHTN with normal lvef Objective - Vital Signs/Intake and Output Vital Signs (last 24 hours): Temp Pulse Resp BP Pulse Ox 97.8 F 79 32 H 146/80 79 L 11/14/18 00:00 11/14/18 12:00 11/14/18 12:00 11/14/18 11:01 11/14/18 12:00 Intake and Output: 11/14/18 11/14/18 06:59 18:59 Intake Total 570 150 Output Total 800 Balance -230 150 - Medications Medications: Current Medications Acetaminophen (Tylenol 325mg Tab) 650 mg PO Q4H PRN PRN Reason: pain and fever Last Admin: 11/12/18 05:55 Dose: 650 mg Albuterol/Ipratropium (Duoneb 3 Mg/0.5 Mg (3 Ml) Ud) 3 ml IH [id number] [facility] Last Admin: 11/14/18 07:37 Dose: 3 ml Albuterol/Ipratropium (Duoneb 3 Mg/0.5 Mg (3 Ml) Ud) 3 ml IH Q2H PRN PRN Reason: Shortness of Breath Aspirin (Ecotrin) 81 mg PO DAILY [facility] Last Admin: 11/14/18 09:09 Dose: 81 mg Atorvastatin Calcium (Lipitor) 40 mg PO DAILY [facility] Last Admin: 11/14/18 09:08 Dose: 40 mg Bacitracin (Bacitracin) 0 gm TOP BID [facility] Last Admin: 11/14/18 09:09 Dose: 1 dose Calcitriol (Rocaltrol) 0.25 mcg PO DAILY [facility] Last Admin: 11/14/18 09:08 Dose: 0.25 mcg Clopidogrel Bisulfate (Plavix) 75 mg PO DAILY [facility] Last Admin: 11/14/18 09:09 Dose: 75 mg Darbepoetin Bryan (Aranesp) 60 mcg SC QWK [facility] Last Admin: 11/12/18 13:55 Dose: 60 mcg Ferrous Sulfate (Feosol) 324 mg PO TID [facility] Last Admin: 11/14/18 09:13 Dose: 324 mg Heparin Sodium/Sodium Chloride (Heparin 43023 Units/250ml 1/2 Normal Saline) 25,000 units in 250 mls @ 12.16 mls/hr IV .[id number] [facility]; Protocol Last Titration: 11/14/18 08:52 Dose: 10 units/kg/hr, 10.133 mls/hr Ceftriaxone Sodium (Rocephin 1 Gram Ivpb) 1 gm in 100 mls @ 100 mls/hr IVPB DAILY [facility]; Protocol Stop: 11/24/18 10:01 [id number] Ethyl Esters (Lovaza) 1 gm PO DAILY [facility] Last Admin: 11/14/18 09:09 Dose: 1 gm Pantoprazole Sodium (Protonix Inj) 40 mg IVP DAILY [facility] Last Admin: 11/14/18 09:10 Dose: 40 mg Prednisone (Prednisone Tab) 20 mg PO DAILY [facility] Last Admin: 11/14/18 09:09 Dose: 20 mg Sevelamer HCl (Renagel) 1,600 mg PO TID [facility] Last Admin: 11/14/18 09:13 Dose: 1,600 mg Sodium Bicarbonate (Sodium Bicarbonate Tab) 650 mg PO BID [facility] Last Admin: 11/14/18 09:48 Dose: 650 mg Vitamin B Complex/Vit C/Folic Acid (Nephro-Samantha) 1 tab PO 0800 [facility] Last Admin: 11/14/18 08:13 Dose: 1 tab - Labs Labs: 11/14/18 05:00 11/14/18 05:00 PT 13.0 SECONDS (9.4-12.5) H 11/11/18 19:26 INR 1.17 11/11/18 19:26 APTT 55.3 Seconds (26.9-38.3) H 11/14/18 05:00
--- NOTE | 2018-11-14 13:04 | CP.PCM.PN ---
<Bill Dawson - Last Filed: 11/14/18 12:30> Subjective - Date & Time of Evaluation Date of Evaluation: 11/14/18 Time of Evaluation: 12:30 - Subjective Subjective: Bill Dawson, PGY-1, Internal Medicine Progress Note for Dr. Morse Patient seen and evaluated at bedside. Patient had no acute events overnight. Patient today had no acute complaints. 12-point ROS was unremarkable except for what was mentioned above. Objective - Vital Signs/Intake and Output Vital Signs (last 24 hours): Temp Pulse Resp BP Pulse Ox 97.8 F 79 32 H 146/80 79 L 11/14/18 00:00 11/14/18 12:00 11/14/18 12:00 11/14/18 11:01 11/14/18 12:00 Intake and Output: 11/14/18 11/14/18 06:59 18:59 Intake Total 570 150 Output Total 800 Balance -230 150 - Medications Medications: Current Medications Acetaminophen (Tylenol 325mg Tab) 650 mg PO Q4H PRN PRN Reason: pain and fever Last Admin: 11/12/18 05:55 Dose: 650 mg Albuterol/Ipratropium (Duoneb 3 Mg/0.5 Mg (3 Ml) Ud) 3 ml IH [id number] [facility] Last Admin: 11/14/18 07:37 Dose: 3 ml Albuterol/Ipratropium (Duoneb 3 Mg/0.5 Mg (3 Ml) Ud) 3 ml IH Q2H PRN PRN Reason: Shortness of Breath Aspirin (Ecotrin) 81 mg PO DAILY [facility] Last Admin: 11/14/18 09:09 Dose: 81 mg Atorvastatin Calcium (Lipitor) 40 mg PO DAILY [facility] Last Admin: 11/14/18 09:08 Dose: 40 mg Bacitracin (Bacitracin) 0 gm TOP BID [facility] Last Admin: 11/14/18 09:09 Dose: 1 dose Calcitriol (Rocaltrol) 0.25 mcg PO DAILY [facility] Last Admin: 11/14/18 09:08 Dose: 0.25 mcg Clopidogrel Bisulfate (Plavix) 75 mg PO DAILY [facility] Last Admin: 11/14/18 09:09 Dose: 75 mg Darbepoetin Bryan (Aranesp) 60 mcg SC QWK [facility] Last Admin: 11/12/18 13:55 Dose: 60 mcg Ferrous Sulfate (Feosol) 324 mg PO TID [facility] Last Admin: 11/14/18 09:13 Dose: 324 mg Heparin Sodium/Sodium Chloride (Heparin 33833 Units/250ml 1/2 Normal Saline) 25,000 units in 250 mls @ 12.16 mls/hr IV .[id number] [facility]; Protocol Last Titration: 11/14/18 08:52 Dose: 10 units/kg/hr, 10.133 mls/hr Ceftriaxone Sodium (Rocephin 1 Gram Ivpb) 1 gm in 100 mls @ 100 mls/hr IVPB DAILY [facility]; Protocol Stop: 11/24/18 10:01 [id number]-[id number] Ethyl Esters (Lovaza) 1 gm PO DAILY [facility] Last Admin: 11/14/18 09:09 Dose: 1 gm Pantoprazole Sodium (Protonix Inj) 40 mg IVP DAILY [facility] Last Admin: 11/14/18 09:10 Dose: 40 mg Prednisone (Prednisone Tab) 20 mg PO DAILY [facility] Last Admin: 11/14/18 09:09 Dose: 20 mg Sevelamer HCl (Renagel) 1,600 mg PO TID [facility] Last Admin: 11/14/18 09:13 Dose: 1,600 mg Sodium Bicarbonate (Sodium Bicarbonate Tab) 650 mg PO BID [facility] Last Admin: 11/14/18 09:48 Dose: 650 mg Vitamin B Complex/Vit C/Folic Acid (Nephro-Samantha) 1 tab PO 0800 [facility] Last Admin: 11/14/18 08:13 Dose: 1 tab - Labs Labs: 11/14/18 05:00 11/14/18 05:00 PT 13.0 SECONDS (9.4-12.5) H 11/11/18 19:26 INR 1.17 11/11/18 19:26 APTT 55.3 Seconds (26.9-38.3) H 11/14/18 05:00 - Constitutional Appears: Well, Non-toxic, No Acute Distress - Head Exam Head Exam: ATRAUMATIC, NORMAL INSPECTION, NORMOCEPHALIC - Eye Exam Eye Exam: EOMI, PERRL - ENT Exam ENT Exam: Mucous Membranes Moist - Neck Exam Neck Exam: Full ROM - Respiratory Exam Respiratory Exam: Clear to Ausculation Bilateral, NORMAL BREATHING PATTERN - Cardiovascular Exam Cardiovascular Exam: REGULAR RHYTHM, RRR - GI/Abdominal Exam GI & Abdominal Exam: Soft, Normal Bowel Sounds. absent: Tenderness - Extremities Exam Extremities Exam: Full ROM - Neurological Exam Neurological Exam: Alert, Awake, CN II-XII Intact, Oriented x3 - Skin Skin Exam: Dry, Intact Assessment and Plan - Assessment and Plan (Free Text) Assessment: 77 year old male with past medical history of congestive heart failure, COPD, asthma, CKD stage IV, hypertension, hyperlipidemia, and esophageal ulcerations in 04/2018 presented with respiratory distress to the hospital. Plan: E. Coli bacteria likely 2/2 to UTI -Blood culture and urine culture are growing E. Coli -Procalcitonin: 127 -Patient continues to have leukocytosis likely 2/2 to sepsis vs. steroids -Lactate was 3.8 on admission trending down to 1.1 -Will start ceftriaxone day 3 of antibiotics total NSTEMI -Downtrending troponin -No ST elevations on EKG -Patient last had stress test on 07/2018 which was positive for lateral ischemia -Patient is not a suitable candidate at this time for cardiac workup -Continue with aspirin, plavix, and lipitor -Patient currently on heparin drip. Will closely monitor hemoglobin due to patient's history of GI bleed Diastolic Congestive heart failure -Last echo in 04/2018 showed LVEF of 70% and severely calcified aortic valve and left ventricular hypertrophy with RVSP of 77 -Patient's chest X ray showed no edema and clinically does not look fluid overloaded -Beta brittni not given due to bradycardia at times SANDRA on CKD -As per Dr. Hazel, renal replacement therapy likely to be needed soon as patient was noted to have asterixis -Creatinine 5 on admission, trended up to 5.5 and now slowly trending down at 4.8 -Likely acidic due to CKD -Continue patient on feosol, aranesp, calcitriol, renagel, MVI, and sodium bicarbonate COPD exacerbation -ABG on 11/13: pH: 7.27, pO2: 94, pCO2: 44 -Tapered to prednisone 20 mg -Continue duonebs scheduled and PRN Metabolic acidosis with borderline anion gap acidosis -Likely secondary to SANDRA on CKD -Continue on sodium bicarbonate Normocytic anemia -Hgb: 8.1 from 8.6. Patient generally is anemia with transfusions on prior admission -Likely multifactorial from iron deficiency, and anemia of chronic disease -Continue with aranesp and feosol Hyperphosphatemia -Improved today -Continue with renagel Hyperlipidemia -Continue with lipitor Hypertension -Beta brittni not given due to bradycardia at times GI prophylaxis: protonix 40 mg daily DVT prophylaxis: heparin drip Patient plan discussed with attending. <Fabiola Morse - Last Filed: 11/14/18 13:13> Objective - Vital Signs/Intake and Output Vital Signs (last 24 hours): Temp Pulse Resp BP Pulse Ox 97.8 F 79 32 H 146/80 79 L 11/14/18 00:00 11/14/18 12:00 11/14/18 12:00 11/14/18 11:01 11/14/18 12:00 Intake and Output: 11/14/18 11/14/18 06:59 18:59 Intake Total 570 150 Output Total 800 Balance -230 150 - Medications Medications: Current Medications Acetaminophen (Tylenol 325mg Tab) 650 mg PO Q4H PRN PRN Reason: pain and fever Last Admin: 11/12/18 05:55 Dose: 650 mg Albuterol/Ipratropium (Duoneb 3 Mg/0.5 Mg (3 Ml) Ud) 3 ml IH [id number] [facility] Last Admin: 11/14/18 07:37 Dose: 3 ml Albuterol/Ipratropium (Duoneb 3 Mg/0.5 Mg (3 Ml) Ud) 3 ml IH Q2H PRN PRN Reason: Shortness of Breath Aspirin (Ecotrin) 81 mg PO DAILY [facility] Last Admin: 11/14/18 09:09 Dose: 81 mg Atorvastatin Calcium (Lipitor) 40 mg PO DAILY [facility] Last Admin: 11/14/18 09:08 Dose: 40 mg Bacitracin (Bacitracin) 0 gm TOP BID [facility] Last Admin: 11/14/18 09:09 Dose: 1 dose Calcitriol (Rocaltrol) 0.25 mcg PO DAILY [facility] Last Admin: 11/14/18 09:08 Dose: 0.25 mcg Clopidogrel Bisulfate (Plavix) 75 mg PO DAILY [facility] Last Admin: 11/14/18 09:09 Dose: 75 mg Darbepoetin Bryan (Aranesp) 60 mcg SC QWK [facility] Last Admin: 11/12/18 13:55 Dose: 60 mcg Ferrous Sulfate (Feosol) 324 mg PO TID [facility] Last Admin: 11/14/18 09:13 Dose: 324 mg Heparin Sodium/Sodium Chloride (Heparin 13322 Units/250ml 1/2 Normal Saline) 25,000 units in 250 mls @ 12.16 mls/hr IV .[id number] [facility]; Protocol Last Titration: 11/14/18 08:52 Dose: 10 units/kg/hr, 10.133 mls/hr Ceftriaxone Sodium (Rocephin 1 Gram Ivpb) 1 gm in 100 mls @ 100 mls/hr IVPB DAILY [facility]; Protocol Stop: 11/24/18 10:01 [id number] Ethyl Esters (Lovaza) 1 gm PO DAILY [facility] Last Admin: 11/14/18 09:09 Dose: 1 gm Pantoprazole Sodium (Protonix Inj) 40 mg IVP DAILY [facility] Last Admin: 11/14/18 09:10 Dose: 40 mg Prednisone (Prednisone Tab) 20 mg PO DAILY [facility] Last Admin: 11/14/18 09:09 Dose: 20 mg Sevelamer HCl (Renagel) 1,600 mg PO TID [facility] Last Admin: 11/14/18 09:13 Dose: 1,600 mg Sodium Bicarbonate (Sodium Bicarbonate Tab) 650 mg PO BID [facility] Last Admin: 11/14/18 09:48 Dose: 650 mg Vitamin B Complex/Vit C/Folic Acid (Nephro-Samantha) 1 tab PO 0800 [facility] Last Admin: 11/14/18 08:13 Dose: 1 tab - Labs Labs: 11/14/18 05:00 11/14/18 05:00 PT 13.0 SECONDS (9.4-12.5) H 11/11/18 19:26 INR 1.17 11/11/18 19:26 APTT 55.3 Seconds (26.9-38.3) H 11/14/18 05:00 Attending/Attestation - Attestation I have personally seen and examined this patient.: Yes I have fully participated in the care of the patient.: Yes I have reviewed all pertinent clinical information, including history, physical exam and plan: Yes Notes (Text): 11/14/18 13:11 77 year old male with past medical history of COPD, CHF, CKD, hypertension and esophageal ulcers (04/2018) who presented with acute respiratory distress, sepsis secondary to E Coli bacteremia/UTI, acute on chronic renal failure and possible NSTEMI. His dyspnea has improved with iv steroids and bipap. Continue with tapering steroids. Continue with iv antibiotics as per ID. He follows up with urology as outpatient. He is on heparin drip for possible NSTEMI. Cardiology is following. Monitor H/H closely while on heparin drip secondary to history of esophageal ulcerations. Nephrology is following for acute on chronic renal failure which slightly improved. Will follow up with cardiology and nephrology regarding any plan for cardiac cath or dialysis in near future. Fabiola Morse MD Hospitalist.
--- NOTE | 2018-11-14 14:02 | PN ---
DATE: 11/14/2018 SUBJECTIVE: The patient is in bed in no acute distress. The patient is awake and alert and nontoxic. No fevers and chills. He is awake. He is responsive. PHYSICAL EXAMINATION VITAL SIGNS: On exam, temperature is 98, blood pressure is 120/70 and respiratory rate of 16. HEENT: Unremarkable. NECK: Supple. LUNGS: Have decreased breath sounds. HEART: Normal S1 and S2. ABDOMINAL: Soft and nontender. LABORATORY DATA: Reveals a white count of 30,000, hemoglobin of 8. Coagulation is noted. Blood gases are noted. Chemistries reveals a BUN of 102 and creatinine of 4.8. Urinalysis is noted and serology is reviewed. Microbiology reveals E. coli in the blood. It is resistant to Cipro, resistant to ampicillin and resistant to Bactrim. It is sensitive to ceftriaxone and there is also an E. coli in the urine which has the same sensitivity pattern. Review of orders reveals the patient to be on meropenem. ASSESSMENT AND PLAN: This is 77-year-old male who was seen earlier this morning in [facility], bed 2, who was admitted with his history of congestive heart failure and in the past had an echo which showed an ejection fraction of 70%, admitted with sepsis with Escherichia coli bacteremia secondary to Escherichia coli urine as the source and acute diastolic congestive heart failure on top of chronic congestive heart failure and currently we will switch to ceftriaxone and the patient is doing well. The nasal MRSA screen is positive. The patient has been treated, currently on treatment for that. We will discontinue meropenem and switch to ceftriaxone and. We will repeat the blood cultures. If the patient continues to do well, we will be able to switch to p.o. antibiotics. The patient's LFTs were normal with a normal alk phos. Dr. Morse's note is reviewed from yesterday and Dr. Hazel's progress note is reviewed from yesterday. Dr. Kevan Sam's progress note from yesterday is also reviewed. We will check on the repeat blood cultures and make further recommendations. Uriah Mayer MD [facility] # [id number]
--- NOTE | 2018-11-14 15:05 | PN ---
DATE: 11/14/2018 CARDIOLOGY FOLLOWUP(To Dr. Gibson) SUBJECTIVE: The patient is comfortable. No dyspnea noted. PHYSICAL EXAMINATION VITAL SIGNS: Blood pressure 146/80 and heart rates in the 70s. NECK: Negative JVD. LUNGS: Without rales. HEART: Reveals S1 and S2 and with a short murmur heard. EXTREMITIES: Unchanged. LABORATORY DATA: White count is 30.7 and hemoglobin is 8.1. Chemistries; BUN and creatinine is 102/48 with a glucose of 142. IMPRESSION: 1. Status post congestive heart failure. 2. Critical aortic stenosis. 3. Severe pulmonary hypertension. 4. Renal insufficiency. 5. Sepsis. 6. Anemia. Given these findings, awaiting for Nephrology to place the patient on dialysis, which we will then consider cardiac catheterization. In the morning, we will transfer the care back to Dr. Gibson. Kevan Sam MD
--- NOTE | 2018-11-14 15:17 | US ---
HISTORY: Leg pain and swelling. Evaluate for DVT PHYSICIAN(S): Kevan Rosado MD. TECHNIQUE: Duplex sonography and color-flow Doppler with graded compression were used to evaluate the deep venous systems of both lower extremities. FINDINGS: The visualized deep venous systems of both lower extremities are sonographically normal and compressible. Normal wave forms and augmentation are seen. There is no sonographic evidence for deep venous thrombosis in the visualized segments of both lower extremities. IMPRESSION: No sonographic evidence for deep venous thrombosis in the visualized segments of both lower extremities.
[2018-11-14] MEDS: Heparin25000 units/250ml 1/2NS 25,000 UNITS/250 ML BAG IV SCH (17:55)
[2018-11-15] MEDS: Albuterol-Ipratrop 3 mg / 0.5 (3 ml) UD IH SCH ×4 (02:00→20:03)
[2018-11-15 06:05] LABS: HEMOGLOBIN 8.1 g/dL (14.0-18.0); MEAN CORPUSCULAR HGB CONC 31.8 g/dl (31.0-37.0); MEAN PLATELET VOLUME 9.5 fl (7.0-11.0); RED CELL DISTRIBUTION WIDTH 15.6 % (11.5-14.5); WHITE BLOOD COUNT 24.8 10^3/uL (4.5-11.0)
[2018-11-15 06:27] LABS: CALCIUM 8.9 mg/dL (8.4-10.5)
--- NOTE | 2018-11-15 07:19 | CP.PCM.PN ---
<Moises Caal - Last Filed: 11/15/18 14:25> Subjective - Date & Time of Evaluation Date of Evaluation: 11/15/18 Time of Evaluation: 07:19 - Subjective Subjective: PGY-1 Medicine Progress Note for Dr. Nunes Patient seen and evaluated at bedside. Patient had no acute events overnight. Patient today had no acute complaints. Objective - Vital Signs/Intake and Output Vital Signs (last 24 hours): Temp Pulse Resp BP Pulse Ox 98.2 F 62 21 141/79 97 11/15/18 00:00 11/15/18 06:06 11/15/18 06:06 11/15/18 06:06 11/15/18 06:06 Intake and Output: 11/15/18 11/15/18 06:59 18:59 Intake Total 825 Output Total 600 Balance 225 - Medications Medications: Current Medications Acetaminophen (Tylenol 325mg Tab) 650 mg PO Q4H PRN PRN Reason: pain and fever Last Admin: 11/12/18 05:55 Dose: 650 mg Albuterol/Ipratropium (Duoneb 3 Mg/0.5 Mg (3 Ml) Ud) 3 ml IH [id number] [facility] Last Admin: 11/15/18 02:00 Dose: 3 ml Albuterol/Ipratropium (Duoneb 3 Mg/0.5 Mg (3 Ml) Ud) 3 ml IH Q2H PRN PRN Reason: Shortness of Breath Aspirin (Ecotrin) 81 mg PO DAILY [facility] Last Admin: 11/14/18 09:09 Dose: 81 mg Atorvastatin Calcium (Lipitor) 40 mg PO DAILY [facility] Last Admin: 11/14/18 09:08 Dose: 40 mg Bacitracin (Bacitracin) 0 gm TOP BID [facility] Last Admin: 11/14/18 18:34 Dose: 1 dose Calcitriol (Rocaltrol) 0.25 mcg PO DAILY [facility] Last Admin: 11/14/18 09:08 Dose: 0.25 mcg Clopidogrel Bisulfate (Plavix) 75 mg PO DAILY [facility] Last Admin: 11/14/18 09:09 Dose: 75 mg Darbepoetin Bryan (Aranesp) 60 mcg SC QWK [facility] Last Admin: 11/12/18 13:55 Dose: 60 mcg Ferrous Sulfate (Feosol) 324 mg PO TID [facility] Last Admin: 11/14/18 18:34 Dose: 324 mg Heparin Sodium/Sodium Chloride (Heparin 89382 Units/250ml 1/2 Normal Saline) 25,000 units in 250 mls @ 12.16 mls/hr IV .[id number] [facility]; Protocol Last Admin: 11/14/18 17:55 Dose: 10 units/kg/hr, 10.133 mls/hr Ceftriaxone Sodium (Rocephin 1 Gram Ivpb) 1 gm in 100 mls @ 100 mls/hr IVPB DAILY [facility]; Protocol Stop: 11/24/18 10:01 [id number]-[id number] Ethyl Esters (Lovaza) 1 gm PO DAILY [facility] Last Admin: 11/14/18 09:09 Dose: 1 gm Pantoprazole Sodium (Protonix Inj) 40 mg IVP DAILY [facility] Last Admin: 11/14/18 09:10 Dose: 40 mg Prednisone (Prednisone Tab) 20 mg PO DAILY [facility] Last Admin: 11/14/18 09:09 Dose: 20 mg Sevelamer HCl (Renagel) 1,600 mg PO TID [facility] Last Admin: 11/14/18 18:33 Dose: 1,600 mg Sodium Bicarbonate (Sodium Bicarbonate Tab) 650 mg PO BID [facility] Last Admin: 11/14/18 18:33 Dose: 650 mg Vitamin B Complex/Vit C/Folic Acid (Nephro-Samantha) 1 tab PO 0800 [facility] Last Admin: 11/14/18 08:13 Dose: 1 tab - Labs Labs: 11/15/18 05:30 11/15/18 05:30 PT 13.0 SECONDS (9.4-12.5) H 11/11/18 19:26 INR 1.17 11/11/18 19:26 APTT 59.7 Seconds (26.9-38.3) H 11/15/18 05:30 - Additional Findings Additional findings: - Constitutional Appears: Well, Non-toxic, No Acute Distress - Head Exam Head Exam: ATRAUMATIC, NORMAL INSPECTION, NORMOCEPHALIC - Eye Exam Eye Exam: EOMI, PERRL - ENT Exam ENT Exam: Mucous Membranes Moist - Neck Exam Neck Exam: Full ROM - Respiratory Exam Respiratory Exam: Clear to Ausculation Bilateral, NORMAL BREATHING PATTERN - Cardiovascular Exam Cardiovascular Exam: REGULAR RHYTHM, RRR - GI/Abdominal Exam GI & Abdominal Exam: Soft, Normal Bowel Sounds. absent: Tenderness - Extremities Exam Extremities Exam: Full ROM - Neurological Exam Neurological Exam: Alert, Awake, CN II-XII Intact, Oriented x3 - Skin Skin Exam: Dry, Intact Assessment and Plan - Assessment and Plan (Free Text) Assessment: Patient is a 77 year old male with a past medical history of congestive heart failure, COPD, asthma, CKD stage IV, hypertension, hyperlipidemia, and esophageal ulcerations presented with respiratory distress to the hospital. Plan: E. Coli bacteremia - Blood culture (11/14): no growth to date - Blood culture (11/11): E. coli - Urine culture (11/11): E. Coli - Patient continues to have leukocytosis likely 10/16 to sepsis vs. steroids - ID consulted, Dr. Hugo - Continue Ceftriaxone 1g IV QD (Started on 11/15) - total of 9 days - Patient was on Meropenem NSTEMI - Patient currently on Heparin drip - Cardiology consulted, Dr. Sam - No ST elevations on EKG - Patient last had stress test on 07/2018 which was positive for lateral ischemia - Patient is not a suitable candidate at this time for cardiac cath due to SANDRA - Continue with Aspirin, Plavix, and Lipitor Diastolic Congestive heart failure - Last echo in 04/2018 showed LVEF of 70% and severely calcified aortic valve and left ventricular hypertrophy with RVSP of 77 - Patient's chest X-ray showed no edema - Beta brittni held due to bradycardia SANDRA on CKD - BUN/Cr downtrending; BUN/Cr today: 104/4.6 - Nephtology consulted, Dr. Hazel - Continue patient on Feosol, Aranesp, Calcitriol, Renagel, MVI, and sodium bicarbonate - Avoid nephrotoxic agents - Continue to monitor Atrial Fibrillation - EKG: Atrial fibrillation @ 83 bpm - CHADS-VASc score: 4 points - Patient currently on Heparin drip COPD exacerbation - Continue Prednisone 20 mg - Continue Duonebs scheduled and PRN Anion gap metabolic acidosis, resolved - Likely secondary to SANDRA on CKD - Continue on sodium bicarbonate Normocytic anemia - Likely multifactorial from iron deficiency, and anemia of chronic disease - Continue with Aranesp and Feosol Hyperphosphatemia - Continue with home medication, Renagel Hyperlipidemia - Continue with home medication, Lipitor Hypertension - Beta brittni held due to bradycardia GI prophylaxis: Protonix 40 mg daily DVT prophylaxis: heparin drip Patient seen and plan discussed with attending, Dr. Des Caal, PGY-1 <Vikki Nunes - Last Filed: 11/15/18 17:15> Objective - Vital Signs/Intake and Output Vital Signs (last 24 hours): Temp Pulse Resp BP Pulse Ox 98 F 60 22 155/88 H 96 11/15/18 15:59 11/15/18 15:59 11/15/18 15:59 11/15/18 14:56 11/15/18 15:59 Intake and Output: 11/15/18 11/15/18 06:59 18:59 Intake Total 825 Output Total 600 Balance 225 - Medications Medications: Current Medications Acetaminophen (Tylenol 325mg Tab) 650 mg PO Q4H PRN PRN Reason: pain and fever Last Admin: 11/12/18 05:55 Dose: 650 mg Albuterol/Ipratropium (Duoneb 3 Mg/0.5 Mg (3 Ml) Ud) 3 ml IH [id number] [facility] Last Admin: 11/15/18 14:08 Dose: 3 ml Albuterol/Ipratropium (Duoneb 3 Mg/0.5 Mg (3 Ml) Ud) 3 ml IH Q2H PRN PRN Reason: Shortness of Breath Aspirin (Ecotrin) 81 mg PO DAILY [facility] Last Admin: 11/15/18 09:29 Dose: 81 mg Atorvastatin Calcium (Lipitor) 40 mg PO DAILY [facility] Last Admin: 11/15/18 09:21 Dose: 40 mg Calcitriol (Rocaltrol) 0.25 mcg PO DAILY [facility] Last Admin: 11/15/18 09:21 Dose: 0.25 mcg Clopidogrel Bisulfate (Plavix) 75 mg PO DAILY [facility] Last Admin: 11/15/18 09:21 Dose: 75 mg Darbepoetin Bryan (Aranesp) 60 mcg SC QWK [facility] Last Admin: 11/12/18 13:55 Dose: 60 mcg Ferrous Sulfate (Feosol) 324 mg PO TID [facility] Last Admin: 11/15/18 14:56 Dose: 324 mg Heparin Sodium/Sodium Chloride (Heparin 48695 Units/250ml 1/2 Normal Saline) 25,000 units in 250 mls @ 12.16 mls/hr IV .[id number] [facility]; Protocol Last Admin: 11/14/18 17:55 Dose: 10 units/kg/hr, 10.133 mls/hr Ceftriaxone Sodium (Rocephin 1 Gram Ivpb) 1 gm in 100 mls @ 100 mls/hr IVPB [facility] L[facility]; Protocol Stop: 11/24/18 10:01 Last Admin: 11/15/18 09:20 Dose: 100 mls/hr Mupirocin (Bactroban Ointment) 0 gm TOP BID [facility] Last Admin: 11/15/18 10:00 Dose: 1 applic Juxty-1-Ftoc Ethyl Esters (Lovaza) 1 gm PO DAILY [facility] Last Admin: 11/15/18 09:21 Dose: 1 gm Pantoprazole Sodium (Protonix Ec Tab) 40 mg PO ACB [facility] Prednisone (Prednisone Tab) 20 mg PO DAILY [facility] Last Admin: 11/15/18 09:22 Dose: 20 mg Sevelamer HCl (Renagel) 1,600 mg PO TID [facility] Last Admin: 11/15/18 14:56 Dose: 1,600 mg Sodium Bicarbonate (Sodium Bicarbonate Tab) 650 mg PO BID [facility] Last Admin: 11/15/18 09:20 Dose: 650 mg Vitamin B Complex/Vit C/Folic Acid (Nephro-Samantha) 1 tab PO 0800 [facility] Last Admin: 11/15/18 08:45 Dose: 1 tab - Labs Labs: 11/15/18 05:30 11/15/18 05:30 PT 13.0 SECONDS (9.4-12.5) H 11/11/18 19:26 INR 1.17 11/11/18 19:26 APTT 59.7 Seconds (26.9-38.3) H 11/15/18 05:30 Attending/Attestation - Attestation I have personally seen and examined this patient.: Yes I have fully participated in the care of the patient.: Yes I have reviewed all pertinent clinical information, including history, physical exam and plan: Yes Notes (Text): 11/15/18 17:09 Patient was seen and examined with medical office asst. 77 year old male with past medical history of COPD, CHF with systolic dysfunction, CKD base line creatinin around 2.8, hypertension and esophageal ulcers (04/2018) who presented with acute respiratory distress, sepsis secondary to E Coli bacteremia/UTI, acute on chronic renal failure and possible NSTEMI. Sepsis is improved.Patient is afebrile.WBC count is coming down.Continue with iv antibiotics as per ID. He follows up with urology as outpatient. COPD is improving, on Neb and sterois, wheezing is better today. Acute on chronic renal failure, creatin is improving.Patient has sign of fluid overload, IV fluid is discontinued, discuss with Nephrology.IV lasix 40 mg is given, we will monitor BUN and creatinin. AF, Rate is controlled on anticicoagulation with Heparin. Possible NSEMI, Patient is pain free, on ASA/lipitor/Cardiology is following, plan for cardiac cath once renal functions improve. Prognosis is guarded. Management plan was discussed in detail with patient. Education was provided. 11/15/18 17:13
[2018-11-15] MEDS: Multivitamin Vitamin B Complex (Nephro-Vite) Tab PO SCH (08:45)
[2018-11-15] MEDS: cefTRIAXone 1 gm 1 GM/100 ML BAG IVPB SCH (09:20)
[2018-11-15] MEDS: Omega-3-Acid Ethyl Esters 1 GM Cap PO SCH (09:21)
[2018-11-15] MEDS: Mupirocin 2% Ointment 15 GM TUBE TOP SCH ×2 (10:00→17:41)
--- NOTE | 2018-11-15 12:43 | PN ---
DATE: 11/15/2018 SUBJECTIVE: The patient is in bed in no acute distress, nontoxic. PHYSICAL EXAMINATION: VITAL SIGNS: Temperature is 98, blood pressure is 140/70, respiratory rate of 21. HEENT: Unremarkable. NECK: Supple. LUNGS: Decreased breath sounds. HEART: Normal S1 and S2. ABDOMEN: Soft. LABORATORY DATA: Reveals a white count of 24,000, hemoglobin is noted to be 8, platelets of 195. Chemistries reveals a BUN of 104, creatinine 4.6. The patient's PSA is 66. Urinalysis is noted and serology is reviewed and microbiology reveals E. Coli in the urine and E. Coli in the blood. Repeat blood cultures are pending. MEDICATIONS: The patient is also on prednisone and ceftriaxone. ASSESSMENT AND PLAN: He is a 77-year-old male was seen earlier today in [facility], bed two, admitted with congestive heart failure, had an echo in the past which showed ejection fraction of 70%, admitted with sepsis with Escherichia coli bacteremia secondary to Escherichia coli urine with prostatitis and elevated PSA with acute diastolic congestive heart failure on top of chronic congestive heart failure, should have urology evaluation, currently on ceftriaxone and we will check on the repeat cultures, will need prolonged antibiotics prostatitis. Awaiting for Urology. Uriah Mayer MD
[2018-11-15] MEDS: Heparin25000 units/250ml 1/2NS 25,000 UNITS/250 ML BAG IV SCH (19:03)
--- NOTE | 2018-11-15 19:58 | PN ---
DATE: 11/15/2018 FOLLOWUP SUBJECTIVE: The patient is mild short of breath and experiencing productive cough. When the patient asked about decision for hemodialysis in the past, he stated twice he was scheduled for AV fistula but it was canceled for unclear reason. PHYSICAL EXAMINATION: VITAL SIGNS: Blood pressure 155/88, heart rate 60, temperature 98, respiration 22. HEENT: Pale conjunctivae. CHEST: Bibasilar rhonchi. HEART: S1 and S2, regular. ABDOMEN: Soft. EXTREMITIES: 1+ pitting edema. LABORATORY DATA: Hemoglobin and hematocrit 8.1 and 25.5, white count 24.8, platelet count 195,000. Today's BUN and creatinine are 104 and 4.6 respectively. ASSESSMENT: 1. Critical aortic stenosis. 2. Advanced renal insufficiency. 3. Chronic atrial fibrillation. 4. Gram-negative sepsis. Blood culture is positive for Escherichia coli, and urine culture is also positive for Escherichia coli. 5. Borderline troponin elevation. 6. Pulmonary hypertension. RECOMMENDATIONS: Continue current albuterol inhaler. Continue aspirin 81 mg once a day. Continue therapeutic intravenous heparin. Continue Plavix 75 mg once a day, Rocephin 1 g intravenously. Obtain a portable chest x-ray. Dhaval Gibson MD
--- NOTE | 2018-11-15 21:31 | CP.PCM.PN ---
Subjective - Date & Time of Evaluation Date of Evaluation: 11/15/18 Time of Evaluation: 11:00 - Subjective Subjective: Nephrology Consultation Note: Assessment: stable GNR sepsis non-oliguric SANDRA likely due to pre-renal state (as evident by concentrated urine and hemoconcentration), ATN due to sepsis sepsis with likely COPD exacerbation and less likely chf exacerbation CKD stage 4 with 443 mg proteinuria likely Due to HTN HTN kidney disease (I12.9) Obesity Anemia of chronic disease hx of COPD, CHF, ex smoker, PE esophageal ulceration with diverticuli on EGD 05/13/18 Plan cr improbing BUN>>>cr rise, sec to steroid use, azotemia volume overloaded, agree with stopping fluids can give a dose of lasix Hypertension control with meds as ordered. pt not on RAAS brittni, will defer it due to advanced CKD. Monitor I/O, daily weights and renal function while in hospital COPD management as per primary team/pulmonary pt on weekly vit D (stop as level 52) and calcitriol, phos binders renagel 1600 tid Physical Examination: General Appearance: Comfortable, in no acute respiratory distress, co-operative. obese Vitals reviewed and noted as below Head; Atraumatic, normocephalic ENT: no ulcers no thrush. Tongue is midline. Oropharynx: no rash or ulcers. EYES: b/l PERRLA Neck; supple no lymphadenopathy, no thyromegaly or bruit Lungs: Normal respiratory rate/effort. Breath sounds b/l with equal with basal crepts Heart: Normal rate. s1s2 normal. No rub or gallop. Extremities: non pitting edema. No varicose veins. chronic venous stasis changes in leg noted Neurological: Patient is awake alert and follow commands no focal deficit Skin: dry and warm. Normal turgor. No rash. Palpitation: Normal elasticity for age Abdomen: Abdomen is distended . Bowel sounds +. There is no abdominal tenderness, no guarding/rigidity or organomegaly. has asterixis Psych: normal insight. normal affect/mood MSK: no specific joint tenderness or swelling. Objective - Vital Signs/Intake and Output Vital Signs (last 24 hours): Temp Pulse Resp BP Pulse Ox 98 F 66 17 191/96 H 95 11/15/18 15:59 11/15/18 19:40 11/15/18 19:40 11/15/18 19:00 11/15/18 19:00 Intake and Output: 11/15/18 11/16/18 18:59 06:59 Intake Total 1120 Output Total 700 Balance 420 - Medications Medications: Current Medications Acetaminophen (Tylenol 325mg Tab) 650 mg PO Q4H PRN PRN Reason: pain and fever Last Admin: 11/12/18 05:55 Dose: 650 mg Albuterol/Ipratropium (Duoneb 3 Mg/0.5 Mg (3 Ml) Ud) 3 ml IH [id number] [facility] Last Admin: 11/15/18 20:03 Dose: 3 ml Albuterol/Ipratropium (Duoneb 3 Mg/0.5 Mg (3 Ml) Ud) 3 ml IH Q2H PRN PRN Reason: Shortness of Breath Aspirin (Ecotrin) 81 mg PO DAILY [facility] Last Admin: 11/15/18 09:29 Dose: 81 mg Atorvastatin Calcium (Lipitor) 40 mg PO DAILY [facility] Last Admin: 11/15/18 09:21 Dose: 40 mg Calcitriol (Rocaltrol) 0.25 mcg PO DAILY [facility] Last Admin: 11/15/18 09:21 Dose: 0.25 mcg Clopidogrel Bisulfate (Plavix) 75 mg PO DAILY [facility] Last Admin: 11/15/18 09:21 Dose: 75 mg Darbepoetin Bryan (Aranesp) 60 mcg SC QWK [facility] Last Admin: 11/12/18 13:55 Dose: 60 mcg Ferrous Sulfate (Feosol) 324 mg PO TID [facility] Last Admin: 11/15/18 17:41 Dose: 324 mg Heparin Sodium/Sodium Chloride (Heparin 44982 Units/250ml 1/2 Normal Saline) 25,000 units in 250 mls @ 12.16 mls/hr IV .[id number] [facility]; Protocol Last Admin: 11/15/18 19:03 Dose: 10 units/kg/hr, 10.133 mls/hr Ceftriaxone Sodium (Rocephin 1 Gram Ivpb) 1 gm in 100 mls @ 100 mls/hr IVPB DAILY [facility]; Protocol Stop: 11/24/18 10:01 Last Admin: 11/15/18 09:20 Dose: 100 mls/hr Mupirocin (Bactroban Ointment) 0 gm TOP BID [facility] Last Admin: 11/15/18 17:41 Dose: 1 applic Cxfzn-0-Pmoo Ethyl Esters (Lovaza) 1 gm PO DAILY [facility] Last Admin: 11/15/18 09:21 Dose: 1 gm Pantoprazole Sodium (Protonix Ec Tab) 40 mg PO ACB [facility] Prednisone (Prednisone Tab) 20 mg PO DAILY [facility] Last Admin: 11/15/18 09:22 Dose: 20 mg Sevelamer HCl (Renagel) 1,600 mg PO TID [facility] Last Admin: 11/15/18 17:41 Dose: 1,600 mg Sodium Bicarbonate (Sodium Bicarbonate Tab) 650 mg PO BID [facility] Last Admin: 11/15/18 17:41 Dose: 650 mg Vitamin B Complex/Vit C/Folic Acid (Nephro-Samantha) 1 tab PO 0800 [facility] Last Admin: 11/15/18 08:45 Dose: 1 tab - Labs Labs: 11/15/18 05:30 11/15/18 05:30 PT 13.0 SECONDS (9.4-12.5) H 11/11/18 19:26 INR 1.17 11/11/18 19:26 APTT 59.7 Seconds (26.9-38.3) H 11/15/18 05:30
[2018-11-16] MEDS: Albuterol-Ipratrop 3 mg / 0.5 (3 ml) UD IH SCH ×4 (01:59→19:51)
[2018-11-16 06:02] LABS: HEMOGLOBIN 8.1 g/dL (14.0-18.0); MEAN CELL VOLUME 85.2 fl (80.0-105.0); MEAN CORPUSCULAR HEMOGLOBIN 26.6 pg (25.0-35.0); MEAN CORPUSCULAR HGB CONC 31.3 g/dl (31.0-37.0); MEAN PLATELET VOLUME 10.1 fl (7.0-11.0); RBC 3.04 10^6/uL (3.5-6.1); RED CELL DISTRIBUTION WIDTH 15.5 % (11.5-14.5); WHITE BLOOD COUNT 19.1 10^3/uL (4.5-11.0)
[2018-11-16 06:23] LABS: CALCIUM 9.2 mg/dL (8.4-10.5)
--- NOTE | 2018-11-16 06:42 | CP.PCM.PN ---
<Moises Caal - Last Filed: 11/16/18 14:30> Subjective - Date & Time of Evaluation Date of Evaluation: 11/16/18 Time of Evaluation: 06:42 - Subjective Subjective: PGY-1 Medicine Progress Note for Dr. Nunes Patient seen and evaluated at bedside. Patient had no acute events overnight. Blood pressure overnight was in the 160's/80's. Otherwise he denies fevers, chills, headaches, shortness of breath, chest pain, N/V/D, or any other complaints. Objective - Vital Signs/Intake and Output Vital Signs (last 24 hours): Temp Pulse Resp BP Pulse Ox 98 F 57 L 18 164/78 H 100 11/16/18 04:00 11/16/18 04:00 11/16/18 04:00 11/16/18 04:00 11/16/18 04:00 Intake and Output: 11/15/18 11/16/18 18:59 06:59 Intake Total 1120 Output Total 700 Balance 420 - Medications Medications: Current Medications Acetaminophen (Tylenol 325mg Tab) 650 mg PO Q4H PRN PRN Reason: pain and fever Last Admin: 11/15/18 22:08 Dose: 650 mg Albuterol/Ipratropium (Duoneb 3 Mg/0.5 Mg (3 Ml) Ud) 3 ml IH [id number] [facility] Last Admin: 11/16/18 01:59 Dose: 3 ml Albuterol/Ipratropium (Duoneb 3 Mg/0.5 Mg (3 Ml) Ud) 3 ml IH Q2H PRN PRN Reason: Shortness of Breath Aspirin (Ecotrin) 81 mg PO DAILY [facility] Last Admin: 11/15/18 09:29 Dose: 81 mg Atorvastatin Calcium (Lipitor) 40 mg PO DAILY [facility] Last Admin: 11/15/18 09:21 Dose: 40 mg Calcitriol (Rocaltrol) 0.25 mcg PO DAILY [facility] Last Admin: 11/15/18 09:21 Dose: 0.25 mcg Clopidogrel Bisulfate (Plavix) 75 mg PO DAILY [facility] Last Admin: 11/15/18 09:21 Dose: 75 mg Darbepoetin Bryan (Aranesp) 60 mcg SC QWK [facility] Last Admin: 11/12/18 13:55 Dose: 60 mcg Ferrous Sulfate (Feosol) 324 mg PO TID [facility] Last Admin: 11/15/18 17:41 Dose: 324 mg Heparin Sodium/Sodium Chloride (Heparin 31403 Units/250ml 1/2 Normal Saline) 25,000 units in 250 mls @ 12.16 mls/hr IV .[id number] [facility]; Protocol Last Admin: 11/15/18 19:03 Dose: 10 units/kg/hr, 10.133 mls/hr Ceftriaxone Sodium (Rocephin 1 Gram Ivpb) 1 gm in 100 mls @ 100 mls/hr IVPB DAILY [facility]; Protocol Stop: 11/24/18 10:01 Last Admin: 11/15/18 09:20 Dose: 100 mls/hr Mupirocin (Bactroban Ointment) 0 gm TOP BID [facility] Last Admin: 11/15/18 17:41 Dose: 1 applic Otmud-7-[id number] Ethyl Esters (Lovaza) 1 gm PO DAILY [facility] Last Admin: 11/15/18 09:21 Dose: 1 gm Pantoprazole Sodium (Protonix Ec Tab) 40 mg PO ACB [facility] Prednisone (Prednisone Tab) 20 mg PO DAILY [facility] Last Admin: 11/15/18 09:22 Dose: 20 mg Sevelamer HCl (Renagel) 1,600 mg PO TID [facility] Last Admin: 11/15/18 17:41 Dose: 1,600 mg Sodium Bicarbonate (Sodium Bicarbonate Tab) 650 mg PO BID [facility] Last Admin: 11/15/18 17:41 Dose: 650 mg Vitamin B Complex/Vit C/Folic Acid (Nephro-Samantha) 1 tab PO 0800 [facility] Last Admin: 11/15/18 08:45 Dose: 1 tab - Labs Labs: 11/16/18 05:20 11/16/18 05:20 PT 13.0 SECONDS (9.4-12.5) H 11/11/18 19:26 INR 1.17 11/11/18 19:26 APTT 54.7 Seconds (26.9-38.3) H 11/16/18 05:20 - Additional Findings Additional findings: - Constitutional Appears: Well, Non-toxic, No Acute Distress - Head Exam Head Exam: ATRAUMATIC, NORMAL INSPECTION, NORMOCEPHALIC - Eye Exam Eye Exam: EOMI, PERRL - ENT Exam ENT Exam: Mucous Membranes Moist - Neck Exam Neck Exam: Full ROM - Respiratory Exam Respiratory Exam: Clear to Ausculation Bilateral, NORMAL BREATHING PATTERN - Cardiovascular Exam Cardiovascular Exam: REGULAR RHYTHM, RRR, S1, S2 - GI/Abdominal Exam GI & Abdominal Exam: Soft, Normal Bowel Sounds. absent: Tenderness - Extremities Exam Extremities Exam: Full ROM. No edema noted on bilateral legs. - Neurological Exam Neurological Exam: Alert, Awake, CN II-XII Intact, Oriented x3 - Skin Skin Exam: Dry, Intact Assessment and Plan - Assessment and Plan (Free Text) Assessment: Patient is a 77 year old male with a past medical history of congestive heart failure, COPD, asthma, CKD stage IV, hypertension, hyperlipidemia, and esophageal ulcerations presented with respiratory distress to the hospital. Plan: E. Coli bacteremia - Likely 2/2 to prostatitis vs UTI - Blood culture (11/14): no growth to date - Blood culture (11/11): E. coli - Urine culture (11/11): E. Coli - ID consulted, Dr. Hugo/Dr. Mayer - PSA elevated - Patient continues to have leukocytosis likely 2/2 to sepsis vs. steroids - Continue Ceftriaxone 1g IV QD (Started on 11/15) - total of 9 days - Patient was on Meropenem NSTEMI - Patient currently on Heparin drip - Cardiology consulted, Dr. Sam - No ST elevations on EKG - Patient last had stress test on 07/2018 which was positive for lateral ische alex - Patient is not a suitable candidate at this time for cardiac cath due to SANDRA - Continue with Aspirin, Plavix, and Lipitor Diastolic Congestive heart failure - Last echo in 04/2018 showed LVEF of 70% and severely calcified aortic valve and left ventricular hypertrophy with RVSP of 77 - Coreg 3.125mg PO BID - Resume Lasix 40mg PO QD - Patient's chest X-ray showed no edema - Monitor I/O - Daily weights Hypertension - Start Coreg 3.125mg PO BID - Resume Lasix 40mg PO BID - Hydralazine 10mg IVP Q8 PRN - YASH/ARB's not indicated due to SANDRA SANDRA on CKD - Nephtology consulted, Dr. Hazel - Continue patient on Feosol, Aranesp, Calcitriol, Renagel, MVI, and sodium bicarbonate - Avoid nephrotoxic agents- avoid fleet enema/magnesium based laxatives, NSAIDs, iodinated contrast - Continue to monitor Atrial Fibrillation - EKG: Atrial fibrillation @ 83 bpm - CHADS-VASc score: 4 points - HAS-BLED score: 4 points - Patient currently on Heparin drip COPD exacerbation - Continue Prednisone 20 mg - Continue Duonebs scheduled and PRN Normocytic anemia - Likely multifactorial from iron deficiency, and anemia of chronic disease - Continue with Aranesp and Feosol Hyperphosphatemia - Continue with home medication, Renagel Hyperlipidemia - Continue with home medication, Lipitor GI prophylaxis: Protonix 40 mg daily DVT prophylaxis: heparin drip Patient seen and plan discussed with attending, Dr. Des Caal, PGY-1 <Vikki Nunes - Last Filed: 11/18/18 13:59> Objective - Vital Signs/Intake and Output Vital Signs (last 24 hours): Temp Pulse Resp BP Pulse Ox 98.1 F 68 18 165/78 H 99 11/18/18 12:57 11/18/18 12:57 11/18/18 12:57 11/18/18 12:57 11/18/18 06:00 Intake and Output: 11/18/18 11/18/18 06:59 18:59 Intake Total 540 Output Total 600 Balance -60 - Medications Medications: Current Medications Acetaminophen (Tylenol 325mg Tab) 650 mg PO Q4H PRN PRN Reason: pain and fever Last Admin: 11/17/18 22:06 Dose: 650 mg Albuterol/Ipratropium (Duoneb 3 Mg/0.5 Mg (3 Ml) Ud) 3 ml IH [id number] [facility] Last Admin: 11/18/18 13:30 Dose: 3 ml Albuterol/Ipratropium (Duoneb 3 Mg/0.5 Mg (3 Ml) Ud) 3 ml IH Q2H PRN PRN Reason: Shortness of Breath Apixaban (Eliquis) 2.5 mg PO BID [facility]; Protocol Last Admin: 11/18/18 10:10 Dose: 2.5 mg Aspirin (Ecotrin) 81 mg PO DAILY [facility] Last Admin: 11/18/18 10:10 Dose: 81 mg Atorvastatin Calcium (Lipitor) 40 mg PO DAILY [facility] Last Admin: 11/18/18 10:10 Dose: 40 mg Calcitriol (Rocaltrol) 0.25 mcg PO DAILY [facility] Last Admin: 11/18/18 10:10 Dose: 0.25 mcg Clopidogrel Bisulfate (Plavix) 75 mg PO DAILY [facility] Last Admin: 11/18/18 10:10 Dose: 75 mg Darbepoetin Bryan (Aranesp) 100 mcg SC QWK [facility] Ferrous Sulfate (Feosol) 324 mg PO TID [facility] Last Admin: 11/18/18 10:10 Dose: 324 mg Furosemide (Lasix) 40 mg PO DAILY [facility] Last Admin: 11/18/18 10:11 Dose: 40 mg Hydralazine HCl (Apresoline) 10 mg IVP Q8 PRN PRN Reason: Systolic Blood Pressure Hydralazine HCl (Apresoline) 50 mg PO TID [facility] Ceftriaxone Sodium (Rocephin 1 Gram Ivpb) 1 gm in 100 mls @ 100 mls/hr IVPB DAILY [facility]; Protocol Stop: 11/24/18 10:01 Last Admin: 11/18/18 10:10 Dose: 100 mls/hr Isosorbide Mononitrate (Imdur Er) 30 mg PO DAILY [facility] Mupirocin (Bactroban Ointment) 0 gm TOP BID [facility] Last Admin: 11/18/18 10:17 Dose: 1 applic [id number] Ethyl Esters (Lovaza) 1 gm PO DAILY [facility] Last Admin: 11/18/18 10:11 Dose: 1 gm Pantoprazole Sodium (Protonix Ec Tab) 40 mg PO ACB [facility] Last Admin: 11/18/18 08:43 Dose: 40 mg Prednisone (Prednisone Tab) 10 mg PO DAILY [facility] Last Admin: 11/18/18 10:10 Dose: 10 mg Sevelamer HCl (Renagel) 1,600 mg PO TID [facility] Last Admin: 11/18/18 10:11 Dose: 1,600 mg Sodium Bicarbonate (Sodium Bicarbonate Tab) 650 mg PO BID [facility] Last Admin: 11/18/18 10:10 Dose: 650 mg Vitamin B Complex/Vit C/Folic Acid (Nephro-Samantha) 1 tab PO 0800 [facility] Last Admin: 11/18/18 08:43 Dose: 1 tab - Labs Labs: 11/18/18 07:20 11/18/18 07:20 PT 13.0 SECONDS (9.4-12.5) H 11/11/18 19:26 INR 1.17 11/11/18 19:26 APTT 61.1 Seconds (26.9-38.3) H 11/17/18 05:05 Attending/Attestation - Attestation I have personally seen and examined this patient.: Yes I have fully participated in the care of the patient.: Yes I have reviewed all pertinent clinical information, including history, physical exam and plan: Yes Notes (Text): 11/18/18 13:59 Medical record note made by the resident after discussion with my direction and input after the patient was personally seen and examined by me. I have reviewed the chart and agree that the record accurately reflects by personal performance of the history, physical exam, data review, and medical decision-making, in the course for the patient. I have also personally directed the plan of care.
[2018-11-16] MEDS: Heparin25000 units/250ml 1/2NS 25,000 UNITS/250 ML BAG IV SCH ×2 (07:56→17:49)
[2018-11-16] MEDS: Multivitamin Vitamin B Complex (Nephro-Vite) Tab PO SCH (08:51)
[2018-11-16] MEDS: Pantoprazole 40 mg EC Tab PO SCH (08:51)
--- NOTE | 2018-11-16 09:00 | RAD ---
Date of service: 11/16/2018 HISTORY: sob COMPARISON: 11/11/2018 FINDINGS: LUNGS: No active pulmonary disease. PLEURA: No significant pleural effusion identified, no pneumothorax apparent. CARDIOVASCULAR: Mild aortic calcification Mild cardiomegaly no pulmonary vascular congestion. OSSEOUS STRUCTURES: No significant abnormalities. VISUALIZED UPPER ABDOMEN: Normal. OTHER FINDINGS: None. IMPRESSION: No active disease.
[2018-11-16] MEDS: cefTRIAXone 1 gm 1 GM/100 ML BAG IVPB SCH (09:23)
[2018-11-16] MEDS: Omega-3-Acid Ethyl Esters 1 GM Cap PO SCH (09:24)
[2018-11-16] MEDS: Mupirocin 2% Ointment 15 GM TUBE TOP SCH ×2 (09:29→18:53)
--- NOTE | 2018-11-16 12:05 | CP.PCM.PN ---
Subjective - Date & Time of Evaluation Date of Evaluation: 11/16/18 Time of Evaluation: 12:03 - Subjective Subjective: Nephrology Consultation Note: Assessment: stable GNR sepsis non-oliguric SANDRA likely due to pre-renal state (as evident by concentrated urine and hemoconcentration), ATN due to sepsis, renal hypoperfusion as also with lactic acidosis, low BP sepsis with likely COPD exacerbation and less likely chf exacerbation CKD stage 4 with 443 mg proteinuria likely Due to HTN HTN kidney disease (I12.9) Obesity Anemia of chronic disease hx of COPD, CHF, ex smoker, PE esophageal ulceration with diverticuli on EGD 05/13/18 Plan no need for renal replacement therapy at present but will need close follow up. Hypertension control with meds as ordered. pt not on RAAS brittni, will defer it due to advanced CKD. added low dose coreg 3.125 bid Monitor I/O, daily weights and renal function while in hospital supplement Iron, MVI and weekly dose of aransep resume lasix 40 mg/d COPD management as per primary team/pulmonary pt was on weekly vit D--stopped as level 52. continue with calcitriol, phos binders renagel 1600 tid cardiology following Dose meds/antibiotics for reduced GFR. Avoid fleets enema/magnesium based laxatives. Avoid nephrotoxins/NSAIDs/ iodinated contrast (unless needed emergently) Glycemic control, renal diet. Further work up for as per primary team. Thanks for allowing me to participate in care of your patient. Will follow with you. Please call if any Qs. had d/w team Dr Rivas Hazel Office: [phone] CC; SOB and chest pressure reason for consult: SANDRA on CKD 4 HPI: Pt is a 77 M with hx of HTN (years), CKD stage 4 (with cr 2.8-3.0) obesity, COPD on terminal supervisor prednisone 5 mg, CHF with severe pulmonary HTN, ex smoker, Pulm Embolism, anemia presented to hospital with complaints of SOB and chest pressure, found to have COPD versus CHF exacerbation with lactic acidosis ? sepsis and renal consult for SANDRA on CKD management. Denies chest pain, palpitation, improved shortness of breath, reports chronic leg swelling but better now. Denies OTC/herbal meds/NSAIDs No recent iodinated contrast exposure. no GI symptoms at present low BP 103/47 noted ROS: denies CP/nausea/vomiting now. improved SOB at present. no nausea denies pain abdomen. denies urine complaints rest other negative except as mentioned in HPI. Physical Examination: General Appearance: Comfortable, in no acute respiratory distress, co-operative. obese Vitals reviewed and noted as below Head; Atraumatic, normocephalic ENT: no ulcers no thrush. Tongue is midline. Oropharynx: no rash or ulcers. EYES: b/l PERRLA Neck; supple no lymphadenopathy, no thyromegaly or bruit Lungs: Normal respiratory rate/effort. Breath sounds b/l with equal with few basal crackle + Heart: Normal rate. s1s2 normal. No rub or gallop. Extremities: non pitting edema. No varicose veins. chronic venous stasis changes in leg noted Neurological: Patient is awake alert and follow commands no focal deficit. improved asterixis Skin: dry and warm. Normal turgor. No rash. Palpitation: Normal elasticity for age Abdomen: Abdomen is soft . Bowel sounds +. There is no abdominal tenderness, no guarding/rigidity or organomegaly. Psych: normal insight. normal affect/mood MSK: no specific joint tenderness or swelling. Digits and nails normal, no deformity : kidney not palpable. exam limited due to obesity. has umblical hernia Labs/imaging/EKG reviewed. Past medical history, past surgical history, social history, allergy reviewed and noted as below Family hx; no hx of CKD. non contributory renal imaging: Rt side cyst outpt urine pr/cr 447 PTH 188 SPEP/SKYLAR neg with normal K/L ratio Hep B/C neg echo: severe pHTN with normal lvef Objective - Vital Signs/Intake and Output Vital Signs (last 24 hours): Temp Pulse Resp BP Pulse Ox 98 F 60 18 159/82 H 100 11/16/18 04:00 11/16/18 09:44 11/16/18 04:00 11/16/18 09:44 11/16/18 04:00 Intake and Output: 11/16/18 11/16/18 06:59 18:59 Intake Total 370 Output Total 600 Balance -230 - Medications Medications: Current Medications Acetaminophen (Tylenol 325mg Tab) 650 mg PO Q4H PRN PRN Reason: pain and fever Last Admin: 11/15/18 22:08 Dose: 650 mg Albuterol/Ipratropium (Duoneb 3 Mg/0.5 Mg (3 Ml) Ud) 3 ml IH [id number] [facility] Last Admin: 11/16/18 08:53 Dose: 3 ml Albuterol/Ipratropium (Duoneb 3 Mg/0.5 Mg (3 Ml) Ud) 3 ml IH Q2H PRN PRN Reason: Shortness of Breath Aspirin (Ecotrin) 81 mg PO DAILY [facility] Last Admin: 11/16/18 09:24 Dose: 81 mg Atorvastatin Calcium (Lipitor) 40 mg PO DAILY [facility] Last Admin: 11/16/18 09:26 Dose: 40 mg Calcitriol (Rocaltrol) 0.25 mcg PO DAILY [facility] Last Admin: 11/16/18 09:26 Dose: 0.25 mcg Carvedilol (Coreg) 3.125 mg PO BID [facility] Last Admin: 11/16/18 09:44 Dose: 3.125 mg Clopidogrel Bisulfate (Plavix) 75 mg PO DAILY [facility] Last Admin: 11/16/18 09:25 Dose: 75 mg Darbepoetin Bryan (Aranesp) 100 mcg SC QWK [facility] Ferrous Sulfate (Feosol) 324 mg PO TID [facility] Last Admin: 11/16/18 09:28 Dose: 324 mg Furosemide (Lasix) 40 mg PO DAILY [facility] Hydralazine HCl (Apresoline) 10 mg IVP Q8 [facility] Heparin Sodium/Sodium Chloride (Heparin 91618 Units/250ml 1/2 Normal Saline) 25,000 units in 250 mls @ 12.16 mls/hr IV .[id number] [facility]; Protocol Last Admin: 11/16/18 07:56 Dose: 10 units/kg/hr, 10.133 mls/hr Ceftriaxone Sodium (Rocephin 1 Gram Ivpb) 1 gm in 100 mls @ 100 mls/hr IVPB ADAMS L[facility]; Protocol Stop: 11/24/18 10:01 Last Admin: 11/16/18 09:23 Dose: 100 mls/hr Mupirocin (Bactroban Ointment) 0 gm TOP BID [facility] Last Admin: 11/16/18 09:29 Dose: 2 applic Apvwq-9-Uner Ethyl Esters (Lovaza) 1 gm PO DAILY [facility] Last Admin: 11/16/18 09:24 Dose: 1 gm Pantoprazole Sodium (Protonix Ec Tab) 40 mg PO ACB [facility] Last Admin: 11/16/18 08:51 Dose: 40 mg Prednisone (Prednisone Tab) 20 mg PO DAILY [facility] Last Admin: 11/16/18 09:28 Dose: 20 mg Sevelamer HCl (Renagel) 1,600 mg PO TID [facility] Last Admin: 11/16/18 09:27 Dose: 1,600 mg Sodium Bicarbonate (Sodium Bicarbonate Tab) 650 mg PO BID [facility] Last Admin: 11/16/18 09:25 Dose: 650 mg Vitamin B Complex/Vit C/Folic Acid (Nephro-Samantha) 1 tab PO 0800 [facility] Last Admin: 11/16/18 08:51 Dose: 1 tab - Labs Labs: 11/16/18 05:20 11/16/18 05:20 PT 13.0 SECONDS (9.4-12.5) H 11/11/18 19:26 INR 1.17 11/11/18 19:26 APTT 54.7 Seconds (26.9-38.3) H 11/16/18 05:20
--- NOTE | 2018-11-16 12:09 | PN ---
DATE: 11/16/2018 SUBJECTIVE: The patient seen earlier this morning, doing well in the ICU 129, bed 2. PHYSICAL EXAMINATION: VITAL SIGNS: Temperature is 98, blood pressure is 160/70, respiratory rate of 18, heart rate of 72. HEENT: Unremarkable. NECK: Supple. LUNGS: Have decreased breath sounds. HEART: Normal S1, S2. ABDOMEN: Soft, nontender. LABORATORY DATA: The patient's white count is down at 19,000, hemoglobin of 8, platelets of 222. Chemistries are noted with a creatinine of 4.2. Microbiology reveals the repeat cultures are negative and review of orders reveals the patient is on ceftriaxone. This morning's chest x-ray is pending. ASSESSMENT AND PLAN: This is a 77-year-old male, who was seen earlier today in the intensive care unit bed #2, who was admitted with congestive heart failure, diastolic, also admitted with sepsis with Escherichia coli bacteremia secondary to Escherichia coli urine as a source for prostatitis and elevated prostate-specific antigen with acute diastolic congestive heart failure with ejection fraction of 70% in the past on top of chronic congestive heart failure. Urology evaluation and for prostatitis may switch to p.o. antibiotics upon discharge. We will follow with you. Uriah Mayer MD
--- NOTE | 2018-11-16 13:42 | PN ---
DATE: 11/16/2018 SUBJECTIVE: The patient denies any retrosternal chest pain. He is experiencing some mild cough. OBJECTIVE: VITAL SIGNS: Blood pressure 159/82, heart rate 60, temperature 98, respiration 18. HEENT: Pale conjunctiva. CHEST: Bibasilar rhonchi. HEART: S1, S2 regular. ABDOMEN: Soft. EXTREMITIES: Trace leg edema. LABORATORY DATA: Hemoglobin and hematocrit 8.1 and 25.9, white count 19.1, platelet count 122,000. Today's SMA-7; sodium 141, potassium 4.2, chloride 108, CO2 of 23, glucose 78, BUN 100, creatinine 4.2. INR 64.7. Chest x-ray revealed cardiomegaly with [id number] CHF. Official report of that x-ray stated no active disease. ASSESSMENT: 1. Coronary artery disease with recent _+ve Myoview stress test. 2. Chronic atrial fibrillation. 3. Diastolic heart failure. 4. Advanced renal insufficiency. 5. Mild anemia. 6. Pulmonary hypertension. RECOMMENDATIONS: Continue hydralazine 10 mg intravenously every 8 hours p.r.n., continue Coreg 3.125 mg twice a day, aspirin 81 mg once a day, intravenous heparin in a therapeutic regimen, prednisone 20 mg once a day, Rocephin 1 g intravenously daily. The patient is also a poor candidate for either Aldactone or YASH inhibitors. May switch to either Coumadin or Eliquis 2.5 mg twice a day if there are no plans for hemodialysis. Dhaval Gibson MD MTDLeah
[2018-11-16] MEDS ORDERED: POLYETHYLENE GLYCOL 3350 17 GM/Dose PACKET PO ONE (20:24)
[2018-11-17] MEDS: Albuterol-Ipratrop 3 mg / 0.5 (3 ml) UD IH SCH ×4 (02:58→19:17)
[2018-11-17 05:46] LABS: BASO # 0.03 K/mm3 (0.0-2.0); BASO % 0.2 % (0.0-3.0); EOS # 0.1 (0.0-0.7); EOS % 0.4 % (1.5-5.0); HEMOGLOBIN 8.2 g/dL (14.0-18.0); LYMPH # 2.4 (1.2-3.4); LYMPH % 14.8 % (22.0-35.0); MEAN CELL VOLUME 86.7 fl (80.0-105.0); MEAN CORPUSCULAR HEMOGLOBIN 26.6 pg (25.0-35.0); MEAN CORPUSCULAR HGB CONC 30.7 g/dl (31.0-37.0); MEAN PLATELET VOLUME 10.3 fl (7.0-11.0); MONO # 1.8 (0.1-0.6); MONO % 10.8 % (1.0-6.0); RBC 3.08 10^6/uL (3.5-6.1); RED CELL DISTRIBUTION WIDTH 15.6 % (11.5-14.5); WHITE BLOOD COUNT 16.2 10^3/uL (4.5-11.0)
[2018-11-17 06:32] LABS: ALB/GLOB RATIO 1.1 (1.1-1.8); ALBUMIN 3.8 g/dL (3.0-4.8); CALCIUM 8.7 mg/dL (8.4-10.5)
--- NOTE | 2018-11-17 07:14 | CP.PCM.PN ---
<Moises Caal - Last Filed: 11/17/18 12:33> Subjective - Date & Time of Evaluation Date of Evaluation: 11/17/18 Time of Evaluation: 07:14 - Subjective Subjective: PGY-1 Medicine Progress Note for Dr. Nunes Patient seen and evaluated at bedside. Patient had no acute events overnight. Otherwise he denies fevers, chills, headaches, shortness of breath, chest pain, N/V/D, or any other complaints. Objective - Vital Signs/Intake and Output Vital Signs (last 24 hours): Temp Pulse Resp BP Pulse Ox 98.5 F 46 L 14 140/94 H 100 11/17/18 04:00 11/17/18 06:00 11/17/18 06:00 11/17/18 06:00 11/17/18 06:00 Intake and Output: 11/17/18 11/17/18 06:59 18:59 Intake Total 420 Output Total 400 Balance 20 - Medications Medications: Current Medications Acetaminophen (Tylenol 325mg Tab) 650 mg PO Q4H PRN PRN Reason: pain and fever Last Admin: 11/16/18 21:34 Dose: 650 mg Albuterol/Ipratropium (Duoneb 3 Mg/0.5 Mg (3 Ml) Ud) 3 ml IH [id number] [facility] Last Admin: 11/17/18 02:58 Dose: Not Given Albuterol/Ipratropium (Duoneb 3 Mg/0.5 Mg (3 Ml) Ud) 3 ml IH Q2H PRN PRN Reason: Shortness of Breath Aspirin (Ecotrin) 81 mg PO DAILY [facility] Last Admin: 11/16/18 09:24 Dose: 81 mg Atorvastatin Calcium (Lipitor) 40 mg PO DAILY [facility] Last Admin: 11/16/18 09:26 Dose: 40 mg Calcitriol (Rocaltrol) 0.25 mcg PO DAILY [facility] Last Admin: 11/16/18 09:26 Dose: 0.25 mcg Carvedilol (Coreg) 3.125 mg PO BID [facility] Last Admin: 11/16/18 17:46 Dose: 3.125 mg Clopidogrel Bisulfate (Plavix) 75 mg PO DAILY [facility] Last Admin: 11/16/18 09:25 Dose: 75 mg Darbepoetin Bryan (Aranesp) 100 mcg SC QWK [facility] Ferrous Sulfate (Feosol) 324 mg PO TID [facility] Last Admin: 11/16/18 17:45 Dose: 324 mg Furosemide (Lasix) 40 mg PO DAILY [facility] Last Admin: 11/16/18 15:43 Dose: Not Given Hydralazine HCl (Apresoline) 10 mg IVP Q8 PRN PRN Reason: Systolic Blood Pressure Heparin Sodium/Sodium Chloride (Heparin 46063 Units/250ml 1/2 Normal Saline) 25,000 units in 250 mls @ 12.16 mls/hr IV .[id number] [facility]; Protocol Last Admin: 11/16/18 17:49 Dose: 10 units/kg/hr, 10.133 mls/hr Ceftriaxone Sodium (Rocephin 1 Gram Ivpb) 1 gm in 100 mls @ 100 mls/hr IVPB DAILY [facility]; Protocol Stop: 11/24/18 10:01 Last Admin: 11/16/18 09:23 Dose: 100 mls/hr Mupirocin (Bactroban Ointment) 0 gm TOP BID [facility] Last Admin: 11/16/18 18:53 Dose: 2 applic [id number] Ethyl Esters (Lovaza) 1 gm PO DAILY [facility] Last Admin: 11/16/18 09:24 Dose: 1 gm Pantoprazole Sodium (Protonix Ec Tab) 40 mg PO ACB [facility] Last Admin: 11/16/18 08:51 Dose: 40 mg Prednisone (Prednisone Tab) 20 mg PO DAILY [facility] Last Admin: 11/16/18 09:28 Dose: 20 mg Sevelamer HCl (Renagel) 1,600 mg PO TID [facility] Last Admin: 11/16/18 17:45 Dose: 1,600 mg Sodium Bicarbonate (Sodium Bicarbonate Tab) 650 mg PO BID [facility] Last Admin: 11/16/18 17:45 Dose: 650 mg Vitamin B Complex/Vit C/Folic Acid (Nephro-Samantha) 1 tab PO 0800 [facility] Last Admin: 11/16/18 08:51 Dose: 1 tab - Labs Labs: 11/17/18 05:05 11/17/18 05:05 PT 13.0 SECONDS (9.4-12.5) H 11/11/18 19:26 INR 1.17 11/11/18 19:26 APTT 61.1 Seconds (26.9-38.3) H 11/17/18 05:05 - Additional Findings Additional findings: - Constitutional Appears: Well, Non-toxic, No Acute Distress - Head Exam Head Exam: ATRAUMATIC, NORMAL INSPECTION, NORMOCEPHALIC - Eye Exam Eye Exam: EOMI, PERRL - ENT Exam ENT Exam: Mucous Membranes Moist - Neck Exam Neck Exam: Full ROM - Respiratory Exam Respiratory Exam: Clear to Ausculation Bilateral, NORMAL BREATHING PATTERN - Cardiovascular Exam Cardiovascular Exam: REGULAR RHYTHM, RRR, S1, S2 - GI/Abdominal Exam GI & Abdominal Exam: Soft, Normal Bowel Sounds. absent: Tenderness - Extremities Exam Extremities Exam: Full ROM. +1 pitting edema noted on bilateral legs. No tenderness. - Neurological Exam Neurological Exam: Alert, Awake, CN II-XII Intact, Oriented x3 - Skin Skin Exam: Dry, Intact Assessment and Plan - Assessment and Plan (Free Text) Assessment: Patient is a 77 year old male with a past medical history of congestive heart failure, COPD, asthma, CKD stage IV, hypertension, hyperlipidemia, and esophageal ulcerations presented with respiratory distress to the hospital. Plan: E. Coli bacteremia - Blood culture (11/14): no growth to date - Blood culture (11/11): E. coli - Urine culture (11/11): E. Coli - ID consulted, Dr. Hugo/Dr. Mayer - Continue Ceftriaxone 1g IV QD (Started on 11/15) - total of 9 days NSTEMI - Cardiology consulted, Dr. Sam - Continue with Aspirin, Plavix, and Lipitor - No ST elevations on EKG - Patient last had stress test on 07/2018 which was positive for lateral ischemia - Patient is not a suitable candidate at this time for cardiac cath due to SANDRA Diastolic Congestive heart failure - Last echo in 04/2018 showed LVEF of 70% and severely calcified aortic valve and left ventricular hypertrophy with RVSP of 77 - Coreg 3.125mg PO BID - Lasix 40mg PO QD - Chest X-ray on 11/16 showed no edema - Monitor I/O - Daily weights Hypertension - Coreg 3.125mg PO BID - Lasix 40mg PO QD - Hydralazine 10mg IVP Q8 PRN - YASH/ARB's not indicated due to SANDRA - CCB not indicated due to lower extremity edema SANDRA on CKD - BUN/Cr improving - Nephtology consulted, Dr. Hazel - Continue patient on Feosol, Aranesp, Calcitriol, Renagel, MVI, and sodium bicarbonate - Avoid nephrotoxic agents- avoid fleet enema/magnesium based laxatives, NSAIDs, iodinated contrast - Continue to monitor Atrial Fibrillation - Start Eliquis 2.5mg PO BID - CHADS-VASc score: 4 points - HAS-BLED score: 4 points COPD exacerbation - Tapering dose of Prednisone 15 mg PO QD - Continue Duonebs scheduled and PRN Normocytic anemia - Likely multifactorial from iron deficiency, and anemia of chronic disease - Continue with Aranesp and Feosol Hyperphosphatemia - Continue with home medication, Renagel Hyperlipidemia - Continue with home medication, Lipitor GI prophylaxis: Protonix 40 mg daily DVT prophylaxis: Eluquis 2.5mg PO BID Disposition: Pending PT evaluation. Patient seen and plan discussed with attending, Dr. Des Caal, PGY-1 <Vikki Nunes - Last Filed: 11/18/18 13:59> Objective - Vital Signs/Intake and Output Vital Signs (last 24 hours): Temp Pulse Resp BP Pulse Ox 98.1 F 68 18 165/78 H 99 11/18/18 12:57 11/18/18 12:57 11/18/18 12:57 11/18/18 12:57 11/18/18 06:00 Intake and Output: 11/18/18 11/18/18 06:59 18:59 Intake Total 540 Output Total 600 Balance -60 - Medications Medications: Current Medications Acetaminophen (Tylenol 325mg Tab) 650 mg PO Q4H PRN PRN Reason: pain and fever Last Admin: 11/17/18 22:06 Dose: 650 mg Albuterol/Ipratropium (Duoneb 3 Mg/0.5 Mg (3 Ml) Ud) 3 ml IH [id number] [facility] Last Admin: 11/18/18 13:30 Dose: 3 ml Albuterol/Ipratropium (Duoneb 3 Mg/0.5 Mg (3 Ml) Ud) 3 ml IH Q2H PRN PRN Reason: Shortness of Breath Apixaban (Eliquis) 2.5 mg PO BID [facility]; Protocol Last Admin: 11/18/18 10:10 Dose: 2.5 mg Aspirin (Ecotrin) 81 mg PO DAILY [facility] Last Admin: 11/18/18 10:10 Dose: 81 mg Atorvastatin Calcium (Lipitor) 40 mg PO DAILY [facility] Last Admin: 11/18/18 10:10 Dose: 40 mg Calcitriol (Rocaltrol) 0.25 mcg PO DAILY [facility] Last Admin: 11/18/18 10:10 Dose: 0.25 mcg Clopidogrel Bisulfate (Plavix) 75 mg PO DAILY [facility] Last Admin: 11/18/18 10:10 Dose: 75 mg Darbepoetin Bryan (Aranesp) 100 mcg SC QWK [facility] Ferrous Sulfate (Feosol) 324 mg PO TID [facility] Last Admin: 11/18/18 10:10 Dose: 324 mg Furosemide (Lasix) 40 mg PO DAILY [facility] Last Admin: 11/18/18 10:11 Dose: 40 mg Hydralazine HCl (Apresoline) 10 mg IVP Q8 PRN PRN Reason: Systolic Blood Pressure Hydralazine HCl (Apresoline) 50 mg PO TID [facility] Ceftriaxone Sodium (Rocephin 1 Gram Ivpb) 1 gm in 100 mls @ 100 mls/hr IVPB DAILY [facility]; Protocol Stop: 11/24/18 10:01 Last Admin: 11/18/18 10:10 Dose: 100 mls/hr Isosorbide Mononitrate (Imdur Er) 30 mg PO DAILY [facility] Mupirocin (Bactroban Ointment) 0 gm TOP BID [facility] Last Admin: 11/18/18 10:17 Dose: 1 applic [id number]-[id number] Ethyl Esters (Lovaza) 1 gm PO DAILY [facility] Last Admin: 11/18/18 10:11 Dose: 1 gm Pantoprazole Sodium (Protonix Ec Tab) 40 mg PO ACB [facility] Last Admin: 11/18/18 08:43 Dose: 40 mg Prednisone (Prednisone Tab) 10 mg PO DAILY [facility] Last Admin: 11/18/18 10:10 Dose: 10 mg Sevelamer HCl (Renagel) 1,600 mg PO TID [facility] Last Admin: 11/18/18 10:11 Dose: 1,600 mg Sodium Bicarbonate (Sodium Bicarbonate Tab) 650 mg PO BID [facility] Last Admin: 11/18/18 10:10 Dose: 650 mg Vitamin B Complex/Vit C/Folic Acid (Nephro-Samantha) 1 tab PO 0800 [facility] Last Admin: 11/18/18 08:43 Dose: 1 tab - Labs Labs: 11/18/18 07:20 11/18/18 07:20 PT 13.0 SECONDS (9.4-12.5) H 11/11/18 19:26 INR 1.17 11/11/18 19:26 APTT 61.1 Seconds (26.9-38.3) H 11/17/18 05:05 Attending/Attestation - Attestation I have personally seen and examined this patient.: Yes I have fully participated in the care of the patient.: Yes I have reviewed all pertinent clinical information, including history, physical exam and plan: Yes Notes (Text): 11/18/18 13:49 Patient was seen and examined with medical case manager. 77 year old male with PMH of COPD, CHF with systolic dysfunction, CKD base line creatinin around 2.8, hypertension and esophageal ulcers (04/2018) who presented with acute respiratory distress, sepsis secondary to E Coli bacteremia/UTI, acu te on chronic renal failure and possible NSTEMI. Sepsis is improved.Patient is afebrile.WBC count is coming down. Continue with iv antibiotics as per ID. He follows up with urology as outpatient. COPD is improving, on Neb and steroid, wheezing is better today.We will decrease dose of Prednisone to 15 mg po daily. Acute on chronic renal failure, creatin is improving.Creatinin is 3.7 today.we w ill monitor BUN and creatinin. AF, Rate is controlled, will start anticoagulation with Apixiban as Jassi Vasc score is high.The risk and benefit was discussed in detail with the patient. Possible NSEMI, Patient is pain free, on ASA/lipitor/Echo showed normal systolic dysfunction.Coreg is discontinued due to bradycardia. Prognosis is guarded. Management plan was discussed in detail with patient. Education was provided
[2018-11-17] MEDS: Pantoprazole 40 mg EC Tab PO SCH (08:44)
[2018-11-17] MEDS: Multivitamin Vitamin B Complex (Nephro-Vite) Tab PO SCH (08:44)
[2018-11-17] MEDS: Mupirocin 2% Ointment 15 GM TUBE TOP SCH ×2 (11:21→18:25)
[2018-11-17] MEDS: Omega-3-Acid Ethyl Esters 1 GM Cap PO SCH (11:42)
[2018-11-17] MEDS: cefTRIAXone 1 gm 1 GM/100 ML BAG IVPB SCH (11:48)
--- NOTE | 2018-11-17 11:59 | PN ---
DATE: 11/17/2018 SUBJECTIVE: The patient is in bed in no acute distress, nontoxic. The patient was seen earlier today in 129, bed two. No fevers and chills. PHYSICAL EXAMINATION: VITAL SIGNS: Temperature is 98, blood pressure is 140/90, respiratory rate of 18. HEENT: Unremarkable. NECK: Supple. LUNGS: Have decreased breath sounds. HEART: Normal S1 and S2. ABDOMEN: Soft, nontender. LABORATORY DATA: Reveals the patient's white count is 16,200, hemoglobin of 8, platelets of 93, creatinine of 3.4. Urinalysis is noted. Microbiology reveals the repeat blood cultures are negative. Initial cultures have E. Coli in the urine and E. Coli in the blood in a patient with PSA of 66. Dr. Hazel's note is reviewed and Dr. Gibson's note is reviewed. ASSESSMENT AND PLAN: This is a 77-year-old male who was seen earlier today in the intensive care unit, admitted with congestive heart failure, diastolic, also admitted with sepsis with Escherichia coli bacteremia, Escherichia coli urinary tract infection and prostatitis for an elevated PSA with acute diastolic congestive heart failure, ejection fraction of 70% on top of chronic congestive heart failure. Urology evaluation of the prostate should be done, maybe switch to p.o. antibiotics upon discharge, p.o. Vantin at 100 mg p.o. b.i.d. times a total of 3 weeks of antibiotics for prostatitis and should have urology evaluation. Currently on Rocephin and prednisone. Uriah Mayer MD
--- NOTE | 2018-11-17 14:06 | CP.PCM.PN ---
Subjective - Date & Time of Evaluation Date of Evaluation: 11/17/18 Time of Evaluation: 14:05 - Subjective Subjective: Nephrology Consultation Note: Assessment: stable GNR sepsis non-oliguric SANDRA likely due to pre-renal state (as evident by concentrated urine and hemoconcentration), ATN due to sepsis, renal hypoperfusion as also with lactic acidosis, low BP sepsis with likely COPD exacerbation and less likely chf exacerbation CKD stage 4 with 443 mg proteinuria likely Due to HTN HTN kidney disease (I12.9) Obesity Anemia of chronic disease hx of COPD, CHF, ex smoker, PE esophageal ulceration with diverticuli on EGD 05/13/18 Plan no need for renal replacement therapy at present but will need close follow up. Hypertension control with meds as ordered. pt not on RAAS brittni, will defer it due to advanced CKD. added low dose coreg 3.125 bid but HR in 40s hence will stop beta-brittni Monitor I/O, daily weights and renal function while in hospital supplement Iron, MVI and weekly dose of aransep resume lasix 40 mg/d COPD management as per primary team/pulmonary pt was on weekly vit D--stopped as level 52. continue with calcitriol, phos binders renagel 1600 tid cardiology following Dose meds/antibiotics for reduced GFR. Avoid fleets enema/magnesium based laxatives. Avoid nephrotoxins/NSAIDs/ iodinated contrast (unless needed emergently) Glycemic control, renal diet. Further work up for as per primary team. Thanks for allowing me to participate in care of your patient. Will follow with you. Please call if any Qs. had d/w team Dr Rivas Hazel Office: [phone] CC; SOB and chest pressure reason for consult: SANDRA on CKD 4 HPI: Pt is a 77 M with hx of HTN (years), CKD stage 4 (with cr 2.8-3.0) obesity, COPD on senior living prednisone 5 mg, CHF with severe pulmonary HTN, ex smoker, Pulm Embolism, anemia presented to hospital with complaints of SOB and chest pressure, found to have COPD versus CHF exacerbation with lactic acidosis ? sepsis and renal consult for SANDRA on CKD management. Denies chest pain, palpitation, improved shortness of breath, reports chronic leg swelling but better now. Denies OTC/herbal meds/NSAIDs No recent iodinated contrast exposure. no GI symptoms at present low BP 103/47 noted ROS: denies CP/nausea/vomiting now. improved SOB at present. no nausea denies pain abdomen. denies urine complaints rest other negative except as mentioned in HPI. Physical Examination: General Appearance: Comfortable, in no acute respiratory distress, co-operative. obese Vitals reviewed and noted as below Head; Atraumatic, normocephalic ENT: no ulcers no thrush. Tongue is midline. Oropharynx: no rash or ulcers. EYES: b/l PERRLA Neck; supple no lymphadenopathy, no thyromegaly or bruit Lungs: Normal respiratory rate/effort. Breath sounds b/l with equal with few basal crackle + Heart: Normal rate. s1s2 normal. No rub or gallop. Extremities: non pitting edema. No varicose veins. chronic venous stasis changes in leg noted Neurological: Patient is awake alert and follow commands no focal deficit. improved asterixis Skin: dry and warm. Normal turgor. No rash. Palpitation: Normal elasticity for age Abdomen: Abdomen is soft . Bowel sounds +. There is no abdominal tenderness, no guarding/rigidity or organomegaly. Psych: normal insight. normal affect/mood MSK: no specific joint tenderness or swelling. Digits and nails normal, no deformity : kidney not palpable. exam limited due to obesity. has umblical hernia Labs/imaging/EKG reviewed. Past medical history, past surgical history, social history, allergy reviewed and noted as below Family hx; no hx of CKD. non contributory renal imaging: Rt side cyst outpt urine pr/cr 447 PTH 188 SPEP/SKYLAR neg with normal K/L ratio Hep B/C neg echo: severe pHTN with normal lvef Objective - Vital Signs/Intake and Output Vital Signs (last 24 hours): Temp Pulse Resp BP Pulse Ox 98.5 F 43 L 14 139/68 100 11/17/18 04:00 11/17/18 11:25 11/17/18 06:00 11/17/18 11:35 11/17/18 06:00 Intake and Output: 11/17/18 11/17/18 06:59 18:59 Intake Total 420 560 Output Total 400 350 Balance 20 210 - Medications Medications: Current Medications Acetaminophen (Tylenol 325mg Tab) 650 mg PO Q4H PRN PRN Reason: pain and fever Last Admin: 11/16/18 21:34 Dose: 650 mg Albuterol/Ipratropium (Duoneb 3 Mg/0.5 Mg (3 Ml) Ud) 3 ml IH [id number] [facility] Last Admin: 11/17/18 07:44 Dose: 3 ml Albuterol/Ipratropium (Duoneb 3 Mg/0.5 Mg (3 Ml) Ud) 3 ml IH Q2H PRN PRN Reason: Shortness of Breath Apixaban (Eliquis) 2.5 mg PO BID [facility]; Protocol Last Admin: 11/17/18 11:28 Dose: 2.5 mg Aspirin (Ecotrin) 81 mg PO DAILY [facility] Last Admin: 11/17/18 11:27 Dose: 81 mg Atorvastatin Calcium (Lipitor) 40 mg PO DAILY [facility] Last Admin: 11/17/18 11:41 Dose: 40 mg Calcitriol (Rocaltrol) 0.25 mcg PO DAILY [facility] Last Admin: 11/17/18 11:47 Dose: 0.25 mcg Clopidogrel Bisulfate (Plavix) 75 mg PO DAILY [facility] Last Admin: 11/17/18 11:43 Dose: 75 mg Darbepoetin Bryan (Aranesp) 100 mcg SC QWK [facility] Ferrous Sulfate (Feosol) 324 mg PO TID [facility] Last Admin: 11/17/18 11:34 Dose: 324 mg Furosemide (Lasix) 40 mg PO DAILY [facility] Last Admin: 11/17/18 11:35 Dose: 40 mg Hydralazine HCl (Apresoline) 10 mg IVP Q8 PRN PRN Reason: Systolic Blood Pressure Ceftriaxone Sodium (Rocephin 1 Gram Ivpb) 1 gm in 100 mls @ 100 mls/hr IVPB DAILY [facility]; Protocol Stop: 11/24/18 10:01 Last Admin: 11/17/18 11:48 Dose: 100 mls/hr Mupirocin (Bactroban Ointment) 0 gm TOP BID [facility] Last Admin: 11/17/18 11:21 Dose: 1 applic [id number]-[id number] Ethyl Esters (Lovaza) 1 gm PO DAILY [facility] Last Admin: 11/17/18 11:42 Dose: 1 gm Pantoprazole Sodium (Protonix Ec Tab) 40 mg PO ACB [facility] Last Admin: 11/17/18 08:44 Dose: 40 mg Prednisone (Prednisone Tab) 15 mg PO DAILY [facility] Last Admin: 11/17/18 11:46 Dose: 15 mg Sevelamer HCl (Renagel) 1,600 mg PO TID [facility] Last Admin: 11/17/18 11:47 Dose: 1,600 mg Sodium Bicarbonate (Sodium Bicarbonate Tab) 650 mg PO BID [facility] Last Admin: 11/17/18 11:49 Dose: 650 mg Vitamin B Complex/Vit C/Folic Acid (Nephro-Samantha) 1 tab PO 0800 [facility] Last Admin: 11/17/18 08:44 Dose: 1 tab - Labs Labs: 11/17/18 05:05 11/17/18 05:05 PT 13.0 SECONDS (9.4-12.5) H 11/11/18 19:26 INR 1.17 11/11/18 19:26 APTT 61.1 Seconds (26.9-38.3) H 11/17/18 05:05
--- NOTE | 2018-11-17 17:50 | PN ---
DATE: 11/17/2018 SUBJECTIVE: The patient was seen in the ICU today. He is still experiencing shortness of breath and productive cough. No retrosternal chest pain. PHYSICAL EXAMINATION: VITAL SIGNS: Blood pressure 140/94, heart rate 46, temperature 98.5, respirations 14. HEENT: Pale conjunctivae. CHEST: Bilateral basal rhonchi and scattered wheezing. HEART: S1 and S2 regular. ABDOMEN: Soft. EXTREMITIES: 1+ pitting edema. LABORATORY DATA: Today's hemoglobin and hematocrit are 8.2 and 26.7, white count 16.2, platelet count 246,000. Today's SMA-7: Sodium 142, potassium 4.2, chloride 108, CO2 of 23, glucose of 65, BUN 93, creatinine 3.7. Alkaline phosphatase elevated at 129. Today's INR is 61.1. ASSESSMENT: 1. Consider non-ST elevation myocardial infarction. 2. Advanced renal insufficiency. 3. Slow atrial fibrillation. 4. Acute systolic heart failure. 5. Worsening anemia. 6. Pulmonary hypertension. RECOMMENDATIONS: Continue hydralazine 10 mg intravenously every 8 hours. Discontinue Coreg. Continue aspirin 81 mg once a day. Eliquis was started at 2.5 mg once a day, Lasix 20 mg p.o. once a day, Lipitor 20 mg once a day, Plavix 75 mg once a day, and IV Rocephin at 1 g daily. The patient can be transferred to telemetry. Dhaval Gibson MD
[2018-11-17] MEDS ORDERED: POLYETHYLENE GLYCOL 3350 17 GM/Dose PACKET PO ONE (21:56)
--- NOTE | 2018-11-17 22:41 | CARD ---
APPROVED REPORT Date of service: 11/17/2018 EKG Measurement Heart [id number] <Conclusion> Atrial fibrillation with a slow ventricular response Right bundle branch block Left anterior fascicular block Bifascicular block T wave abnormalities Abnormal ECG
[2018-11-18] MEDS ORDERED: POLYETHYLENE GLYCOL 3350 17 GM/Dose PACKET PO ONE ×2 (00:15→22:24)
[2018-11-18] MEDS: Albuterol-Ipratrop 3 mg / 0.5 (3 ml) UD IH SCH ×4 (01:15→20:20)
[2018-11-18 07:38] LABS: BASO # 0.04 K/mm3 (0.0-2.0); BASO % 0.2 % (0.0-3.0); EOS # 0.2 (0.0-0.7); EOS % 0.9 % (1.5-5.0); HEMOGLOBIN 8.6 g/dL (14.0-18.0); LYMPH # 2.7 (1.2-3.4); LYMPH % 15.9 % (22.0-35.0); MEAN CELL VOLUME 88.6 fl (80.0-105.0); MEAN CORPUSCULAR HEMOGLOBIN 26.5 pg (25.0-35.0); MEAN PLATELET VOLUME 9.6 fl (7.0-11.0); MONO # 1.5 (0.1-0.6); MONO % 8.7 % (1.0-6.0); RBC 3.24 10^6/uL (3.5-6.1); RED CELL DISTRIBUTION WIDTH 15.5 % (11.5-14.5); WHITE BLOOD COUNT 17.2 10^3/uL (4.5-11.0)
[2018-11-18 07:45] LABS: ALB/GLOB RATIO 1.2 (1.1-1.8); ALBUMIN 3.9 g/dL (3.0-4.8); CALCIUM 9.2 mg/dL (8.4-10.5)
[2018-11-18 08:10] LABS: FREE T4 1.01 ng/dL (0.78-2.19)
[2018-11-18] MEDS: Pantoprazole 40 mg EC Tab PO SCH (08:43)
[2018-11-18] MEDS: Multivitamin Vitamin B Complex (Nephro-Vite) Tab PO SCH (08:43)
[2018-11-18] MEDS ORDERED: Ergocalciferol 50,000 Intl Units Cap PO SCH (10:00)
[2018-11-18] MEDS: cefTRIAXone 1 gm 1 GM/100 ML BAG IVPB SCH (10:10)
[2018-11-18] MEDS: Omega-3-Acid Ethyl Esters 1 GM Cap PO SCH (10:11)
[2018-11-18] MEDS: Mupirocin 2% Ointment 15 GM TUBE TOP SCH ×2 (10:17→17:46)
--- NOTE | 2018-11-18 14:23 | PN ---
DATE: 11/18/2018 SUBJECTIVE: The patient is in bed in no acute distress. PHYSICAL EXAMINATION VITAL SIGNS: Temperature is 98, blood pressure is 160/70, respiratory rate 21, heart rate of 50. HEENT: Examination of HEENT is unremarkable. NECK: Supple. LUNGS: Have decreased breath sounds. HEART: Normal S1 and S2. ABDOMEN: Soft. LABORATORY DATA: Laboratory examination reveals the patient's white count is 17,000, hemoglobin of 8. Chemistries reveal a BUN of 85, creatinine of 3.5. Urinalysis is noted and serology is noted. ASSESSMENT AND PLAN: This is a 77-year-old male who was seen earlier today in room 264, bed 1 admitted with congestive heart failure and admitted also with sepsis with Escherichia coli bacteremia and Escherichia coli urinary tract and prostatitis and elevated PSA with acute diastolic congestive heart failure, ejection fraction of 70% on top of chronic congestive heart failure and will need 3 weeks of antibiotics, maybe able to switch to p.o. Vantin 100 mg p.o. b.i.d. for a total of 3 weeks. Should have Urology evaluation and currently, the patient is on prednisone and ceftriaxone. Uriah Mayer MD
--- NOTE | 2018-11-18 14:47 | CP.PCM.PN ---
Subjective - Date & Time of Evaluation Date of Evaluation: 11/18/18 Time of Evaluation: 14:46 - Subjective Subjective: Nephrology Consultation Note: Assessment: stable GNR sepsis non-oliguric SANDRA likely due to pre-renal state (as evident by concentrated urine and hemoconcentration), ATN due to sepsis, renal hypoperfusion as also with lactic acidosis, low BP sepsis with likely COPD exacerbation and less likely chf exacerbation CKD stage 4 with 443 mg proteinuria likely Due to HTN HTN kidney disease (I12.9) Obesity Anemia of chronic disease hx of COPD, CHF, ex smoker, PE esophageal ulceration with diverticuli on EGD 05/13/18 Plan no need for renal replacement therapy at present Hypertension control with meds as ordered. pt not on RAAS brittni, will defer it due to advanced CKD. added low dose coreg 3.125 bid but HR in 40s hence will stop beta-brittni added hydralazine and imdur Monitor I/O, daily weights and renal function while in hospital supplement Iron, MVI and weekly dose of aransep resume lasix 40 mg/d COPD management as per primary team/pulmonary pt was on weekly vit D--stopped as level 52. continue with calcitriol, phos binders renagel 1600 tid cardiology following Dose meds/antibiotics for reduced GFR. Avoid fleets enema/magnesium based laxatives. Avoid nephrotoxins/NSAIDs/ iodinated contrast (unless needed emergently) Glycemic control, renal diet. Further work up for as per primary team. Thanks for allowing me to participate in care of your patient. Will follow with you. Please call if any Qs. had d/w team Dr Rivas Hazel Office: [phone] CC; SOB and chest pressure reason for consult: SANDRA on CKD 4 HPI: Pt is a 77 M with hx of HTN (years), CKD stage 4 (with cr 2.8-3.0) obesity, COPD on detention prednisone 5 mg, CHF with severe pulmonary HTN, ex smoker, Pulm Embolism, anemia presented to hospital with complaints of SOB and chest pressure, found to have COPD versus CHF exacerbation with lactic acidosis ? sepsis and renal consult for SANDRA on CKD management. Denies chest pain, palpitation, improved shortness of breath, reports chronic leg swelling but better now. Denies OTC/herbal meds/NSAIDs No recent iodinated contrast exposure. no GI symptoms at present low BP 103/47 noted ROS: denies CP/nausea/vomiting now. improved SOB at present. no nausea denies pain abdomen. denies urine complaints rest other negative except as mentioned in HPI. Physical Examination: General Appearance: Comfortable, in no acute respiratory distress, co-operative. obese Vitals reviewed and noted as below Head; Atraumatic, normocephalic ENT: no ulcers no thrush. Tongue is midline. Oropharynx: no rash or ulcers. EYES: b/l PERRLA Neck; supple no lymphadenopathy, no thyromegaly or bruit Lungs: Normal respiratory rate/effort. Breath sounds b/l with equal clearer Heart: Normal rate. s1s2 normal. No rub or gallop. Extremities: 1+ edema. No varicose veins. chronic venous stasis changes in leg noted Neurological: Patient is awake alert and follow commands no focal deficit. improved asterixis Skin: dry and warm. Normal turgor. No rash. Palpitation: Normal elasticity for age Abdomen: Abdomen is soft . Bowel sounds +. There is no abdominal tenderness, no guarding/rigidity or organomegaly. Psych: normal insight. normal affect/mood MSK: no specific joint tenderness or swelling. Digits and nails normal, no deformity : kidney not palpable. exam limited due to obesity. has umblical hernia Labs/imaging/EKG reviewed. Past medical history, past surgical history, social history, allergy reviewed and noted as below Family hx; no hx of CKD. non contributory renal imaging: Rt side cyst outpt urine pr/cr 447 PTH 188 SPEP/SKYLAR neg with normal K/L ratio Hep B/C neg echo: severe pHTN with normal lvef Objective - Vital Signs/Intake and Output Vital Signs (last 24 hours): Temp Pulse Resp BP Pulse Ox 98.1 F 68 18 165/78 H 99 11/18/18 12:57 11/18/18 14:17 11/18/18 12:57 11/18/18 14:17 11/18/18 06:00 Intake and Output: 11/18/18 11/18/18 06:59 18:59 Intake Total 540 Output Total 600 Balance -60 - Medications Medications: Current Medications Acetaminophen (Tylenol 325mg Tab) 650 mg PO Q4H PRN PRN Reason: pain and fever Last Admin: 11/17/18 22:06 Dose: 650 mg Albuterol/Ipratropium (Duoneb 3 Mg/0.5 Mg (3 Ml) Ud) 3 ml IH [id number] [facility] Last Admin: 11/18/18 13:30 Dose: 3 ml Albuterol/Ipratropium (Duoneb 3 Mg/0.5 Mg (3 Ml) Ud) 3 ml IH Q2H PRN PRN Reason: Shortness of Breath Apixaban (Eliquis) 2.5 mg PO BID [facility]; Protocol Last Admin: 11/18/18 10:10 Dose: 2.5 mg Aspirin (Ecotrin) 81 mg PO DAILY [facility] Last Admin: 11/18/18 10:10 Dose: 81 mg Atorvastatin Calcium (Lipitor) 40 mg PO DAILY [facility] Last Admin: 11/18/18 10:10 Dose: 40 mg Calcitriol (Rocaltrol) 0.25 mcg PO DAILY [facility] Last Admin: 11/18/18 10:10 Dose: 0.25 mcg Clopidogrel Bisulfate (Plavix) 75 mg PO DAILY [facility] Last Admin: 11/18/18 10:10 Dose: 75 mg Darbepoetin Bryan (Aranesp) 100 mcg SC QWK [facility] Ferrous Sulfate (Feosol) 324 mg PO TID [facility] Last Admin: 11/18/18 14:18 Dose: 324 mg Furosemide (Lasix) 40 mg PO DAILY [facility] Last Admin: 11/18/18 10:11 Dose: 40 mg Hydralazine HCl (Apresoline) 10 mg IVP Q8 PRN PRN Reason: Systolic Blood Pressure Hydralazine HCl (Apresoline) 50 mg PO TID [facility] Last Admin: 11/18/18 14:17 Dose: 50 mg Ceftriaxone Sodium (Rocephin 1 Gram Ivpb) 1 gm in 100 mls @ 100 mls/hr IVPB DAILY [facility]; Protocol Stop: 11/24/18 10:01 Last Admin: 11/18/18 10:10 Dose: 100 mls/hr Isosorbide Mononitrate (Imdur Er) 30 mg PO DAILY [facility] Last Admin: 11/18/18 14:18 Dose: 30 mg Mupirocin (Bactroban Ointment) 0 gm TOP BID [facility] Last Admin: 11/18/18 10:17 Dose: 1 applic [id number] Ethyl Esters (Lovaza) 1 gm PO DAILY [facility] Last Admin: 11/18/18 10:11 Dose: 1 gm Pantoprazole Sodium (Protonix Ec Tab) 40 mg PO ACB [facility] Last Admin: 11/18/18 08:43 Dose: 40 mg Prednisone (Prednisone Tab) 10 mg PO DAILY [facility] Last Admin: 11/18/18 10:10 Dose: 10 mg Sevelamer HCl (Renagel) 1,600 mg PO TID [facility] Last Admin: 11/18/18 14:17 Dose: 1,600 mg Sodium Bicarbonate (Sodium Bicarbonate Tab) 650 mg PO BID [facility] Last Admin: 11/18/18 10:10 Dose: 650 mg Vitamin B Complex/Vit C/Folic Acid (Nephro-Samantha) 1 tab PO 0800 [facility] Last Admin: 11/18/18 08:43 Dose: 1 tab - Labs Labs: 11/18/18 07:20 11/18/18 07:20 PT 13.0 SECONDS (9.4-12.5) H 11/11/18 19:26 INR 1.17 11/11/18 19:26 APTT 61.1 Seconds (26.9-38.3) H 11/17/18 05:05
--- NOTE | 2018-11-18 15:20 | CP.PCM.PN ---
<Ana MlaurenTangh - Last Filed: 11/18/18 15:09> Subjective - Date & Time of Evaluation Date of Evaluation: 11/18/18 Time of Evaluation: 15:10 - Subjective Subjective: Medicine Progress Note for Dr. Nunes 77M seen and evaluated at bedside this morning. Patient has chronic afib noted overnight. States he had the best night since admission. Denies f/c, n/v/d, CP, headaches, dizziness, or urinary symptoms. Objective - Vital Signs/Intake and Output Vital Signs (last 24 hours): Temp Pulse Resp BP Pulse Ox 98.1 F 68 18 165/78 H 99 11/18/18 12:57 11/18/18 14:17 11/18/18 12:57 11/18/18 14:17 11/18/18 06:00 Intake and Output: 11/18/18 11/18/18 06:59 18:59 Intake Total 540 Output Total 600 Balance -60 - Medications Medications: Current Medications Acetaminophen (Tylenol 325mg Tab) 650 mg PO Q4H PRN PRN Reason: pain and fever Last Admin: 11/17/18 22:06 Dose: 650 mg Albuterol/Ipratropium (Duoneb 3 Mg/0.5 Mg (3 Ml) Ud) 3 ml IH [id number] [facility] Last Admin: 11/18/18 13:30 Dose: 3 ml Albuterol/Ipratropium (Duoneb 3 Mg/0.5 Mg (3 Ml) Ud) 3 ml IH Q2H PRN PRN Reason: Shortness of Breath Apixaban (Eliquis) 2.5 mg PO BID [facility]; Protocol Last Admin: 11/18/18 10:10 Dose: 2.5 mg Aspirin (Ecotrin) 81 mg PO DAILY [facility] Last Admin: 11/18/18 10:10 Dose: 81 mg Atorvastatin Calcium (Lipitor) 40 mg PO DAILY [facility] Last Admin: 11/18/18 10:10 Dose: 40 mg Calcitriol (Rocaltrol) 0.25 mcg PO DAILY [facility] Last Admin: 11/18/18 10:10 Dose: 0.25 mcg Clopidogrel Bisulfate (Plavix) 75 mg PO DAILY [facility] Last Admin: 11/18/18 10:10 Dose: 75 mg Darbepoetin Bryan (Aranesp) 100 mcg SC QWK [facility] Ferrous Sulfate (Feosol) 324 mg PO TID [facility] Last Admin: 11/18/18 14:18 Dose: 324 mg Furosemide (Lasix) 40 mg PO DAILY [facility] Last Admin: 11/18/18 10:11 Dose: 40 mg Hydralazine HCl (Apresoline) 10 mg IVP Q8 PRN PRN Reason: Systolic Blood Pressure Hydralazine HCl (Apresoline) 50 mg PO TID [facility] Last Admin: 11/18/18 14:17 Dose: 50 mg Ceftriaxone Sodium (Rocephin 1 Gram Ivpb) 1 gm in 100 mls @ 100 mls/hr IVPB DAILY [facility]; Protocol Stop: 11/24/18 10:01 Last Admin: 11/18/18 10:10 Dose: 100 mls/hr Isosorbide Mononitrate (Imdur Er) 30 mg PO DAILY [facility] Last Admin: 11/18/18 14:18 Dose: 30 mg Mupirocin (Bactroban Ointment) 0 gm TOP BID [facility] Last Admin: 11/18/18 10:17 Dose: 1 applic [id number]-[id number] Ethyl Esters (Lovaza) 1 gm PO DAILY [facility] Last Admin: 11/18/18 10:11 Dose: 1 gm Pantoprazole Sodium (Protonix Ec Tab) 40 mg PO ACB [facility] Last Admin: 11/18/18 08:43 Dose: 40 mg Prednisone (Prednisone Tab) 10 mg PO DAILY [facility] Last Admin: 11/18/18 10:10 Dose: 10 mg Sevelamer HCl (Renagel) 1,600 mg PO TID [facility] Last Admin: 11/18/18 14:17 Dose: 1,600 mg Sodium Bicarbonate (Sodium Bicarbonate Tab) 650 mg PO BID [facility] Last Admin: 11/18/18 10:10 Dose: 650 mg Vitamin B Complex/Vit C/Folic Acid (Nephro-Samantha) 1 tab PO 0800 [facility] Last Admin: 11/18/18 08:43 Dose: 1 tab - Labs Labs: 11/18/18 07:20 11/18/18 07:20 PT 13.0 SECONDS (9.4-12.5) H 11/11/18 19:26 INR 1.17 11/11/18 19:26 APTT 61.1 Seconds (26.9-38.3) H 11/17/18 05:05 - Constitutional Appears: Non-toxic, No Acute Distress - Head Exam Head Exam: ATRAUMATIC, NORMAL INSPECTION, NORMOCEPHALIC - Eye Exam Eye Exam: EOMI - ENT Exam ENT Exam: Mucous Membranes Dry - Respiratory Exam Respiratory Exam: Wheezes (expiratory), NORMAL BREATHING PATTERN. absent: Accessory Muscle Use, Respiratory Distress - Cardiovascular Exam Cardiovascular Exam: Irregular Rhythm, +S1, +S2. absent: Tachycardia, Murmur - GI/Abdominal Exam GI & Abdominal Exam: Soft, Normal Bowel Sounds. absent: Tenderness - Neurological Exam Neurological Exam: Alert, Awake, Oriented x3 - Psychiatric Exam Psychiatric exam: Normal Affect, Normal Mood - Skin Skin Exam: Dry, Intact, Normal Color, Warm Assessment and Plan - Assessment and Plan (Free Text) Assessment: 77M, PMH of congestive heart failure, COPD, asthma, CKD stage IV, hypertension, hyperlipidemia, and esophageal ulcerations admitted for respiratory distress. Plan: E. Coli bacteremia - Blood culture (11/14): no growth to date - Blood culture (11/11): E. coli - Urine culture (11/11): E. Coli - ID consulted, Dr. Hugo/Dr. Mayer - Continue Ceftriaxone 1g IV QD (Started on 11/15) - total of 9 days NSTEMI - Cardiology consulted, Dr. Sam - Continue with Aspirin, Plavix, and Lipitor - No ST elevations on EKG - Patient last had stress test on 07/2018 which was positive for lateral ischemia - Patient is not a suitable candidate at this time for cardiac cath due to SANDRA Diastolic Congestive heart failure - Last echo in 04/2018 showed LVEF of 70% and severely calcified aortic valve and left ventricular hypertrophy with RVSP of 77 - Lasix 40mg PO QD - Chest X-ray on 11/16 showed no edema - Monitor I/O - Daily weights Hypertension - Lasix 40mg PO QD - Hydralazine 50mg TID - YASH/ARB's not indicated due to SANDRA - CCB not indicated due to lower extremity edema SANDRA on CKD - BUN/Cr improving - Nephrology consulted, Dr. Hazel - Continue patient on Feosol, Aranesp, Calcitriol, Renagel, MVI, and sodium bicarbonate - Starting Darbepoetin - Avoid nephrotoxic agents- avoid fleet enema/magnesium based laxatives, NSAIDs, iodinated contrast - Continue to monitor Atrial Fibrillation - Start Eliquis 2.5mg PO BID - CHADS-VASc score: 4 points - HAS-BLED score: 4 points COPD exacerbation - Tapering dose of Prednisone 15 mg PO QD - Prednisone 10mg today - Continue Duonebs scheduled and PRN Normocytic anemia - Likely multifactorial from iron deficiency, and anemia of chronic disease - Continue with Aranesp and Feosol Hyperphosphatemia - Continue with home medication, Renagel Hyperlipidemia - Continue with home medication, Lipitor PPX: GI prophylaxis: Protonix 40 mg daily DVT prophylaxis: Eluquis 2.5mg PO BID Dispo: Patient medically cleared for TYLER, recommended by PT; however patient continues to refuse PT. Pending case management evaluation. Patient seen and plan discussed with attending, Dr. Des Kerns PGY1 <Vikki Nunes - Last Filed: 11/19/18 08:03> Objective - Vital Signs/Intake and Output Vital Signs (last 24 hours): Temp Pulse Resp BP Pulse Ox 97.9 F 70 20 138/77 97 11/19/18 06:00 11/19/18 06:00 11/19/18 06:00 11/19/18 06:00 11/19/18 06:00 Intake and Output: 11/19/18 11/19/18 06:59 18:59 Intake Total 240 Output Total 225 Balance 15 - Medications Medications: Current Medications Acetaminophen (Tylenol 325mg Tab) 650 mg PO Q4H PRN PRN Reason: pain and fever Last Admin: 11/18/18 20:20 Dose: 650 mg Albuterol/Ipratropium (Duoneb 3 Mg/0.5 Mg (3 Ml) Ud) 3 ml IH [id number] [facility] Last Admin: 11/19/18 07:27 Dose: 3 ml Albuterol/Ipratropium (Duoneb 3 Mg/0.5 Mg (3 Ml) Ud) 3 ml IH Q2H PRN PRN Reason: Shortness of Breath Apixaban (Eliquis) 2.5 mg PO BID [facility]; Protocol Last Admin: 11/18/18 17:45 Dose: 2.5 mg Aspirin (Ecotrin) 81 mg PO DAILY [facility] Last Admin: 11/18/18 10:10 Dose: 81 mg Atorvastatin Calcium (Lipitor) 40 mg PO DAILY [facility] Last Admin: 11/18/18 10:10 Dose: 40 mg Calcitriol (Rocaltrol) 0.25 mcg PO DAILY [facility] Last Admin: 11/18/18 10:10 Dose: 0.25 mcg Clopidogrel Bisulfate (Plavix) 75 mg PO DAILY [facility] Last Admin: 11/18/18 10:10 Dose: 75 mg Darbepoetin Bryan (Aranesp) 100 mcg SC QWK [facility] Ferrous Sulfate (Feosol) 324 mg PO TID [facility] Last Admin: 11/18/18 17:45 Dose: 324 mg Furosemide (Lasix) 40 mg PO DAILY [facility] Last Admin: 11/18/18 10:11 Dose: 40 mg Hydralazine HCl (Apresoline) 50 mg PO TID [facility] Last Admin: 11/18/18 17:45 Dose: 50 mg Ceftriaxone Sodium (Rocephin 1 Gram Ivpb) 1 gm in 100 mls @ 100 mls/hr IVPB DAILY [facility]; Protocol Stop: 11/24/18 10:01 Last Admin: 11/18/18 10:10 Dose: 100 mls/hr Isosorbide Mononitrate (Imdur Er) 30 mg PO DAILY [facility] Last Admin: 11/18/18 14:18 Dose: 30 mg Mupirocin (Bactroban Ointment) 0 gm TOP BID [facility] Last Admin: 11/18/18 17:46 Dose: 1 applic [id number] Ethyl Esters (Lovaza) 1 gm PO DAILY [facility] Last Admin: 11/18/18 10:11 Dose: 1 gm Pantoprazole Sodium (Protonix Ec Tab) 40 mg PO ACB [facility] Last Admin: 11/18/18 08:43 Dose: 40 mg Prednisone (Prednisone Tab) 10 mg PO DAILY [facility] Last Admin: 11/18/18 10:10 Dose: 10 mg Sevelamer HCl (Renagel) 1,600 mg PO TID [facility] Last Admin: 11/18/18 17:45 Dose: 1,600 mg Sodium Bicarbonate (Sodium Bicarbonate Tab) 650 mg PO BID [facility] Last Admin: 11/18/18 17:45 Dose: 650 mg Vitamin B Complex/Vit C/Folic Acid (Nephro-Samantha) 1 tab PO 0800 [facility] Last Admin: 11/18/18 08:43 Dose: 1 tab - Labs Labs: 11/19/18 06:20 11/19/18 06:20 PT 13.0 SECONDS (9.4-12.5) H 11/11/18 19:26 INR 1.17 11/11/18 19:26 APTT 61.1 Seconds (26.9-38.3) H 11/17/18 05:05 Attending/Attestation - Attestation I have personally seen and examined this patient.: Yes I have fully participated in the care of the patient.: Yes I have reviewed all pertinent clinical information, including history, physical exam and plan: Yes Notes (Text): 11/19/18 08:00 Patient was seen and examined with diploma medical assistant. 77 year old male with PMH of COPD, CHF with systolic dysfunction, CKD base line creatinin around 2.8, hypertension and esophageal ulcers (04/2018) who presented with acute respiratory distress, sepsis secondary to E Coli bacteremia/UTI, acute on chronic renal failure and possible NSTEMI. Sepsis is improved.Patient is afebrile.WBC count is coming down. Continue with iv antibiotics as per ID. He follows up with urology as outpatient. Acute on chronic renal failure, creatinin is improving.Creatinin is improved to 3.5 , could be new base line.we will monitor BUN and creatinin. COPD is improving, on Neb and steroid, wheezing is better today, on tapering dose of Prednisone. AF, Rate is controlled, on anticoagulation with Apixiban as Jassi Vasc score is high.The risk and benefit was discussed in detail with the patient. Possible NSEMI, Patient is pain free, on ASA/lipitor/Echo showed normal systolic dysfunction.Coreg is discontinued due to bradycardia. Physical Deconditiong. TYLER is recommended.Patient has not made any decision , he wants to talk to his before making any decision.Case management is working on disposition . Prognosis is guarded. Management plan was discussed in detail with patient. Education was provided
--- NOTE | 2018-11-18 18:49 | PN ---
DATE: 11/18/2018 SUBJECTIVE: The patient's shortness of breath has improved. He is still experiencing mild cough. No retrosternal chest pain. PHYSICAL EXAMINATION: VITAL SIGNS: Blood pressure 165/78, heart rate 68, temperature 98.1. Earlier heart rate was 45. Respirations are 18. HEENT: Pale conjunctivae. CHEST: Bibasilar rhonchi. HEART: S1, S2, irregular. ABDOMEN: Soft. EXTREMITIES: 1+ pitting edema. LABORATORY DATA: Today's hemoglobin and hematocrit 8.6 and 27.8, white count 17.2, platelet count 259,000. Today's BUN and creatinine 85 and 3.5 respectively. Glucose is 69. ASSESSMENT: 1. Escherichia coli urosepsis. 2. Borderline troponin elevation, consider phb-NX-atsblofor myocardial infarction. 3. Advanced renal insufficiency. 4. Chronic atrial fibrillation. RECOMMENDATIONS: Continue hydralazine 50 mg t.i.d., albuterol inhaler every 2 hours p.r.n., aspirin 81 mg once a day, Eliquis 2.5 mg once a day, Lasix 40 mg p.o. once a day, Lipitor 40 mg once a day, Plavix 75 mg once a day, and IV Rocephin at 1 g daily. Dhaval Gibson MD
--- NOTE | 2018-11-18 23:24 | CP.PCM.PCO ---
Addendum Addendum: 11/18/18 23:21 PGY1 House Doctor Note: Patient complained of constipation per Nurse, requested more Miralax. Patient received Miralax nightly. Thus, I ordered miralax and tap water and soap enema (Reviewed CMP, Creatinine is elevated.)
[2018-11-19] MEDS: Albuterol-Ipratrop 3 mg / 0.5 (3 ml) UD IH SCH ×3 (01:48→13:19)
[2018-11-19 07:00] LABS: BASO # 0.02 K/mm3 (0.0-2.0); BASO % 0.1 % (0.0-3.0); EOS # 0.2 (0.0-0.7); EOS % 1.3 % (1.5-5.0); HEMOGLOBIN 7.7 g/dL (14.0-18.0); LYMPH # 2.8 (1.2-3.4); LYMPH % 19.5 % (22.0-35.0); MEAN CORPUSCULAR HEMOGLOBIN 26.5 pg (25.0-35.0); MEAN CORPUSCULAR HGB CONC 30.1 g/dl (31.0-37.0); MONO % 6.9 % (1.0-6.0); RBC 2.91 10^6/uL (3.5-6.1); RED CELL DISTRIBUTION WIDTH 15.5 % (11.5-14.5); WHITE BLOOD COUNT 14.2 10^3/uL (4.5-11.0)
--- NOTE | 2018-11-19 07:02 | CP.PCM.PN ---
<Moises Caal - Last Filed: 11/19/18 15:11> Subjective - Date & Time of Evaluation Date of Evaluation: 11/19/18 Time of Evaluation: 07:02 - Subjective Subjective: PGY-1 Medicine Progress Note for Dr. Nunes Patient seen and evaluated at bedside. Patient had 3 bowel movements last night, denies seeing blood in his stool. Otherwise he denies fevers, chills, headaches, shortness of breath, chest pain, N/V/D, or any other complaints. Objective - Vital Signs/Intake and Output Vital Signs (last 24 hours): Temp Pulse Resp BP Pulse Ox 97.9 F 70 20 138/77 97 11/19/18 06:00 11/19/18 06:00 11/19/18 06:00 11/19/18 06:00 11/19/18 06:00 - Medications Medications: Current Medications Acetaminophen (Tylenol 325mg Tab) 650 mg PO Q4H PRN PRN Reason: pain and fever Last Admin: 11/18/18 20:20 Dose: 650 mg Albuterol/Ipratropium (Duoneb 3 Mg/0.5 Mg (3 Ml) Ud) 3 ml IH [id number] [facility] Last Admin: 11/19/18 01:48 Dose: 3 ml Albuterol/Ipratropium (Duoneb 3 Mg/0.5 Mg (3 Ml) Ud) 3 ml IH Q2H PRN PRN Reason: Shortness of Breath Apixaban (Eliquis) 2.5 mg PO BID [facility]; Protocol Last Admin: 11/18/18 17:45 Dose: 2.5 mg Aspirin (Ecotrin) 81 mg PO DAILY [facility] Last Admin: 11/18/18 10:10 Dose: 81 mg Atorvastatin Calcium (Lipitor) 40 mg PO DAILY [facility] Last Admin: 11/18/18 10:10 Dose: 40 mg Calcitriol (Rocaltrol) 0.25 mcg PO DAILY [facility] Last Admin: 11/18/18 10:10 Dose: 0.25 mcg Clopidogrel Bisulfate (Plavix) 75 mg PO DAILY [facility] Last Admin: 11/18/18 10:10 Dose: 75 mg Darbepoetin Bryan (Aranesp) 100 mcg SC QWK [facility] Ferrous Sulfate (Feosol) 324 mg PO TID [facility] Last Admin: 11/18/18 17:45 Dose: 324 mg Furosemide (Lasix) 40 mg PO DAILY [facility] Last Admin: 11/18/18 10:11 Dose: 40 mg Hydralazine HCl (Apresoline) 50 mg PO TID [facility] Last Admin: 11/18/18 17:45 Dose: 50 mg Ceftriaxone Sodium (Rocephin 1 Gram Ivpb) 1 gm in 100 mls @ 100 mls/hr IVPB DAILY [facility]; Protocol Stop: 11/24/18 10:01 Last Admin: 11/18/18 10:10 Dose: 100 mls/hr Isosorbide Mononitrate (Imdur Er) 30 mg PO DAILY [facility] Last Admin: 11/18/18 14:18 Dose: 30 mg Mupirocin (Bactroban Ointment) 0 gm TOP BID [facility] Last Admin: 11/18/18 17:46 Dose: 1 applic [id number] Ethyl Esters (Lovaza) 1 gm PO DAILY [facility] Last Admin: 11/18/18 10:11 Dose: 1 gm Pantoprazole Sodium (Protonix Ec Tab) 40 mg PO ACB [facility] Last Admin: 11/18/18 08:43 Dose: 40 mg Prednisone (Prednisone Tab) 10 mg PO DAILY [facility] Last Admin: 11/18/18 10:10 Dose: 10 mg Sevelamer HCl (Renagel) 1,600 mg PO TID [facility] Last Admin: 11/18/18 17:45 Dose: 1,600 mg Sodium Bicarbonate (Sodium Bicarbonate Tab) 650 mg PO BID [facility] Last Admin: 11/18/18 17:45 Dose: 650 mg Vitamin B Complex/Vit C/Folic Acid (Nephro-Samantha) 1 tab PO 0800 [facility] Last Admin: 11/18/18 08:43 Dose: 1 tab - Labs Labs: 11/18/18 07:20 11/18/18 07:20 PT 13.0 SECONDS (9.4-12.5) H 11/11/18 19:26 INR 1.17 11/11/18 19:26 APTT 61.1 Seconds (26.9-38.3) H 11/17/18 05:05 - Additional Findings Additional findings: - Constitutional Appears: Well, Non-toxic, No Acute Distress - Head Exam Head Exam: ATRAUMATIC, NORMAL INSPECTION, NORMOCEPHALIC - Eye Exam Eye Exam: EOMI, PERRL - ENT Exam ENT Exam: Mucous Membranes Moist - Neck Exam Neck Exam: Full ROM - Respiratory Exam Respiratory Exam: Clear to Ausculation Bilateral, NORMAL BREATHING PATTERN - Cardiovascular Exam Cardiovascular Exam: REGULAR RHYTHM, RRR, S1, S2 - GI/Abdominal Exam GI & Abdominal Exam: Soft, Normal Bowel Sounds. absent: Tenderness - Extremities Exam Extremities Exam: Full ROM. +1 pitting edema noted on bilateral legs. No tenderness. - Neurological Exam Neurological Exam: Alert, Awake, CN II-XII Intact, Oriented x3 - Skin Skin Exam: Dry, Intact Assessment and Plan - Assessment and Plan (Free Text) Assessment: Patient is a 77 year old male with a past medical history of congestive heart failure, COPD, asthma, CKD stage IV, hypertension, hyperlipidemia, and esophageal ulcerations presented with respiratory distress to the hospital. Plan: E. Coli bacteremia - Blood culture (11/14): no growth to date - Blood culture (11/11): E. coli - Urine culture (11/11): E. Coli - ID consulted, Dr. Hugo/Dr. Mayer - Continue Ceftriaxone 1g IV QD (Started on 11/15) - total of 9 days NSTEMI - Cardiology consulted, Dr. Sam - Continue with Aspirin and Lipitor - No ST elevations on EKG - Patient last had stress test on 07/2018 which was positive for lateral ischemia Diastolic Congestive heart failure - Last echo in 04/2018 showed LVEF of 70% and severely calcified aortic valve and left ventricular hypertrophy with RVSP of 77 - Lasix 40mg PO QD - Monitor I/O - Daily weights Hypertension - Lasix 40mg PO QD - Hydralazine 50mg PO Q8 - Imdur 30mg PO QD - YASH/ARB's not indicated due to SANDRA - CCB not indicated due to lower extremity edema SANDRA on CKD - BUN/Cr improving - Nephrology consulted, Dr. Hazel - Continue patient on Feosol, Aranesp, Calcitriol, Renagel, MVI, and sodium bicarbonate - Avoid nephrotoxic agents- avoid fleet enema/magnesium based laxatives, NSAIDs, iodinated contrast - Continue to monitor Atrial Fibrillation - Start Eliquis 2.5mg PO BID - CHADS-VASc score: 4 points - HAS-BLED score: 4 points COPD exacerbation - Tapering dose of Prednisone 5 mg PO QD - Continue Duonebs scheduled and PRN Normocytic anemia - Likely multifactorial from iron deficiency, and anemia of chronic disease - Continue with Aranesp and Feosol Hyperphosphatemia - Continue with home medication, Renagel Hyperlipidemia - Continue with home medication, Lipitor GI prophylaxis: Protonix 40 mg daily DVT prophylaxis: Eluquis 2.5mg PO BID Disposition: Home with PT services. Patient seen and plan discussed with attending, Dr. Des Caal, PGY-1 <Vikki Nunes - Last Filed: 11/20/18 12:56> Objective - Vital Signs/Intake and Output Vital Signs (last 24 hours): Temp Pulse Resp BP Pulse Ox 97.8 F 57 L 18 158/82 H 99 11/20/18 06:00 11/20/18 10:00 11/20/18 10:00 11/20/18 09:12 11/20/18 06:00 Intake and Output: 11/20/18 11/20/18 06:59 18:59 Intake Total 2280 Output Total 1800 Balance 480 - Medications Medications: Current Medications Acetaminophen (Tylenol 325mg Tab) 650 mg PO Q4H PRN PRN Reason: pain and fever Last Admin: 11/19/18 21:46 Dose: 650 mg Albuterol/Ipratropium (Duoneb 3 Mg/0.5 Mg (3 Ml) Ud) 3 ml IH [id number] [facility] Last Admin: 11/20/18 07:56 Dose: 3 ml Albuterol/Ipratropium (Duoneb 3 Mg/0.5 Mg (3 Ml) Ud) 3 ml IH Q2H PRN PRN Reason: Shortness of Breath Apixaban (Eliquis) 2.5 mg PO BID [facility]; Protocol Last Admin: 11/20/18 09:11 Dose: 2.5 mg Aspirin (Ecotrin) 81 mg PO DAILY [facility] Last Admin: 11/20/18 09:10 Dose: 81 mg Atorvastatin Calcium (Lipitor) 40 mg PO DAILY [facility] Last Admin: 11/20/18 09:10 Dose: 40 mg Calcitriol (Rocaltrol) 0.25 mcg PO DAILY [facility] Last Admin: 11/20/18 09:11 Dose: 0.25 mcg Darbepoetin Bryan (Aranesp) 100 mcg SC QWK [facility] Last Admin: 11/19/18 12:52 Dose: 100 mcg Ferrous Sulfate (Feosol) 324 mg PO TID [facility] Last Admin: 11/20/18 09:11 Dose: 324 mg Furosemide (Lasix) 40 mg PO DAILY [facility] Last Admin: 11/20/18 09:11 Dose: 40 mg Hydralazine HCl (Apresoline) 50 mg PO TID [facility] Last Admin: 11/20/18 09:12 Dose: 50 mg Isosorbide Mononitrate (Imdur Er) 30 mg PO DAILY [facility] Last Admin: 11/20/18 09:10 Dose: 30 mg Mupirocin (Bactroban Ointment) 0 gm TOP BID [facility] Last Admin: 11/20/18 09:13 Dose: 1 applic [id number] Ethyl Esters (Lovaza) 1 gm PO DAILY [facility] Last Admin: 11/20/18 09:11 Dose: 1 gm Pantoprazole Sodium (Protonix Ec Tab) 40 mg PO ACB [facility] Last Admin: 11/20/18 08:30 Dose: 40 mg Prednisone (Prednisone Tab) 5 mg PO DAILY [facility] Last Admin: 11/20/18 09:11 Dose: 5 mg Sevelamer HCl (Renagel) 800 mg PO TID [facility] Last Admin: 11/20/18 09:10 Dose: 800 mg Sodium Bicarbonate (Sodium Bicarbonate Tab) 650 mg PO BID [facility] Last Admin: 11/20/18 09:10 Dose: 650 mg Vitamin B Complex/Vit C/Folic Acid (Nephro-Samantha) 1 tab PO 0800 [facility] Last Admin: 11/20/18 09:11 Dose: 1 tab - Labs Labs: 11/19/18 10:15 11/19/18 06:20 PT 13.0 SECONDS (9.4-12.5) H 11/11/18 19:26 INR 1.17 11/11/18 19:26 APTT 61.1 Seconds (26.9-38.3) H 11/17/18 05:05 Attending/Attestation - Attestation I have fully participated in the care of the patient.: Yes I have reviewed all pertinent clinical information, including history, physical exam and plan: Yes Notes (Text): 11/20/18 12:54 Patient was seen and examined with biomedical equipment support specialist. 77 year old male with PMH of COPD, CHF with systolic dysfunction, CKD base line creatinin around 2.8, hypertension and esophageal ulcers (04/2018) who presented with acute respiratory distress, sepsis secondary to E Coli bacteremia/UTI, acute on chronic renal failure and possible NSTEMI. Sepsis is improved.Patient is afebrile.WBC count is coming down, on antibiotics as per ID He follows up with urology as outpatient. Acute on chronic renal failure, creatinin is improving.Creatinin is improved to 3.5 , could be new base line.we will monitor BUN and creatinin. AF, Rate is controlled, on anticoagulation with Apixiban as Jassi Vasc score is high.The risk and benefit was discussed in detail with the patient. COPD is improving, on Neb and steroid, wheezing is better today, on tapering dose of Prednisone. Possible NSEMI, Patient is pain free, on ASA/lipitor/Echo showed normal systolic dysfunction.Coreg is discontinued due to bradycardia. Physical Deconditiong. TYLER is recommended.Patient is refusing to go TYLER.This was discussed in detail with him. He is high risk for fall.As he is refusing, he will be be discharged home with home services.Case management is working on disposition. Prognosis is guarded. Management plan was discussed in detail with patient. Education was provided
[2018-11-19 07:37] LABS: ALB/GLOB RATIO 1.1 (1.1-1.8); ALBUMIN 3.5 g/dL (3.0-4.8); CALCIUM 8.9 mg/dL (8.4-10.5)
[2018-11-19] MEDS: Multivitamin Vitamin B Complex (Nephro-Vite) Tab PO SCH (10:01)
[2018-11-19] MEDS: cefTRIAXone 1 gm 1 GM/100 ML BAG IVPB SCH (10:03)
[2018-11-19] MEDS: Pantoprazole 40 mg EC Tab PO SCH (10:03)
[2018-11-19] MEDS: Mupirocin 2% Ointment 15 GM TUBE TOP SCH ×2 (10:21→18:13)
[2018-11-19 10:29] LABS: HEMOGLOBIN 8.1 g/dL (14.0-18.0); MEAN CELL VOLUME 87.9 fl (80.0-105.0); MEAN CORPUSCULAR HEMOGLOBIN 26.4 pg (25.0-35.0); MEAN PLATELET VOLUME 9.5 fl (7.0-11.0); RBC 3.07 10^6/uL (3.5-6.1); RED CELL DISTRIBUTION WIDTH 15.4 % (11.5-14.5)
[2018-11-19] MEDS: Omega-3-Acid Ethyl Esters 1 GM Cap PO SCH (10:29)
--- NOTE | 2018-11-19 11:19 | CP.PCM.PN ---
Subjective - Date & Time of Evaluation Date of Evaluation: 11/19/18 Time of Evaluation: 11:18 - Subjective Subjective: Nephrology Consultation Note: Assessment: stable GNR sepsis non-oliguric SANDRA likely due to pre-renal state (as evident by concentrated urine and hemoconcentration), ATN due to sepsis, renal hypoperfusion as also with lactic acidosis, low BP sepsis with likely COPD exacerbation and less likely chf exacerbation CKD stage 4 with 443 mg proteinuria likely Due to HTN HTN kidney disease (I12.9) Obesity Anemia of chronic disease hx of COPD, CHF, ex smoker, PE esophageal ulceration with diverticuli on EGD 05/13/18 Plan no need for renal replacement therapy at present Hypertension control with meds as ordered. pt not on RAAS brittni, will defer it due to advanced CKD. added low dose coreg 3.125 bid but HR in 40s hence will stop beta-brittni added hydralazine and imdur Monitor I/O, daily weights and renal function while in hospital supplement Iron, MVI and weekly dose of aransep. PRBC as needed resume lasix 40 mg/d COPD management as per primary team/pulmonary pt was on weekly vit D--stopped as level 52. continue with calcitriol, phos binders renagel 800 mg tid w/meals cardiology following Dose meds/antibiotics for reduced GFR. Avoid fleets enema/magnesium based laxatives. Avoid nephrotoxins/NSAIDs/ iodinated contrast (unless needed emergently) Glycemic control, renal diet. Further work up for as per primary team. pt stable for d/c from renal perspective when planned with 1 week outpt renal follow up Thanks for allowing me to participate in care of your patient. Will follow with you. Please call if any Qs. had d/w team Dr Rivas Hazel Office: [phone] CC; SOB and chest pressure reason for consult: SANDRA on CKD 4 HPI: Pt is a 77 M with hx of HTN (years), CKD stage 4 (with cr 2.8-3.0) obesity, COPD on nursing home prednisone 5 mg, CHF with severe pulmonary HTN, ex smoker, Pulm Embolism, anemia presented to hospital with complaints of SOB and chest pressure, found to have COPD versus CHF exacerbation with lactic acidosis ? sepsis and renal consult for SANDRA on CKD management. Denies chest pain, palpitation, improved shortness of breath, reports chronic leg swelling but better now. Denies OTC/herbal meds/NSAIDs No recent iodinated contrast exposure. no GI symptoms at present low BP 103/47 noted ROS: denies CP/nausea/vomiting now. improved SOB at present. no nausea denies pain abdomen. denies urine complaints rest other negative except as mentioned in HPI. Physical Examination: General Appearance: Comfortable, in no acute respiratory distress, co-operative. obese Vitals reviewed and noted as below Head; Atraumatic, normocephalic ENT: no ulcers no thrush. Tongue is midline. Oropharynx: no rash or ulcers. EYES: b/l PERRLA Neck; supple no lymphadenopathy, no thyromegaly or bruit Lungs: Normal respiratory rate/effort. Breath sounds b/l with equal clearer Heart: Normal rate. s1s2 normal. No rub or gallop. Extremities: 1+ pedal edema. No varicose veins. chronic venous stasis changes in leg noted Neurological: Patient is awake alert and follow commands no focal deficit. improved asterixis Skin: dry and warm. Normal turgor. No rash. Palpitation: Normal elasticity for age Abdomen: Abdomen is soft . Bowel sounds +. There is no abdominal tenderness, no guarding/rigidity or organomegaly. Psych: normal insight. normal affect/mood MSK: no specific joint tenderness or swelling. Digits and nails normal, no deformity : kidney not palpable. exam limited due to obesity. has umblical hernia Labs/imaging/EKG reviewed. Past medical history, past surgical history, social history, allergy reviewed and noted as below Family hx; no hx of CKD. non contributory renal imaging: Rt side cyst outpt urine pr/cr 447 PTH 188 SPEP/SKYLAR neg with normal K/L ratio Hep B/C neg echo: severe pHTN with normal lvef Objective - Vital Signs/Intake and Output Vital Signs (last 24 hours): Temp Pulse Resp BP Pulse Ox 97.9 F 68 20 140/65 97 11/19/18 06:00 11/19/18 10:19 11/19/18 06:00 11/19/18 10:19 11/19/18 06:00 Intake and Output: 11/19/18 11/19/18 06:59 18:59 Intake Total 240 Output Total 225 Balance 15 - Medications Medications: Current Medications Acetaminophen (Tylenol 325mg Tab) 650 mg PO Q4H PRN PRN Reason: pain and fever Last Admin: 11/18/18 20:20 Dose: 650 mg Albuterol/Ipratropium (Duoneb 3 Mg/0.5 Mg (3 Ml) Ud) 3 ml IH [id number] [facility] Last Admin: 11/19/18 07:27 Dose: 3 ml Albuterol/Ipratropium (Duoneb 3 Mg/0.5 Mg (3 Ml) Ud) 3 ml IH Q2H PRN PRN Reason: Shortness of Breath Apixaban (Eliquis) 2.5 mg PO BID [facility]; Protocol Last Admin: 11/18/18 17:45 Dose: 2.5 mg Aspirin (Ecotrin) 81 mg PO DAILY [facility] Last Admin: 11/18/18 10:10 Dose: 81 mg Atorvastatin Calcium (Lipitor) 40 mg PO DAILY [facility] Last Admin: 11/19/18 10:03 Dose: 40 mg Calcitriol (Rocaltrol) 0.25 mcg PO DAILY [facility] Last Admin: 11/19/18 10:03 Dose: 0.25 mcg Darbepoetin Bryan (Aranesp) 100 mcg SC QWK [facility] Ferrous Sulfate (Feosol) 324 mg PO TID [facility] Last Admin: 11/19/18 10:03 Dose: 324 mg Furosemide (Lasix) 40 mg PO DAILY [facility] Last Admin: 11/19/18 10:19 Dose: 40 mg Hydralazine HCl (Apresoline) 50 mg PO TID [facility] Last Admin: 11/19/18 10:19 Dose: 50 mg Ceftriaxone Sodium (Rocephin 1 Gram Ivpb) 1 gm in 100 mls @ 100 mls/hr IVPB DAILY [facility]; Protocol Stop: 11/24/18 10:01 Last Admin: 11/19/18 10:03 Dose: 100 mls/hr Isosorbide Mononitrate (Imdur Er) 30 mg PO DAILY [facility] Last Admin: 11/19/18 10:03 Dose: 30 mg Mupirocin (Bactroban Ointment) 0 gm TOP BID [facility] Last Admin: 11/19/18 10:21 Dose: 1 applic [id number]-[id number] Ethyl Esters (Lovaza) 1 gm PO DAILY [facility] Last Admin: 11/19/18 10:29 Dose: 1 gm Pantoprazole Sodium (Protonix Ec Tab) 40 mg PO ACB [facility] Last Admin: 11/19/18 10:03 Dose: 40 mg Prednisone (Prednisone Tab) 5 mg PO DAILY [facility] Last Admin: 11/19/18 10:02 Dose: 5 mg Sevelamer HCl (Renagel) 800 mg PO TID [facility] Last Admin: 11/19/18 10:02 Dose: 800 mg Sodium Bicarbonate (Sodium Bicarbonate Tab) 650 mg PO BID [facility] Last Admin: 11/19/18 10:29 Dose: 650 mg Vitamin B Complex/Vit C/Folic Acid (Nephro-Samantha) 1 tab PO 0800 [facility] Last Admin: 11/19/18 10:01 Dose: 1 tab - Labs Labs: 11/19/18 10:15 11/19/18 06:20 PT 13.0 SECONDS (9.4-12.5) H 11/11/18 19:26 INR 1.17 11/11/18 19:26 APTT 61.1 Seconds (26.9-38.3) H 11/17/18 05:05
[2018-11-19] MEDS ORDERED: Darbepoetin Alfa 100 mcg/ml Inj SC SCH (11:30)
--- NOTE | 2018-11-19 16:56 | PN ---
DATE: 11/19/2018 SUBJECTIVE: The patient converted to sinus rhythm with Mobitz 1 second-degree AV block. He denied any dizziness or palpitation. PHYSICAL EXAMINATION: VITAL SIGNS: Blood pressure 140/65, heart rate 68, temperature 97.9, respirations are 20. HEENT: Pale conjunctivae. CHEST: Diminished breath sounds over the bases. HEART: S1, S2, regular. EXTREMITIES: 1+ pitting edema. LABORATORY DATA: Hemoglobin and hematocrit are 8.1 and 27, white count 15, platelet count 279,000. Today's SMA-7: Sodium 143, potassium 4.3, chloride 111, CO2 of 24, glucose of 67, BUN 78, and creatinine 3.5. Today's EKG revealed atrial fibrillation at a rate of 61 and right bundle-branch block. That EKG was done around 8:00 a.m.; however, current monitor tracing reveals sinus rhythm with Mobitz 1 second-degree AV block. ASSESSMENT: 1. Paroxysmal atrial fibrillation. 2. Advanced renal insufficiency. 3. Urosepsis with Escherichia colitis. 4. Borderline troponin elevation. 5. Hypertension. RECOMMENDATIONS: Case was discussed with Dr. Hazel, the computer information science professor. The patient is not a candidate for initiating hemodialysis in the near future, and he will be followed as an outpatient. Continue current albuterol inhaler, continue aspirin 81 mg once a day, Eliquis 2.5 mg once a day, Imdur 30 mg once a day, Lasix 40 mg p.o. once a day, and prednisone 5 mg daily. The patient once discharged, will be followed by his primary turnstile attendant, Dr. Ibarra. Any cardiac catheterization will definitely necessitate hemodialysis, either before or soon after the procedure. Dhaval Gibson MD
[2018-11-19 17:54] VITALS: RESP 18
--- NOTE | 2018-11-19 18:35 | CARD ---
APPROVED REPORT Date of service: 11/19/2018 EKG Measurement Heart [id number] <Conclusion> Atrial fibrillation Left axis deviation Right bundle branch block Abnormal ECG
--- NOTE | 2018-11-19 23:19 | PN ---
DATE: 11/19/2018 SUBJECTIVE: The patient is in bed in no acute distress, nontoxic, was seen earlier today in room 264, bed 1. PHYSICAL EXAMINATION: VITAL SIGNS: Temperature is 97, blood pressure is 140/60, respiratory rate 18. HEENT: Unremarkable. NECK: Supple. LUNGS: Decreased breath sounds. HEART: Normal S1, S2. ABDOMEN: Soft, nontender. LABORATORY DATA: Reveals the patient's white count is up to 15,000, hemoglobin of 8. Chemistry reveals the BUN of 78, creatinine of 3.5. Urinalysis is noted. The LFTs are reviewed. HIV is negative. Microbiology reveals the repeat cultures are no growth and on the initial culture, blood cultures of E. coli sensitive to cefazolin, cefepime and ceftriaxone and resistant to ampicillin, Bactrim and Cipro. ASSESSMENT AND PLAN: This is a 77-year-old male, was seen earlier today in room 264, admitted with sepsis with Escherichia coli bacteremia, Escherichia coli urinary tract infection and prostatitis, an elevated prostate-specific antigen with acute diastolic congestive heart failure, ejection fraction of 70% on top of chronic congestive heart failure, will need three weeks of antibiotics, may switch to by mouth antibiotics, by mouth Vantin to complete three weeks, able to use other cephalosporins as discussed with , should follow with Urology. Uriah Mayer MD
[2018-11-20] MEDS: Albuterol-Ipratrop 3 mg / 0.5 (3 ml) UD IH SCH ×3 (01:56→13:39)
[2018-11-20 06:02] VITALS: TEMP 97.8; O2SAT 99
[2018-11-20] MEDS: Pantoprazole 40 mg EC Tab PO SCH (08:30)
--- NOTE | 2018-11-20 08:59 | CP.PCM.DIS ---
<Moises Caal - Last Filed: 11/20/18 14:53> Provider - Provider Date of Admission: 11/11/18 20:48 Attending physician: Vikki Nunes MD Primary care physician: Stephie Ibarra MD Consults: 11/11/18 22:06 Consult [Physician Consult] Routine Comment: sob, nstemi Consulting Provider: Dhaval Gibson Consulting Physician: Dhaval Gibson Reason for Consult: sob, nstemi 11/12/18 05:46 Consult [Physician Consult] Routine Comment: pna Consulting Provider: Jose Hugo Consulting Physician: Jose Hugo Reason for Consult: pna 11/12/18 07:37 Consult [Physician Consult] Routine Comment: Consulting Provider: Rivas Hazel Consulting Physician: Rivas Hazel Reason for Consult: SANDRA on CKD 11/17/18 09:50 Case Management Referral Routine Comment: Physician Instructions: Reason For Exam: Reason for Referral: Discharge Planning Time Spent in preparation of Discharge (in minutes): 45 Diagnosis - Discharge Diagnosis (1) CHF (congestive heart failure) Status: Chronic (2) Gram negative septicemia Status: Resolved Priority: High (3) Hemoglobin low Status: Chronic (4) Leukocytosis Status: Acute Priority: High (5) Sepsis Status: Resolved (6) UTI (lower urinary tract infection) Status: Resolved (7) Non-STEMI (non-ST elevated myocardial infarction) Status: Resolved (8) COPD exacerbation Status: Chronic Hospital Course - Lab Results Lab Results: Micro Results 11/14/18 13:00 Blood Blood Culture - Final NO GROWTH AFTER 5 DAYS 11/14/18 13:00 Blood Gram Stain - Final TEST NOT PERFORMED 11/14/18 13:43 Blood Blood Culture - Final NO GROWTH AFTER 5 DAYS 11/14/18 13:43 Blood Gram Stain - Final TEST NOT PERFORMED 11/11/18 19:30 Blood-Venous Blood Culture - Final Escherichia Coli 11/11/18 19:30 Blood-Venous Gram Stain - Final 11/11/18 22:15 Urine,Clean Catch Urine Culture - Final Escherichia Coli 11/11/18 19:09 Blood-Venous Blood Culture - Final Escherichia Coli 11/11/18 19:09 Blood-Venous Gram Stain - Final 11/12/18 01:00 Nose MRSA Culture (Admit) - Final Most Recent Lab Values WBC 15.0 10^3/uL (4.5-11.0) H 11/19/18 10:15 RBC 3.07 10^6/uL (3.5-6.1) L 11/19/18 10:15 Hgb 8.1 g/dL (14.0-18.0) L 11/19/18 10:15 Hct 27.0 % (42.0-52.0) L 11/19/18 10:15 MCV 87.9 fl (80.0-105.0) 11/19/18 10:15 MCH 26.4 pg (25.0-35.0) 11/19/18 10:15 MCHC 30.0 g/dl (31.0-37.0) L 11/19/18 10:15 RDW 15.4 % (11.5-14.5) H 11/19/18 10:15 Plt Count 279 10^3/uL (120.0-450.0) 11/19/18 10:15 MPV 9.5 fl (7.0-11.0) 11/19/18 10:15 Neut % (Auto) 72.2 % (50.0-68.0) H 11/19/18 06:20 Lymph % (Auto) 19.5 % (22.0-35.0) L 11/19/18 06:20 [place] % (Auto) 6.9 % (1.0-6.0) H 11/19/18 06:20 Eos % (Auto) 1.3 % (1.5-5.0) L 11/19/18 06:20 Baso % (Auto) 0.1 % (0.0-3.0) 11/19/18 06:20 Lymph # (Auto) 2.8 (1.2-3.4) 11/19/18 06:20 [place] # (Auto) 1.0 (0.1-0.6) H 11/19/18 06:20 Eos # (Auto) 0.2 (0.0-0.7) 11/19/18 06:20 Baso # (Auto) 0.02 K/mm3 (0.0-2.0) 11/19/18 06:20 Absolute Neuts (auto) 10.26 (1.4-6.5) H 11/19/18 06:20 Neutrophils % (Manual) 85 % (50.0-70.0) H 11/11/18 19:26 Band Neutrophils % 4 % (0-2) H 11/11/18 19:26 Lymphocytes % (Manual) 8 % (22.0-35.0) L 11/11/18 19:26 Monocytes % (Manual) 3 % (1.0-6.0) 11/11/18 19:26 Toxic Granulation 2+ 11/11/18 19:26 Platelet Evaluation Normal (NORMAL) 11/11/18 19:26 Hypochromasia 2+ 11/11/18 19:26 Target Cells Slight 11/11/18 19: Rouleaux 2+ 11/11/18 19:26 PT 13.0 SECONDS (9.4-12.5) H 11/11/18 19:26 INR 1.17 11/11/18 19: APTT 61.1 Seconds (26.9-38.3) H 11/17/18 05:05 pCO2 44 mm/Hg (35-45) 11/13/18 05:00 pO2 94.0 mm/Hg (80-100) 11/13/18 05:00 HCO3 20.2 mmol/L (21-28) L 11/13/18 05:00 ABG pH 7.27 (7.35-7.45) L 11/13/18 05:00 ABG Total CO2 21.6 mmol.L (22-28) L 11/13/18 05:00 ABG O2 Saturation 99.7 % (95-98) H 11/13/18 05:00 ABG O2 Content 11.7 ML/dl (15-23) L 11/11/18 21:20 ABG Base Excess -6.6 mmol/L (-2.0-3.0) L 11/13/18 05:00 ABG Hemoglobin 8.7 g/dL (11.7-17.4) L 11/11/18 21:20 ABG Carboxyhemoglobin 2.2 % (0.5-1.5) H 11/11/18 21:20 POC ABG HHb (Measured) 1.5 % (0-5) 11/11/18 21:20 ABG Methemoglobin 1.4 % (0.0-3.0) 11/11/18 21:20 ABG O2 Capacity 11.9 mL/dl (16-24) L 11/11/18 21:20 ABG Potassium 3.8 mmol/L (3.6-5.2) 11/13/18 05:00 VBG pH 7.21 (7.32-7.43) L 11/11/18 22:25 VBG pCO2 55.0 (40-60) 11/11/18 22:25 VBG HCO3 22.0 mmol/l (21-28) 11/11/18 22:25 VBG Total CO2 23.7 mmol.L (22-28) 11/11/18 22:25 VBG O2 Sat (Calc) 93.4 % (40-65) H 11/11/18 22:25 VBG Base Excess -6.4 mmol/L (0.0-2.0) L 11/11/18 22:25 VBG Potassium 4.0 mmol/L (3.6-5.2) 11/11/18 22:25 Hgb O2 Saturation 94.9 % (95.0-98.0) L 11/11/18 21:20 Sodium 143.0 mmol/L (132-148) 11/13/18 05:00 Chloride 107.0 mmol/L (98-107) 11/13/18 05:00 Glucose 140 mg/dl (75-110) H 11/13/18 05:00 Lactate 1.1 mmol/L (0.7-2.1) 11/13/18 05:00 FiO2 28.0 % 11/13/18 05:00 Crit Value Called To Dr medina 11/11/18 19:20 Crit Value Called By Rs 11/11/18 19:20 Blood Gas Notified Time 19311/11/18 19:20 Sodium 142 mmol/L (132-148) 11/19/18 06:20 Potassium 4.3 mmol/L (3.6-5.0) 11/19/18 06:20 Chloride 111 mmol/L (98-107) H 11/19/18 06:20 Carbon Dioxide 24 mmol/L (21-33) 11/19/18 06:20 Anion Gap 12 (10-20) 11/19/18 06:20 BUN 78 mg/dL (7-21) H 11/19/18 06:20 Creatinine 3.5 mg/dl (0.8-1.5) H 11/19/18 06:20 Est GFR ( Amer) 21 11/19/18 06:20 Est GFR (Non-Af Amer) 17 11/19/18 06:20 POC Glucose (mg/dL) 54 mg/dL (65-110) L 11/17/18 07:40 Random Glucose 67 mg/dL (70-110) L 11/19/18 06:20 Calcium 8.9 mg/dL (8.4-10.5) 11/19/18 06:20 Phosphorus 5.6 mg/dL (2.5-4.5) H 11/16/18 05:20 Magnesium 2.1 mg/dL (1.7-2.2) 11/17/18 05:05 Iron 30 ug/dL (45-180) L 11/13/18 05:30 TIBC 197 ug/dL (261-462) L 11/13/18 05:30 % Saturation 15 % (20-55) L 11/13/18 05:30 Ferritin 691.0 ng/mL 11/13/18 05:30 Total Bilirubin 0.2 mg/dL (0.2-1.3) 11/19/18 06:20 AST 38 U/L (17-59) 11/19/18 06:20 ALT 27 U/L (7-56) 11/19/18 06:20 Alkaline Phosphatase 106 U/L (38-126) 11/19/18 06:20 Troponin I 0.36 ng/mL H* 11/12/18 13:30 NT-Pro-B Natriuret Pep 2330 pg/mL (0-450) H 11/11/18 19:26 Total Protein 6.5 g/dL (5.8-8.3) 11/19/18 06:20 Albumin 3.5 g/dL (3.0-4.8) 11/19/18 06:20 Globulin 3.1 gm/dL 11/19/18 06:20 Albumin/Globulin Ratio 1.1 (1.1-1.8) 11/19/18 06:20 Prostate Specific Ag 66.5 ng/mL (0-4.0) H 11/12/18 16:30 25-OH Vitamin D Total 52.3 NG/ML (30.0-100.0) 11/13/18 05:30 Procalcitonin 127.70 NG/ML (0.19-0.49) H 11/12/18 16:30 Free T4 1.01 ng/dL (0.78-2.19) 11/18/18 07:20 TSH 3rd Generation 1.32 mIU/mL (0.46-4.68) 11/18/18 07:20 PTH Intact Whole Molec 226 pg/mL (14-64) H 11/13/18 05:30 Arterial Blood Potassium 3.8 mmol/L (3.6-5.2) 11/13/18 05:00 Venous Blood Potassium 4.0 mmol/L (3.6-5.2) 11/11/18 22:25 Urine Color Yellow (YELLOW) 11/12/18 10:16 Urine Appearance Clear (CLEAR) 11/12/18 10:16 Urine pH 5.5 (4.7-8.0) 11/12/18 10:16 Ur Specific [place] 1.010 (1.005-1.035) 11/12/18 10:16 Urine Protein Trace mg/dL (<30 mg/dL) H 11/12/18 10:16 Urine Glucose (UA) Negative mg/dL (NEGATIVE) 11/12/18 10:16 Urine Ketones Negative mg/dL (NEGATIVE) 11/12/18 10:16 Urine Blood Moderate (NEGATIVE) H 11/12/18 10:16 Urine Nitrate Negative (NEGATIVE) 11/12/18 10:16 Urine Bilirubin Negative (NEGATIVE) 11/12/18 10:16 Urine Urobilinogen 0.2 E.U./dL (<1 E.U./dL) 11/12/18 10:16 Ur Leukocyte Esterase Moderate Usha/uL (NEGATIVE) H 11/12/18 10:16 Urine RBC 20 - 25 /hpf (0-2) H 11/12/18 10:16 Urine WBC 25 - 30 /hpf (0-6) H 11/12/18 10:16 Ur Epithelial Cells 0 - 2 /hpf (0-5) 11/12/18 10:16 Amorphous Sediment Few /hpf (NONE) 11/12/18 10:16 Urine Bacteria Many /hpf (NONE) 11/12/18 10:16 Coarse Granular Casts Trace /hpf (NONE) 11/12/18 10:16 Urine Other Fiber /hpf 11/12/18 10:16 HIV 1&2 Ag/Ab, 4th Gen Nonreactive (Nonreactive) 11/12/18 16:30 - Hospital Course Hospital Course: Patient is a 77 M with PMHx of CHF, hypertension and hyperlipidemia, COPD, asthma, chronic kidney disease, and PE, who presents with shortness of breath since this morning, symptoms got progressively worse throughout the day. Patient was admitted to the ICU for respiratory distress, NSTEMI, SANDRA, and sepsis. In the course of his hospital stay, extremity ultrasound showed no DVT in LE. EKG showed atrial fibrillation @ 83 bpm. CXR showed no active disease. Troponins were positive. Blood and urine culture grew E coli. ID, Dr. Mayer was consulted. He was initially treated with Meropenem and then later, Ceftriaxone for his sepsis 2/2 to UTI or prostatitis. Cardiology, Dr. Sam was consulted. He was on a heparin drip for his NSTEMI. He was treated with duonebs, prednisone, and lasix for his CHF and COPD exacerbation. Patient was later downgraded to telemetry status. Heparin drip was discontinued and patient was put on aspirin, plavix, eliquis, and lipitor. Nephrology, Dr. Hazel consulted for management and treatment for his SANDRA and CKD. Patient was treated with Feosol, Aranesp, Calcitriol, Renagel, MVI, and sodium bicarbonate. His hypertension was managed with hydralazine, imdur, and lasix. PT evaluated the patient and initially recommended patient to go to [facility]. However, upon reevaluation patient was refusing to go to [facility] and to work with PT so he was recommended home with services. Upon discharge, patient was instructed to start taking aspirin, plavix, eliquis, lipitor, omnicef for 3 weeks, imdur, hydralazine, and prednisone for 3 days. He was instructed to follow up with his PMD, Dr. Hazel, and mark up designer. He was instructed to continue to work with PT. He was also instructed to return to the emergency room for worsening or newly concerning symptoms. Discharge Exam - Additional Findings Additional findings: - Constitutional Appears: Well, Non-toxic, No Acute Distress - Head Exam Head Exam: ATRAUMATIC, NORMAL INSPECTION, NORMOCEPHALIC - Eye Exam Eye Exam: EOMI, PERRL - ENT Exam ENT Exam: Mucous Membranes Moist - Neck Exam Neck Exam: Full ROM - Respiratory Exam Respiratory Exam: Clear to Ausculation Bilateral, NORMAL BREATHING PATTERN - Cardiovascular Exam Cardiovascular Exam: REGULAR RHYTHM, RRR, S1, S2 - GI/Abdominal Exam GI & Abdominal Exam: Soft, Normal Bowel Sounds. absent: Tenderness - Extremities Exam Extremities Exam: Full ROM. +1 pitting edema noted on bilateral legs. No tenderness. - Neurological Exam Neurological Exam: Alert, Awake, CN II-XII Intact, Oriented x3 - Skin Skin Exam: Dry, Intact Discharge Plan - Discharge Medications Prescriptions: Apixaban [Eliquis] 2.5 mg PO BID #60 tab Aspirin [Ecotrin] 81 mg PO DAILY #30 tabec Atorvastatin [Lipitor] 40 mg PO HS #30 tab Cefdinir [Omnicef] 300 mg PO BID #42 cap Docusate [Colace] 100 mg PO DAILY #30 cap hydrALAZINE [Apresoline] 50 mg PO TID #90 tab Isosorbide Mononitrate ER [Imdur ER] 30 mg PO DAILY #30 tab predniSONE [predniSONE Tab] 5 mg PO DAILY #3 tab - Follow Up Plan Condition: GUARDED Disposition: HOME/ ROUTINE Instructions: Sepsis, Adult (DC), Heart Failure (DC) Additional Instructions: 1. Resume all home medication as prescribed by your doctor. 2. Start taking Eliquis 2.5 twice daily, Aspirin 81mg once daily, Lipitor 40mg once daily at bedtime, Hydralazine 50mg three times daily, Imdur 40mg once daily, Colace 100mg daily. 3. Continue to take steroid, Prednisone 5mg once daily for 3 more days 4. Continue taking antibiotic, Omnicef 300mg twice daily for 21 more days. Your last day of antibiotics will be on 12/10/2018. Please complete full course of antibiotic prescribed to you. 5. Please follow up with your primary care doctor in 1 week , Nephrology (Dr. Hazel) in 1 week, and your mark up designer in 1 week. Please have your doctor repeat a Basic Metabolic Panel and Complete Blood Count (Lab test) in 1 week. Please follow up with a urologist to rule out infections/prostatitis. 6. Continue your Albuterol inhaler as needed. 7. You have been given a walker, ambulate carefully and continue to work with Physical Therapy at home as you refused to go to Sub-Acute Rehab. 8. Return to the emergency room for worsening or newly concerning symptoms. Referrals: Rivas Hazel MD [Staff Provider] - Stephie Ibarra MD [Primary Care Provider] - <Vikki Nunes - Last Filed: 11/20/18 16:40> Provider - Provider Date of Admission: 11/11/18 20:48 Attending physician: Vikki Nunes MD Primary care physician: Stephie Ibarra MD Consults: 11/11/18 22:06 Consult [Physician Consult] Routine Comment: sob, nstemi Consulting Provider: Dhaval Gibson Consulting Physician: Dhaval Gibson Reason for Consult: sob, nstemi 11/12/18 05:46 Consult [Physician Consult] Routine Comment: pna Consulting Provider: Jose Hugo Consulting Physician: Jose Hugo Reason for Consult: pna 11/12/18 07:37 Consult [Physician Consult] Routine Comment: Consulting Provider: Rivas Hazel Consulting Physician: Rivas Hazel Reason for Consult: SANDRA on CKD 11/17/18 09:50 Case Management Referral Routine Comment: Physician Instructions: Reason For Exam: Reason for Referral: Discharge Planning Hospital Course - Lab Results Lab Results: Micro Results 11/14/18 13:00 Blood Blood Culture - Final NO GROWTH AFTER 5 DAYS 11/14/18 13:00 Blood Gram Stain - Final TEST NOT PERFORMED 11/14/18 13:43 Blood Blood Culture - Final NO GROWTH AFTER 5 DAYS 11/14/18 13:43 Blood Gram Stain - Final TEST NOT PERFORMED 11/11/18 19:30 Blood-Venous Blood Culture - Final Escherichia Coli 11/11/18 19:30 Blood-Venous Gram Stain - Final 11/11/18 22:15 Urine,Clean Catch Urine Culture - Final Escherichia Coli 11/11/18 19:09 Blood-Venous Blood Culture - Final Escherichia Coli 11/11/18 19:09 Blood-Venous Gram Stain - Final 11/12/18 01:00 Nose MRSA Culture (Admit) - Final Most Recent Lab Values WBC 15.0 10^3/uL (4.5-11.0) H 11/19/18 10:15 RBC 3.07 10^6/uL (3.5-6.1) L 11/19/18 10:15 Hgb 8.1 g/dL (14.0-18.0) L 11/19/18 10:15 Hct 27.0 % (42.0-52.0) L 11/19/18 10:15 MCV 87.9 fl (80.0-105.0) 11/19/18 10:15 MCH 26.4 pg (25.0-35.0) 11/19/18 10:15 MCHC 30.0 g/dl (31.0-37.0) L 11/19/18 10:15 RDW 15.4 % (11.5-14.5) H 11/19/18 10:15 Plt Count 279 10^3/uL (120.0-450.0) 11/19/18 10:15 MPV 9.5 fl (7.0-11.0) 11/19/18 10:15 Neut % (Auto) 72.2 % (50.0-68.0) H 11/19/18 06:20 Lymph % (Auto) 19.5 % (22.0-35.0) L 11/19/18 06:20 [place] % (Auto) 6.9 % (1.0-6.0) H 11/19/18 06:20 Eos % (Auto) 1.3 % (1.5-5.0) L 11/19/18 06:20 Baso % (Auto) 0.1 % (0.0-3.0) 11/19/18 06:20 Lymph # (Auto) 2.8 (1.2-3.4) 11/19/18 06:20 [place] # (Auto) 1.0 (0.1-0.6) H 11/19/18 06:20 Eos # (Auto) 0.2 (0.0-0.7) 11/19/18 06:20 Baso # (Auto) 0.02 K/mm3 (0.0-2.0) 11/19/18 06:20 Absolute Neuts (auto) 10.26 (1.4-6.5) H 11/19/18 06:20 Neutrophils % (Manual) 85 % (50.0-70.0) H 11/11/18 19:26 Band Neutrophils % 4 % (0-2) H 11/11/18 19:26 Lymphocytes % (Manual) 8 % (22.0-35.0) L 11/11/18 19:26 Monocytes % (Manual) 3 % (1.0-6.0) 11/11/18 19:26 Toxic Granulation 2+ 11/11/18 19:26 Platelet Evaluation Normal (NORMAL) 11/11/18 19:26 Hypochromasia 2+ 11/11/18 19:26 Target Cells Slight 11/11/18 19:26 Rouleaux 2+ 11/11/18 19:26 PT 13.0 SECONDS (9.4-12.5) H 11/11/18 19:26 INR 1.17 11/11/18 19:26 APTT 61.1 Seconds (26.9-38.3) H 11/17/18 05:05 pCO2 44 mm/Hg (35-45) 11/13/18 05:00 pO2 94.0 mm/Hg (80-100) 11/13/18 05:00 HCO3 20.2 mmol/L (21-28) L 11/13/18 05:00 ABG pH 7.27 (7.35-7.45) L 11/13/18 05:00 ABG Total CO2 21.6 mmol.L (22-28) L 11/13/18 05:00 ABG O2 Saturation 99.7 % (95-98) H 11/13/18 05:00 ABG O2 Content 11.7 ML/dl (15-23) L 11/11/18 21:20 ABG Base Excess -6.6 mmol/L (-2.0-3.0) L 11/13/18 05:00 ABG Hemoglobin 8.7 g/dL (11.7-17.4) L 11/11/18 21:20 ABG Carboxyhemoglobin 2.2 % (0.5-1.5) H 11/11/18 21:20 POC ABG HHb (Measured) 1.5 % (0-5) 11/11/18 21:20 ABG Methemoglobin 1.4 % (0.0-3.0) 11/11/18 21:20 ABG O2 Capacity 11.9 mL/dl (16-24) L 11/11/18 21:20 ABG Potassium 3.8 mmol/L (3.6-5.2) 11/13/18 05:00 VBG pH 7.21 (7.32-7.43) L 11/11/18 22:25 VBG pCO2 55.0 (40-60) 11/11/18 22:25 VBG HCO3 22.0 mmol/l (21-28) 11/11/18 22:25 VBG Total CO2 23.7 mmol.L (22-28) 11/11/18 22:25 VBG O2 Sat (Calc) 93.4 % (40-65) H 11/11/18 22:25 VBG Base Excess -6.4 mmol/L (0.0-2.0) L 11/11/18 22:25 VBG Potassium 4.0 mmol/L (3.6-5.2) 11/11/18 22:25 Hgb O2 Saturation 94.9 % (95.0-98.0) L 11/11/18 21:20 Sodium 143.0 mmol/L (132-148) 11/13/18 05:00 Chloride 107.0 mmol/L (98-107) 11/13/18 05:00 Glucose 140 mg/dl (75-110) H 11/13/18 05:00 Lactate 1.1 mmol/L (0.7-2.1) 11/13/18 05:00 FiO2 28.0 % 11/13/18 05:00 Crit Value Called To Dr medina 11/11/18 19:20 Crit Value Called By Rs 11/11/18 19:20 Blood Gas Notified Time 19311/11/18 19:20 Sodium 142 mmol/L (132-148) 11/19/18 06:20 Potassium 4.3 mmol/L (3.6-5.0) 11/19/18 06:20 Chloride 111 mmol/L (98-107) H 11/19/18 06:20 Carbon Dioxide 24 mmol/L (21-33) 11/19/18 06:20 Anion Gap 12 (10-20) 11/19/18 06:20 BUN 78 mg/dL (7-21) H 11/19/18 06:20 Creatinine 3.5 mg/dl (0.8-1.5) H 11/19/18 06:20 Est GFR ( Amer) 21 11/19/18 06:20 Est GFR (Non-Af Amer) 17 11/19/18 06:20 POC Glucose (mg/dL) 54 mg/dL (65-110) L 11/17/18 07:40 Random Glucose 67 mg/dL (70-110) L 11/19/18 06:20 Calcium 8.9 mg/dL (8.4-10.5) 11/19/18 06:20 Phosphorus 5.6 mg/dL (2.5-4.5) H 11/16/18 05:20 Magnesium 2.1 mg/dL (1.7-2.2) 11/17/18 05:05 Iron 30 ug/dL (45-180) L 11/13/18 05:30 TIBC 197 ug/dL (261-462) L 11/13/18 05:30 % Saturation 15 % (20-55) L 11/13/18 05:30 Ferritin 691.0 ng/mL 11/13/18 05:30 Total Bilirubin 0.2 mg/dL (0.2-1.3) 11/19/18 06:20 AST 38 U/L (17-59) 11/19/18 06:20 ALT 27 U/L (7-56) 11/19/18 06:20 Alkaline Phosphatase 106 U/L (38-126) 11/19/18 06:20 Troponin I 0.36 ng/mL H* 11/12/18 13:30 NT-Pro-B Natriuret Pep 2330 pg/mL (0-450) H 11/11/18 19:26 Total Protein 6.5 g/dL (5.8-8.3) 11/19/18 06:20 Albumin 3.5 g/dL (3.0-4.8) 11/19/18 06:20 Globulin 3.1 gm/dL 11/19/18 06:20 Albumin/Globulin Ratio 1.1 (1.1-1.8) 11/19/18 06:20 Prostate Specific Ag 66.5 ng/mL (0-4.0) H 11/12/18 16:30 25-OH Vitamin D Total 52.3 NG/ML (30.0-100.0) 11/13/18 05:30 Procalcitonin 127.70 NG/ML (0.19-0.49) H 11/12/18 16:30 Free T4 1.01 ng/dL (0.78-2.19) 11/18/18 07:20 TSH 3rd Generation 1.32 mIU/mL (0.46-4.68) 11/18/18 07:20 PTH Intact Whole Molec 226 pg/mL (14-64) H 11/13/18 05:30 Arterial Blood Potassium 3.8 mmol/L (3.6-5.2) 11/13/18 05:00 Venous Blood Potassium 4.0 mmol/L (3.6-5.2) 11/11/18 22:25 Urine Color Yellow (YELLOW) 11/12/18 10:16 Urine Appearance Clear (CLEAR) 11/12/18 10:16 Urine pH 5.5 (4.7-8.0) 11/12/18 10:16 Ur Specific [place] 1.010 (1.005-1.035) 11/12/18 10:16 Urine Protein Trace mg/dL (<30 mg/dL) H 11/12/18 10:16 Urine Glucose (UA) Negative mg/dL (NEGATIVE) 11/12/18 10:16 Urine Ketones Negative mg/dL (NEGATIVE) 11/12/18 10:16 Urine Blood Moderate (NEGATIVE) H 11/12/18 10:16 Urine Nitrate Negative (NEGATIVE) 11/12/18 10:16 Urine Bilirubin Negative (NEGATIVE) 11/12/18 10:16 Urine Urobilinogen 0.2 E.U./dL (<1 E.U./dL) 11/12/18 10:16 Ur Leukocyte Esterase Moderate Usha/uL (NEGATIVE) H 11/12/18 10:16 Urine RBC 20 - 25 /hpf (0-2) H 11/12/18 10:16 Urine WBC 25 - 30 /hpf (0-6) H 11/12/18 10:16 Ur Epithelial Cells 0 - 2 /hpf (0-5) 11/12/18 10:16 Amorphous Sediment Few /hpf (NONE) 11/12/18 10:16 Urine Bacteria Many /hpf (NONE) 11/12/18 10:16 Coarse Granular Casts Trace /hpf (NONE) 11/12/18 10:16 Urine Other Fiber /hpf 11/12/18 10:16 HIV 1&2 Ag/Ab, 4th Gen Nonreactive (Nonreactive) 11/12/18 16:30 Attending/Attestation - Attestation I have personally seen and examined this patient.: Yes I have fully participated in the care of the patient.: Yes I have reviewed all pertinent clinical information, including history, physical exam and plan: Yes Notes (Text): 11/20/18 16:36 Patient was seen and examined with senior medical writer. 77 year old male with PMH of COPD, CHF with systolic dysfunction, CKD base line creatinin around 2.8, hypertension and esophageal ulcers (04/2018) was admitted with acute respiratory distress, sepsis secondary to E Coli bacteremia/UTI, acute on chronic renal failure and possible NSTEMI. Sepsis is improved.Patient is afebrile.WBC count is coming down, patient will be discharged home on oral antibiotics Omnicef 300mg twice daily for 21 more days as per ID.He follows up with urology as outpatient. Acute on chronic renal failure, creatinin is improving.Creatinin is improved to 3.5 , could be new base line.we need repeat BMP as out patient with his Musculoskeletal Physician. AF, Rate is controlled, on anticoagulation with Apixiban as Jassi Vasc score is high.The risk and benefit was discussed in detail with the patient. COPD is improved on base line hypoxia. Possible NSEMI, Patient is pain free, on ASA/lipitor/Echo showed normal systolic dysfunction.Coreg is discontinued due to bradycardia. Physical Deconditiong. [facility] is recommended.Patient has refused to go [facility].This was discussed in detail with him. He is high risk for fall.As he is refusing, he will be be discharged home with home services Prognosis is guarded. Management plan was discussed in detail with patient. Education was provided 11/20/18 16:39
[2018-11-20] MEDS: Multivitamin Vitamin B Complex (Nephro-Vite) Tab PO SCH (09:11)
[2018-11-20] MEDS: Omega-3-Acid Ethyl Esters 1 GM Cap PO SCH (09:11)
[2018-11-20] MEDS: cefTRIAXone 1 gm 1 GM/100 ML BAG IVPB SCH (09:13)
[2018-11-20] MEDS: Mupirocin 2% Ointment 15 GM TUBE TOP SCH (09:13)
[2018-11-20 09:15] VITALS: BP 158/82
--- NOTE | 2018-11-20 09:16 | PN ---
DATE: 11/20/2018 SUBJECTIVE: The patient is in bed, in no acute distress, nontoxic. No fevers and chills. PHYSICAL EXAMINATION: VITAL SIGNS: Temperature is 97, blood pressure is 120/70, respiratory rate of 18. HEENT: Unremarkable. NECK: Supple. LUNGS: Have decreased breath sounds. HERAT: Normal S1, S2. ABDOMEN: Soft, nontender. LABORATORY DATA: White count of 15,000, hemoglobin of 8, BUN of 78, creatinine of 3.5 and HIV is negative. Blood cultures are no growth. Urine cultures are no growth. Repeat cultures. ASSESSMENT AND PLAN: This is a 77-year-old male, was seen earlier, who was admitted with sepsis with Escherichia coli bacteremia, Escherichia coli urinary tract infection, elevated prostate-specific antigen with prostatitis and acute diastolic congestive heart failure with ejection fraction of 70% on top of chronic congestive heart failure. Will need 3 weeks of antibiotics, may switch to p.o. antibiotics, sensitivity is noted. Should have Urology followup. Uriah Mayer MD
[2018-11-20 11:52] VITALS: PULSE 57
--- NOTE | 2018-11-20 14:53 | CP.PCM.PN ---
Subjective - Date & Time of Evaluation Date of Evaluation: 11/20/18 Time of Evaluation: 08:00 - Subjective Subjective: Nephrology Consultation Note: Assessment: stable GNR sepsis non-oliguric SANDRA likely due to pre-renal state (as evident by concentrated urine and hemoconcentration), ATN due to sepsis, renal hypoperfusion as also with lactic acidosis, low BP sepsis with likely COPD exacerbation and less likely chf exacerbation CKD stage 4 with 443 mg proteinuria likely Due to HTN HTN kidney disease (I12.9) Obesity Anemia of chronic disease hx of COPD, CHF, ex smoker, PE esophageal ulceration with diverticuli on EGD 05/13/18 Plan cr stable volume stable no need for renal replacement therapy at present Hypertension control with meds as ordered. pt not on RAAS brittni, will defer it due to advanced CKD. added low dose coreg 3.125 bid but HR in 40s hence will stop beta-brittni supplement Iron, MVI and weekly dose of aransep. PRBC as needed continue diuretics COPD management as per primary team/pulmonary continue with calcitriol, phos binders renagel 800 mg tid w/meals for possible discharge today, please follow up in 1-2 weeks in office Physical Examination: General Appearance: Comfortable, in no acute respiratory distress, co-operative. obese Vitals reviewed and noted as below Head; Atraumatic, normocephalic ENT: no ulcers no thrush. Tongue is midline. Oropharynx: no rash or ulcers. EYES: b/l PERRLA Neck; supple no lymphadenopathy, no thyromegaly or bruit Lungs: Normal respiratory rate/effort. Breath sounds b/l with equal clearer Heart: Normal rate. s1s2 normal. No rub or gallop. Extremities: 1+ pedal edema. No varicose veins. chronic venous stasis changes in leg noted Neurological: Patient is awake alert and follow commands no focal deficit. improved asterixis Skin: dry and warm. Normal turgor. No rash. Abdomen: Abdomen is soft . Bowel sounds +. There is no abdominal tenderness, no guarding/rigidity or organomegaly. Psych: normal insight. normal affect/mood MSK: no specific joint tenderness or swelling. Objective - Vital Signs/Intake and Output Vital Signs (last 24 hours): Temp Pulse Resp BP Pulse Ox 97.8 F 57 L 18 158/82 H 99 11/20/18 06:00 11/20/18 10:00 11/20/18 10:00 11/20/18 09:12 11/20/18 06:00 Intake and Output: 11/20/18 11/20/18 06:59 18:59 Intake Total 2280 Output Total 1800 Balance 480 - Labs Labs: 11/19/18 10:15 11/19/18 06:20 PT 13.0 SECONDS (9.4-12.5) H 11/11/18 19:26 INR 1.17 11/11/18 19:26 APTT 61.1 Seconds (26.9-38.3) H 11/17/18 05:05
--- NOTE | 2018-11-20 20:53 | PN ---
DATE: 11/20/2018 SUBJECTIVE: The patient is in Mobitz 1 second-degree AV block. His heart rate is in the upper 40s and mid 50s range. He denies any dizziness. He did ambulate today. The patient's daughter is in the room ready to take him home. PHYSICAL EXAMINATION: VITAL SIGNS: Blood pressure 158/82, heart rate 64, temperature 97.8, respirations 18. HEENT: Normocephalic. CHEST: Clear. HEART: S1 and S2 regular. EXTREMITIES: 1+ pitting edema. ASSESSMENT: 1. Npe-KB-vnbkxvivi myocardial infarction. 2. Advanced renal insufficiency. 3. Coronary artery disease with positive Myoview stress test for lateral ischemia. 4. Paroxysmal atrial fibrillation. 5. Mobitz 1 second-degree atrioventricular block. RECOMMENDATIONS: Continue hydralazine 50 mg t.i.d., aspirin 81 mg once a day, Eliquis 2.5 mg twice a day, Lasix 40 mg once a day, Lipitor 40 mg once a day, prednisone 5 mg daily. The daughter was informed that she has to follow up with his banking management consulting manager, Dr. Marr and health coach, Dr. Ibarra early next week. They are both located in the same medical office. If any reported dizziness or syncope, EMS has to be activated. The patient's daughter was informed that if slow heart rate gets worse or the patient complains of dizziness, then a pacemaker insertion will be needed. Dhaval Gibson MD
== END 2018-11-20 13:48 | disposition home health service (06) | DRG 871 ==
LOC: ED 18:43 → ERH 20:48 → CCU 11-12 01:03 → 2RNO 11-17 14:05
PROVIDERS: ADMIT Hospitalist; ATTEND Internal Medicine
PROC: 3E0F7GC Introduction of Other Therapeutic Substance into Respiratory Tract, Via Natural or Artificial Opening (ICD-10-PCS; 2018-11-12)
PROC: 5A09357 Assistance with Respiratory Ventilation, Less than 24 Consecutive Hours, Continuous Positive Airway Pressure (ICD-10-PCS; principal; 2018-11-13)
DX: A41.51 Sepsis due to Escherichia coli [E. coli] (principal); I21.4 Non-ST elevation (NSTEMI) myocardial infarction; N17.0 Acute kidney failure with tubular necrosis; I50.33 Acute on chronic diastolic (congestive) heart failure; I13.0 Hypertensive heart and chronic kidney disease with heart failure and stage 1 through stage 4 chronic kidney disease, or unspecified chronic kidney disease; N18.4 Chronic kidney disease, stage 4 (severe); J44.1 Chronic obstructive pulmonary disease with (acute) exacerbation; E87.2 Acidosis; N39.0 Urinary tract infection, site not specified; R65.20 Severe sepsis without septic shock; I48.2 Chronic atrial fibrillation; D63.8 Anemia in other chronic diseases classified elsewhere; I27.20 Pulmonary hypertension, unspecified; I35.0 Nonrheumatic aortic (valve) stenosis; I25.10 Atherosclerotic heart disease of native coronary artery without angina pectoris; E78.5 Hyperlipidemia, unspecified; N41.9 Inflammatory disease of prostate, unspecified; I48.0 Paroxysmal atrial fibrillation; I44.1 Atrioventricular block, second degree; K59.00 Constipation, unspecified; E66.9 Obesity, unspecified; Z68.33 Body mass index [BMI] 33.0-33.9, adult; Z86.711 Personal history of pulmonary embolism; Z91.81 History of falling; Z87.891 Personal history of nicotine dependence